=== PATIENT | female | born 1975 | race Two or more races ===

== ENCOUNTER 2016-03-29 05:05 | Emergency (ER) | payer MEDICAID ==
[2016-03-29 05:16] VITALS: TEMP 98.1
--- NOTE | 2016-03-29 05:24 | CPEKG ---
Heart Rate: 104 RR Interval: 577 P-R Interval: 136 QRSD Interval: 78 QT Interval: 344 QTC Interval: 453 P [place]: 61 QRS [place]: -38 T Wave [place]: 39 EKG Severity - ABNORMAL ECG - EKG Impression: SINUS TACHYCARDIA EKG Impression: PROBABLE INFERIOR INFARCT, OLD Electronically Signed By: Alina Dias 31-Mar-2016 00:19:40
[2016-03-29] MEDS ORDERED: LORazepam 1 MG TAB ONE (05:55)
--- NOTE | 2016-03-29 06:03 | EDPHY ---
[id number] 05:26 HPI/ROS: HPI The patient presents with chest pain which is in her lower sternum and epigastrium and radiates toward her left side. The pain is achy in nature, is intermittent, worse after meals, and is associated with nausea and vomiting. This is been present for the last 1 week. She feels similar to when she has had bouts of pancreatitis. She denies any alcohol use. She also reports 1 week of diarrhea with several sick family members at home with similar symptoms. She has not had a fever. She goes to dialysis Friday for end-stage renal disease due to polycystic kidney syndrome. REVIEW OF SYSTEMS Constitutional: No fever, no chills. Eyes: No discharge. ENT: No sore throat. Cardiovascular: + chest pain, no palpitations. Respiratory: No cough, no shortness of breath. Gastrointestinal: See HPI Genitourinary: No hematuria. Musculoskeletal: No back pain. Skin: No rashes. Neurological: No headache. PMHx: Polycystic kidney disease and end-stage renal disease Soc Hx: Lives in [place], family in [place], denies any alcohol use PHYSICAL General Appearance: Alert, no distress Eyes: Pupils equal and round no pallor or injection ENT, Mouth: Mucous membranes moist Respiratory: There are no retractions, lungs are clear to auscultation Cardiovascular: Regular rate and rhythm Gastrointestinal: Abdomen is soft with tenderness in the epigastrium Neurological: A&O, moves all extremities Skin: Warm and dry, dialysis catheter and right chest wall Musculoskeletal: Neck is supple non tender Extremities: symmetrical, full range of motion Psychiatric: Patient is oriented X 3, there is no agitation Source: Patient Exam Limitations: No limitations - Personal History LMP (Females 10-55): 1-7 Days Ago Current Tetanus Diphtheria and Acellular Pertussis (TDAP): Yes Tetanus Vaccine Date: 12/2010 - Medical/Surgical History Hx Asthma: No Hx Chronic Respiratory Disease: No Hx Diabetes: No Hx Cardiac Disease: Yes Hx Renal Disease: Yes Hx Cirrhosis: No Hx Alcoholism: No Hx HIV/AIDS: No Hx Splenectomy or Spleen Trauma: No Other PMH: POLYCYSTIC KIDNEY DISEASE, renal failure, on dialysis - Social History Smoking Status: Never smoked Constitutional: Initial Vital Signs Temperature (C) 36.7 C 03/29/16 05:14 Heart Rate 97 03/29/16 05:14 Respiratory Rate 20 03/29/16 05:14 Blood Pressure 115/80 03/29/16 05:14 O2 Sat (%) 99 03/29/16 05:14 O2 Delivery Mode Nasal Cannula O2 (L/minute) 2 Allergies/Adverse Reactions: hydrochlorothiazide Allergy (Verified 03/29/16 05:13) NSAIDS (Non-Steroidal Anti-Inflamma [Nsaids] Allergy (Verified 03/29/16 05:13) Sulfa (Sulfonamide Antibiotics) Allergy (Verified 03/29/16 05:13) Home Medications: Medication Instructions Recorded Promethazine HCl [Phenergan] 25 mg PO BID PRN 06/23/15 Midodrine HCl 5 mg PO TID PRN 06/24/15 Nitroglycerin 03/29/16 Ondansetron Odt [Zofran Odt 4 mg 4 mg PO Q4 PRN #10 tab 03/29/16 (*)] PHOSLO 03/29/16 Medical Decision Making - Diagnostics EKG Interpretation: EKG: Complete interpretation has been separately recorded in the [email or web address] archive. Summary impression: Rate 104, leftward axis, T-wave flattening in V1 Imaging: Chest x-ray two view demonstrates no infiltrate, no pneumothorax, interpreted by me, radiology interpretation is pending. Procedures: Procedure: IV placement. Using ultrasound guidance, the skin area was prepped with chlorhexidine, an 18 gauge angiocath was placed into the right internal jugular without difficulty. Blood was drawn and the line was secured. Bedside right neck Ultrasound- performed and interpreted by me. Indication: IV placement Findings: Normal appearing right internal jugular vein, no clot present, no soft tissue swelling Impression: Normal right internal jugular ED Course/Re-evaluation: The patient was given Pepcid and morphine. This helped her symptoms significantly. Basic labs were checked and were remarkable for an elevated lipase, consistent with prior labs. She also had elevated BUN and creatinine, however this is not surprising given she has end-stage renal disease. She was given instructions for a clear liquid diet, I will prescribe her a course of Zofran. She will be discharged and has plans to go to dialysis later today. She was unable to provide a stool specimen. Differential Diagnosis: This is a 40-year-old female with polycystic kidney disease on dialysis who presents with what it is initially described as chest pain, however seems to be epigastric pain which radiates to her left side. This pain feels similar to her prior pancreatitis which initially was alcohol induced. She denies any alcohol use recently. Differential diagnosis includes pancreatitis, gastritis, less likely ACS. - Data Points Laboratory Results: Laboratory Results 03/29/16 06:05 03/29/16 06:05 03/29/16 06:05 WBC 7.79 10^3/uL (3.80-9.50) RBC 2.92 L 10^6/uL (4.18-5.33) Hgb 10.1 L g/dL (12.6-16.3) Hct 30.3 L % (38.0-47.0) MCV 103.8 H fL (81.5-99.8) MCH 34.6 H pg (27.9-34.1) MCHC 33.3 g/dL (32.4-36.7) RDW 11.3 L % (11.5-15.2) Plt Count 199 10^3/uL (150-400) MPV 8.9 fL (8.7-11.7) Neut % (Auto) 64.6 % (39.3-74.2) Lymph % (Auto) 25.5 % (15.0-45.0) [place] % (Auto) 6.8 % (4.5-13.0) Eos % (Auto) 2.2 % (0.6-7.6) Baso % (Auto) 0.5 % (0.3-1.7) Nucleat RBC Rel Count 0.0 % (0.0-0.2) Absolute Neuts (auto) 5.03 10^3/uL (1.70-6.50) Absolute Lymphs (auto) 1.99 10^3/uL (1.00-3.00) Absolute Monos (auto) 0.53 10^3/uL (0.30-0.80) Absolute Eos (auto) 0.17 10^3/uL (0.03-0.40) Absolute Basos (auto) 0.04 10^3/uL (0.02-0.10) Absolute Nucleated RBC 0.00 10^3/uL (0-0.01) Immature Gran % 0.4 % (0.0-1.1) Immature Gran # 0.03 10^3/uL (0.00-0.10) Sodium 142 mEq/L (134-144) Potassium 5.0 mEq/L (3.5-5.2) Chloride 101 mEq/L (97-110) Carbon Dioxide 26 mEq/l (22-31) Anion Gap 15 mEq/L (8-16) BUN 63 H mg/dL (7-23) Creatinine 9.6 H* mg/dL (0.6-1.0) Estimated GFR 4 Glucose 84 mg/dL (70-100) Calcium 8.6 mg/dL (8.5-10.4) Total Bilirubin 0.6 mg/dL (0.1-1.4) AST 15 IU/L (14-46) ALT 30 IU/L (9-52) Alkaline Phosphatase 70 IU/L (38-126) Troponin I < 0.012 ng/mL (0-0.034) Total Protein 6.8 g/dL (6.3-8.2) Albumin 3.7 g/dL (3.5-5.0) Lipase 538.0 H IU/L (23-300) Medications Given: Discontinued Medications Famotidine (Pepcid) 20 mg IVP EDNOW ONE Stop: 03/29/16 06:42 Last Admin: 03/29/16 06:57 Dose: 20 mg Lorazepam (Ativan) 1 mg PO EDNOW ONE Stop: 03/29/16 06:09 Last Admin: 03/29/16 06:00 Dose: 1 mg Morphine Sulfate (Morphine) 4 mg IVP EDNOW ONE Stop: 03/29/16 06:14 Last Admin: 03/29/16 06:24 Dose: 4 mg Ondansetron HCl (Zofran) 4 mg IVP EDNOW ONE Stop: 03/29/16 06:05 Last Admin: 03/29/16 06:14 Dose: 4 mg Departure - Departure Disposition: Home, Routine, Self-Care Clinical Impression: Pancreatitis, Polycystic kidney disease, adult type, Renal failure, Diarrhea Condition: Good Instructions: Pancreatitis (ED) Additional Instructions: Please return to the emergency room if your worse in any way. He should follow up with your regular doctor. Please maintain a liquid diet of clear liquids until your feeling better. Then you can try some bland foods. Referrals: IN STATE,. [Primary Care Provider] - As per Instructions Prescriptions: Ondansetron Odt [Zofran Odt 4 mg (*)] 4 mg PO Q4 PRN #10 tab PRN Reason: Nausea/Vomiting, Can'T Take Po
[2016-03-29] MEDS ORDERED: ONDANSETRON 4 MG/2 ML VIAL IVP ONE (06:04)
[2016-03-29] MEDS ORDERED: LORazepam 1 MG TAB PO ONE (06:08)
[2016-03-29 06:13] LABS: % IMMATURE GRANULYOCYTES 0.4 % (0.0-1.1); ABSOLUTE IMMATURE GRANULOCYTES 0.03 10^3/uL (0.00-0.10); ADD DIFF? NO; ADD MORPH? NO; ADD SCAN? NO; ATYPICAL LYMPHOCYTE FLAG 0 (0-99); FRAGMENT RBC FLAG 0 (0-99); HEMATOCRIT 30.3 % (38.0-47.0); HEMOGLOBIN 10.1 g/dL (12.6-16.3); LEFT SHIFT FLG 0 (0-99); LIPEMIA HEMOLYSIS FLAG 80 (0-99); MEAN CELL HEMOGLOBIN 34.6 pg (27.9-34.1); MEAN CELL HEMOGLOBIN CONCENTR. 33.3 g/dL (32.4-36.7); MEAN CELL VOLUME 103.8 fL (81.5-99.8); MEAN PLATELET VOLUME 8.9 fL (8.7-11.7); PLATELET CLUMPS FLAG 0 (0-99); PLATELET COUNT 199 10^3/uL (150-400); RED BLOOD CELL COUNT 2.92 10^6/uL (4.18-5.33); RED CELL DISTRIBUTION WIDTH 11.3 % (11.5-15.2)
[2016-03-29 06:31] LABS: ALANINE AMINOTRANSFERASE 30 IU/L (9-52); ALBUMIN 3.7 g/dL (3.5-5.0); ALKALINE PHOSPHATASE 70 IU/L (38-126); ANION GAP 15 mEq/L (8-16); ASPARTATE AMINOTRANSFERASE 15 IU/L (14-46); BILIRUBIN,TOTAL 0.6 mg/dL (0.1-1.4); CALCIUM 8.6 mg/dL (8.5-10.4); CARBON DIOXIDE 26 mEq/l (22-31); CHLORIDE 101 mEq/L (97-110); GLOMERULAR FILTRATION RATE 4; GLUCOSE 84 mg/dL (70-100); SODIUM 142 mEq/L (134-144); TOTAL PROTEIN 6.8 g/dL (6.3-8.2)
[2016-03-29 06:36] LABS: CREATININE 9.6 mg/dL (0.6-1.0)
[2016-03-29 06:40] LABS: TROPONIN I < 0.012 ng/mL (0-0.034)
[2016-03-29] MEDS ORDERED: FAMOTIDINE 20 MG/2 ML SDV IVP ONE (06:41)
[2016-03-29] MEDS ORDERED: FAMOTIDINE 20 MG/NACL/50 ML BAG IV ONE (06:44)
[2016-03-29 07:22] VITALS: BP 115/60; PULSE 95; RESP 16; O2SAT 95
--- NOTE | 2016-03-29 08:24 | DX ---
PA and Lateral Chest March 29, 2016 5:48 a.m. Indication: Chest pain. Comparison: Two-view chest dated February 09, 2016. Findings: The lungs are well aerated and clear. No pneumothorax, consolidation, or effusion. Heart si ze normal. The tunneled dialysis catheter is well-positioned at the junction of the superior vena cav a and right atrium. Impression: Clear lungs. No fluid overload or acute process.
== END 2016-03-29 07:46 | disposition home or self-care (01) ==
DX: K85.90 Acute pancreatitis without necrosis or infection, unspecified (principal); Q61.2 Polycystic kidney, adult type; N18.6 End stage renal disease
CPT/HCPCS: 96374; J2405

== ENCOUNTER 2016-04-02 13:13 | Emergency (ER) | payer MEDICAID ==
[2016-04-02 13:27] VITALS: RESP 16; O2SAT 98
--- NOTE | 2016-04-02 13:40 | EDPHY ---
H & P Stated Complaint: vaginal pain x 1 wk. dx w UTI, taking abx as directed but sx not resolving. - Personal History LMP (Females 10-55): 8-14 Days Ago Current Tetanus/Diphtheria Vaccine: Yes Current Tetanus Diphtheria and Acellular Pertussis (TDAP): Yes Tetanus Vaccine Date: 12/2010 - Medical/Surgical History Hx Asthma: No Hx Chronic Respiratory Disease: No Hx Diabetes: No Hx Cardiac Disease: No Hx Renal Disease: Yes Hx Cirrhosis: No Hx Alcoholism: No Hx HIV/AIDS: No Hx Splenectomy or Spleen Trauma: No Other PMH: POLYCYSTIC KIDNEY DISEASE, renal failure, on dialysis - Social History Smoking Status: Never smoked Time Seen by Provider: 04/02/16 13:31 Constitutional: Initial Vital Signs Temperature (C) 36.9 C 04/02/16 13:23 Heart Rate 108 H 04/02/16 13:23 Respiratory Rate 16 04/02/16 13:23 Blood Pressure 122/76 H 04/02/16 13:23 O2 Sat (%) 98 04/02/16 13:23 O2 Delivery Mode Room Air Allergies/Adverse Reactions: hydrochlorothiazide Allergy (Verified 04/02/16 13:22) NSAIDS (Non-Steroidal Anti-Inflamma [Nsaids] Allergy (Verified 04/02/16 13:22) Sulfa (Sulfonamide Antibiotics) Allergy (Verified 04/02/16 13:22) Home Medications: Medication Instructions Recorded Midodrine HCl 5 mg PO TID PRN 06/24/15 PHOSLO 03/29/16 Hydrocodone/APAP 5/325 [[place] 1 - 2 each PO Q4-6PRN PRN #20 tab 04/02/16 5/325] Medical Decision Making ED Course/Re-evaluation: CHIEF COMPLAINT: Vaginal pain HISTORY OF PRESENT ILLNESS: 40-year-old female who gets dialysis 3 days a week. She is complaining of vaginal pain specifically with intercourse and pretty much any other time. She denies any discharge. She was recently treated for UTI with Keflex and then switched to Bactrim and she does not believe he has any UTI symptoms. She has had yeast infections with antibiotics in the past but she states this feels more painful although it could be. She denies any vaginal trauma or systemic illness. REVIEW OF SYSTEMS: A 10 point review of systems was performed and is negative with the exception of the elements mentioned in the history of present illness. PHYSICAL EXAM: HR, BP, O2 Sat, RR. Temp noted General Appearance: Alert, well hydrated, appropriate, and non-toxic appearing. Head: Atraumatic without scalp tenderness or obvious injury Eyes: Pupils equal, round, reactive to light and accommodation, EOMI, no trauma , no injection. Ears: Clear bilaterally, no perforation, normal landmarks Nose: Atraumatic, no rhinorrhea, clear. Throat: There is no erythema or exudates, no lesions, normal tonsils, mucus membranes moist. Neck: Supple, 2+ carotid upstroke, nontender, no lymphadenopathy. Respiratory: No retractions, no distress, no wheezes, and no accessory muscle use. Lungs are clear to auscultation bilaterally. Cardiovascular: Regular rate and rhythm, no murmurs, rubs, or gallops. Bilateral carotid, radial, dorsalis pedis, and posterior tibial pulses intact. Good capillary refill all extremities. Gastrointestinal: Abdomen is soft, nontender, non-distended, no masses, no rebound, no guarding, no peritoneal signs. Musculoskeletal: Normal active ROM of all extremities, atraumatic. Neurological: Alert, appropriate, and interactive. The patient has normal DTRs and non-focal cranial nerves, motor, sensory, and cerebellar exam. Skin: No rashes, good turgor, no nodules on palpation. Pelvic exam: Normal inspection, small amount of white discharge, no evidence of erythema or excoriation or any lesions. Swabs were taken Past medical history: Dialysis patient Past surgical history: Noncontributory to today's visit Family history: Noncontributory Social history: Single, employed, does not abuse tobacco drugs or alcohol DIFFERENTIAL DIAGNOSIS: Includes but is not limited to: GC, chlamydia, bacterial vaginosis, yeast infection, vaginal trauma MEDICAL DECISION MAKING: This patient is in no distress. We will get both clean and dirty urine for GC and chlamydia probes. I will perform vaginal cultures and assess for bacterial vaginosis and yeast hyphae. Vaginal exam does not yield any specific findings. There is a small amount of white discharge otherwise is fairly unremarkable. Swabs are pending as is a urinalysis. The vaginal swabs have come back with no evidence of yeast or Trichomonas or clue cells. Once again she had a very normal examination. Urinalysis has some blood in it but no evidence of white cells or infection. Other tests are pending I will give her some pain pills and have her follow up with her primary doctor or air operations manager. This patient states that her doctor is out of town for 2 weeks and I have encouraged her to see 1 of her on-call doctors in the next 24-48 hours to follow up on the culture results. (Nasim Zhang) Other Provider: 5:00 p.m.-after this patient left the emergency department, I received a phone call from the [facility] Pharmacist. The pharmacist informed me of excessive narcotic prescriptions for this patient in the last week, and as well as multiple prescriptions for narcotic pain medications from multiple providers recently. On 03/28/2016, she received a prescription for Percocet #30 and on she received a prescription for oxycodone 5 mg tablets, #60. I reviewed this patient's emergency department chart and she presented for vaginal pain, without objective evidence of an acute painful disorder. I told the pharmacist to decline the prescription for [place]. I was not otherwise involved in the care this patient. (Marcella Delcid) - Data Points Laboratory Results: 04/02/16 04/02/16 13:50 13:40 Urine Color YELLOW Urine Appearance MODERATELY TURBID Urine pH 9.0 H (5.0-7.5) Ur Specific [place] 1.008 (1.002-1.030) Urine Protein 2+ H (NEGATIVE) Urine Ketones NEGATIVE (NEGATIVE) Urine Blood 1+ H (NEGATIVE) Urine Nitrate NEGATIVE (NEGATIVE) Urine Bilirubin NEGATIVE (NEGATIVE) Urine Urobilinogen NEGATIVE EU (0.2-1.0) Ur Leukocyte Esterase NEGATIVE (NEGATIVE) Urine RBC 10-15 H /hpf (0-3) Urine WBC 1-3 /hpf (0-3) Ur Epithelial Cells 1+ /lpf (NONE-1+) Urine Mucus TRACE /lpf (NONE-1+) Ur Culture Indicated? NOT INDICATED (NI) Urine Glucose 2+ H (NEGATIVE) Trichomonas (Wet Prep) NO CLUE CELLS SEEN Celia species DNA Pending C.trachomatis RNA (TMA) Pending Gardnerella DNA Probe Pending N.gonorrhoeae RNA (TMA) Pending Trichomonas DNA Probe Pending Departure - Departure Disposition: Home, Routine, Self-Care Clinical Impression: Dyspareunia Condition: Good Instructions: Vaginitis (ED) Additional Instructions: Follow up with her primary doctor or air operations manager for the rest of the culture results Referrals: IN STATE,. [Primary Care Provider] - As per Instructions Prescriptions: Hydrocodone/APAP 5/325 [[place] 5/325] 1 - 2 each PO Q4-6PRN PRN #20 tab PRN Reason: Pain, Moderate
[2016-04-02 14:00] LABS: COLOR YELLOW; LEUKOCYTE ESTERASE,URINE NEGATIVE (NEGATIVE); NITRITE,URINE NEGATIVE (NEGATIVE)
[2016-04-02 14:07] LABS: MUCUS TRACE /lpf (NONE-1+)
[2016-04-02 15:07] VITALS: BP 125/74; PULSE 99; TEMP 97.5
[2016-04-03 13:05] LABS: CHLAMYDIA AMPLIFICATION GENPRB NEGATIVE (NEGATIVE)
== END 2016-04-02 15:07 | disposition home or self-care (01) ==
DX: N94.10 Unspecified dyspareunia (principal); Z99.2 Dependence on renal dialysis

== ENCOUNTER 2016-05-20 19:45 | Inpatient (IN) | payer OTHER, MEDICAID ==
--- NOTE | 2016-05-20 20:01 | CPEKG ---
Heart Rate: 100 RR Interval: 600 P-R Interval: 136 QRSD Interval: 74 QT Interval: 368 QTC Interval: 475 P [place]: 55 QRS [place]: -34 T Wave [place]: 31 EKG Severity - BORDERLINE ECG - EKG Impression: SINUS TACHYCARDIA EKG Impression: LEFT AXIS DEVIATION EKG Impression: BORDERLINE R WAVE PROGRESSION, ANTERIOR LEADS Electronically Signed By: Max Corea 22-May-2016 16:37:43
--- NOTE | 2016-05-20 20:46 | EDPHY ---
H & P Stated Complaint: ME week ago, ESRD 2.4 kg today, CP sternal and back,? DVT Time Seen by Provider: 05/20/16 19:55 HPI/ROS: Chief complaint: Chest pain HPI: 40-year-old female with a past medical history of end-stage renal de failure, on dialysis Friday, Friday, Friday. Patient states that she had a heart attack 2 weeks ago and was seen at [facility]. She states she left that hospital early because she did not want to stay there anymore. Patient states she has subsequently followed up with her primary care doctor and was scheduled for cardiac catheterization tomorrow but has postponed till because she wants to go to the [facility]. Patient was on a wait list for a kidney transplant but has been downgraded since she left [facility] for Heart attack 2 weeks ago. Patient states she woke this morning with 10/10 chest pain but this went away with 4 nitroglycerin. She did go and have her regular dialysis today did not have any pain with it. Patient states that the pain came back at about 7 o'clock this evening. It is central in chest and described as pressure. It does feel similar to her heart attack from 2 weeks ago. ROS: 10 point Review of Systems is negative except as noted in the HPI. Past medical history: End-stage renal failure secondary to polycystic kidney disease on dialysis Friday Coronary artery disease status post ME 2 weeks ago pending catheterization Physical exam: Gen: Awake, Alert, No Distress HEENT: Nose: no rhinorrhea Eyes: PERRLA, EOMI Mouth: Moist mucosa Neck: Supple, no JVD Chest: nontender, lungs clear to auscultation Heart: S1, S2 normal, no murmur Abd: Soft, non-tender, no guarding Back: no CVA tenderness, no midline tenderness Ext: no edema, mild left thigh tenderness without erythema. Calf sores soft and nontender Skin: no rash Neuro: CN II-XII intact, Sensation grossly intact, Strength 5/5 in bilateral upper and lower extremities - Personal History Current Tetanus/Diphtheria Vaccine: Yes Tetanus Vaccine Date: 12/2010 - Medical/Surgical History Hx Asthma: No Hx Chronic Respiratory Disease: No Hx Diabetes: No Hx Cardiac Disease: Yes Hx Renal Disease: Yes Hx Cirrhosis: No Hx Alcoholism: No Hx HIV/AIDS: No Hx Splenectomy or Spleen Trauma: No Other PMH: ESRD-on Dialysis, hypotension, hep c, sterilized 05/2016, ME 05/17 - Social History Smoking Status: Never smoked Constitutional: Initial Vital Signs Temperature (C) 37.0 C 05/20/16 19:48 Heart Rate 111 H 05/20/16 19:48 Respiratory Rate 18 05/20/16 19:48 Blood Pressure 119/66 05/20/16 19:48 O2 Sat (%) 100 05/20/16 19:48 O2 Delivery Mode Nasal Cannula O2 (L/minute) 2 Allergies/Adverse Reactions: levofloxacin [Levofloxacin] Allergy (Severe, Verified 05/20/16 19:54) Anaphylaxis Marijuana/Cannabi *RETIRED-11/11/11 [Marijuana/Cannabinoid] Allergy (Severe, Verified 05/20/16 19:54) Anaphylaxis strawberry Allergy (Severe, Verified 05/20/16 19:54) Anaphylaxis hydrochlorothiazide Allergy (Verified 05/20/16 19:54) NSAIDS (Non-Steroidal Anti-Inflamma [Nsaids] Allergy (Verified 05/20/16 19:54) Sulfa (Sulfonamide Antibiotics) Allergy (Verified 05/20/16 19:54) Home Medications: Medication Instructions Recorded Midodrine HCl 5 mg PO TID PRN 06/24/15 Calcium Acetate [Phoslo (*)] 3 cap PO TID 12/05/15 Midodrine HCl 10 mg PO TID 12/05/15 Ondansetron Odt [Zofran Odt 4 mg 4 mg PO Q8 PRN 12/05/15 (*)] oxyCODONE IR [Oxycodone Ir (*)] 30 mg PO BID PRN 12/05/15 PHOSLO 03/29/16 Hydrocodone/APAP 5/325 [[place] 1 - 2 each PO Q4-6PRN PRN #20 tab 04/02/16 5/325] Medical Decision Making - Diagnostics EKG Interpretation: ECG: A1959 sinus tachycardia with a rate of 100, left axis deviation, normal intervals, nonspecific R-wave progression otherwise no acute ST or T-wave changes. Imaging: Chest x-ray shows dialysis cath in good position otherwise negative. ED Course/Re-evaluation: 40-year-old with a history of coronary disease, recent ME has not had a catheterization who is been having chest pain today, relieved with nitroglycerin. She also is complaining of some leg pain and concerned about DVT. D-dimer is normal here. Troponins negative. I have discussed with Dr. Prescott, hospitalist. Will admit to his service for further evaluation. - Data Points Laboratory Results: Laboratory Results 05/20/16 20:05 05/20/16 20:05 05/20/16 05/20/16 05/20/16 21:13 20:05 20:05 WBC 7.00 10^3/uL 10^3/uL (3.80-9.50) RBC 2.63 10^6/uL L 10^6/uL (4.18-5.33) Hgb 9.4 g/dL L g/dL (12.6-16.3) Hct 26.8 % L % (38.0-47.0) MCV 101.9 fL H fL (81.5-99.8) MCH 35.7 pg H pg (27.9-34.1) MCHC 35.1 g/dL g/dL (32.4-36.7) RDW 12.6 % % (11.5-15.2) Plt Count 292 10^3/uL 10^3/uL (150-400) MPV 9.4 fL fL (8.7-11.7) Neut % (Auto) 70.1 % % (39.3-74.2) Lymph % (Auto) 22.4 % % (15.0-45.0) [place] % (Auto) 6.1 % % (4.5-13.0) Eos % (Auto) 0.7 % % (0.6-7.6) Baso % (Auto) 0.1 % L % (0.3-1.7) Nucleat RBC Rel Count 0.0 % % (0.0-0.2) Absolute Neuts (auto) 4.90 10^3/uL 10^3/uL (1.70-6.50) Absolute Lymphs (auto) 1.57 10^3/uL 10^3/uL (1.00-3.00) Absolute Monos (auto) 0.43 10^3/uL 10^3/uL (0.30-0.80) Absolute Eos (auto) 0.05 10^3/uL 10^3/uL (0.03-0.40) Absolute Basos (auto) 0.01 10^3/uL L 10^3/uL (0.02-0.10) Absolute Nucleated RBC 0.00 10^3/uL 10^3/uL (0-0.01) Immature Gran % 0.6 % % (0.0-1.1) Immature Gran # 0.04 10^3/uL 10^3/uL (0.00-0.10) D-Dimer 0.39 ug/mLFEU ug/mLFEU (0.00-0.50) Sodium 138 mEq/L mEq/L (134-144) Potassium 3.8 mEq/L mEq/L (3.5-5.2) Chloride 94 mEq/L L mEq/L (97-110) Carbon Dioxide 33 mEq/l H mEq/l (22-31) Anion Gap 11 mEq/L mEq/L (8-16) BUN 25 mg/dL H mg/dL (7-23) Creatinine 4.1 mg/dL H mg/dL (0.6-1.0) Estimated GFR 12 Glucose 119 mg/dL H mg/dL (70-100) Calcium 7.6 mg/dL L mg/dL (8.5-10.4) Troponin I < 0.012 ng/mL ng/mL (0-0.034) Departure - Departure Disposition: [facility] Inpatient Acute Clinical Impression: Chest pain Condition: Fair Referrals: BHARGAV ROBLERO [Other] - As per Instructions
[2016-05-20 20:53] LABS: % IMMATURE GRANULYOCYTES 0.6 % (0.0-1.1); ABSOLUTE IMMATURE GRANULOCYTES 0.04 10^3/uL (0.00-0.10); ADD DIFF? NO; ADD MORPH? NO; ADD SCAN? NO; ATYPICAL LYMPHOCYTE FLAG 10 (0-99); FRAGMENT RBC FLAG 10 (0-99); HEMATOCRIT 26.8 % (38.0-47.0); HEMOGLOBIN 9.4 g/dL (12.6-16.3); LEFT SHIFT FLG 0 (0-99); LIPEMIA HEMOLYSIS FLAG 90 (0-99); MEAN CELL HEMOGLOBIN 35.7 pg (27.9-34.1); MEAN CELL HEMOGLOBIN CONCENTR. 35.1 g/dL (32.4-36.7); MEAN CELL VOLUME 101.9 fL (81.5-99.8); MEAN PLATELET VOLUME 9.4 fL (8.7-11.7); PLATELET CLUMPS FLAG 10 (0-99); PLATELET COUNT 292 10^3/uL (150-400); RED BLOOD CELL COUNT 2.63 10^6/uL (4.18-5.33); RED CELL DISTRIBUTION WIDTH 12.6 % (11.5-15.2)
[2016-05-20 20:59] LABS: ANION GAP 11 mEq/L (8-16); CALCIUM 7.6 mg/dL (8.5-10.4); CARBON DIOXIDE 33 mEq/l (22-31); CHLORIDE 94 mEq/L (97-110); CREATININE 4.1 mg/dL (0.6-1.0); GLOMERULAR FILTRATION RATE 12; GLUCOSE 119 mg/dL (70-100); POTASSIUM 3.8 mEq/L (3.5-5.2); SODIUM 138 mEq/L (134-144)
[2016-05-20 21:10] LABS: TROPONIN I < 0.012 ng/mL (0-0.034)
[2016-05-21] MEDS ORDERED: ONDANSETRON 4 MG/2 ML VIAL IVP PRN (00:46)
[2016-05-21] MEDS ORDERED: ACETAMINOPHEN 325 MG TAB PO PRN (00:46)
[2016-05-21] MEDS ORDERED: ONDANSETRON DISINTEGRATING 4 MG TAB PO PRN (00:46)
[2016-05-21] MEDS ORDERED: PROMETHAZINE HCL 25 MG TAB PO PRN ×2 (00:59→11:18)
--- NOTE | 2016-05-21 01:52 | GHP ---
[f rep st] HISTORY AND PHYSICAL DATE OF ADMISSION: 05/20/2016 Ms. Hercules is a 40-year-old female with a history of endstage renal disease and a strong family his tory of coronary artery disease, including 2 brothers who have from heart attacks, with an epis ode of chest pain. It sounds like in the last few weeks, she was seen at [facility] w ith chest pain. She was told she was having a heart attack. She left AMA. This resulted in her ge tting downgraded on the transplant list. She saw her primary care physician, who actually scheduled a cardiac catheterization at [facility]. She is scheduled for the morning of Friday, the , at 8:00 a.m. It sounds like at some point in the past, she has had positive stress test. She had a negative stress test here about 5 years ago. She had an episode of chest pain earlier in the day that was relieved by nitroglycerin. She thought perhaps initially it was heartburn. It is nonexertional. It is not associated with heart failure symptoms. She does not have typical anginal symptoms with e xertion. 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 She has an appointment for removal of a dialysis catheter, as it sounds like her fistula is beginnin g to function. No fever, chills, cough, sputum, nausea, vomiting, diarrhea. REVIEW OF SYSTEMS: Complete 10-point review of systems conducted and negative, except as noted in t he HPI. PAST MEDICAL HISTORY: 1. End-stage renal disease secondary to polycystic kidney disease. 2. History of substance abuse and alcoholism, sober for 12 years. 3. History of MRSA UTI. 4. History of hypotension, on midodrine. 5. Nephrolithiasis. 6. Alcohol-induced pancreatitis. 7. Hepatitis C. 8. Cardiac arrest secondary to drug overdose with reports of cardiopathy. 9. Possible recent positive stress. 10. She had a , C-spine surgery, and laser lithotripsy. MEDICATIONS: An unreconciled home medication list with midodrine, ondansetron, PhosLo, [place], and o xycodone IR. ALLERGIES: She is allergic to levofloxacin, marijuana, strawberries, hydrochlorothiazide, NSAIDs, a nd sulfa. FAMILY HISTORY: Notable for coronary artery disease and polycystic kidney disease. SOCIAL HISTORY: She does not smoke cigarettes, drink alcohol, or use drugs. 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 . Lives in [place]. Gets dialysis in [place]. PHYSICAL EXAM: VITAL SIGNS: Presenting temperature 37, blood pressure 119/66, pulse 111, now 91, b reathing 18 times a minute, 100% on 2 L. In general, no acute distress. HEENT: Sclerae anicteric. Oropharynx clear. Mucous membranes are moist. NECK: Supple. No lymphadenopathy or JVD. LUNGS: Clear to auscultation bilaterally. HEART: S1, S2. ABDOMEN: Soft, nontender, nondistended. LOW ER EXTREMITIES: Without edema. Calves nontender. SKIN: Without rash. NEUROLOGIC: Nonfocal. Dangelo zapata has a tunneled dialysis catheter in her right chest. She has a fistula in the left biceps. LABS/X-RAYS: White count 7, hematocrit 26.8, platelets are 292,000, all in their baseline. D-dimer is normal. Sodium 138, potassium 3.8, chloride 94, bicarb 32, BUN 25, creatinine 4.1, glucose 119. Troponin less than 0.012. Chest x-ray, interpreted by me, shows no acute cardiopulmonary disease. EKG, interpreted by me, shows sinus tachycardia, with left axis deviation. No ST or T-wave changes. When compared with the prior EKG from earlier in the year, it is similar in morphology, but there is no tachycardia. \E\ I have discussed the case with Dr. Asif Travis. ASSESSMENT AND PLAN: A 40-year-old female, who presented with chest pain. 1. Chest pain. She has significant risk factors, family history and end-stage renal disease. She has a negative troponin, not in heart failure on presentation. I think it is reasonable, given her upcoming cardiac catheterization, to cycle troponins and monitor on telemetry. I will give her an a spirin, as this was not in the emergency department. 2. End-stage renal disease. She gets dialysis in [place]. She is not due for dialysis today. 3. Hypertension. We will continue her midodrine when her medications have been reconciled. 4. Prophylaxis. She is moderate risk. Pharmacologic prophylaxis is indicated, if in the hospital longer than 48 hours. 5. Disposition. Observation status. 6. Question pulmonary embolism. She has sinus tachycardia, but normal D-dimer. I think it has bee n effectively ruled out by this. 7. Anemia. This is anemia of chronic kidney disease. We will follow. /[id number]/MODL
[2016-05-21] MEDS ORDERED: guaiFENesin 600 MG TAB.ER PO SCH (09:00)
[2016-05-21] MEDS ORDERED: ASPIRIN 81 MG CHEWABLE TAB PO SCH (09:00)
--- NOTE | 2016-05-21 10:03 | GCON ---
[f rep st] CONSULTATION NEPHROLOGY CONSULTATION DATE OF CONSULTATION: 05/21/2016 REASON FOR CONSULTATION: Chest pain, and management of end-stage renal disease. HISTORY OF PRESENT ILLNESS: Denny is a 40-year-old female well known to the Renal service, with a h istory of end-stage renal disease, secondary to polycystic kidney disease, who now presents relating to chest pain. We have taken care of many of Denny's relative's relating to their PKD type 2, and the complications relating to this. Denny presently is living in [place] with her boyfriend, but di alyzes at the [facility] near [facility] under the care of Grabiel Gonsalves [facility]. She dialyzes on a Friday, , Friday schedule. She has been dialyzing via a f istula for the last month, but still has a catheter in place. We did see Denny in [facility] in December of last year. At that point, it was thmargie ht that she had a catheter infection, and she was treated through this. More recently, the patient has been having intermittent chest pain. She has had several admissions at different institutions for this. It sounds as if she has been admitted to [facility], [facility], and now [facility] relating to these complaints. The patient has never had a card iac catheterization. Per her report, she is scheduled for a cardiac catheterization at [facility] later this week. The patient presented to the emergency room last evening relating to left-sided chest pressure. It was relieved by nitroglycerin. She has not had exertional symptoms. She has not had issues with he art failure. Her initial evaluation here includes 3 negative troponin levels. Her blood pressure i s presently 107/71, and she is not requiring supplemental oxygen. As related to the above issues, w e are asked by the hospitalist service to assist the patient's renal diagnosis and management. PAST MEDICAL HISTORY: 1. End-stage renal disease secondary to polycystic kidney disease. 2. History of substance abuse and alcoholism, reportedly sober for 12 years. 3. History of MRSA UTI. 4. History of hypotension on chronic midodrine. 5. Nephrolithiasis. 6. Alcohol-induced pancreatitis. 7. Hepatitis C positivity. 8. History of cardiac arrest secondary to past drug overdose. SURGICAL HISTORY: 1. . 2. C-spine surgery. 3. Laser lithotripsy. 4. Fistula placement. 5. Catheter placement. CURRENT MEDICATIONS: Tylenol p.r.n., aspirin p.r.n. Phenergan p.r.n. FAMILY HISTORY: Positive for polycystic kidney disease and coronary artery disease. SOCIAL HISTORY: As above, the patient has had a significant history of polysubstance abuse in the p ast. She states this is no longer an issue. She is living with a boyfriend in [place]. She is not smoking cigarettes or drinking alcohol. REVIEW OF SYSTEMS: The patient's appetite and energy levels are stable. She denies fevers, chills or sweats. She denies headaches. She denies visual disturbances. She denies rhinitis or sore thro at. She denies cough or shortness of breath. She has chest pain as noted above. She denies abdomi nal pain, constipation, diarrhea. She has been having some dysuria. She has had some left lower ex tremity edema. She denies skin rashes. She does have some symptoms of peripheral neuropathy. She does not have a history of diabetes or thyroid disease. PHYSICAL EXAMINATION: GENERAL: At time of exam, the patient is appropriate and alert. VITAL SIGNS : Temperature afebrile, pulse 83, blood pressure 107/71. EYES: Sclerae clear. ENT: Oropharynx cl ear. NECK: No lymphadenopathy or thyromegaly. The patient's tunnel and exit site for her catheter look okay. LUNGS: Clear auscultation bilaterally. CARDIOVASCULAR: Regular rate and rhythm withou t gallops or rubs. She does have a systolic murmur. ABDOMEN: Soft, nontender. /RECTAL: Deferr ed. EXTREMITIES: No lower extremity edema. INTEGUMENTARY: Generally clear. The patient's access site looks good and has a good bruit. NEURO: No focal findings. LABORATORY STUDIES: Sodium 138, potassium 3.8, bicarb 33, creatinine 4.1, white count of 7, hematoc rit 26.8, platelet count 292. IMPRESSION AND PLAN: 1. Chest pain. The patient has had chest pain, that has occurred on and off for the past several m onths. She has had several hospital admissions for this. There is a question of a past positive st ress test. She does have an elective catheterization scheduled later this week at [facility]. Her troponins thus far are negative. The need for cardiac catheterization does not appear to b e in acute one, but given her symptoms and her ongoing hospitalizations, I do believe it would be he lpful relating to future care decisions. Relating to this, I am in favor of her getting a cardiac c atheterization at some point in the future. Whether this is done in this hospital, or an outside in [facility], I would leave to the Cardiology service. 2. Dysuria. We will check a urinalysis and culture. 3. End-stage renal disease. The patient will be scheduled for dialysis tomorrow if she remains in- house. 4. Access. The patient has a tunneled catheter which she needs removed. We will request its remova l today. I have discussed this with Cardiology. If she needs anti-platelet therapy, she should hav e sometime between removal and the initiation of this. Thank for allowing me to participate in this pleasant lady's care. We will continue to follow her c losely with you. /[id number]/MODL
[2016-05-21 10:56] LABS: INR 1.06 (0.83-1.16); PROTIME(PATIENT) 13.7 SEC (12.0-15.0)
[2016-05-21] MEDS ORDERED: NITROGLYCERIN 0.4 MG BTL SL PRN (11:18)
[2016-05-21] MEDS ORDERED: TEMAZEPAM 15 MG CAP PO PRN (11:29)
[2016-05-21] MEDS ORDERED: ASPIRIN EC 81 MG TAB PO SCH (11:30)
--- NOTE | 2016-05-21 11:33 | HOSPPROG ---
Hospitalist Progress Note Assessment/Plan: # chest pain - plan cath tomorrow; cont asa; check lipids # ESRD d/t PCKD - remove tunneled cath, HD has been through fistula - hold lasix today # chronic hypotension - midodrine # vTE ppx - SCDs for now, lovenox when post procedure ## new pt to me discussed with Namrata Harris chart reviewed CXR personally reviewed Subjective: feels ok, comfortable today Objective: Vital Signs Temp Pulse Resp BP Pulse Ox 36.8 C 86 18 107/71 97 05/21/16 08:00 05/21/16 08:00 05/21/16 08:00 05/21/16 08:00 05/21/16 08:00 05/20/16 05/21/16 05/22/16 05:59 05:59 05:59 Intake Total 300 Balance 300 PT 13.7 SEC (12.0-15.0) 05/21/16 10:30 INR 1.06 (0.83-1.16) 05/21/16 10:30 - Physical Exam Constitutional: no apparent distress, appears nourished Cardiovascular: regular rate and rhythym, systolic murmur, other (R tunneled catheter in place), No irregularly irregular, No diastolic murmur Respiratory: no respiratory distress, no rales or rhonchi, clear to auscultation Gastrointestinal: normoactive bowel sounds, soft, non-tender abdomen, no palpable masses ICD10 Worksheet Patient Problems: Problems Problem Status Onset Chest pain Acute Abdominal pain Active Disorder of pancreas Active MRSA - Methicillin resistant Staphylococcus aureus infection Active MRSA - Methicillin resistant Staphylococcus aureus infection Active Metabolic acidosis Active Renal failure syndrome Active Chest pain Acute Dialysis complication Acute Hypotension Acute Renal failure Acute
[2016-05-21] MEDS: ASPIRIN EC 81 MG TAB PO SCH (12:14)
[2016-05-21] MEDS: oxyCODONE IR 5 MG TAB PO PRN ×2 (12:37→21:44)
--- NOTE | 2016-05-21 12:58 | GCON ---
[f rep st] CONSULTATION CARDIOLOGY CONSULTATION DATE OF CONSULTATION: 05/21/2016 REFERRING PHYSICIAN: Eugene Patterson MD REASON FOR CONSULTATION: We were asked by Dr. Pattreson of [facility] to evaluate the patient for her chest pain. HISTORY OF PRESENT ILLNESS: The patient is a 40-year-old female with multiple chronic medical condi tions including end-stage renal disease on hemodialysis, orthostatic hypotension, polycystic kidney disease, hepatitis C, who is admitted for chest pain. She reports symptoms of chest pain for actual ly several years now. Over the past couple of weeks, it has gotten to be severe in intensity. She was seen at [facility] a couple of weeks ago and was given a nitroglycerin drip for he r chest pain. She, however, left AMA for unclear reasons. She reports that she has been noting a m idsternal chest discomfort that has been radiating into her back. This is now occurring daily, last ing for quite a while until she takes nitroglycerin. She has had associated shortness of breath and diaphoresis. She also notes that her blood pressure has gone up to 200 with this. Overall, she de nies any PND, orthopnea, palpitations, presyncope, syncope. She is quite limited in her ability to exercise over these past few weeks which she relates to her shortness of breath and chest pain. Summer arently, she had a stress test that was positive recently and actually was scheduled for a cardiac c atheterization for later this week at [facility]. REVIEW OF SYSTEMS: A complete 10-point review of systems was obtained and is negative except for wh at is dictated in HPI. PAST MEDICAL HISTORY: 1. End-stage renal disease secondary to polycystic kidney disease with a functioning fistula, on he modialysis. 2. History of substance abuse and alcoholism. 3. History of MRSA UTI. 4. History of hypotension on midodrine. 5. Nephrolithiasis. 6. History of alcohol induced pancreatitis. 7. History of hepatitis C. 8. History of cardiac arrest secondary to drug overdose. 9. History of C-sections, C-spine surgery, and laser lithotripsy. MEDICATIONS: Home medications are listed as midodrine, Renvela, Lasix, promethazine, aspirin, and n itroglycerin. ALLERGIES: Levofloxacin, marijuana, Zofran, strawberry, hydrochlorothiazide, NSAIDs, and sulfonamid es. FAMILY HISTORY: Notable for CAD with brother who of an IA within the year at age 34. She has another brother who had, what sounds like coronary stenting and CHF. Apparently he also has valvula r heart disease and has been recommended to have valve surgery. SOCIAL HISTORY: She is engaged and her fiance is present in the room. She does not smoke cigarette s and has abstained from alcohol. PHYSICAL EXAMINATION: VITAL SIGNS: Blood pressure 107/71, heart rate of 86, respirations 18, O2 sa turation 97% on room air. GENERAL: She is a pleasant female in no apparent distress. HEENT: Eyes : PERRL. Mucous membranes moist. Head: Normocephalic, atraumatic. NECK: Has an external jugula r line present. HEART: Regular rate and rhythm with a 2/6 systolic flow murmur present. LUNGS: C lear to auscultation. ABDOMEN: Soft, nontender, nondistended. SKIN: Warm and dry without edema p resent. PSYCH: Normal mood and affect. NEUROLOGIC: No focal deficits detected. LABORATORY DATA: CBC with WBC 7, hemoglobin 9.4, hematocrit 26.8, MCV 101.9, platelet count 292. B MP was sodium 138, potassium 3.8, chloride 94, CO2 of 33, BUN 25, creatinine 4.1, glucose 119. Trop onins negative x3. 12-lead ECG personally interpreted sinus rhythm with delayed R-wave progression, LAFB, and borderlin e QTc prolongation. Chest x-ray shows no evidence of CHF. IMPRESSION AND PLAN: The patient is a 40-year-old female who presents with chest pain. She has a s delma family history of coronary artery disease. She also has a history of recent abnormal myocardi al perfusion imaging. 1. Chest pain. Options were reviewed and we will proceed to a left heart catheterization for [facility] evaluation. Risks, benefits, and alternatives reviewed. 2. Chronic kidney disease. This was reviewed with Dr. Baer. Plan will be for hemodialysis po st catheterization. 3. Heart murmur with a family history of valvular heart disease. We will plan to get an echo in is admission. /[id number]/MODL
[2016-05-21] MEDS: PANTOPRAZOLE SODIUM 40 MG TAB PO SCH (14:22)
[2016-05-21] MEDS ORDERED: NON-FORMULARY NEW DRUG (Sevelamer Carbonate [Renvela] 800 MG) PO SCH (16:00)
--- NOTE | 2016-05-21 17:23 | ECHO ---
[id number] + + [address] : : [place] [address] : : [phone] + Adult Echocardiographic Report + ----+ :Name: Rick DODD Date: 05/21/2016 10:36 AM : : Hospital Admission Number: [id number] Location: 212: :: 1975 Gender: Female Height: 62 in : :Age: 40 yrs [facility]: [facility] Weight: 137 lb : :Reason For Study: Eval LV Fx : : BSA: 1.6 meters2 : :History: Murmur, Dialysis, Chest Pain : + ----+ MMode/2D Measurements \T\ Calculations IVSd: 0.79 cm LVIDd: 3.7 cm FS: 39.9 % Ao root diam: 2.8 cm LVPWd: 0.98 cm LVIDs: 2.2 cm EDV(Teich): 57.0 ml ACS: 1.6 cm ESV(Teich): 16.3 ml EF(Teich): 71.3 % Normal Measurement Values: + + :LVIDd (3.5-5.7cm) IVSd (0.6-1.1cm) LVPWd (0.6-1.1cm) Aortic Root (2.0-3.7cm)Left Atrium (1.5-4.0cm): :LV Vol(d) (76-115ml) LV Vol(s) (29-48ml) Ejec Fraction (50-65%)PV Lewis (0.6- 1.2m/s) TV Lewis (0.4-1.0m/s) : :MV E Lewis (0.8-1.0m/s)MV A Lewis (0.3-1.0m/s)LVOT Lewis (0.7-1.2m/s) Asc Ao Lewis ( 0.9-1.8m/s) : + + Doppler Measurements \T\ Calculations MV E max lewis: Ao V2 max: LV V1 max: PA V2 max: 80.0 cm/sec 93.7 cm/sec 111.0 cm/sec 95.0 cm/sec MV A max lewis: Ao max PG: LV V1 max PG: PA max P.3 cm/sec 3.5 mmHg 4.9 mmHg 3.6 mmHg MV E/A: 0.87 TR max lewis: 255.2 cm/sec TR max P.0 mmHg RAP systole: 5.0 mmHg RVSP(TR): 31.0 mmHg Left Ventricle The left ventricle is normal in size. There is normal left ventricular wall thickness. The left ventricular ejection fraction is normal. There is Doppler evidence for diastolic dysfunction. The left ventricle is hyperdynamic. Tachycardia. Ejection Fraction = 73%. The left ventricular wall motion is normal. Right Ventricle The right ventricle is normal in size and function. Atria The left atrial size is normal. Right atrial size is normal. Mitral Valve The mitral valve is normal. There is no mitral valve stenosis. There is mild mitral regurgitation. Tricuspid Valve There is mild tricuspid regurgitation. Right ventricular systolic pressure is normal. Right ventricular systolic pressure is 28mmHg. Aortic Valve The aortic valve is not well visualized. There is no aortic stenosis. There is no aortic insufficiency. Pulmonic Valve The pulmonic valve is normal in structure and function. Great Vessels The aortic root is normal size. Pericardium/Pleural There is no pericardial effusion. Conclusion A complete two-dimensional transthoracic echocardiogram was performed (2D, M-mode, Doppler and color flow Doppler). Compared to prior study, there is no significant change. 1. The left ventricle is normal in size. The left ventricle is hyperdynamic. The Ejection Fraction = 73%. 2. The mitral valve is normal in structure. There is mild mitral regurgitation. 3. The aortic valve is not well visualized. There is no aortic stenosis. There is no aortic insufficiency. 4. Right ventricular systolic pressure is 28mmHg. 5. Compared to prior study, there is no significant change. Final Reading Physician: Max Anaya MD electronically signed on 05/21/2016 05:22 PM Ordering Physician: Namrata Harris Performed By: Devaughn Hoang, HANCS
[2016-05-21] MEDS: SEVELAMER HCL 800 MG TAB PO SCH (18:11)
[2016-05-21] MEDS: HYDROmorphONE/DILAUDID 1 MG/ML SYR IVP PRN (22:42)
[2016-05-22] MEDS: oxyCODONE IR 5 MG TAB PO PRN ×4 (01:29→21:05)
[2016-05-22] MEDS: HYDROmorphONE/DILAUDID 1 MG/ML SYR IVP PRN ×2 (02:41→08:01)
[2016-05-22] MEDS ORDERED: ASPIRIN EC 325 MG TAB PO ONE (06:00)
[2016-05-22] MEDS ORDERED: NS 1,000 ML IV ONE (06:00)
[2016-05-22] MEDS ORDERED: DIAZEPAM 5 MG TAB PO ONE (06:00)
[2016-05-22 07:05] LABS: APTT 26.9 SEC (23.0-38.0); INR 1.02 (0.83-1.16); PROTIME(PATIENT) 13.3 SEC (12.0-15.0)
[2016-05-22 07:07] LABS: % IMMATURE GRANULYOCYTES 0.5 % (0.0-1.1); ABSOLUTE IMMATURE GRANULOCYTES 0.03 10^3/uL (0.00-0.10); ADD DIFF? NO; ADD MORPH? NO; ADD SCAN? NO; ATYPICAL LYMPHOCYTE FLAG 30 (0-99); FRAGMENT RBC FLAG 0 (0-99); HEMATOCRIT 24.3 % (38.0-47.0); LEFT SHIFT FLG 0 (0-99); LIPEMIA HEMOLYSIS FLAG 80 (0-99); MEAN CELL HEMOGLOBIN 34.8 pg (27.9-34.1); MEAN CELL HEMOGLOBIN CONCENTR. 32.9 g/dL (32.4-36.7); MEAN CELL VOLUME 105.7 fL (81.5-99.8); PLATELET CLUMPS FLAG 0 (0-99); PLATELET COUNT 170 10^3/uL (150-400); RED CELL DISTRIBUTION WIDTH 12.7 % (11.5-15.2)
[2016-05-22] MEDS: MIDODRINE HCL 5 MG TAB PO PRN ×2 (07:52→22:28)
[2016-05-22] MEDS: PANTOPRAZOLE SODIUM 40 MG TAB PO SCH (07:52)
[2016-05-22] MEDS: SEVELAMER HCL 800 MG TAB PO SCH ×3 (08:08→21:35)
[2016-05-22 08:20] LABS: ALBUMIN 3.3 g/dL (3.5-5.0); ANION GAP 9 mEq/L (8-16); CALCIUM 8.4 mg/dL (8.5-10.4); CARBON DIOXIDE 26 mEq/l (22-31); CHLORIDE 101 mEq/L (97-110); CHOLESTEROL 92 mg/dL (140-200); CHOLESTEROL/HDL RATIO 2.04 RATIO (1.00-4.44); GLOMERULAR FILTRATION RATE 6; GLUCOSE 72 mg/dL (70-100); HIGH DENSITY LIPOPROTEIN 45 mg/dL (40-95); LDL/HDL RATIO 0.42 RATIO (1.00-3.22); LOW DENSITY LIPOPROTEIN 19 mg/dL (70-100); MAGNESIUM 2.2 mg/dL (1.6-2.3); NON-HIGH DENSITY LIPOPROTEIN 47 mg/dL (90-129); POTASSIUM 5.5 mEq/L (3.5-5.2); SODIUM 136 mEq/L (134-144); TRIGLYCERIDE 142 mg/dL (35-135); VERY LOW DENSITY LIPOPROTEINS 28 mg/dL (8-25)
[2016-05-22] MEDS ORDERED: fentaNYL 100 MCG/2 ML INJ ONE (09:39)
[2016-05-22] MEDS ORDERED: LIDOCAINE 1% 30 ML SDV ONE ×2 (09:39→13:54)
[2016-05-22] MEDS ORDERED: MIDAZOLAM 2 MG/2 ML VIAL ONE (09:39)
[2016-05-22] MEDS ORDERED: IOPAMIDOL (ISOVUE 370) 100 ML BTL IV ONE (09:40)
[2016-05-22] MEDS ORDERED: ONDANSETRON 4 MG/2 ML VIAL IVP PRN (11:40)
[2016-05-22] MEDS ORDERED: HYDROCODONE/APAP 5/325 TAB PO PRN (11:40)
[2016-05-22] MEDS ORDERED: OXYCODONE/APAP 5/325 TAB PO PRN (11:40)
[2016-05-22] MEDS ORDERED: ATROPINE SULFATE 1 MG/10 ML SYR IVP PRN (11:40)
[2016-05-22] MEDS ORDERED: NITROGLYCERIN 0.4 MG BTL SL PRN (11:40)
--- NOTE | 2016-05-22 12:42 | PDDXCAT ---
Diagnostic Cath Note - . Date: 05/22/16 Substance Abuse Counselor: Anmol Fur Matcher: Anmol Indication: Class I/II angina, intolerance to med therapy or failure to respond - Procedure Access: right groin Procedure: left heart catheterization, coronary angiography, left ventriculogram - Materials Left Heart Cath size: 6F Left Heart Cath materials: standard multipack (JL4, JR4, pigtail) - Findings-Left Heart Catheterization LM: short vessel without luminal irregularities noted. bifurcation into the LAD and LCX vessels. LAD: medium sized vessel with moderate tortuosity. principal diagonal. no appreciable luminal irregularities noted. LCX: medium sized vessel with moderate tortuosity. two obtuse marginals without appreciable luminal irregularities noted. there is a third OM ( principal) with tortuosity and similar diameter to the LCX. no luminal irreguliarities to the LCX system. RCA: medium sized vessel. dominant with supply to the PDA. No luminal irregularities noted. EDP: 24 mm Hg LVEF: 65% Wall motion: normal Complications: none Estimated blood loss: <50ml Closure method: manual pressure Assessment: 40 y/o female with ESRD and PCK with complaints of chest pains. Angiogram without CAD noted (no luminal irregularities appreciated). Normal LVEF and wall motion. Plan: Proceed with scheduled dialysis. Would continue with aggressive medical management of noted CV risks. Intervention: none Moderate post sheath pull pains noted. We have arranged for the patient to have CT scan of abdomen and pelvis to ensure that there is not a retroperitoneal haematoma and or localized haematoma. Patient Problems: Problems Problem Status Onset Chest pain Acute Abdominal pain Active Disorder of pancreas Active MRSA - Methicillin resistant Staphylococcus aureus infection Active MRSA - Methicillin resistant Staphylococcus aureus infection Active Metabolic acidosis Active Renal failure syndrome Active Chest pain Acute Dialysis complication Acute Hypotension Acute Renal failure Acute
[2016-05-22] MEDS ORDERED: IOPAMIDOL (ISOVUE-300) 100 ML BTL IV ONE (13:20)
[2016-05-22] MEDS ORDERED: HYDROmorphONE/DILAUDID 1 MG/ML SYR IVP ONE (13:30)
[2016-05-22] MEDS ORDERED: HALOPERIDOL LACT 5 MG/ML INJ IVP ONE (13:30)
--- NOTE | 2016-05-22 14:00 | PDCARPN ---
Cardiology Progress Note Chief Complaint: Patient feeling poorly with left lower extremity pains as well as inner thigh discomfort. No chest pains Assessment/Plan: Assessment: Patient is a 40 y/o female with multiple medical problems including PCK with ESRD and HD three times per week, Hep C, and strong family history for premature CAD, who presented to [facility] with complaints of chest pains. No cardiac biomarker elevation has been noted, but given the strong family history and ESRD , we opted to pursue angiogram. Plan: (1) would have angiogram performed this morning. (2) maintain plans to have HD port removed (post angiogram) (3) maintain scheduled HD (today post procedure) (4) further recommendations to follow post procedure post procedure, the patient had a moderate degree of groin pains - the sheath was pulled and manual pressure was applied given size of vessel and location to branch vessels. There were concerns about fullness to the site, and recommendations were for patient to have CT of abdomen and pelvis to ensure no haematoma or retroperitoneal bleeding. Subjective: No voiced cardiovascular complaints Reviewed/Discussed With: hospitalist, multidisciplinary team Time Spent With Patient: 20 minutes Objective: Vital Signs (8 Hrs) Temp Pulse Resp BP Pulse Ox 05/22/16 07:14 36.8 C 101 H 14 90/60 L 94 Intake/Output (24 Hrs) 05/21/16 05/22/16 05/23/16 05:59 05:59 05:59 Intake Total 1100 Output Total 800 Balance 300 Intake: Oral (ml) 1100 Output: Urine (ml) 800 Toilet 800 Other: Number of Voids Toilet 2 Result Diagrams: 05/22/16 06:45 05/22/16 06:45 EKG: sinus tachycardia Telemetry: sinus tachycardia - Physical Exam Constitutional: WDWN, healthy appearing Eyes: PERRL, EOMI Ears, Nose, Mouth, Throat: moist mucous membranes Peripheral Pulses: 2+: dorsalis-pedis (R), dorsalis-pedis (L) Respiratory: clear to auscultate bilat, no crackles, no wheezes Gastrointestinal: normoactive bowel sounds Skin: no rashes, no edema Neurologic: AAOx3, CN II-XII grossly intact Psychiatric: cooperative, interactive ICD10 Worksheet Patient Problems: Problems Problem Status Onset Chest pain Acute Abdominal pain Active Disorder of pancreas Active MRSA - Methicillin resistant Staphylococcus aureus infection Active MRSA - Methicillin resistant Staphylococcus aureus infection Active Metabolic acidosis Active Renal failure syndrome Active Chest pain Acute Dialysis complication Acute Hypotension Acute Renal failure Acute
[2016-05-22] MEDS ORDERED: DIAZEPAM 2 MG TAB PO PRN (15:07)
--- NOTE | 2016-05-22 15:14 | HOSPPROG ---
Hospitalist Progress Note Assessment/Plan: # chest pain - cath without CAD # R groin hematoma d/t anxiety attack post-cath - monitor # ESRD d/t PCKD - tunneled cath removed; HD today # L inguinal LAD - likely d/t recent tubal ligation - needs outpt f/u # chronic hypotension - midodrine # VTE ppx - SCDs for now, lovenox when post procedure ## discussed with Dr Corea - monitor overnight LE US reviewed Subjective: s/p cath; had anxiety attack post-cath Objective: Vital Signs Temp Pulse Resp BP Pulse Ox 36.5 C 93 12 123/76 H 100 05/22/16 14:55 05/22/16 14:55 05/22/16 14:55 05/22/16 14:55 05/22/16 14:01 Laboratory Results 05/22/16 06:45 05/22/16 06:45 05/21/16 05/22/16 05/23/16 05:59 05:59 05:59 Intake Total 1100 Output Total 800 Balance 300 PT 13.3 SEC (12.0-15.0) 05/22/16 06:45 INR 1.02 (0.83-1.16) 05/22/16 06:45 - Physical Exam Constitutional: other (sleeping) Cardiovascular: regular rate and rhythym, no murmur, rub, or gallop Respiratory: no respiratory distress, no rales or rhonchi, clear to auscultation Gastrointestinal: normoactive bowel sounds, soft, non-tender abdomen, no palpable masses ICD10 Worksheet Patient Problems: Problems Problem Status Onset Abdominal pain Active Renal failure syndrome Active Metabolic acidosis Active Disorder of pancreas Active Renal failure Acute Chest pain Acute MRSA - Methicillin resistant Staphylococcus aureus infection Active MRSA - Methicillin resistant Staphylococcus aureus infection Active Dialysis complication Acute Chest pain Acute Hypotension Acute
--- NOTE | 2016-05-22 17:27 | SOAPPROG ---
SOAP Progress Note Assessment/Plan: Assessment: ESRD Chest Pain right groin hematoma Plan: Cath today, negative for CAD, function also good Pull out HD cat HD today, no heparin 05/22/16 17:24 Subjective: at bedside sleepy post procedure arouses, but not answering questions Objective: Vital Signs Temp Pulse Resp BP Pulse Ox 36.8 C 98 12 117/61 99 05/22/16 16:00 05/22/16 16:00 05/22/16 16:00 05/22/16 16:00 05/22/16 16:00 Laboratory Results 05/22/16 06:45 05/22/16 06:45 05/21/16 05/22/16 05/23/16 05:59 05:59 05:59 Intake Total 1100 Output Total 800 Balance 300 PT 13.3 SEC (12.0-15.0) 05/22/16 06:45 INR 1.02 (0.83-1.16) 05/22/16 06:45 Physical Exam - Physical Exam General Appearance: other (sleepy post procedure) Respiratory: No rhonchi, No wheezing Cardiac/Chest: regular rate, rhythm, No gallop (trace edema), No friction rub Extremities: pedal edema ICD10 Worksheet Patient Problems: Problems Problem Status Onset Chest pain Acute Abdominal pain Active Disorder of pancreas Active MRSA - Methicillin resistant Staphylococcus aureus infection Active MRSA - Methicillin resistant Staphylococcus aureus infection Active Metabolic acidosis Active Renal failure syndrome Active Chest pain Acute Dialysis complication Acute Hypotension Acute Renal failure Acute
[2016-05-23] MEDS ORDERED: MIDODRINE HCL 5 MG TAB PO ONE ×2 (00:14→01:00)
[2016-05-23] MEDS: MIDODRINE HCL 5 MG TAB PO PRN (00:36)
[2016-05-23] MEDS ORDERED: LIDO/EPI 1% **Not for Epidural 20 ML MDV ONE (03:25)
[2016-05-23 07:59] VITALS: BP 105/57; PULSE 81; RESP 15; TEMP 99; O2SAT 94
[2016-05-23] MEDS: ASPIRIN EC 81 MG TAB PO SCH (08:11)
[2016-05-23] MEDS: SEVELAMER HCL 800 MG TAB PO SCH (08:11)
[2016-05-23] MEDS: PANTOPRAZOLE SODIUM 40 MG TAB PO SCH (08:11)
--- NOTE | 2016-05-23 08:27 | PDCARPN ---
Cardiology Progress Note Chief Complaint: Mild groin discomfort to the right side Assessment/Plan: Assessment: 05-23-16 Patient doing well this morning. Pains to the right groin noted, but manageable. Angiogram yesterday without critical CAD noted. HD port was explanted yesterday without events. HD was performed yesterday via fistula. No chest pains or pressure noted this morning. 05-22-16 Patient is a 40 y/o female with multiple medical problems including PCK with ESRD and HD three times per week, Hep C, and strong family history for premature CAD, who presented to [facility] with complaints of chest pains. No cardiac biomarker elevation has been noted, but given the strong family history and ESRD , we opted to pursue angiogram. Plan: (1) Continue HD as scheduled (2) Ambulation (as tolerated) to assist with the noted haematoma (3) Would maintain therapy on ASA given CV risks (4) Outpatient follow up with cardiology in one month Subjective: Mild right groin pain Reviewed/Discussed With: hospitalist Time Spent With Patient: 15 minutes Objective: Vital Signs (8 Hrs) Temp Pulse Resp BP Pulse Ox 05/23/16 07:56 37.2 C 81 15 105/57 L 94 05/23/16 04:00 37.3 C 83 16 106/57 L 95 05/23/16 02:00 36.9 C 110 H 16 92/58 L 94 Intake/Output (24 Hrs) 05/22/16 05/23/16 05/24/16 05:59 05:59 05:59 Intake Total 1100 500 Output Total 800 50 Balance 300 450 Intake: Oral (ml) 1100 500 Output: Urine (ml) 800 50 Toilet 800 50 Other: Weight 61.7 kg Number of Voids Toilet 2 1 Result Diagrams: 05/22/16 06:45 05/22/16 06:45 Telemetry: normal sinus rhythm - Physical Exam Constitutional: WDWN, no apparent distress Eyes: PERRL Ears, Nose, Mouth, Throat: moist mucous membranes Cardiovascular: regular rate and rhythm, no murmurs, no rubs, no gallops Peripheral Pulses: 2+: dorsalis-pedis (R), dorsalis-pedis (L) Respiratory: clear to auscultate bilat, no crackles, no wheezes Gastrointestinal: normoactive bowel sounds Skin: no edema Musculoskeletal: no muscular tenderness, other (small haematoma to the right groin) Neurologic: AAOx3, CN II-XII grossly intact Psychiatric: cooperative, interactive, following commands ICD10 Worksheet Patient Problems: Problems Problem Status Onset Chest pain Acute Abdominal pain Active Disorder of pancreas Active MRSA - Methicillin resistant Staphylococcus aureus infection Active MRSA - Methicillin resistant Staphylococcus aureus infection Active Metabolic acidosis Active Renal failure syndrome Active Chest pain Acute Dialysis complication Acute Hypotension Acute Renal failure Acute
--- NOTE | 2016-05-23 09:16 | SOAPPROG ---
SOAP Progress Note Assessment/Plan: Assessment:Plan: ESRD-stable -s/p Hd last night -outpatient MWF under the care of Dr. Gonsalves at [place]/[facility] -next hd tomorrow Access-stable LUE AVF -Hd catheter site with bandage in place, this can come off this afternoon CV-s/p LHC -groin hematoma, stable per RN Dispo-pending 05/23/16 09:12 Subjective: groin tender from hematoma Objective: Vital Signs Temp Pulse Resp BP Pulse Ox 37.2 C 81 15 105/57 L 94 05/23/16 07:56 05/23/16 07:56 05/23/16 07:56 05/23/16 07:56 05/23/16 07:56 Laboratory Results 05/22/16 06:45 05/22/16 06:45 05/22/16 05/23/16 05/24/16 05:59 05:59 05:59 Intake Total 1100 500 Output Total 800 50 Balance 300 450 PT 13.3 SEC (12.0-15.0) 05/22/16 06:45 INR 1.02 (0.83-1.16) 05/22/16 06:45 Physical Exam - Physical Exam General Appearance: WD/WN, alert, no apparent distress EENT: normal ENT inspection Neck: normal inspection Respiratory: normal breath sounds, decreased breath sounds (at bases) Cardiac/Chest: regular rate, rhythm, No diastolic murmur, No systolic murmur Abdomen: normal bowel sounds, non-tender, soft Extremities: other (AVF patent), No swelling ICD10 Worksheet Patient Problems: Problems Problem Status Onset Chest pain Acute Abdominal pain Active Disorder of pancreas Active MRSA - Methicillin resistant Staphylococcus aureus infection Active MRSA - Methicillin resistant Staphylococcus aureus infection Active Metabolic acidosis Active Renal failure syndrome Active Chest pain Acute Dialysis complication Acute Hypotension Acute Renal failure Acute
--- NOTE | 2016-05-23 11:09 | GDS ---
[f rep st] DISCHARGE SUMMARY DIAGNOSES: 1. Chest pain. 2. Right groin hematoma, post catheterization. 3. End-stage renal disease due to polycystic kidney disease. 4. Left inguinal lymphadenopathy. 5. Chronic hypertension. HOSPITAL COURSE: This is a 40-year-old female, who presented with chest pain. She underwent a cardiac cath which showed no coronary artery disease, normal EF , and normal wall motion. She will be continued on aspirin for primary prevention. She has end-stage renal disease. She is currently being dialyzed through a fistula; had her tunneled hemodialysis catheter removed on this hospitalization. She gets dialysis Friday/Friday/Friday. She had dialysis yesterday and refused labs this morning. She has some left inguinal pain which was noted to be likely a reactive lymph node on ultrasound. I have counseled her quite clearly that, if this does not resolve in the next few weeks, she should see her primary care physician and consider having this resected for diagnosis. I have given her a small amount of oxycodone to control her pain in the meantime. She ambulated and appeared comfortable. She had a mild right groin hematoma post catheterization, which is not particularly bothersome to her. She has been cleared by Cardiology for discharge. BILLING: I spent less than 30 minutes on the day of discharge coordinating care. ADDENDUM: After discharge, I was asked by her RN to return to discuss her ongoing concerns regarding her lymph node. Before I was able to return to see her she left. /[id number]/MODL MTDD
[2016-05-23] MEDS: oxyCODONE IR 5 MG TAB PO PRN (11:11)
== END 2016-05-23 12:24 | disposition home or self-care (01) | DRG 286 ==
LOC: F2W 23:05 → OBSVTOIN 05-21 11:34
PROVIDERS: ADMIT Internal Medicine; ATTEND Internal Medicine
PROC: 4A023N7 Measurement of Cardiac Sampling and Pressure, Left Heart, Percutaneous Approach (ICD-10-PCS; principal; 2016-05-22)
PROC: B2151ZZ Fluoroscopy of Left Heart using Low Osmolar Contrast (ICD-10-PCS; principal; 2016-05-22)
PROC: B2111ZZ Fluoroscopy of Multiple Coronary Arteries using Low Osmolar Contrast (ICD-10-PCS; principal; 2016-05-22)
PROC: 5A1D60Z (ICD-10-PCS; 2016-05-22)
PROC: 0JPS33Z Removal of Infusion Device from Head and Neck Subcutaneous Tissue and Fascia, Percutaneous Approach (ICD-10-PCS; 2016-05-22)
DX: R07.9 Chest pain, unspecified (principal); L76.32 Postprocedural hematoma of skin and subcutaneous tissue following other procedure; N18.6 End stage renal disease; Q61.3 Polycystic kidney, unspecified; I12.0 Hypertensive chronic kidney disease with stage 5 chronic kidney disease or end stage renal disease; R59.0 Localized enlarged lymph nodes; I25.10 Atherosclerotic heart disease of native coronary artery without angina pectoris; I25.2 Old myocardial infarction; Z82.49 Family history of ischemic heart disease and other diseases of the circulatory system; Z99.2 Dependence on renal dialysis
CPT/HCPCS: G0378; J1170; J1644; J2250; J3010; Q9967

== ENCOUNTER 2016-05-26 15:45 | Emergency (ER) | payer OTHER, MEDICAID ==
[2016-05-26 15:55] VITALS: BP 125/74; PULSE 105; RESP 18; TEMP 98.2; O2SAT 93
--- NOTE | 2016-05-26 16:06 | EDPHY ---
HPI/HX/ROS/PE/MDM Narrative: CHIEF COMPLAINT: Groin pain and swelling post cardiac catheterization. HPI: The patient is a 40-year-old female status post cardiac catheterization through the groin three days ago who presents with right groin swelling and pain that began after the surgery and has been steadily worsening. She admits vomiting from the pain. The pain does not radiate. She denies fever, diarrhea, or other complaints. REVIEW OF SYSTEMS: Aside from elements discussed in the HPI, a comprehensive 10-point review of systems was reviewed and is negative. PMH: End-stage renal disease on dialysis, hypotension, hepatitis C, [place]. SOCIAL HISTORY: Nonsmoker, substance abuse. PHYSICAL EXAM: General: Patient is alert, in no acute distress. ENT: Eyes are normal to inspection. ENT inspection normal. Neck: Normal inspection. Full range of motion. Respiratory: No respiratory distress. Breath sounds normal bilaterally. Cardiovascular: Regular rate and rhythm. Strong peripheral pulses. Abdomen: There are no peritoneal signs. There are normal bowel sounds. Ecchymosis to right inguinal region and lower abdomen with tenderness. Back: Normal to inspection. No tenderness to palpation. Skin: Normal color. No rash. Warm and dry. Extremities: Normal appearance. Full range of motion. Neuro: Oriented x3. Normal motor function. Normal sensory function. Portions of this note were transcribed by an ED scribe. I personally performed the history, physical exam, and medical decision making; and confirm the accuracy of the information in the transcribed note. ED Course: Labs ordered. Right groin ultrasound ordered. 1637: Patient requesting discharge prior to ultrasound. She has a history of AMA discharges. She understands the risks of leaving at this time prior to her ultrasound. MDM: Prior to testing being performed, the patient requested IV narcotics. She was told we would hold off until diagnosis was made. At that point she requested to leave AMA. - Data Points Laboratory Results: Laboratory Results 05/26/16 16:30 05/26/16 05/26/16 05/26/16 16:30 16:30 16:30 WBC 8.19 10^3/uL 10^3/uL (3.80-9.50) RBC 2.01 10^6/uL L 10^6/uL (4.18-5.33) Hgb 7.2 g/dL L g/dL (12.6-16.3) Hct 21.0 % L % (38.0-47.0) MCV 104.5 fL H fL (81.5-99.8) MCH 35.8 pg H pg (27.9-34.1) MCHC 34.3 g/dL g/dL (32.4-36.7) RDW 13.4 % % (11.5-15.2) Plt Count 238 10^3/uL 10^3/uL (150-400) MPV 9.3 fL fL (8.7-11.7) Neut % (Auto) 78.1 % H % (39.3-74.2) Lymph % (Auto) 13.7 % L % (15.0-45.0) [place] % (Auto) 6.7 % % (4.5-13.0) Eos % (Auto) 0.7 % % (0.6-7.6) Baso % (Auto) 0.2 % L % (0.3-1.7) Nucleat RBC Rel Count 0.0 % % (0.0-0.2) Absolute Neuts (auto) 6.39 10^3/uL 10^3/uL (1.70-6.50) Absolute Lymphs (auto) 1.12 10^3/uL 10^3/uL (1.00-3.00) Absolute Monos (auto) 0.55 10^3/uL 10^3/uL (0.30-0.80) Absolute Eos (auto) 0.06 10^3/uL 10^3/uL (0.03-0.40) Absolute Basos (auto) 0.02 10^3/uL 10^3/uL (0.02-0.10) Absolute Nucleated RBC 0.00 10^3/uL 10^3/uL (0-0.01) Immature Gran % 0.6 % % (0.0-1.1) Immature Gran # 0.05 10^3/uL 10^3/uL (0.00-0.10) PT Pending INR Pending APTT Pending Sodium Pending Potassium Pending Chloride Pending Carbon Dioxide Pending Anion Gap Pending BUN Pending Creatinine Pending Estimated GFR Pending Glucose Pending Calcium Pending Lipase Pending General Time Seen by Provider: 05/26/16 16:04 Initial Vital Signs: Initial Vital Signs Temperature (C) 36.8 C 05/26/16 15:51 Heart Rate 105 H 05/26/16 15:51 Respiratory Rate 18 05/26/16 15:51 Blood Pressure 125/74 H 05/26/16 15:51 O2 Sat (%) 93 05/26/16 15:51 O2 Delivery Mode Room Air Allergies/Adverse Reactions: levofloxacin [Levofloxacin] Allergy (Severe, Verified 05/20/16 19:54) Anaphylaxis Marijuana/Cannabi *RETIRED-11/11/11 [Marijuana/Cannabinoid] Allergy (Severe, Verified 05/20/16 19:54) Anaphylaxis ondansetron HCl [From Zofran (as hydrochloride)] Allergy (Severe, Verified 05/21 01:14) Tingling of mouth/throat strawberry Allergy (Severe, Verified 05/20/16 19:54) Anaphylaxis hydrochlorothiazide Allergy (Verified 05/20/16 19:54) NSAIDS (Non-Steroidal Anti-Inflamma [Nsaids] Allergy (Verified 05/20/16 19:54) Sulfa (Sulfonamide Antibiotics) Allergy (Verified 05/20/16 19:54) Home Medications: Medication Instructions Recorded Aspirin EC [Aspirin EC 81 mg (*)] 81 mg PO DAILY 05/21/16 Furosemide [Lasix 80 MG (*)] 80 mg PO BID 05/21/16 Midodrine HCl 10 mg PO TID PRN 05/21/16 Nitroglycerin 1 tab SL .Q5MIN UP TO 3 DOSES PRN 05/21/16 Promethazine HCl [Phenergan 25mg 12.5 - 25 mg PO Q6 PRN 05/21/16 (*)] Sevelamer Carbonate [Renvela] 800 mg PO TID 05/21/16 oxyCODONE IR [Oxycodone Ir (*)] 5 - 10 mg PO Q4HRS PRN #10 tab 05/23/16 Departure - Departure Disposition: Home, Routine, Self-Care Clinical Impression: Ecchymosis Condition: Good Instructions: Ecchymosis (ED) Additional Instructions: Return for any serious worsening of condition. Referrals: BHARGAV ROBLERO [Other] - As per Instructions Report Scribed for: Adolph Quiles Report Scribed by: Jose Luis Therhwanger Date of Report: 05/26/16 Time of Report: 16:17
[2016-05-26] MEDS ORDERED: ONDANSETRON DISINTEGRATING 4 MG TAB ONE (16:20)
[2016-05-26 16:36] LABS: % IMMATURE GRANULYOCYTES 0.6 % (0.0-1.1); ABSOLUTE IMMATURE GRANULOCYTES 0.05 10^3/uL (0.00-0.10); ADD DIFF? NO; ADD MORPH? NO; ADD SCAN? NO; ATYPICAL LYMPHOCYTE FLAG 10 (0-99); FRAGMENT RBC FLAG 0 (0-99); HEMOGLOBIN 7.2 g/dL (12.6-16.3); LEFT SHIFT FLG 0 (0-99); LIPEMIA HEMOLYSIS FLAG 90 (0-99); MEAN CELL HEMOGLOBIN 35.8 pg (27.9-34.1); MEAN CELL HEMOGLOBIN CONCENTR. 34.3 g/dL (32.4-36.7); MEAN CELL VOLUME 104.5 fL (81.5-99.8); MEAN PLATELET VOLUME 9.3 fL (8.7-11.7); PLATELET CLUMPS FLAG 10 (0-99); PLATELET COUNT 238 10^3/uL (150-400); RED BLOOD CELL COUNT 2.01 10^6/uL (4.18-5.33); RED CELL DISTRIBUTION WIDTH 13.4 % (11.5-15.2)
[2016-05-26 16:46] LABS: ANION GAP 10 mEq/L (8-16); APTT 24.7 SEC (23.0-38.0); CALCIUM 8.4 mg/dL (8.5-10.4); CARBON DIOXIDE 31 mEq/l (22-31); CHLORIDE 96 mEq/L (97-110); CREATININE 6.9 mg/dL (0.6-1.0); GLOMERULAR FILTRATION RATE 7; GLUCOSE 103 mg/dL (70-100); POTASSIUM 4.6 mEq/L (3.5-5.2); PROTIME(PATIENT) 13.1 SEC (12.0-15.0); SODIUM 137 mEq/L (134-144)
== END 2016-05-26 16:43 | disposition home or self-care (01) ==
DX: K91.840 Postprocedural hemorrhage of a digestive system organ or structure following a digestive system procedure (principal); I25.2 Old myocardial infarction; Z79.82 Long term (current) use of aspirin

== ENCOUNTER 2016-07-16 20:18 | Emergency (ER) | payer MEDICAID, OTHER ==
[2016-07-16 20:26] VITALS: BP 132/92; PULSE 107; RESP 16; TEMP 97.9; O2SAT 97
--- NOTE | 2016-07-16 20:45 | CPEKG ---
Heart Rate: 92 RR Interval: 652 P-R Interval: 136 QRSD Interval: 72 QT Interval: 376 QTC Interval: 466 P [place]: 54 QRS [place]: -40 T Wave [place]: 30 EKG Severity - ABNORMAL ECG - EKG Impression: SINUS RHYTHM EKG Impression: PROBABLE INFERIOR INFARCT, OLD EKG Impression: CONSIDER ANTERIOR INFARCT Electronically Signed By: Marcella Delcid 16-Jul-2016 20:55:58
--- NOTE | 2016-07-16 21:10 | EDPHY ---
H & P Stated Complaint: SOB AND CHEST DISCOMFORT, FEVER, STARTING AT 10 AM HPI/ROS: This chart is made in error please ignore. I did not see or evaluate this patient. Source: Patient - Personal History LMP (Females 10-55): 8-14 Days Ago Current Tetanus Diphtheria and Acellular Pertussis (TDAP): Yes Tetanus Vaccine Date: 12/2010 - Medical/Surgical History Hx Asthma: No Hx Chronic Respiratory Disease: No Hx Diabetes: No Hx Cardiac Disease: Yes Hx Renal Disease: Yes Hx Cirrhosis: No Hx Alcoholism: No Hx HIV/AIDS: No Hx Splenectomy or Spleen Trauma: No Other PMH: ESRD-on Dialysis, hypotension, hep c, sterilized 05/2016, [place] 05/17 - Social History Smoking Status: Never smoked Constitutional: Initial Vital Signs Temperature (C) 36.6 C 07/16/16 20:23 Heart Rate 107 H 07/16/16 20:23 Respiratory Rate 16 07/16/16 20:23 Blood Pressure 132/92 H 07/16/16 20:23 O2 Sat (%) 97 07/16/16 20:23 O2 Delivery Mode Room Air Allergies/Adverse Reactions: levofloxacin [Levofloxacin] Allergy (Severe, Verified 05/20/16 19:54) Anaphylaxis Marijuana/Cannabi *RETIRED-11/11/11 [Marijuana/Cannabinoid] Allergy (Severe, Verified 05/20/16 19:54) Anaphylaxis ondansetron HCl [From Zofran (as hydrochloride)] Allergy (Severe, Verified 07/16 20:21) Tingling of mouth/throat strawberry Allergy (Severe, Verified 07/16/16 20:21) Anaphylaxis hydrochlorothiazide Allergy (Verified 07/16/16 20:21) NSAIDS (Non-Steroidal Anti-Inflamma [Nsaids] Allergy (Verified 07/16/16 20:21) Sulfa (Sulfonamide Antibiotics) Allergy (Verified 07/16/16 20:21) Home Medications: Medication Instructions Recorded Aspirin EC [Aspirin EC 81 mg (*)] 81 mg PO DAILY 05/21/16 Furosemide [Lasix 80 MG (*)] 80 mg PO BID 05/21/16 Midodrine HCl 10 mg PO TID PRN 05/21/16 Nitroglycerin 1 tab SL .Q5MIN UP TO 3 DOSES PRN 05/21/16 Promethazine HCl [Phenergan 25mg 12.5 - 25 mg PO Q6 PRN 05/21/16 (*)] Sevelamer Carbonate [Renvela] 800 mg PO TID 05/21/16 oxyCODONE IR [Oxycodone Ir (*)] 5 - 10 mg PO Q4HRS PRN #10 tab 05/23/16 PHOSLO 07/16/16 RENVELA 07/16/16 Departure - Departure Disposition: Left Without Being Seen Referrals: ISSAC SCHMITT [Other] - As per Instructions
[2016-07-16 21:12] LABS: COLOR PALE YELLOW; LEUKOCYTE ESTERASE,URINE NEGATIVE (NEGATIVE); NITRITE,URINE NEGATIVE (NEGATIVE)
[2016-07-16 21:16] LABS: BACTERIA TRACE /hpf (NONE SEEN); RBC,URINE 50-182 /hpf (0-3); WBC,URINE 15-25 /hpf (0-3)
== END 2016-07-16 22:07 | disposition left against medical advice (07) ==
DX: Z53.21 Procedure and treatment not carried out due to patient leaving prior to being seen by health care provider (principal)

== ENCOUNTER 2017-09-23 07:56 | Observation (INO) | payer OTHER, MEDICAID ==
--- NOTE | 2017-09-23 08:11 | EDPHY ---
H & P Stated Complaint: infected port/dialysis Time Seen by Provider: 09/23/17 08:10 HPI/ROS: CHIEF COMPLAINT: Concerned about possible dialysis catheter infection HISTORY OF PRESENT ILLNESS: The patient presents to the ED concerned about a possible infection involving her dialysis catheter. The patient has a history of end-stage renal disease. She currently receives dialysis in [place]. The patient was recently hospitalized [facility] for thrombosis in her right AV fistula. The patient had a temporary dialysis catheter placed approximately 4 days ago. The patient reports she has had discharged from the catheter, fever and shaking chills. The patient did contact her dialysis nurse who advised her to come to the emergency department further evaluation. The patient denies any chest pain or shortness of breath. She denies significant weight pain. She denies additional acute complaints. REVIEW OF SYSTEMS: A comprehensive 10 point review of systems is otherwise negative aside from elements mentioned in the history of present illness. Source: Patient - Personal History LMP (Females 10-55): 8-14 Days Ago Current Tetanus Diphtheria and Acellular Pertussis (TDAP): Yes Tetanus Vaccine Date: 12/2010 - Medical/Surgical History Hx Asthma: No Hx Chronic Respiratory Disease: No Hx Diabetes: No Hx Cardiac Disease: Yes Hx Renal Disease: Yes Hx Cirrhosis: No Hx Alcoholism: No Hx HIV/AIDS: No Hx Splenectomy or Spleen Trauma: No Other PMH: ESRD-on Dialysis, hypotension, hep c, sterilized 05/2016, [place] 05/17 polycystic kidney disease - Social History Smoking Status: Current every day smoker - Physical Exam Exam: General Appearance: Alert, no distress Eyes: Pupils equal and round no pallor or injection ENT, Mouth: Mucous membranes moist Respiratory: There are no retractions, lungs are clear to auscultation, dialysis catheter noted to left chest wall, minimal surrounding erythema, minimal discharge Cardiovascular: Regular rate and rhythm Gastrointestinal: Abdomen is soft and nontender, no masses, bowel sounds normal Neurological: 5/5 strength all 4 extremities Skin: Warm and dry, no rashes Musculoskeletal: Neck is supple nontender Extremities: Evidence of old fistula noted to left upper extremity Psychiatric: Patient is oriented X 3, there is no agitation Constitutional: Initial Vital Signs Temperature (C) 36.7 C 09/23/17 08:01 Heart Rate 93 09/23/17 08:01 Respiratory Rate 18 09/23/17 08:01 Blood Pressure 129/78 H 09/23/17 08:01 O2 Sat (%) 98 09/23/17 08:01 O2 Delivery Mode Room Air Allergies/Adverse Reactions: levofloxacin [Levofloxacin] Allergy (Severe, Verified 09/23/17 08:00) Anaphylaxis Marijuana/Cannabi *RETIRED-11/11/11 [Marijuana/Cannabinoid] Allergy (Severe, Verified 09/23/17 08:00) Anaphylaxis ondansetron HCl [From Zofran (as hydrochloride)] Allergy (Severe, Verified 09/23 08:00) Tingling of mouth/throat strawberry Allergy (Severe, Verified 09/23/17 08:00) Anaphylaxis hydrochlorothiazide Allergy (Verified 09/23/17 08:00) NSAIDS (Non-Steroidal Anti-Inflamma [Nsaids] Allergy (Verified 09/23/17 08:00) Sulfa (Sulfonamide Antibiotics) Allergy (Verified 09/23/17 08:00) Home Medications: Medication Instructions Recorded Aspirin EC [Aspirin EC 81 mg (*)] 81 mg PO DAILY 05/21/16 Furosemide [Lasix 80 MG (*)] 80 mg PO BID 05/21/16 Midodrine HCl 10 mg PO TID PRN 05/21/16 Nitroglycerin 1 tab SL .Q5MIN UP TO 3 DOSES PRN 05/21/16 Promethazine HCl [Phenergan 25mg 12.5 - 25 mg PO Q6 PRN 05/21/16 (*)] Sevelamer Carbonate [Renvela] 800 mg PO TID 05/21/16 oxyCODONE IR [Oxycodone Ir (*)] 5 - 10 mg PO Q4HRS PRN #10 tab 05/23/16 PHOSLO 07/16/16 RENVELA 07/16/16 Medical Decision Making - Diagnostics Imaging Results: Imaging Impressions Chest X-Ray 09/23/17 08:27 Impression: No acute findings in the chest. ED Course/Re-evaluation: The patient presents to the ED with concerns about a possible dialysis catheter infection. The patient only had this placed 4 days ago the [facility]. She reports fever chills and discharge from around her port. She reports that her shirt was covered and discharged yesterday. Patient is afebrile. She has no hypotension or tachycardia. She has a normal white blood cell count. She has minimal surrounding cellulitic changes without significant appreciable discharge in the emergency department. Blood cultures have been obtained in the ED. I do feel the patient should be admitted to the hospital for observation this evening pending the results of her blood culture. Consultation is made with Dr. Eugene Patterson from the hospitalist service who will admit the patient. Differential Diagnosis: Differential diagnosis considered includes cellulitis, bacteremia, line infection - Data Points Laboratory Results: Laboratory Results 09/23/17 09:20 09/23/17 09:20 09/23/17 09/23/17 09/23/17 09:20 09:20 09:20 WBC 8.77 10^3/uL 10^3/uL (3.80-9.50) RBC 2.64 10^6/uL L 10^6/uL (4.18-5.33) Hgb 8.7 g/dL L g/dL (12.6-16.3) Hct 26.9 % L % (38.0-47.0) MCV 101.9 fL H fL (81.5-99.8) MCH 33.0 pg pg (27.9-34.1) MCHC 32.3 g/dL L g/dL (32.4-36.7) RDW 14.5 % % (11.5-15.2) Plt Count 222 10^3/uL 10^3/uL (150-400) MPV 8.8 fL fL (8.7-11.7) Neut % (Auto) 83.8 % H % (39.3-74.2) Lymph % (Auto) 9.4 % L % (15.0-45.0) [place] % (Auto) 4.8 % % (4.5-13.0) Eos % (Auto) 1.3 % % (0.6-7.6) Baso % (Auto) 0.1 % L % (0.3-1.7) Nucleat RBC Rel Count 0.0 % % (0.0-0.2) Absolute Neuts (auto) 7.36 10^3/uL H 10^3/uL (1.70-6.50) Absolute Lymphs (auto) 0.82 10^3/uL L 10^3/uL (1.00-3.00) Absolute Monos (auto) 0.42 10^3/uL 10^3/uL (0.30-0.80) Absolute Eos (auto) 0.11 10^3/uL 10^3/uL (0.03-0.40) Absolute Basos (auto) 0.01 10^3/uL L 10^3/uL (0.02-0.10) Absolute Nucleated RBC 0.00 10^3/uL 10^3/uL (0-0.01) Immature Gran % 0.6 % % (0.0-1.1) Immature Gran # 0.05 10^3/uL 10^3/uL (0.00-0.10) Sodium 139 mEq/L mEq/L (135-145) Potassium 5.5 mEq/L H mEq/L (3.3-5.0) Chloride 106 mEq/L mEq/L (97-110) Carbon Dioxide 16 mEq/l L mEq/l (22-31) Anion Gap 17 mEq/L H mEq/L (8-16) BUN 102 mg/dL H* mg/dL (7-23) Creatinine 12.2 mg/dL H* mg/dL (0.6-1.0) Estimated GFR 3 Glucose 101 mg/dL H mg/dL (70-100) Calcium 7.1 mg/dL L mg/dL (8.5-10.4) Procalcitonin 0.57 ng/mL H ng/mL (0.02-0.10) Medications Given: Discontinued Medications Morphine Sulfate (Morphine) 2 mg IVP EDNOW ONE Stop: 09/23/17 09:27 Last Admin: 09/23/17 09:30 Dose: 2 mg Promethazine HCl (Phenergan) 6.25 mg IVP EDNOW ONE Stop: 09/23/17 09:27 Last Admin: 09/23/17 09:30 Dose: 6.25 mg Departure - Departure Disposition: [facility] Acute Clinical Impression: End stage renal disease, Possible line infection Condition: Fair Referrals: SARAH LEE [Primary Care Provider] - As per Instructions
[2017-09-23] MEDS ORDERED: PROMETHAZINE HCL 25 MG/ML INJ IVP ONE (09:26)
[2017-09-23 09:29] LABS: PLATELET COUNT 222 10^3/uL (150-400)
[2017-09-23] MEDS ORDERED: ONDANSETRON DISINTEGRATING 4 MG TAB PO PRN (12:42)
[2017-09-23] MEDS ORDERED: ACETAMINOPHEN 325 MG TAB PO PRN (12:42)
[2017-09-23] MEDS ORDERED: ONDANSETRON 4 MG/2 ML VIAL IVP PRN (12:42)
[2017-09-23] MEDS ORDERED: NITROGLYCERIN 0.4 MG BTL SL PRN (12:44)
[2017-09-23] MEDS ORDERED: PROMETHAZINE HCL 25 MG TAB PO PRN (12:44)
[2017-09-23] MEDS ORDERED: VANCOMYCIN HCL/NORMAL SALINE 250 ML IV ONE (13:02)
[2017-09-23] MEDS ORDERED: PROMETHAZINE HCL 25 MG/ML INJ IVP PRN (13:04)
--- NOTE | 2017-09-23 13:34 | GHP ---
[f rep st] HISTORY AND PHYSICAL DATE OF ADMISSION: 09/23/2017 CHIEF COMPLAINT: Infected dialysis catheter. HISTORY OF PRESENT ILLNESS: This is a 42-year-old female with a history of end-stage renal disease, who presents with a chief complaint of infected dialysis catheter. This was placed last , ab out 5 days prior to her presentation. It worked for dialysis on Friday. She tried to have dialysis yesterday. She tells me that there was a serosanguineous fluid coming out of the exit site of the ca theter, thus they told her that she could not finish dialysis and needed to go to the hospital. She did not feel like going to the hospital yesterday, so she presented today. She has had some subjecti ve fevers, feels nauseous with all over body aches. Notably, this was placed recently because her fi stula just clotted. She had been cared for at the [facility] for that. They attempted a fistuloplas ty, which was unsuccessful. She has had multiple tunneled catheters in the past, this one hurts much more than any previous. Her last one had been removed about 3 weeks ago because she had success wit h a fistula. She gets her dialysis at [facility]. PAST MEDICAL/SURGICAL HISTORY: 1. End-stage renal disease due to polycystic kidney disease, followed by Dr. Gonsalves. 2. Polysubstance abuse, in remission for 13 years. 3. MRSA urinary tract infection. 4. Hypotension on midodrine. 5. 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 6. History of nephrolithiasis. 7. Hepatitis C, status post treatment. 8. Cardiac arrest due to an overdose. 9. History of a . 10. C-spine surgery. 11. Laser lithotripsy. MEDICATIONS: Please see medication reconciliation. ALLERGIES: Levaquin, marijuana, Zofran, strawberry, hydrochlorothiazide, NSAIDs, and sulfa. FAMILY HISTORY: She has 3 other siblings, all who have end-stage renal disease due to polycystic kid daniel disease. SOCIAL HISTORY: She has been sober for 13 years. She lives at home with her . REVIEW OF SYSTEMS: A 10-point review of systems was conducted and is negative except per HPI. PHYSICAL EXAM: VITAL SIGNS: Blood pressure 126/71, heart rate 81, respiration rate 14, saturating 9 7% on room air. Temperature 37.0. GENERAL: Ms. Hercules is a pleasant female, who is resting comfor tably, in no acute distress. HEENT: Normocephalic, atraumatic. NECK: Left IJ tunneled catheter. The exit site is close to her left axilla. There is a very small amount of pustulant at the distal a ccess site. There is a very small amount of erythema surrounding this as well. It is tender to palp ation throughout the entire tunnel, however, there is no additional erythema. CARDIOVASCULAR: Regul ar rate and rhythm. No murmurs, rubs, or gallops. PULMONARY: Lungs clear to auscultation bilateral ly. ABDOMEN: Soft, nontender, nondistended. SKIN: No rash. : No Solorio. NEUROLOGIC: Alert an d oriented x3. She is moving all extremities. PSYCHIATRIC: Normal mood and affect. LABS: Hemoglobin is 8.7. Potassium 5.5, bicarb 16, BUN is 102. Procalcitonin 0.57. DATA: 1. Chest x-ray, which I personally viewed and interpreted, shows she has a left IJ tunneled catheter in appropriate position. There was nothing acute. 2. I reviewed her chart. IMPRESSION AND PLAN: 1. Possible catheter infection: Discussed with Dr. Carlos. Since there is no erythema on the ent jada course, he recommends replacing this over a wire. Blood cultures, as well as wound culture have been drawn in the emergency department. I will give her 1 g of vancomycin prior to this. We will fo llow her blood cultures. 2. End-stage renal disease: She missed dialysis yesterday. She has no emergent needs, although her potassium is elevated. Discussed with Dr. Carlos. He will attempt to dialyze her if the tunnel c atheter can be replaced today. 3. Hypotension: Continue midodrine. 4. History of a methicillin-resistant Staphylococcus aureus urinary tract infection: We will empiri ronald treat her with vancomycin pending any culture results. 5. Hyperkalemia: Due to missing dialysis. This is not at a critical level at this point. 6. Acidosis: This is also due to missing dialysis. We will follow this. 7. Anemia: This is due to chronic kidney disease. 8. Venous thromboembolism risk: This is moderate. I will give her heparin. /[id number]/MODL
[2017-09-23] MEDS ORDERED: MIDODRINE HCL 5 MG TAB PO SCH (15:00)
--- NOTE | 2017-09-23 15:10 | GCON ---
[f rep st] CONSULTATION DATE OF CONSULTATION: 09/23/2017 REASON FOR CONSULTATION: Opinion regarding end-stage kidney failure. HISTORY OF PRESENT ILLNESS: The patient is a 42-year-old female with end-stage kidney failure due to autosomal dominant polycystic kidney disease. She is dialyzed via a left upper arm arteriovenous fi stula for approximately 5 years; however, last week, her fistula failed. She had a tunneled hemodial ysis catheter placed. On during dialysis, she was noted to have some serosanguineous fluid out of the exit site. She did not have dialysis, was given a gram of vancomycin IV, and was sent scott e. She presents to the emergency department today with diarrhea. The hemodialysis catheter was plac ed on . It worked for her on Friday. She tried to have dialysis on Friday, but there was se rosanguineous fluid coming out of the exit site of the catheter. She was sent to the hospital, but c [place] today. She says that she has been having some fevers and nausea, with body aches. No cough, spu kary, hemoptysis, hematemesis, epistaxis, abdominal pain, diarrhea, constipation, melena, hematochezia , gross hematuria, or dysuria. She was admitted to the hospital with a potentially infected tunneled hemodialysis catheter and in need of dialysis. PAST MEDICAL HISTORY: Significant for: 1. End-stage kidney failure due to autosomal dominant polycystic kidney disease. 2. Autosomal dominant polycystic kidney disease. 3. History of MRSA in the past. 4. Status post left upper arm arteriovenous fistula functional for approximately 5 years, only recen tly quit. 5. History of pancreatitis due to alcohol. 6. History of drug abuse, none for about 13 or 14 years. 7. History of hepatitis C, status post therapy. 8. Chronic hypotension, on midodrine. ALLERGIES: Fluoroquinolones, sulfa, hydrochlorothiazide, strawberries, nonsteroidal anti-inflammator y drugs, and marijuana. FAMILY HISTORY: Positive for polycystic kidney disease. SOCIAL HISTORY: She is not employed. She does not use alcohol, IV or recreational drugs. She has m ultiple tattoos, and she smokes a cigarette about every 3 or 4 days. CURRENT MEDICATIONS: Include: 1. Aspirin 81 mg a day. 2. PhosLo and Renagel for her hyperphosphatemia. 3. Lexapro 10 mg daily. 4. Lasix 80 mg twice daily. 5. Lisinopril 20 mg daily. 6. Midodrine 10 mg 3 times daily. 7. Nitroglycerin p.r.n. 8. Vancomycin IV x1 today. She got a dose last Friday as well. 9. Protonix. REVIEW OF SYSTEMS: A complete 12-point review of systems was performed with the pertinent positives and negatives as per the previous sections. PHYSICAL EXAMINATION: VITAL SIGNS: Blood pressure 126/71, pulse 81, respirations 14, temperature 37 . GENERAL: She is awake. She seems a bit sleepy, but she does open her eyes and answer questions a ppropriately. HEENT: Pupils are reactive to light. Extraocular movements are intact. Mucous membr anes are moist. NECK: She does have some JVD. No lymphadenopathy or thyromegaly. HEART: Regular, with a grade 1/6 systolic murmur. No rub. LUNGS: No rhonchi or wheezes. Occasional rales in her b ases. ABDOMEN: Bowel sounds are positive. Soft, nontender, nondistended. I can palpate her kidneys . EXTREMITIES: No cyanosis, clubbing, or edema. NEUROLOGIC: No asterixis. SKIN: Multiple tattoo s. LYMPH: No palpable lymphadenopathy or lymphedema. MUSCULOSKELETAL: Thrombosed left upper arm a rteriovenous fistula. CHEST: She has a tunneled hemodialysis catheter in her left internal jugular vein. There is what looks like some crusty drainage coming from her exit site. There is no erythema , except for around the exit site itself. There is no tenderness or fluctuance past her external cuf f. LABORATORY DATA: WBC 8.77, hemoglobin 8.7, hematocrit 26.9, platelet count 122,000. Serum sodium 13 9, potassium 5.5, chloride 106, CO2 16, BUN 102, creatinine 12.2, glucose 101, calcium 7.1, procalcit onin 0.57, which is elevated. IMPRESSION: 1. End-stage kidney failure due to autosomal dominant polycystic kidney disease. 2. Last hemodialysis on Friday. 3. Possible exit site infection from her tunneled left-sided hemodialysis catheter. Her catheter di d not work well yesterday. 4. Recently failed arteriovenous fistula. 5. Polycystic kidney disease. 6. Hypotension, on midodrine. RECOMMENDATIONS: 1. We will have Radiology change her tunneled dialysis catheter over a wire. It does not look like there is any infection past the external cuff. 2. She has received a dose of IV vancomycin on Friday and 1 again today. 3. Plan on dialysis today or potentially tomorrow. 4. Continue her other therapies. 5. All questions were answered to her satisfaction. Thank you for allowing me to participate in the care of your patient. If there are any questions, pl ease do not hesitate to contact us. We will be following along with you. /[id number]/MODL
[2017-09-23] MEDS ORDERED: HEPARIN 50,000 UNIT/10 ML VIAL ONE ×2 (15:31→15:49)
[2017-09-23] MEDS ORDERED: LIDOCAINE 1% 300 MG/30 ML SDV ONE (15:49)
[2017-09-23] MEDS ORDERED: FLUMAZENIL 0.5 MG/5 ML MDV IVP PRN (16:20)
[2017-09-23] MEDS ORDERED: fentaNYL 100 MCG/2 ML INJ IVP PRN (16:20)
[2017-09-23] MEDS ORDERED: MIDAZOLAM 2 MG/2 ML VIAL IVP PRN (16:20)
[2017-09-23] MEDS ORDERED: NALOXONE HCL 0.4 MG/ML INJ IVP PRN (16:20)
[2017-09-23] MEDS ORDERED: fentaNYL 100 MCG/2 ML INJ ONE ×2 (16:22)
[2017-09-23] MEDS ORDERED: NS 1,000 ML IV SCH (16:30)
[2017-09-23] MEDS ORDERED: MIDAZOLAM 2 MG/2 ML VIAL ONE (16:39)
--- NOTE | 2017-09-23 16:55 | PDHPUP ---
History & Physical Update H&P update statement: This history and physical update is based on an assessment of the patient which was completed after admission or registration (within 24 hours), but prior to the surgery/procedure. Bloodstream infection requiring dialysis catheter exchange H&P update: H&P reviewed & patient examined, no change in patient's condition since H&P completed
--- NOTE | 2017-09-23 16:56 | PDPROPOC ---
Sedation Plan of Care Sedation Plan of Care: vital signs stable, mental status noted, patient educated of risks, benefits, alternatives, patient can tolerate sedation ASA Classification: ASA 2 Planned drugs: fentanyl, midazolam Mallampati Score: Class 2 Mallampati Reference Image: Patient passed 3-3-2 rule?: Yes
--- NOTE | 2017-09-23 16:57 | PDRADPN ---
Radiology Procedure Note Date of Procedure: 09/23/17 Radiologist: Manpreet August Anesthesia: IV Sedation Pre-op Diagnosis: Bacteremia Post-op Diagnosis: Bacteremia Indication: Dialysis catheter infection requiring exchange over wire Procedure: Catheter exchange Finding(s): No tunnel or exit site infection. Exchanged dialysis catheter without complication. Inf/Abcess present in the surg proc area at time of surgery?: Yes Depth: Organ Space (bacteremia)
[2017-09-23] MEDS: SEVELAMER HCL 800 MG TAB PO SCH ×2 (17:58→21:29)
[2017-09-23] MEDS: CALCIUM ACETATE 667 MG CAP PO SCH (18:01)
[2017-09-23] MEDS ORDERED: oxyCODONE IR 5 MG TAB PO ONE (20:26)
[2017-09-23] MEDS: FLUTICASONE NASAL 120 SPRAYS/16 GM MDI EACHNARE SCH (21:28)
[2017-09-23] MEDS: FUROSEMIDE 80 MG TAB PO SCH (21:28)
[2017-09-23] MEDS: oxyCODONE IR 5 MG TAB PO SCH (21:29)
[2017-09-23] MEDS ORDERED: HYDROmorphONE/DILAUDID 1 MG/ML INJ IVP PRN (23:06)
[2017-09-24] MEDS: oxyCODONE IR 5 MG TAB PO PRN ×2 (04:53→13:49)
--- NOTE | 2017-09-24 07:48 | SOAPPROG ---
SOAP Progress Note Assessment/Plan: Assessment: Seen on HD today Clotted AVF Infected tunneled HD cath ESRD, poor HD for the past 5-6 days volume up Plan: HD cath replaced over a wire last night, appreciate IR help HD last night, 2L off, new HD cath worked well HD today, 3L removal planned HD tomorrow, OK from my perspective for DC today and she can resume her outpatient HD at usual place and time 09/24/17 07:45 Subjective: feels better today in good spirits today denies cp sob nausea or vomiting slept OK no new complaints Objective: Vital Signs Temp Pulse Resp BP Pulse Ox 36.6 C 97 14 120/79 94 09/24/17 04:00 09/24/17 04:00 09/24/17 04:00 09/24/17 04:00 09/24/17 04:00 09/23/17 09/24/17 09/25/17 05:59 05:59 05:59 Intake Total 330 Output Total 2300 Balance -1970 Physical Exam - Physical Exam General Appearance: alert Neck: normal inspection Cardiac/Chest: regular rate, rhythm, edema (trace), No friction rub Abdomen: normal bowel sounds, non-tender, soft Skin: warm/dry Extremities: pedal edema (trace) Neuro/Psych: alert, normal mood/affect, oriented x 3 ICD10 Worksheet Patient Problems: Problems Problem Status Onset End stage renal disease Acute Abdominal pain Active Disorder of pancreas Active MRSA - Methicillin resistant Staphylococcus aureus infection Active MRSA - Methicillin resistant Staphylococcus aureus infection Active Metabolic acidosis Active Renal failure syndrome Active Chest pain Acute Chest pain Acute Dialysis complication Acute Hypotension Acute Renal failure Acute
[2017-09-24] MEDS: oxyCODONE IR 5 MG TAB PO SCH (08:33)
--- NOTE | 2017-09-24 08:56 | HOSPPROG ---
Hospitalist Progress Note Assessment/Plan: Patient is a 42-year-old female with history of end-stage renal disease who presented with concerns of an infected dialysis catheter. Today is my 1st encounter with the patient. Chart reviewed. * possible exit site infection of catheter HD cath replaced over a wire last night * end-stage renal disease -dialysis today * hypotension * history of MRSA urinary tract infection -being empirically treated with vancomycin * hyperkalemia -will resolve with dialysis today * anemia of chronic disease *reviewed patient's care w Dr Carlos, she had blood cx done at and needs to f/u with these, she will also get vanco tomorrow at dialysis Subjective: Denny is c/o pain at new catheter site. Objective: Vital Signs Temp Pulse Resp BP Pulse Ox 36.6 C 97 14 120/79 94 09/24/17 04:00 09/24/17 04:00 09/24/17 04:00 09/24/17 04:00 09/24/17 04:00 09/23/17 09/24/17 09/25/17 05:59 05:59 05:59 Intake Total 330 Output Total 2300 Balance -1969 - Physical Exam Constitutional: uncomfortable Eyes: PERRL Ears, Nose, Mouth, Throat: hearing normal Cardiovascular: regular rate and rhythym Respiratory: no respiratory distress Gastrointestinal: normoactive bowel sounds Skin: warm, other (new catheter site without redness, swelling, no drainage) Musculoskeletal: full muscle strength Neurologic: AAOx3 Psychiatric: interacting appropriately ICD10 Worksheet Patient Problems: Problems Problem Status Onset End stage renal disease Acute Abdominal pain Active Disorder of pancreas Active MRSA - Methicillin resistant Staphylococcus aureus infection Active MRSA - Methicillin resistant Staphylococcus aureus infection Active Metabolic acidosis Active Renal failure syndrome Active Chest pain Acute Chest pain Acute Dialysis complication Acute Hypotension Acute Renal failure Acute
[2017-09-24] MEDS ORDERED: PANTOPRAZOLE SODIUM 40 MG TAB PO SCH (09:00)
[2017-09-24] MEDS ORDERED: ASPIRIN EC 81 MG TAB PO SCH (09:00)
[2017-09-24] MEDS: SEVELAMER HCL 800 MG TAB PO SCH (10:42)
[2017-09-24] MEDS: CALCIUM ACETATE 667 MG CAP PO SCH ×2 (10:42→14:05)
[2017-09-24] MEDS: FLUTICASONE NASAL 120 SPRAYS/16 GM MDI EACHNARE SCH (10:43)
[2017-09-24 10:57] LABS: PLATELET COUNT 285 10^3/uL (150-400)
[2017-09-24] MEDS: FUROSEMIDE 80 MG TAB PO SCH (10:58)
[2017-09-24 11:20] VITALS: BP 94/71
[2017-09-24] MEDS ORDERED: MIDODRINE HCL 5 MG TAB PO SCH (12:44)
[2017-09-24] MEDS ORDERED: LISINOPRIL 20 MG TAB PO SCH (12:44)
[2017-09-24] MEDS ORDERED: ESCITALOPRAM OXALATE 10 MG TAB PO SCH (12:44)
[2017-09-24] MEDS ORDERED: HEPARIN 5,000 UNIT/0.5 ML INJ SC SCH (14:00)
[2017-09-24] MEDS ORDERED: HEPARIN 50,000 UNIT/10 ML VIAL ONE (15:30)
--- NOTE | 2017-09-24 15:57 | ASMTCMCOM ---
CM Note CM Note Notes: Pt lives at home with , she suffers from end stage renal disease. She has been sober for 13 years and gets dialysis. She was admitted for an infected line, catheter has been replaced. Pt will dc home today with support of and resume her dialysis outpt. CM available for any changes. DC Plan: Independent Date Signed: 09/24/2017 03:57 PM Electronically Signed By:Mela Jose RN
--- NOTE | 2017-09-24 15:58 | ASMTLACE ---
LACE Length of stay for Answers: 1 day current admission Acuity / Level of Answers: No Care: Did the patient have an inpatient admission? Comorbidities - select Answers: Moderate or severe liver all that apply or renal disease Previous myocardial infarction Other Notes: Hep C; Hypotension # of Emergency department Answers: 1-2 visits in the last 6 months Social determinants Answers: History of substance abuse (ETOH, street drugs, prescription drugs, etc.) Score: 11 Date Signed: 09/24/2017 03:57 PM Electronically Signed By:Mela Jose RN
--- NOTE | 2017-09-24 17:06 | GDS ---
[f rep st] DISCHARGE SUMMARY DISCHARGE DIAGNOSES: 1. Possible exit site infection of her dialysis catheter. 2. End-stage renal disease. 3. Hypotension. 4. History of methicillin-resistant Staphylococcus aureus urinary tract infection. 5. Hyperkalemia. 6. Anemia of chronic disease. CONSULTATIONS: Dr. Jarad Carlos. HISTORY: Briefly, the patient is a 42-year-old woman with a history of end- stage renal disease, who presented with a possible infected dialysis catheter. This was placed last . It worked for dialysis on Friday. She tried to have dialysis on Friday, and there was serosanguineous fluid coming out of the exit site of the catheter. They told her they could not finish dialysis, and she needed to go to the hospital. She was seen and evaluated by [facility] and had blood cultures drawn. She subsequently came here for a possible catheter infection. Blood cultures were sent. Wound cultures were not sent. She was given a gram of vancomycin. She is feeling markedly better. In addition, she had a left subclavian tunneled catheter exchange performed during her stay. She has remained afebrile. HOSPITAL COURSE: 1. Concern for infected dialysis catheter at the site. She has received vancomycin here, and she also received a dose the other day at [facility]. Recommendation is for her to follow up closely with her blood cultures drawn at [facility], as well as here. She has had no fever, no chills, overall feeling much better. She is uncomfortable with the new catheter site, but it does not appear to be infected. 2. End-stage renal disease. She had dialysis prior to discharge. 3. Hypotension. She said this is chronic. 4. History of methicillin-resistant Staphylococcus aureus urinary tract infection. She was empirically treated with vancomycin. 5. Hyperkalemia, resolved with dialysis. 6. Anemia of chronic disease. This is secondary to chronic kidney disease. DISCHARGE CONDITION: Stable. Blood pressure is 94/71, heart rate of 97, respiratory rate of 14, O2 saturation on room air 94%. Temperature is 36.7 Celsius. DISCHARGE MEDICATIONS: Please see the EMR. DISCHARGE INSTRUCTIONS: 1. It is critical for her to follow up with her blood cultures done here and at [facility]. I reviewed this with her, and she is aware of this. 2. She has requested some Oxy IR for the pain at the catheter site. I gave her several. She is already on long-acting pain medications. Instructed her to not drink or drive and to know that this causes increased sedation. 3. Note that her procalcitonin is high and to follow up with her PCP, as well as her leadership recruiter. 4. If she develops fever, chills, to return to the ER. /[id number]/MODL MTDD
[2017-09-24] MEDS ORDERED: MIDODRINE HCL 5 MG TAB PO ONE (20:23)
[2017-09-25] MEDS ORDERED: MIDODRINE HCL 5 MG TAB PO SCH (06:00)
== END 2017-09-24 16:51 | disposition home or self-care (01) ==
LOC: F3E 11:23
PROVIDERS: ADMIT Student in an Organized Health Care Education/Training Program; ATTEND Internal Medicine
PROC: 0JH60XZ Insertion of Tunneled Vascular Access Device into Chest Subcutaneous Tissue and Fascia, Open Approach (ICD-10-PCS; principal; 2017-09-23 17:15)
PROC: 0JPTX3Z Removal of Infusion Device from Trunk Subcutaneous Tissue and Fascia, External Approach (ICD-10-PCS; principal; 2017-09-23 17:15)
PROC: 02HV33Z Insertion of Infusion Device into Superior Vena Cava, Percutaneous Approach (ICD-10-PCS; principal; 2017-09-23 17:15)
PROC: 3E04329 Introduction of Other Anti-infective into Central Vein, Percutaneous Approach (ICD-10-PCS; 2017-09-24)
PROC: 5A1D70Z Performance of Urinary Filtration, Intermittent, Less than 6 Hours Per Day (ICD-10-PCS; 2017-09-24)
DX: T82.9XXA Unspecified complication of cardiac and vascular prosthetic device, implant and graft, initial encounter (principal); N18.6 End stage renal disease; I95.9 Hypotension, unspecified; E87.5 Hyperkalemia; D63.1 Anemia in chronic kidney disease; E87.2 Acidosis; T82.590D Other mechanical complication of surgically created arteriovenous fistula, subsequent encounter; F17.210 Nicotine dependence, cigarettes, uncomplicated; Q61.3 Polycystic kidney, unspecified; I12.0 Hypertensive chronic kidney disease with stage 5 chronic kidney disease or end stage renal disease; I25.10 Atherosclerotic heart disease of native coronary artery without angina pectoris; I25.2 Old myocardial infarction; B19.20 Unspecified viral hepatitis C without hepatic coma; F19.21 Other psychoactive substance dependence, in remission; Z79.82 Long term (current) use of aspirin; Z87.442 Personal history of urinary calculi; Z87.440 Personal history of urinary (tract) infections; Z86.14 Personal history of Methicillin resistant Staphylococcus aureus infection; Z84.1 Family history of disorders of kidney and ureter; Z99.2 Dependence on renal dialysis; Z88.2 Allergy status to sulfonamides
CPT/HCPCS: 36582; 71045; 96374; 99152; 99285; C1750; C1769; G0378; J1644; J2250; J2270; J2550; J3010; J3370

== ENCOUNTER 2018-03-01 19:29 | Inpatient (IN) | payer OTHER, MEDICAID ==
[2018-03-01] MEDS ORDERED: NALOXONE HCL 0.4 MG/ML INJ IVP ONE ×3 (19:30→21:24)
[2018-03-01] MEDS ORDERED: NALOXONE HCL 2 MG in D5W 500 ML IV SCH (19:32)
[2018-03-01] MEDS ORDERED: NS 1,000 ML IV ONE (19:35)
[2018-03-01] MEDS ORDERED: ONDANSETRON 4 MG/2 ML VIAL ONE (19:43)
[2018-03-01] MEDS ORDERED: KETAMINE 500 MG/10 ML VIAL IVP ONE (19:43)
[2018-03-01] MEDS ORDERED: ONDANSETRON 4 MG/2 ML VIAL IVP ONE (19:45)
[2018-03-01] MEDS ORDERED: LORazepam 2 MG/ML INJ IVP ONE (19:58)
--- NOTE | 2018-03-01 20:19 | EDPHY ---
H & P Time Seen by Provider: 03/01/18 19:30 HPI/ROS: CHIEF COMPLAINT: Unresponsive, altered mental status HISTORY OF PRESENT ILLNESS: The patient arrived to the emergency department by private vehicle unresponsive. Limited history was obtained from the patient's boyfriend who dropped her off. He stated she had been at a constitution party. She may have overdosed on Oxy. Patient is unresponsive and unable to answer any questions. REVIEW OF SYSTEMS: Unable to obtain review of systems due the patient's unresponsiveness Past Medical/Surgical History: Unknown Smoking Status: Current some day smoker Physical Exam: Vitals noted. Patient was noted to have low oxygen saturation. GENERAL: Unresponsive. HEENT: Pinpoint pupils, not tolerating secretions. NECK: Normal, supple. RESPIRATORY: Minimal respiratory effort. CVS: Tachycardia with no rubs murmurs or gallops. ABDOMEN: Soft, nondistended. BACK: Normal to inspection. SKIN: Cool. Slightly pale in color. No rash, warm, dry. No pallor. EXTREMITIES: Patient has multiple injection nicholas on her left forearm. No pedal edema, no joint swelling. NEURO/PSYCH: Unresponsive. No spontaneous movement. Constitutional: Initial Vital Signs Heart Rate 111 H 03/01/18 19:41 Respiratory Rate 2 L 03/01/18 19:41 Blood Pressure 96/73 L 03/01/18 19:41 O2 Sat (%) 84 L 03/01/18 19:41 O2 Delivery Mode Nasal Cannula Allergies/Adverse Reactions: levofloxacin [Levofloxacin] Allergy (Severe, Verified 03/01/18 19:50) Anaphylaxis Marijuana/Cannabi *RETIRED-11/11/11 [Marijuana/Cannabinoid] Allergy (Severe, Verified 03/01/18 19:50) Anaphylaxis ondansetron HCl [From Zofran (as hydrochloride)] Allergy (Severe, Verified 03/01 19:50) Tingling of mouth/throat strawberry Allergy (Severe, Verified 03/01/18 19:50) Anaphylaxis hydrochlorothiazide Allergy (Verified 03/01/18 19:50) NSAIDS (Non-Steroidal Anti-Inflamma [Nsaids] Allergy (Verified 03/01/18 19:50) Sulfa (Sulfonamide Antibiotics) Allergy (Verified 03/01/18 19:50) Home Medications: Medication Instructions Recorded Aspirin EC [Aspirin EC 81 mg (*)] 81 mg PO DAILY 05/21/16 Furosemide [Lasix 80 MG (*)] 80 mg PO BID 05/21/16 Midodrine HCl 10 mg PO SUMOWEFR 05/21/16 Promethazine HCl [Phenergan 25mg 12.5 - 25 mg PO Q6 PRN 05/21/16 (*)] Sevelamer Carbonate [Renvela] 1,600 mg PO TID 05/21/16 Calcium Acetate [Phoslo (*)] 2,001 each PO TIDMEAL 07/16/16 Escitalopram Oxalate [Lexapro 10 10 mg PO SUMOWEFR 09/23/17 MG] Fluticasone Nasal [Flonase Nasal 2 sprays NASAL BID 09/23/17 [place]] Lisinopril [Zestril 20 mg (*)] 20 mg PO SUMOWEFR 09/23/17 Midodrine HCl 10 mg PO TUTHSA@06,09,15 09/23/17 Nitroglycerin [Nitrostat 0.4 mg 0.4 mg SL Q5M PRN 09/23/17 (*)] Pantoprazole Sodium [Protonix 40mg 40 mg PO DAILY 09/23/17 (*)] oxyCODONE IR [Oxycodone Ir (*)] 20 mg PO BID 09/23/17 Acetaminophen [Tylenol 325mg (*)] 650 mg PO Q4HRS PRN tab 09/24/17 oxyCODONE IR [Oxycodone Ir (*)] 5 mg PO Q4 PRN #10 tab 09/24/17 Medical Decision Making ED Course/Re-evaluation: In the emergency department the patient was immediately brought back to the room. I met the patient on arrival. Patient was noted to have a low oxygen saturation unresponsive. I manage patient's airway. I placed a 0 PA as well as an NPA. Patient was suctioned and a bag-valve mask was used to in proved oxygen saturation 100%. There is no quick IV access. Subsequent IO was placed. Patient was given Narcan 2 mg IV. After 1- 2 min there was no response. The patient was given a 2nd dose of 2 mg of Narcan. Patient's subtle became responsive and extremely agitated. She began to have spontaneous respirations. She attempted to grab the airway and caused some trauma around her mouth pulling or other way out. Security was called. The patient was restrained. Patient continued to remain combative. She was difficult to evaluate and manage and I was concerned with possible injury to the patient and staff. The patient was sedated with ketamine 100 mg IV. Patient calmed down. She subsequently started answer questions. Patient stated that she was at a constitution party and took a pill that she had bought from someone. She is unsure with the pill was. She denies using heroin. I discussed the plan with the patient. She was cooperative. EKG: Sinus tachycardia 120. [place] C. Left axis deviation. Prolonged QT. No ST or T-wave abnormalities. Patient was given Ativan 1 mg IV. Patient's white count was 7.9. Hematocrit was 37.5. Platelets 276. Patient's electrolytes were notable for creatinine of 10.8. Calcium was low at 5.9. was negative. Patient salicylate acetaminophen and alcohol levels were all negative. The patient had elevated anion gap. Patient's glucose was 300. I feel the anion gap elevation is secondary to lactic acidosis from her respiratory depression and period of apnea. I think DKA is less likely. I rechecked the patient on numerous occasions. She remained stable. She did not need repeat doses of Narcan. I discussed the plan for admission. I answered her questions. I discussed case Dr. Taylor. He will admit the patient. Repeat glucose was 176. Differential Diagnosis: My differential includes but is not limited to narcotic overdose, drug overdose , alcohol abuse, ischemic CVA, hemorrhagic CVA, dysrhythmia, ACS, DKA, acetaminophen overdose, aspirin overdose Critical Care Time: The patient required 35 min of critical care time. This was exclusive of any unbundled procedure. This was due the patient's unresponsiveness, time spent at the bedside, consultation with the hospitalist. - Data Points Laboratory Results: Laboratory Results 03/01/18 20:06 03/01/18 20:06 03/01/18 03/01/18 03/01/18 20:06 20:06 20:06 WBC 7.98 10^3/uL 10^3/uL (3.80-9.50) RBC 3.57 10^6/uL L 10^6/uL (4.18-5.33) Hgb 11.8 g/dL L g/dL (12.6-16.3) Hct 37.5 % L % (38.0-47.0) MCV 105.0 fL H fL (81.5-99.8) MCH 33.1 pg pg (27.9-34.1) MCHC 31.5 g/dL L g/dL (32.4-36.7) RDW 15.8 % H % (11.5-15.2) Plt Count 276 10^3/uL 10^3/uL (150-400) MPV 9.3 fL fL (8.7-11.7) Neut % (Auto) 78.3 % H % (39.3-74.2) Lymph % (Auto) 18.2 % % (15.0-45.0) [place] % (Auto) 1.3 % L % (4.5-13.0) Eos % (Auto) 0.6 % % (0.6-7.6) Baso % (Auto) 0.1 % L % (0.3-1.7) Nucleat RBC Rel Count 0.3 % H % (0.0-0.2) Absolute Neuts (auto) 6.25 10^3/uL 10^3/uL (1.70-6.50) Absolute Lymphs (auto) 1.45 10^3/uL 10^3/uL (1.00-3.00) Absolute Monos (auto) 0.10 10^3/uL L 10^3/uL (0.30-0.80) Absolute Eos (auto) 0.05 10^3/uL 10^3/uL (0.03-0.40) Absolute Basos (auto) 0.01 10^3/uL L 10^3/uL (0.02-0.10) Absolute Nucleated RBC 0.02 10^3/uL H 10^3/uL (0-0.01) Immature Gran % 1.5 % H % (0.0-1.1) Immature Gran # 0.12 10^3/uL H 10^3/uL (0.00-0.10) Sodium 136 mEq/L mEq/L (135-145) Potassium 4.9 mEq/L mEq/L (3.5-5.2) Chloride 95 mEq/L L mEq/L (97-110) Carbon Dioxide 16 mEq/l L mEq/l (22-31) Anion Gap 25 mEq/L H mEq/L (6-14) BUN 76 mg/dL H mg/dL (7-23) Creatinine 10.8 mg/dL H* mg/dL (0.6-1.0) Estimated GFR 4 Glucose 300 mg/dL H mg/dL (70-100) Calcium 5.9 mg/dL L* mg/dL (8.5-10.4) Beta HCG, Qual NEGATIVE Salicylates < 1.0 mg/dL L mg/dL (2.0-20.0) Acetaminophen < 10 mcg/mL L mcg/mL (10-30) Ethyl Alcohol < 10 mg/dL mg/dL (0-10) Medications Given: Discontinued Medications Sodium Chloride (Ns) 1,000 mls @ 0 mls/hr IV ONCE ONE; Wide Open PRN Reason: Protocol Stop: 03/01/18 19:36 Last Admin: 03/01/18 19:35 Dose: 1,000 mls Ketamine HCl (Ketamine) 100 mg IVP EDNOW ONE Stop: 03/01/18 19:44 Last Admin: 03/01/18 19:43 Dose: 100 mg Lorazepam (Ativan Injection) 1 mg IVP EDNOW ONE Stop: 03/01/18 19:59 Last Admin: 03/01/18 19:58 Dose: 1 mg Naloxone HCl (Narcan) 2 mg IVP EDNOW ONE Stop: 03/01/18 19:31 Last Admin: 03/01/18 19:30 Dose: 2 mg Ondansetron HCl (Zofran) 4 mg IVP EDNOW ONE Stop: 03/01/18 19:46 Last Admin: 03/01/18 19:45 Dose: 4 mg Departure - Dep[facility]ure [facility] [place] [place] Clinical Impression: Opioid overdose Qualifiers: Encounter type: initial encounter Injury intent: undetermined intent Qualified Code(s): T40.2X4A - Poisoning by other opioids, undetermined, initial encounter Altered mental status Qualifiers: Altered mental status type: unspecified Qualified Code(s): R41.82 - Altered mental status, unspecified Condition: Good
[2018-03-01 20:22] LABS: PLATELET COUNT 276 10^3/uL (150-400)
[2018-03-01] MEDS ORDERED: ONDANSETRON DISINTEGRATING 4 MG TAB PO PRN (22:27)
[2018-03-01] MEDS ORDERED: ONDANSETRON 4 MG/2 ML VIAL IVP PRN (22:27)
[2018-03-01] MEDS ORDERED: NALOXONE HCL 0.4 MG/ML INJ IVP PRN (22:36)
[2018-03-01] MEDS ORDERED: LORazepam 2 MG/ML INJ ONE (23:05)
[2018-03-01] MEDS ORDERED: ALTEPLASE 100 MG/100 ML VIAL IV ONE (23:26)
--- NOTE | 2018-03-01 23:36 | CPEKG ---
Test Reason : OPEN Blood Pressure : / mmHG Vent. Rate : 120 BPM Atrial Rate : 120 BPM P-R Int : 182 ms QRS Dur : 101 ms QT Int : 388 ms P-R-T Axes : 134 -39 049 degrees QTc Int : 549 ms Sinus tachycardia Ventricular premature complex Left axis deviation Low voltage, extremity and precordial leads Prolonged QT interval Confirmed by Trang Mercado ([id number]) on 03/01/2018 11:35:41 PM Referred By: Confirmed By:Trang Mercado
--- NOTE | 2018-03-01 23:36 | PDGENHP ---
History and Physical - Chief Complaint Mental status, unresponsive - History of Present Illness Source-patient provides history of this time she appears reliable and she is alert and oriented x3 on SDU. EMR was reviewed and case discussed with accepting hospitalist. HPI - 42 yo F with pmhx significant for Polycystic kidney disease with ESRD on HD //Fri, HCV s/p tx, depression, HTN, GERD, chronic pain on chronic opiate therapy who presents to the ED today unresponsive. Apparently her boyfriend dropped her off and reported that patient was at a republican and likely had too much oxycodone. Patient report to me varies from this course of events and states the last thing she recalls is going to [employer] [place] to picking supervisor her friend. patient reports that she had developed a headache and asked her friend to take a pill out of her purse for her. Patient subsequently felt fatigued and asked friend which pill was given which patient reports was not of her prescription. Patient states she is quite upset and is demanding to be tested for all narcotics. When her mentation improved in the ED however patient had also confirmed that she was at a republican and bought a pill from some kenny. Patient also notes that she has been unable to complete dialysis this weekend 2/ 2 a malfunctioning fistula in her left arm. She reports she is scheduled for a dialysis catheter placement this morning. Patient notes she feels quite fatigued and feels fluid overloaded with increasing edema. Patient also complain of mild nonproductive cough and concerned about pulmonary edema. In the ED, Patient arrived unresponsive and hypoxic. nasal airway placed and patient was bag masked with improvement in O2 sat to 100%. She had an IO placed from access. She was given 2 doses of 2mg narcan and had improvement in response but became quite combative requiring ketamine for sedation. History Information - Allergies/Home Medication List Allergies/Adverse Reactions: levofloxacin [Levofloxacin] Allergy (Severe, Verified 03/01/18 19:50) Anaphylaxis Marijuana/Cannabi *RETIRED-11/11/11 [Marijuana/Cannabinoid] Allergy (Severe, Verified 03/01/18 19:50) Anaphylaxis ondansetron HCl [From Zofran (as hydrochloride)] Allergy (Severe, Verified 03/01 19:50) Tingling of mouth/throat strawberry Allergy (Severe, Verified 03/01/18 19:50) Anaphylaxis hydrochlorothiazide Allergy (Verified 03/01/18 19:50) NSAIDS (Non-Steroidal Anti-Inflamma [Nsaids] Allergy (Verified 03/01/18 19:50) Sulfa (Sulfonamide Antibiotics) Allergy (Verified 03/01/18 19:50) Home Medications: Furosemide [Lasix 80 MG (*)] 160 mg PO BID 05/21/16 [Last Taken 03/01/18 09:00] Promethazine HCl [Phenergan 25mg (*)] 25 mg PO DAILY 05/21/16 [Last Taken ] Sevelamer Carbonate [Renvela] 1,600 mg PO TIDMEAL 05/21/16 [Last Taken 03/01/18 18:00] Calcium Acetate [Phoslo (*)] 2,001 each PO TIDMEAL 07/16/16 [Last Taken 18:00] Fluticasone Nasal [Flonase Nasal [place]] 2 sprays NASAL BID 09/23/17 [Last Taken 03/01/18] Lisinopril [Zestril 20 mg (*)] 20 mg PO ZAMUDIO 09/23/17 [Last Taken 02/22/18] Midodrine HCl 10 mg PO TUTHSA@06,09,15 09/23/17 [Last Taken 02/28/18 15:00] Nitroglycerin [Nitrostat 0.4 mg (*)] 0.4 mg SL Q5M PRN 09/23/17 [Last Taken Unknown] Pantoprazole Sodium [Protonix 40mg (*)] 40 mg PO HS 09/23/17 [Last Taken ] oxyCODONE IR [Oxycodone Ir (*)] 20 mg PO BID 09/23/17 [Last Taken 03/01/18 09:00 ] Calcium Acetate [Phoslo (*)] 1,328 mg PO AD 03/02/18 [Last Taken Unknown] Escitalopram Oxalate [Lexapro] 20 mg PO DAILY 03/02/18 [Last Taken 03/01/18] Herbals/Supplements -Info Only 1 ea PO DAILY 03/02/18 [Last Taken Unknown] Omeprazole 40 mg PO DAILY 03/02/18 [Last Taken 03/01/18] Sevelamer Carbonate [Renvela] 1,600 mg PO AD 03/02/18 [Last Taken Unknown] I have personally reviewed and updated: family history, medical history, social history, surgical history - Past Medical History Additional medical history: 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 //Fri. GERD. HTN. depression. HCV s/p tx. polysubstance abuse patient reports sobriety x 13 years with admit 05/2016 for overdose resulting in cardiac arrest. chronic pain. h/o etoh pancreatitis. chronic low back pain on chronic narcotic therapy. nephrolithiasis - Surgical History Additional surgical history: left arm AV fistula. hx of HD catheter/removal and line infection. cervical spine. . laser lithotripsy - Family History Additional family history: polycystic kidney disease in all 3 siblings - Social History Smoking Status: Current some day smoker Alcohol Use: Sober Drug Use: None Additional social history: patient lives with significant other. COR - FULL. Review of Systems Review of Systems: ROS: 10pt was reviewed & negative except for what was stated in HPI & below Constitutional: Reports: malaise, weakness (generalized). Denies: chills, fever , weight loss EENMT: Reports: no symptoms, nose congestion (left nare bloody) Cardiac: Reports: edema. Denies: chest pain, palpitations Respiratory: Reports: cough. Denies: shortness of breath Gastrointestinal: Reports: no symptoms Genitourinary: Reports: no symptoms, other (patient does void very little daily. ) Muscolosketal: Reports: muscle pain Skin: Reports: no symptoms Neurological: Reports: headache, weakness (generalized). Denies: tingling, tremors Hematologic/Lymphatic: Reports: anemia Physical Exam Physical Exam: Selected Entries 03/01/18 19:41 Blood Pressure Manual Method Heart Rate 111 H Respiratory 2 L Rate O2 Sat (%) 84 L Blood Pressure 96/73 L Mean Arterial 80 Pressure (MAP) O2 Delivery Room Air Mode Temp Pulse Resp BP Pulse Ox 36.2 C 109 H 21 H 100/71 95 03/01/18 21:00 03/01/18 21:00 03/01/18 21:00 03/01/18 21:00 03/01/18 21:00 Constitutional: no apparent distress, chronically ill appearing, obese, other ( NAD. patient lays quietly in bed wide awake. anxious. ) Eyes: PERRL (decreased reactivity to light bilaterally but symmetric. ), anicteric sclera, EOMI, No scleral injection Ears, Nose, Mouth, Throat: moist mucous membranes, poor dentition, other (dried blood left nare.) Cardiovascular: regular rate and rhythym, no murmur, rub, or gallop, pulses symmetric bilaterally, edema (nonpitting lower extremity.) Peripheral Pulses: 1+: dorsalis-pedis (R), dorsalis-pedis (L) Respiratory: no respiratory distress, reduced air movement (diminished bibasilarly ), inspiratory crackles, other (occasional cough) Gastrointestinal: normoactive bowel sounds, soft, non-tender abdomen, no palpable masses, No distension Genitourinary: no bladder tenderness, No mustafa in urethra Skin: warm, normal color, no rashes or abrasions, No rash Musculoskeletal: generalized weakness Neurologic: AAOx3, sensation intact bilaterally, other (grossly nonfocal exam. ) , No facial droop Psychiatric: interacting appropriately, not encephalopathic, thought process linear, anxious, No depressed, No suicidal ideation Lab Data & Imaging Review 03/02/18 05:25 03/02/18 05:25 Laboratory Tests 03/01/18 03/01/18 03/01/18 20:06 22:55 22:55 WBC 7.98 RBC 3.57 L Hgb 11.8 L Hct 37.5 L MCV 105.0 H MCH 33.1 MCHC 31.5 L RDW 15.8 H Plt Count 276 MPV 9.3 Neut % (Auto) 78.3 H Lymph % (Auto) 18.2 [place] % (Auto) 1.3 L Eos % (Auto) 0.6 Baso % (Auto) 0.1 L Nucleat RBC Rel Count 0.3 H Absolute Neuts (auto) 6.25 Absolute Lymphs (auto) 1.45 Absolute Monos (auto) 0.10 L Absolute Eos (auto) 0.05 Absolute Basos (auto) 0.01 L Absolute Nucleated RBC 0.02 H Immature Gran % 1.5 H Immature Gran # 0.12 H VBG Lactic Acid 1.4 Sodium 136 Potassium 4.1 Chloride 105 Carbon Dioxide 17 L Anion Gap 14 BUN 77 H Creatinine 9.1 H* Estimated GFR 5 Glucose 206 H Calcium 4.7 L* Total Bilirubin 0.4 AST 18 ALT 22 Alkaline Phosphatase 83 Total Protein 5.4 L Albumin 2.9 L WBC 7.98 10^3/uL (3.80-9.50) 03/01/18 20:06 RBC 3.57 10^6/uL (4.18-5.33) L 03/01/18 20:06 Hgb 11.8 g/dL (12.6-16.3) L 03/01/18 20:06 POC Hgb 7.8 gm/dL (12.6-16.3) L 03/01/18 22:05 Hct 37.5 % (38.0-47.0) L 03/01/18 20:06 POC Hct 23 % (38-47) L 03/01/18 22:05 MCV 105.0 fL (81.5-99.8) H 03/01/18 20:06 MCH 33.1 pg (27.9-34.1) 03/01/18 20:06 MCHC 31.5 g/dL (32.4-36.7) L 03/01/18 20:06 RDW 15.8 % (11.5-15.2) H 03/01/18 20:06 Plt Count 276 10^3/uL (150-400) 03/01/18 20:06 MPV 9.3 fL (8.7-11.7) 03/01/18 20:06 Neut % (Auto) 78.3 % (39.3-74.2) H 03/01/18 20:06 Lymph % (Auto) 18.2 % (15.0-45.0) 03/01/18 20:06 [place] % (Auto) 1.3 % (4.5-13.0) L 03/01/18 20:06 Eos % (Auto) 0.6 % (0.6-7.6) 03/01/18 20:06 Baso % (Auto) 0.1 % (0.3-1.7) L 03/01/18 20:06 Nucleat RBC Rel Count 0.3 % (0.0-0.2) H 03/01/18 20:06 Absolute Neuts (auto) 6.25 10^3/uL (1.70-6.50) 03/01/18 20:06 Absolute Lymphs (auto) 1.45 10^3/uL (1.00-3.00) 03/01/18 20:06 Absolute Monos (auto) 0.10 10^3/uL (0.30-0.80) L 03/01/18 20:06 Absolute Eos (auto) 0.05 10^3/uL (0.03-0.40) 03/01/18 20:06 Absolute Basos (auto) 0.01 10^3/uL (0.02-0.10) L 03/01/18 20:06 Absolute Nucleated RBC 0.02 10^3/uL (0-0.01) H 03/01/18 20:06 Immature Gran % 1.5 % (0.0-1.1) H 03/01/18 20:06 Immature Gran # 0.12 10^3/uL (0.00-0.10) H 03/01/18 20:06 VBG Lactic Acid 1.4 mmol/L (0.7-2.1) 03/01/18 22:55 POC Sodium 145 mEq/L (135-145) 03/01/18 22:05 Sodium 136 mEq/L (135-145) 03/01/18 20:06 POC Potassium 3.3 mEq/L (3.3-5.0) 03/01/18 22:05 Potassium 4.9 mEq/L (3.5-5.2) 03/01/18 20:06 POC Chloride 107 mEq/L (97-110) 03/01/18 22:05 Chloride 95 mEq/L (97-110) L 03/01/18 20:06 Carbon Dioxide 16 mEq/l (22-31) L 03/01/18 20:06 Anion Gap 25 mEq/L (6-14) H 03/01/18 20:06 POC BUN 60 mg/dL (7-23) H 03/01/18 22:05 BUN 76 mg/dL (7-23) H 03/01/18 20:06 Creatinine 10.8 mg/dL (0.6-1.0) H* 03/01/18 20:06 POC Creatinine 8.9 mg/dL (0.6-1.0) H* 03/01/18 22:05 Estimated GFR 4 03/01/18 20:06 Glucose 300 mg/dL (70-100) H 03/01/18 20:06 POC Glucose 177 mg/dL (70-100) H 03/01/18 22:05 Calcium 5.9 mg/dL (8.5-10.4) L* 03/01/18 20:06 Beta HCG, Qual NEGATIVE 03/01/18 20:06 Salicylates < 1.0 mg/dL (2.0-20.0) L 03/01/18 20:06 Acetaminophen < 10 mcg/mL (10-30) L 03/01/18 20:06 Ethyl Alcohol < 10 mg/dL (0-10) 03/01/18 20:06 Visualized and Interpreted EKG results: Yes EKG additional interpertation: sinus tachycardia 120. PVC. LAD. low voltage. Qtc 549. no acute ST changes. Assessment & Plan Assessment: 42 yo F with pmhx significant for Polycystic kidney disease with ESRD on HD / /Fri, HCV s/p tx, depression, HTN, GERD, chronic pain on chronic opiate therapy who presents to the ED today unresponsive. #Opioid overdose (Acute) - s/p narcan. mentation improved. utox - neg (less than threshold opiates). narcan prn. titrate o2. patient should consider carrying narcan pen. Acute hypoxic respiratory failure - improved 04/04 narcan. CXR this AM. patient concerned regarding volume overload. ESRD on HD //04/04 PCKD - patient reports she is is scheduled for dialysis catheter placement today as her left AV fistula is malfunctioning. Nephrology consult this morning per day team. #GERD - continue ppi per formulary. #benign essential HTN - patient occasionally with low BPs and takes midodrine on days of HD. holding patient lasix and lisinopril. #hx of remote polysubstance abuse reports being "clean" x 13 hours. hx of cardiac arrest 04/04. #depression - patient denies any SI/HI. FEN - SLIV. electrolyte monitoring and replacement prn. renal diet. npo after midnight. PPX - SCDs. holding anticoagulation pending COR - FULL. Dispo - Patient admitted to observation status at this time pending further recommendations from nephrology.
[2018-03-01] MEDS ORDERED: CALCIUM GLUCONATE 2 GM in D5W 50 ML IV ONE (23:49)
[2018-03-02] MEDS ORDERED: CEPACOL LOZENGE PO PRN (03:44)
[2018-03-02] MEDS ORDERED: CALCIUM GLUCONATE 2 GM in D5W 50 ML IV ONE (06:07)
[2018-03-02 06:47] LABS: PLATELET COUNT 176 10^3/uL (150-400)
[2018-03-02] MEDS ORDERED: KETAMINE 200 MG/20 ML VIAL ONE (07:37)
--- NOTE | 2018-03-02 08:48 | HOSPPROG ---
Hospitalist Progress Note Assessment/Plan: #Acute toxic encephalopathy: resolved after narcan. Unclear ingestion; utox negative #AHRF: unable to maintain airway; had nasotrach intubation in field. Now resolved #ESRD: volume overloaded; last HD . Tunnelled catheter to be placed by IR #PKD: planned for transplant in Apr at [facility] #Hyperkalemia: due to ESRD #Metabolic acidosis: due to ESRD, plan for HD #Anemia of renal disease: H/H stable #h/o HCV: treated #Depression #Chronic pain on chronic opioids #Diet: renal #DVT ppx: SCDs #Disp: inpatient admission for line placement, HD. Case discussed with Dr. Baer # Subjective: "don't know what happened" Abdomen and face swollen. Mild SOB Objective: Vital Signs Temp Pulse Resp BP Pulse Ox 36.6 C 108 H 12 114/69 94 03/02/18 07:42 03/02/18 07:42 03/02/18 07:42 03/02/18 07:42 03/02/18 07:42 Laboratory Results 03/02/18 05:25 03/02/18 05:25 03/01/18 03/02/18 03/03/18 05:59 05:59 05:59 Intake Total 1050 Output Total 20 Balance 1030 - Time Spent With Patient Time Spent with Patient: greater than 35 minutes Time Spent with Patient: Greater than 35 minutes spent on this patients care, greater than 50% of time spent counseling, educating, and coordinating care regarding the above mentioned plan. - Physical Exam Constitutional: obese Eyes: PERRL, other (facial swelling) Ears, Nose, Mouth, Throat: moist mucous membranes Cardiovascular: regular rate and rhythym, systolic murmur Respiratory: no respiratory distress Gastrointestinal: normoactive bowel sounds, other (mild distension) Genitourinary: No mustafa in urethra Skin: warm Musculoskeletal: full muscle strength, other (LUE fistula with bruit, no thrill) Neurologic: AAOx3, CN II-XII Intact Psychiatric: interacting appropriately, No encephalopathic ICD10 Worksheet Patient Problems: Problems Problem Status Onset Altered mental status Acute Opioid overdose Acute Abdominal pain Active Disorder of pancreas Active MRSA - Methicillin resistant Staphylococcus aureus infection Active MRSA - Methicillin resistant Staphylococcus aureus infection Active Metabolic acidosis Active Renal failure syndrome Active Chest pain Acute Chest pain Acute Dialysis complication Acute End stage renal disease Acute Hypotension Acute Renal failure Acute
[2018-03-02] MEDS: PROMETHAZINE HCL 25 MG/ML INJ IVP PRN ×2 (09:14→23:55)
--- NOTE | 2018-03-02 13:26 | GCON ---
DATE OF CONSULTATION: 03/02/2018 REASON FOR CONSULTATION: Management of end-stage renal disease. HISTORY OF PRESENT ILLNESS: The patient is well known to the Nephrology service. She has end-stage renal disease secondary to polycystic kidney disease. [facility] on a Friday, , Friday schedule. She is seen primarily by nurse Savana mclean. She has had multiple access issues in the past. Most recently, she has been lucretia lyzing with a left forearm AV graft. The patient last dialyzed on . At that time, her graft was used. She apparently missed her dialysis on Friday. She went to [facility], where she was given Kayexalate and discharged fro m the emergency room. The patient presented obtunded and intubated last evening after apparently taking a pill at a democrat. This is per the medical records in the computer. The patient later awakened, and was extubated. At present, she is hemodynamically stable. She is oxygenating adequately on room air. Her tox screen is negative. Unfortunately, her left forearm AV graft does not have a bruit. As related to the abov e findings, we are asked by the primary service to assist the patient's renal diagnosis and managemen t. PAST MEDICAL HISTORY: 1. End-stage renal disease secondary to autosomal dominant polycystic kidney disease. 2. History of MRSA infections. 3. History of multiple access failures. She states she recently also had a left-sided tunneled dial ysis catheter, but this was removed. 4. History of alcoholic pancreatitis. 5. History of IV drug abuse. 6. History of hepatitis C infection, status post therapy. 7. History of chronic hypotension. ALLERGIES: Fluoroquinolones, sulfa, hydrochlorothiazide, strawberries, nonsteroidals, and marijuana. HOME MEDICATIONS: Herbal supplements, PhosLo 3 tablets with meals, Lexapro 20 mg daily, Lasix 160 mg b.i.d., Flonase nasal spray b.i.d., midodrine 10 mg prior to each dialysis, lisinopril 20 mg p.o. ev nick Friday night? Renvela 1600 mg with each meal, Phenergan as needed, Protonix 40 mg daily, Oxy IR 20 mg b.i.d., nitroglycerin p.r.n. SURGICAL HISTORY: 1. Left upper arm fistula, left forearm graft. History of multiple catheter placements and removals . 2. Cervical spine surgery. 3. section. 4. Laser lithotripsy. SOCIAL HISTORY: The patient lives in [place]. She has a boyfriend. She dialyzes in [place]. She d enies alcohol or tobacco use. REVIEW OF SYSTEMS: The patient denies having fevers, chills, or sweats. She is a having a headache today, but has not been having one. She denies visual disturbances. She does have some nasal and ph aryngeal pain secondary to her nasal intubation. These are within expectations for the procedure. S he is having a cough this morning. She denies chest pain or palpitations. She denies abdominal pain , constipation, or diarrhea. She denies dysuria. She makes a small amount of urine. She has some o ccasional lower extremity edema. She denies numbness in her fingers or toes. She denies history of diabetes or thyroid disease. PHYSICAL EXAM: GENERAL: At time of exam, the patient is alert and oriented. VITAL SIGNS: Temperat ure 36.6, pulse 108, blood pressure 114/69. HEENT: Eyes, sclerae are clear. Oropharynx clear. NEC K: No lymphadenopathy or thyromegaly. LUNGS: The patient does have rales in both bases. CARDIOVASC ULAR: Tachycardic without gallops or rubs. ABDOMEN: Soft, nontender. /RECTAL: Deferred. EXTRE MITIES: No lower extremity edema. The patient's left forearm graft site shows no evidence of infect ion. There is a very slight bruit heard at the arterial end, but there is no bruit or thrill through out the remainder of the graft. INTEGUMENT: Generally clear. NEURO: No focal findings. LABS: White count 9.14, hematocrit 30.4, platelets 176. Sodium 136, potassium 5.6, bicarb 20, creat inine 10.1, calcium 5.8, phosphorus 11.3, albumin 2.9. test negative. IMPRESSION AND PLAN: 1. Dialysis access: The patient's left arteriovenous graft appears thrombosed. At this point, we w ill plan on placing a catheter. She has had multiple catheters and catheter complications. She like ly has some limitations relating to placement. I will communicate directly with Interventional Radio logy. At this point, I would plan on putting in a tunneled catheter if possible, and then come back and try to do a thrombectomy after she has had dialysis. If we cannot get a tunneled catheter placed today, we will have to use a temporary catheter. 2. End-stage renal disease, on hemodialysis: The patient shows some signs of volume overload, and h er potassium is elevated. We will plan on dialysis today. 3. Anemia: This is stable and within parameters for her end-stage renal disease. 4. Hemodynamics: The patient's blood pressure is stable. I will ensure she has midodrine ordered a s needed for dialysis. 5. Pulmonary exam: The patient does have rales in both bases. I suspect this is related to volume overload. I cannot rule out aspiration. At present, she is not febrile or hypoxemic. We will wendi nue to monitor. 6. Care plan: The patient states the goal is to get a transplant later in the year. She is working with [facility] relating to that. 7. Hypocalcemia, and hyperphosphatemia: We will add calcium carbonate with her meals. Thank you for allowing us to participate in this lady's care. We will continue following closely deysi roberts. /[id number]/MODL
--- NOTE | 2018-03-02 14:42 | ASMTCMCOM ---
CM Note CM Note Notes: 42yo female admitted for Opiod OD, Abdominal pain, Malfunctioning fistula, ESRD, HCV, Depression, HTN, GERD, Chronic pain, Poly substance use. Patient not suicidal, reports purchasing a pill from someone at a constitution party. MD deciding if a new dialysis port is needed. May not have discharge needs. Date Signed: 03/02/2018 02:41 PM Electronically Signed By:Laisha Elmore LCSW
[2018-03-02] MEDS ORDERED: NALOXONE HCL 0.4 MG/ML INJ IVP PRN (15:07)
[2018-03-02] MEDS ORDERED: MIDAZOLAM 2 MG/2 ML VIAL IVP PRN (15:07)
[2018-03-02] MEDS ORDERED: fentaNYL 100 MCG/2 ML INJ IVP PRN (15:07)
[2018-03-02] MEDS ORDERED: ceFAZolin 2 GM/DEXTROSE 100 ML IV ONE (15:07)
[2018-03-02] MEDS ORDERED: FLUMAZENIL 0.5 MG/5 ML MDV IVP PRN (15:07)
[2018-03-02] MEDS ORDERED: ALTEPLASE 2 MG VIAL IVP PRN (15:07)
[2018-03-02] MEDS ORDERED: HEPARIN 10,000 UNIT/10 ML MDV (1,000 UNIT/ML) IVP PRN (15:07)
[2018-03-02] MEDS ORDERED: NS 1,000 ML IV SCH (15:15)
--- NOTE | 2018-03-02 15:31 | PDMN ---
Medical Necessity Medical necessity: Pt meets IP criteria as of 03/02/2018 per and MCG M-325 ( Renal Failure, Chronic); los > 2 mn for ongoing tx and management of ESRD in the setting of acute toxic encephalopathy with hyperkalemia, metabolic acidosis , anemia and acute hypoxemic respiratory failure; requiring emergent dialysis and placement of tunneled catheter in IR, respiratory support and serial labs/ monitoring.
[2018-03-02] MEDS ORDERED: MIDAZOLAM 2 MG/2 ML VIAL ONE (16:10)
[2018-03-02] MEDS ORDERED: fentaNYL 100 MCG/2 ML INJ ONE (16:10)
[2018-03-02] MEDS ORDERED: IOPAMIDOL (ISOVUE-300) 100 ML BTL ONE (17:11)
[2018-03-02] MEDS ORDERED: LIDOCAINE 1% 300 MG/30 ML SDV ONE (17:11)
[2018-03-02] MEDS ORDERED: NITROGLYCERIN 0.4 MG BTL SL PRN (17:47)
[2018-03-02] MEDS ORDERED: SODIUM POLY SULF 15 GM/60 ML BOTTLE PO ONE (17:53)
[2018-03-02] MEDS ORDERED: CALCIUM ACETATE 667 MG CAP PO SCH (18:00)
[2018-03-02] MEDS ORDERED: SODIUM POLY SULF 15 GM/60 ML BOTTLE PO PRN (18:12)
--- NOTE | 2018-03-02 19:22 | PDPROPOC ---
Sedation Plan of Care ASA Classification: ASA 3 Mallampati Score: Class 2 Mallampati Reference Image:
--- NOTE | 2018-03-02 19:23 | PDRADPN ---
Radiology Procedure Note Date of Procedure: 03/02/18 Radiologist: Isha De LaF uente Anesthesia: IV Sedation Pre-op Diagnosis: renal failure Post-op Diagnosis: same Procedure: attempted dialysis line placement Finding(s): Many chest wall collaterals, no suitable target for catheter placement, patient refused subclavian as well as femoral line placement, procedure terminated Inf/Abcess present in the surg proc area at time of surgery?: No
[2018-03-02] MEDS: CALCIUM ACETATE 667 MG CAP PO SCH (20:01)
[2018-03-02] MEDS: PROMETHAZINE HCL 25 MG TAB PO SCH (20:01)
[2018-03-02 20:04] LABS: INR 1.12 (0.83-1.16); PROTIME(PATIENT) 14.6 SEC (12.0-15.0)
[2018-03-02] MEDS: CALCIUM CARBONATE 500 MG CHEWABLE TAB PO SCH ×2 (20:05→22:27)
[2018-03-02] MEDS: PANTOPRAZOLE SODIUM 40 MG TAB PO SCH (21:02)
[2018-03-02] MEDS: oxyCODONE IR 5 MG TAB PO SCH (21:02)
[2018-03-02] MEDS: FLUTICASONE NASAL 120 SPRAYS/16 GM MDI EACHNARE SCH (22:28)
[2018-03-03] MEDS ORDERED: diphenhydrAMINE 25 MG CAP PO PRN (02:40)
[2018-03-03] MEDS ORDERED: oxyCODONE IR 5 MG TAB PO ONE (05:08)
[2018-03-03] MEDS ORDERED: methylPREDNISolone SOD SUCC 125 MG/2 ML VIAL IVP ONE (06:21)
[2018-03-03 06:30] LABS: PLATELET COUNT 181 10^3/uL (150-400)
--- NOTE | 2018-03-03 06:31 | HOSPPROG ---
Hospitalist Progress Note Assessment/Plan: Hospitalist night float note Notified by RN that throughout the evening patient has been having saturations to the 50s while she is asleep but refuses to wear nasal cannula or mask. She has been complaining of nausea persistently throughout the evening without any vomiting. But then falls quickly back asleep. RN subsequently notified me that patient has some swelling of her tongue. Patient reports that she has an allergy to Zofran which she received previously. When she is awake patient without any hypoxia. She has enlargement of the left side of her tongue compared to the right. No bleeding or contusion apparent. Some old dried blood at the tip of the tongue however. Patient wakes easily to name and then cries out that she has nausea. She subsequently falls back asleep. Patient was complaining of increased pain. She received 5 mg tab of Oxy IR. But continues to wake easily to her name. Plan - will order 125 mg of Solu-Medrol at this time see if there is any improvement in her symptoms. Patient already received 25 mg of Benadryl which is likely exacerbating her somnolence. She does not have any urticaria present. She is saturating well on room air except when she falls asleep with occasional desaturations. I do not feel that she requires any Narcan at this time if she wakes easily. Patient snores loudly when she does fall asleep. sleep apnea suspected. She is slightly tachycardic. Per chart review tunnel catheter was not obtainable and patient refused alternative placement sites. Patient has not had dialysis since today being Friday (5 days ago) Objective: Vital Signs Temp Pulse Resp BP Pulse Ox 36.5 C 113 H 24 H 113/71 93 03/02/18 23:38 03/03/18 04:58 03/03/18 04:58 03/02/18 23:38 03/03/18 04:58 PT 14.6 SEC (12.0-15.0) 03/02/18 19:40 INR 1.12 (0.83-1.16) 03/02/18 19:40 ICD10 Worksheet Patient Problems: Problems Problem Status Onset Altered mental status Acute Opioid overdose Acute Abdominal pain Active Disorder of pancreas Active MRSA - Methicillin resistant Staphylococcus aureus infection Active MRSA - Methicillin resistant Staphylococcus aureus infection Active Metabolic acidosis Active Renal failure syndrome Active Chest pain Acute Chest pain Acute Dialysis complication Acute End stage renal disease Acute Hypotension Acute Renal failure Acute
--- NOTE | 2018-03-03 07:32 | SOAPPROG ---
SOAP Progress Note Assessment/Plan: Assessment: #ESRD- [facility], underlying PKD -last HD was -now with clotted AVG and no good access options on IJ either side-- discussed with IR In detail last night. Pt refused temp fem line last night by IR. I told her she will either need to transfer to [facility] for consideration of hero graft/ attempted declot vs allow us to place fem line now and discuss with IR if declot possible. SHe now says she will allow us to place fem line and would ask IR to do so DAISY. If unable to salvage the AVG, may still need consideration of hero graft or tunneled fem line. Reviewed why this is dangerous and why we must restrict diet to ensure safe until we have access. #hyperkalemia -missed HD, dietary non-compliance -see above re HD plan -give another dose kayexalate, I reviewed with RN need for STRICT low K diet #anemia CKD hb at goal will continue Epo #MBD of CKD -phos 13, missed HD and binders renal diet continue Tums and phoslo #tongue swelling -no stridor on exam, ,managing secretions -?zofran related -receiving steroids #hypoxia -likely volume and untreated NATHANIEL -minimize centrally acting meds -HD plan as above I discussed with RN and pharmacy Carmen Simon MD [facility] pager [phone] 03/03/18 08:26 Subjective: Refused fem line by IR last night when they were unsuccessful at IJ line placement. Some tongue swelling overnight and received steroids. No stridor. Denies sob or n/v. Desatted when sleeping last night but refused O2. Objective: Vital Signs Temp Pulse Resp BP Pulse Ox 36.5 C 113 H 24 H 113/71 93 03/02/18 23:38 03/03/18 04:58 03/03/18 04:58 03/02/18 23:38 03/03/18 04:58 Laboratory Results 03/03/18 06:12 03/03/18 06:12 03/02/18 03/03/18 03/04/18 05:59 05:59 05:59 Output Total 400 Balance -400 PT 14.6 SEC (12.0-15.0) 03/02/18 19:40 INR 1.12 (0.83-1.16) 03/02/18 19:40 Physical Exam - Physical Exam General Appearance: alert, no apparent distress, other (not tachypneic) EENT: other (tongue swelling, no stridor) Neck: supple Respiratory: rales Cardiac/Chest: regular rate, rhythm, other (no rub) Abdomen: normal bowel sounds, non-tender, soft Skin: warm/dry Extremities: other (trace Edema, LUE AVG no thrill/bruit) Neuro/Psych: alert, oriented x 3 ICD10 Worksheet Patient Problems: Problems Problem Status Onset Altered mental status Acute Opioid overdose Acute Abdominal pain Active Disorder of pancreas Active MRSA - Methicillin resistant Staphylococcus aureus infection Active MRSA - Methicillin resistant Staphylococcus aureus infection Active Metabolic acidosis Active Renal failure syndrome Active Chest pain Acute Chest pain Acute Dialysis complication Acute End stage renal disease Acute Hypotension Acute Renal failure Acute
--- NOTE | 2018-03-03 08:49 | HOSPPROG ---
Hospitalist Progress Note Assessment/Plan: #Acute toxic encephalopathy: resolved after narcan. Unclear ingestion; utox negative #AHRF: unable to maintain airway; had nasotrach intubation in field. Now resolved #ESRD: clinically stable currently; min pulm edema on CXR. Clotted AVG, no access options either IJ -plan for tunneled fem line tomorrow #PKD: planned for transplant in Apr at [facility] #Cough: no PNA on CXR, resp panel negative. Likely bronchitis; does not warrant abx #Hyperkalemia: -down to 5.[address] Adams. Ok for line placement and HD tomorrow -redose kaxeylate and telemetry. Spoke with Dr. August with IR and will arrange for first case in morning #Metabolic acidosis: due to ESRD, plan for HD #Anemia of renal disease: H/H stable #h/o HCV: treated #Depression #Chronic pain on chronic opioids #Diet: renal #DVT ppx: SCDs #Disp: inpatient admission for line placement, HD. Case discussed with Dr. Baer Additional direct care spent: 30 min discussing case with Dr. August/South , reviewing imaging Subjective: coughing up copious amounts of green sputum. Reports fevers prior to admission Objective: Vital Signs Temp Pulse Resp BP Pulse Ox 36.8 C 98 16 133/84 H 95 03/03/18 07:56 03/03/18 07:56 03/03/18 07:56 03/03/18 07:56 03/03/18 07:56 Laboratory Results 03/03/18 06:12 03/03/18 06:12 03/02/18 03/03/18 03/04/18 05:59 05:59 05:59 Output Total 400 Balance -400 PT 14.6 SEC (12.0-15.0) 03/02/18 19:40 INR 1.12 (0.83-1.16) 03/02/18 19:40 - Time Spent With Patient Time Spent with Patient: greater than 35 minutes Time Spent with Patient: Greater than 35 minutes spent on this patients care, greater than 50% of time spent counseling, educating, and coordinating care regarding the above mentioned plan. - Physical Exam Constitutional: obese Eyes: other (periorbital, neck edema. ) Ears, Nose, Mouth, Throat: other (left side tongue swollen (this was present yesterday) looks like she bit it) Cardiovascular: No edema Respiratory: rhonchi Gastrointestinal: normoactive bowel sounds Genitourinary: no bladder fullness Skin: warm Musculoskeletal: other (AV fistula with no thrill) Neurologic: AAOx3, CN II-XII Intact Psychiatric: interacting appropriately, agitated (raising voice, swearing) ICD10 Worksheet Patient Problems: Problems Problem Status Onset Altered mental status Acute Opioid overdose Acute Abdominal pain Active Disorder of pancreas Active MRSA - Methicillin resistant Staphylococcus aureus infection Active MRSA - Methicillin resistant Staphylococcus aureus infection Active Metabolic acidosis Active Renal failure syndrome Active Chest pain Acute Chest pain Acute Dialysis complication Acute End stage renal disease Acute Hypotension Acute Renal failure Acute
[2018-03-03] MEDS ORDERED: Herbals/Supplements -Info Only PO SCH (09:00)
[2018-03-03] MEDS ORDERED: PROMETHAZINE HCL 25 MG/ML INJ ONE ×3 (09:20→22:43)
[2018-03-03] MEDS: CALCIUM ACETATE 667 MG CAP PO SCH ×3 (09:22→17:58)
[2018-03-03] MEDS: CALCIUM CARBONATE 500 MG CHEWABLE TAB PO SCH ×3 (09:23→21:22)
[2018-03-03] MEDS: ESCITALOPRAM OXALATE 10 MG TAB PO SCH (09:23)
[2018-03-03] MEDS: oxyCODONE IR 5 MG TAB PO SCH ×2 (09:23→21:09)
[2018-03-03] MEDS: PROMETHAZINE HCL 25 MG/ML INJ IVP PRN ×2 (09:24→16:29)
[2018-03-03] MEDS: FLUTICASONE NASAL 120 SPRAYS/16 GM MDI EACHNARE SCH ×2 (09:24→21:10)
[2018-03-03] MEDS: PANTOPRAZOLE SODIUM 40 MG TAB PO SCH ×3 (09:25→22:56)
[2018-03-03] MEDS ORDERED: SODIUM POLY SULF 15 GM/60 ML BOTTLE PO ONE (09:58)
[2018-03-03] MEDS: SEVELAMER HCL 800 MG TAB PO SCH (17:57)
[2018-03-03] MEDS ORDERED: SEVELAMER HCL 800 MG TAB PO PRN (18:00)
[2018-03-03] MEDS ORDERED: PROMETHAZINE HCL 25 MG/ML INJ IVP ONE (23:26)
[2018-03-04 04:47] LABS: PLATELET COUNT 212 10^3/uL (150-400)
[2018-03-04] MEDS: CALCIUM CARBONATE 500 MG CHEWABLE TAB PO SCH ×4 (09:39→21:18)
[2018-03-04] MEDS: oxyCODONE IR 5 MG TAB PO SCH ×3 (09:40→23:19)
[2018-03-04] MEDS: ESCITALOPRAM OXALATE 10 MG TAB PO SCH (09:40)
[2018-03-04] MEDS: PANTOPRAZOLE SODIUM 40 MG TAB PO SCH ×2 (09:41→23:19)
[2018-03-04] MEDS: ACETAMINOPHEN 325 MG TAB PO PRN ×2 (09:44→19:03)
[2018-03-04] MEDS: CALCIUM ACETATE 667 MG CAP PO SCH ×3 (09:45→18:48)
[2018-03-04] MEDS: FLUTICASONE NASAL 120 SPRAYS/16 GM MDI EACHNARE SCH ×2 (09:49→21:18)
[2018-03-04] MEDS: SEVELAMER HCL 800 MG TAB PO SCH ×3 (10:00→18:22)
[2018-03-04] MEDS ORDERED: IOPAMIDOL (ISOVUE-300) 100 ML BTL ONE (10:15)
[2018-03-04] MEDS ORDERED: ceFAZolin 2 GM/DEXTROSE 100 ML IV ONE (12:50)
[2018-03-04] MEDS ORDERED: MIDAZOLAM 2 MG/2 ML VIAL IVP PRN (12:50)
[2018-03-04] MEDS ORDERED: FLUMAZENIL 0.5 MG/5 ML MDV IVP PRN (12:50)
[2018-03-04] MEDS ORDERED: fentaNYL 100 MCG/2 ML INJ IVP PRN ×2 (12:50→15:32)
[2018-03-04] MEDS ORDERED: NALOXONE HCL 0.4 MG/ML INJ IVP PRN ×2 (12:50→15:32)
--- NOTE | 2018-03-04 12:50 | HOSPPROG ---
Hospitalist Progress Note Assessment/Plan: #Symptomatic uremia: IR to place catheter today. HD per renal #ESRD: clinically stable currently; min pulm edema on CXR. Clotted AVG, no access options either IJ #PKD: planned for transplant in Apr at [facility] #Cough: no PNA on CXR, resp panel negative. Likely bronchitis; does not warrant abx #Hyperkalemia: resolved with kayexalate. Telemetry #Metabolic acidosis: due to ESRD, plan for HD #Anemia of renal disease: H/H stable #Acute toxic encephalopathy: resolved after narcan. Unclear ingestion; utox negative #h/o HCV: treated #AHRF: initially due to OD and unable to maintain airway. Drops during night. Had FU outpatient for sleep apnea #Depression #Chronic pain on chronic opioids #Diet: renal #DVT ppx: SCDs #Disp: inpatient admission for line placement, HD. Subjective: nauseated, vomiting overnight Objective: Vital Signs Temp Pulse Resp BP Pulse Ox 36.6 C 95 16 129/83 H 99 03/04/18 08:26 03/04/18 12:14 03/04/18 12:14 03/04/18 12:14 03/04/18 12:14 Microbiology 03/03/18 09:39 Respiratory Panel (PCR) - Final Nasal, Sinus - Swab No Organism Detected By Pcr Laboratory Results 03/04/18 04:12 03/04/18 04:12 03/03/18 03/04/18 03/05/18 05:59 05:59 05:59 Intake Total 1350 Output Total 400 Balance 950 PT 14.6 SEC (12.0-15.0) 03/02/18 19:40 INR 1.12 (0.83-1.16) 03/02/18 19:40 - Time Spent With Patient Time Spent with Patient: greater than 35 minutes Time Spent with Patient: Greater than 35 minutes spent on this patients care, greater than 50% of time spent counseling, educating, and coordinating care regarding the above mentioned plan. - Physical Exam Constitutional: obese Ears, Nose, Mouth, Throat: moist mucous membranes Cardiovascular: regular rate and rhythym, No edema Respiratory: expiratory wheeze, No inspiratory crackles Gastrointestinal: normoactive bowel sounds, distension (mild distention.), No ascites Genitourinary: No mustafa in urethra Skin: warm Musculoskeletal: full muscle strength Neurologic: AAOx3, CN II-XII Intact Psychiatric: interacting appropriately ICD10 Worksheet Patient Problems: Problems Problem Status Onset Altered mental status Acute Opioid overdose Acute Abdominal pain Active Disorder of pancreas Active MRSA - Methicillin resistant Staphylococcus aureus infection Active MRSA - Methicillin resistant Staphylococcus aureus infection Active Metabolic acidosis Active Renal failure syndrome Active Chest pain Acute Chest pain Acute Dialysis complication Acute End stage renal disease Acute Hypotension Acute Renal failure Acute
[2018-03-04] MEDS ORDERED: NS 1,000 ML IV SCH (13:00)
--- NOTE | 2018-03-04 13:09 | PDANEPAE ---
ANE History of Present Illness Femoral Dialysis catheter ANE Past Medical History - Cardiovascular History Hx Hypertension: Yes Hx Arrhythmias: No Hx Chest Pain: No Hx Coronary Artery / Peripheral Vascular Disease: No Hx CHF / Valvular Disease: No Hx Palpitations: No - Pulmonary History Hx Oxygen in Use at Home: No Hx Sleep Apnea: Yes Sleep Apnea Screening Result - Last Documented: Positive - Endocrine History Hx Diabetes: No Hypothyroid: No Hyperthyroid: No Obesity: mild - Renal History Hx Renal Disorders: Yes - Liver History Hx Hepatic Disorders: No - Chronic Pain History Chronic Pain: Yes (kidneys, low back) ANE Review of Systems Review of Systems: - Exercise capacity METS (RN): 3 METS - Systems Constitutional: Reports: no symptoms EENMT: Reports: no symptoms Cardiac: Reports: no symptoms Respiratory: Reports: no symptoms Gastrointestinal: Reports: other (Heartburn) Genitourinary: Reports: other (renal failure) Neurological: Reports: other (Chronic pain) ANE Patient History - Allergies Allergies/Adverse Reactions: levofloxacin [Levofloxacin] Allergy (Severe, Verified 03/01/18 19:50) Anaphylaxis Marijuana/Cannabi *RETIRED-11/11/11 [Marijuana/Cannabinoid] Allergy (Severe, Verified 03/01/18 19:50) Anaphylaxis ondansetron HCl [From Zofran (as hydrochloride)] Allergy (Severe, Verified 03/01 19:50) Tingling of mouth/throat strawberry Allergy (Severe, Verified 03/01/18 19:50) Anaphylaxis hydrochlorothiazide Allergy (Verified 03/01/18 19:50) NSAIDS (Non-Steroidal Anti-Inflamma [Nsaids] Allergy (Verified 03/01/18 19:50) Sulfa (Sulfonamide Antibiotics) Allergy (Verified 03/01/18 19:50) - Home Medications Home medications: home medication list seen and reviewed Home Medications: Furosemide [Lasix 80 MG (*)] 160 mg PO BID 05/21/16 [Last Taken 03/01/18 09:00] Promethazine HCl [Phenergan 25mg (*)] 25 mg PO DAILY 05/21/16 [Last Taken ] Sevelamer Carbonate [Renvela] 1,600 mg PO TIDMEAL 05/21/16 [Last Taken 03/01/18 18:00] Calcium Acetate [Phoslo (*)] 2,001 each PO TIDMEAL 07/16/16 [Last Taken 18:00] Fluticasone Nasal [Flonase Nasal [place]] 2 sprays NASAL BID 09/23/17 [Last Taken 03/01/18] Lisinopril [Zestril 20 mg (*)] 20 mg PO ZAMUDIO 09/23/17 [Last Taken 02/22/18] Midodrine HCl 10 mg PO TUTHSA@06,09,15 09/23/17 [Last Taken 02/28/18 15:00] Nitroglycerin [Nitrostat 0.4 mg (*)] 0.4 mg SL Q5M PRN 09/23/17 [Last Taken Unknown] Pantoprazole Sodium [Protonix 40mg (*)] 40 mg PO HS 09/23/17 [Last Taken ] oxyCODONE IR [Oxycodone Ir (*)] 20 mg PO BID 09/23/17 [Last Taken 03/01/18 09:00 ] Calcium Acetate [Phoslo (*)] 1,328 mg PO AD 03/02/18 [Last Taken Unknown] Escitalopram Oxalate [Lexapro] 20 mg PO DAILY 03/02/18 [Last Taken 03/01/18] Herbals/Supplements -Info Only 1 ea PO DAILY 03/02/18 [Last Taken Unknown] Omeprazole 40 mg PO DAILY 03/02/18 [Last Taken 03/01/18] Sevelamer Carbonate [Renvela] 1,600 mg PO AD 03/02/18 [Last Taken Unknown] - NPO status NPO Status: no food or drink >8 hours - Anes Hx Anes Hx: no prior problems - Smoking Hx Smoking Status: Current some day smoker Marijuana use: No - Alcohol Use Alcohol Use: Sober - Family Anes Hx Family Anes Hx: none ANE Labs/Vital Signs - Labs Result Diagrams: 03/04/18 04:12 03/04/18 04:12 - Vital Signs Vital Signs: reviewed preoperatively; see RN documention for details Blood Pressure: 129/83 Heart Rate: 95 Respiratory Rate: 16 O2 Sat (%): 99 Height: 158.5 cm Weight: 71.3 kg ANE Physical Exam - Airway Mallampati Score: Class 4 Mouth exam: small mouth opening, abnormal chin - Pulmonary Pulmonary: no respiratory distress, no rales or rhonchi - Cardiovascular Cardiovascular: regular rate and rhythym - ASA Status ASA Status: III ANE Anesthesia Plan Anesthesia Plan: GA w LMA (Pro seal Glidescope if needed)
[2018-03-04] MEDS ORDERED: fentaNYL 100 MCG/2 ML INJ ONE (13:29)
[2018-03-04] MEDS ORDERED: PROPOFOL/EMULSION 500 MG/50 ML BOTTLE IV ONE (13:29)
[2018-03-04] MEDS ORDERED: LIDO/EPI 1% **for epidural** 30 ML SDV ONE (14:12)
[2018-03-04] MEDS ORDERED: PHENYLEPHRINE HCL 100 MCG/ML SYR ONE (14:12)
--- NOTE | 2018-03-04 14:42 | PDRADPN ---
Radiology Procedure Note Date of Procedure: 03/04/18 Radiologist: Isha De La Fuente Anesthesia: LMA Pre-op Diagnosis: renal failure Post-op Diagnosis: same Procedure: tunneled right femoral dialysis catheter Inf/Abcess present in the surg proc area at time of surgery?: No
[2018-03-04] MEDS ORDERED: PROMETHAZINE HCL 25 MG/ML INJ ONE (14:59)
[2018-03-04] MEDS ORDERED: HEPARIN 50,000 UNIT/10 ML VIAL ONE (15:00)
[2018-03-04] MEDS ORDERED: ALBUTEROL 3 ML DEYVIAL IH PRN (15:32)
[2018-03-04] MEDS ORDERED: PROMETHAZINE HCL 25 MG/ML INJ IVP PRN (15:32)
[2018-03-04] MEDS ORDERED: HYDROmorphONE/DILAUDID 2 MG/ML INJ IVP PRN (15:32)
--- NOTE | 2018-03-04 15:33 | POSTANESTH ---
Post Anesthetic Evaluation Cardiovascular Status: Similar to Pre-Op Cond Respiratory Status: Similar to Pre-op Cond. Level of Consciousness/Mental Status: Can Participate in Eval Pain Control: Adequate, Prn Tx Ordered Nausea/Vomiting Control: Adequate, Prn Tx Ordered Complications Possibly Related to Anesthesia: None Noted
[2018-03-04] MEDS ORDERED: PROMETHAZINE HCL 25 MG/ML INJ IVP ONE (18:15)
[2018-03-04] MEDS: PROMETHAZINE HCL 25 MG TAB PO SCH (20:08)
[2018-03-05] MEDS: ACETAMINOPHEN 325 MG TAB PO PRN ×3 (00:54→14:32)
[2018-03-05] MEDS: PROMETHAZINE HCL 25 MG/ML INJ IVP PRN ×4 (02:56→19:59)
[2018-03-05 08:01] LABS: PLATELET COUNT 204 10^3/uL (150-400)
--- NOTE | 2018-03-05 08:24 | SOAPPROG ---
SOAP Progress Note Assessment/Plan: Assessment: ESRD, nonfunctioning access patient involved in multi-patient live kidney swap transplant in April POD 1 R Fem tunneled HD cath placement, ran fine yesterday. Appreciate everyone' s help HTN reasonable control, will continue to pull fluid on HD Anemia of CKD EPO as necessary Plan: counseled regarding the high risk of infection in groin catheter, needs to have fastidious cleanliness HD today HD tomorrow 03/05/18 08:19 Subjective: spirits good today slept well catheter is a bit bothersome, but is manageable nausea no better after HD, suspect once we get her uremia cleared, nausea should resolve appetite OK energy still not great some pain at insertion site, getting better Objective: Vital Signs Temp Pulse Resp BP Pulse Ox 37.1 C 84 16 116/72 96 03/05/18 08:00 03/05/18 08:00 03/05/18 08:00 03/05/18 08:00 03/05/18 08:00 Laboratory Results 03/05/18 07:55 03/04/18 03/05/18 03/06/18 05:59 05:59 05:59 Intake Total 1350 595 Output Total 400 0 Balance 950 595 PT 14.6 SEC (12.0-15.0) 03/02/18 19:40 INR 1.12 (0.83-1.16) 03/02/18 19:40 Physical Exam - Physical Exam General Appearance: alert, no apparent distress Neck: other (JVD) Respiratory: rales, No rhonchi, No wheezing Cardiac/Chest: regular rate, rhythm, edema, systolic murmur Abdomen: normal bowel sounds, soft Skin: normal color Extremities: other (HD cath right fem vein) Neuro/Psych: alert, normal mood/affect, oriented x 3 ICD10 Worksheet Patient Problems: Problems Problem Status Onset Altered mental status Acute Opioid overdose Acute Abdominal pain Active Disorder of pancreas Active MRSA - Methicillin resistant Staphylococcus aureus infection Active MRSA - Methicillin resistant Staphylococcus aureus infection Active Metabolic acidosis Active Renal failure syndrome Active Chest pain Acute Chest pain Acute Dialysis complication Acute End stage renal disease Acute Hypotension Acute Renal failure Acute
[2018-03-05] MEDS: ESCITALOPRAM OXALATE 10 MG TAB PO SCH (08:53)
[2018-03-05] MEDS: oxyCODONE IR 5 MG TAB PO SCH ×2 (08:53→21:49)
[2018-03-05] MEDS: CALCIUM CARBONATE 500 MG CHEWABLE TAB PO SCH ×3 (08:53→21:46)
[2018-03-05] MEDS: PANTOPRAZOLE SODIUM 40 MG TAB PO SCH ×2 (08:54→21:46)
[2018-03-05] MEDS: FLUTICASONE NASAL 120 SPRAYS/16 GM MDI EACHNARE SCH ×2 (09:35→21:46)
[2018-03-05] MEDS: CALCIUM ACETATE 667 MG CAP PO SCH ×3 (09:35→19:57)
[2018-03-05] MEDS: SEVELAMER HCL 800 MG TAB PO SCH ×3 (10:46→19:57)
--- NOTE | 2018-03-05 12:53 | ASMTCMCOM ---
CM Note CM Note Notes: Plan of care reviewed in rounds. 42 year old female s/p new dialysis access after ED admission for altered mental status. She is to have dialysis today. No needs identified CM to follow should needs arise. Plan: Likely to discharge when medically cleared. Date Signed: 03/05/2018 12:52 PM Electronically Signed By:Dacia Lawrence RN
--- NOTE | 2018-03-05 18:44 | HOSPPROG ---
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 This patient is new to me. Reviewed patient's chart/records for this visit. 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 Will need referral for vasc surgery. -HD today, to be followed by HD tomorrow prior to returning to normal schedule. Neph recs appreciated. -Continue O2 prn. -Telemetry. -Check AM labs. -Continue home meds. 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 VTE prophylaxis: SCDs Code Status: Full code Status: Inpatient for > 2 midnight stay. Disposition: Med surg with discharge anticipated in the next couple days. ____ SUBJECTIVE: Today patient denies any complaints. Seen during HD. OBJECTIVE: Physical Exam: General: The patient is a female who is alert and in no acute distress. HEENT: normocephalic, extraocular movements intact, conjunctivae clear. Mucous membranes moist. Neck: trachea midline, no visible masses. CV: +S1/S2, RRR, no MRG. Resp: unlabored, CTAB no RRW. Abd: soft and nondistended. Musculoskeletal: Normal muscle tone/bulk. Neuro: cranial nerves II XII grossly intact. Intact gross motor and sensory function. Psych: Appropriate mood and flat affect. Skin: No pallor. No petechiae. Heme/lymph: No peripheral edema at bilateral ankles. Labs/Imaging/Other Tests: Personally reviewed/interpreted. Objective: Vital Signs Temp Pulse Resp BP Pulse Ox 37.1 C 95 16 99/69 L 97 03/05/18 08:00 03/05/18 14:41 03/05/18 14:41 03/05/18 14:41 03/05/18 14:41 Laboratory Results 03/05/18 07:55 03/05/18 07:55 03/04/18 03/05/18 03/06/18 05:59 05:59 05:59 Intake Total 1350 595 150 Output Total 400 0 Balance 950 595 150 PT 14.6 SEC (12.0-15.0) 03/02/18 19:40 INR 1.12 (0.83-1.16) 03/02/18 19:40 - Time Spent With Patient Time Spent with Patient: greater than 35 minutes Time Spent with Patient: Greater than 35 minutes spent on this patients care, greater than 50% of time spent counseling, educating, and coordinating care regarding the above mentioned plan. ICD10 Worksheet Patient Problems: Problems Problem Status Onset Altered mental status Acute Opioid overdose Acute Abdominal pain Active Disorder of pancreas Active MRSA - Methicillin resistant Staphylococcus aureus infection Active MRSA - Methicillin resistant Staphylococcus aureus infection Active Metabolic acidosis Active Renal failure syndrome Active Chest pain Acute Chest pain Acute Dialysis complication Acute End stage renal disease Acute Hypotension Acute Renal failure Acute
[2018-03-05] MEDS: MIDODRINE HCL 5 MG TAB PO PRN (20:00)
[2018-03-05] MEDS ORDERED: HEPARIN 50,000 UNIT/10 ML VIAL ONE (21:19)
[2018-03-06 02:37] VITALS: BP 113/70
[2018-03-06] MEDS: PROMETHAZINE HCL 25 MG/ML INJ IVP PRN ×3 (02:52→16:28)
[2018-03-06] MEDS: ACETAMINOPHEN 325 MG TAB PO PRN (02:53)
[2018-03-06] MEDS: MIDODRINE HCL 5 MG TAB PO PRN (07:51)
[2018-03-06] MEDS: CALCIUM ACETATE 667 MG CAP PO SCH ×2 (08:55→11:49)
[2018-03-06] MEDS: SEVELAMER HCL 800 MG TAB PO SCH ×2 (08:56→11:49)
[2018-03-06] MEDS: CALCIUM CARBONATE 500 MG CHEWABLE TAB PO SCH (08:56)
[2018-03-06] MEDS: oxyCODONE IR 5 MG TAB PO SCH (10:22)
[2018-03-06] MEDS ORDERED: HEPARIN 50,000 UNIT/10 ML VIAL ONE (11:47)
[2018-03-06] MEDS: ESCITALOPRAM OXALATE 10 MG TAB PO SCH (11:48)
[2018-03-06] MEDS: PANTOPRAZOLE SODIUM 40 MG TAB PO SCH (11:48)
--- NOTE | 2018-03-06 13:38 | ASMTCMCOM ---
CM Note CM Note Notes: Patient plan of care reviewed in rounds. 42 year old female admitted with AMS via ED thought secondary to ingestion of medications. Dialysis access not functional and has groin catheter. interrupted her dialysis session this am. Wants to leave. Awaiting nephrology. No needs identified. Plan: Dc to home no needs when medically cleared for discharge, Date Signed: 03/06/2018 01:38 PM Electronically Signed By:Dacia Lawrence RN
--- NOTE | 2018-03-06 15:48 | ASMTLACE ---
LACE Length of stay for Answers: 4-6 days current admission Comorbidities - select Answers: Moderate or severe liver all that apply or renal disease Opioid dependence / Chronic pain Previous myocardial infarction # of Emergency department Answers: 1-2 visits in the last 6 months Score: 14 Date Signed: 03/06/2018 03:48 PM Electronically Signed By:Dacia Lawrence RN
--- NOTE | 2018-03-06 15:55 | ASMTDCNOTE ---
Case Management Discharge Discharge Order Complete? Answers: Yes Patient to Obtain Answers: Independently Medications Transportation Arranged Answers: Family/Friends Family Notified Answers: Yes Discharge Comments Notes: Patient medically cleared for discharge to home. No needs at this time. Date Signed: 03/06/2018 03:54 PM Electronically Signed By:Dacia Lawrence RN
[2018-03-06] MEDS ORDERED: PROMETHAZINE HCL 25 MG TAB PO ONE (16:35)
--- NOTE | 2018-03-06 17:36 | PDDCSUM ---
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 Baer [facility] Course: The patient is a 42-year-old female who arrived to the ED unresponsive. Her boyfriend had dropped her off, reporting she was at a republican and likely consume too much oxycodone after she had a headache. She received 2 doses of Narcan in the ED as well as oxygen via bag mask and soon woke up again. The patient had also skipped dialysis because her fistula was malfunctioning. She had been scheduled to receive a dialysis catheter as an outpatient, but felt very fatigued and volume overloaded. During this hospital visit, patient underwent an unsuccessful attempt for dialysis catheter placement on 03/02/2018. She underwent a repeat attempt on March 04 which was successful. Catheter location was R femoral vein. The next day, patient underwent dialysis without complications. Today, she underwent dialysis but did not tolerate the full treatment. She called for dialysis to stop after 1/2 L of fluid was removed because she felt myalgias. She feels better today and prefers to go home to continue her regularly scheduled dialysis tomorrow. Regarding oxycodone, patient agrees that 10 mg is much too strong for her. She has been given a small supply of oxycodone 5mg, which is expected to be better tolerated. For headaches, she was recommended to try a combination of acetaminophen and caffeine. She may discuss ongoing pain management with PCP. Physical Exam: Gen alert, oriented, in NAD. Resp: unlabored. MSK: ambulatory. Condition: Stable. Discharged to: Home. Pertinent tests/labs/imaging: N/A. Medications: Please see med rec form. New medication: oxycodone 5mg tabs, take 1 tab po BID prn severe pain #10. Special instructions: Return to ED if symptoms worsen. Resume home meds, but cut back on oxycodone as it is very strong. Keep dialysis catheter clean. Dressing changes at dialysis center. Follow up: PCP in 1 week to discuss chronic pain. Vipul Redd in 1 week to repair fistula. 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 Surgeon at [facility] as planned for kidney surgery. > 30 minutes of total time was spent on counseling and coordination of care for this patient's discharge.
== END 2018-03-06 16:59 | disposition home or self-care (01) | DRG 314 ==
LOC: EEVIPCON 21:14 → F2N 22:31 → OBSVTOIN 03-02 14:38 → F2N 03-02 18:08 → F1N 03-02 18:18
PROVIDERS: ADMIT Internal Medicine; ATTEND Internal Medicine
PROC: 02HV33Z Insertion of Infusion Device into Superior Vena Cava, Percutaneous Approach (ICD-10-PCS; principal; 2018-03-04 14:48)
PROC: 5A1D70Z Performance of Urinary Filtration, Intermittent, Less than 6 Hours Per Day (ICD-10-PCS; principal; 2018-03-04 14:48)
DX: T82.868A Thrombosis due to vascular prosthetic devices, implants and grafts, initial encounter (principal); N18.6 End stage renal disease; Q61.2 Polycystic kidney, adult type; J96.01 Acute respiratory failure with hypoxia; T40.2X1A Poisoning by other opioids, accidental (unintentional), initial encounter; D63.1 Anemia in chronic kidney disease; F17.210 Nicotine dependence, cigarettes, uncomplicated; K21.9 Gastro-esophageal reflux disease without esophagitis; G47.33 Obstructive sleep apnea (adult) (pediatric); G89.3 Neoplasm related pain (acute) (chronic); Z87.442 Personal history of urinary calculi; Z86.14 Personal history of Methicillin resistant Staphylococcus aureus infection; Z99.2 Dependence on renal dialysis
CPT/HCPCS: 80307; 82435-PO; 82565-PO; 82947-PO; 84132-PO; 84295-PO; 84520-PO; 85014-PO; 96374; C1769; G0378; G0480; J0610; J0690; J1200; J1642; J1644; J2060; J2250; J2310; J2370; J2405; J2550; J2704; J2930; J2997; J3010; Q9967

== ENCOUNTER 2018-03-28 17:05 | Inpatient (IN) | payer OTHER, MEDICAID ==
--- NOTE | 2018-03-28 17:29 | EDPHY ---
HPI/HX/ROS/PE/MDM Narrative: CHIEF COMPLAINT: ESRD concerns HISTORY OF PRESENT ILLNESS: The patient is a 42 y/o female with a history of ESRD (hemodialysis dependent) complaining of a possible staph infection and concerns of her safety at [facility]. She was admitted to [facility] on 03/22/18 for fever, vomiting, pain and erythema at the site of her femoral access site. On 03/22/18 she was at dialysis when she started to feel nauseous and had several episodes of vomiting. Patient has history of Clostridium difficile. Stool studies at the time of admission also indicated norovirus. There was concerns regarding line infection from the femoral access site. This line was removed. Patient states that she was Vancomycin (IV and Oral). Patient was scheduled to have dialysis today. She does have a temporary Ortiz line in place. Patient reports that she left [facility] this afternoon because her ex- had presented to [facility] and she was fearful for her life, health and safety. She states that she did make a please report and that she did notify [facility] that her ex- was not allowed to visit. After leaving [facility] she presented to this emergency department as she normally receives care at this hospital from Dr. Dima Redd, general surgeon. She is concerned about not finishing her antibiotics and missing hemodialysis today. Patient does note that she was over dialyzed, by her report, at her last dialysis and remains under her dry weight of 69 kilos. She also complains of left upper quadrant and left flank pain. She evidently has polycystic kidneys and was scheduled to have a left nephrectomy on 03/26/18 which was postponed due to concerns regarding potential septicemia. No fever, chills, chest pain, shortness of breath, palpitations, diarrhea, urinary complaints, headache, lightheadedness. She is requesting that we don't contact [facility] for further concerns of her safety. She has been in contact with the police department regarding her safety concerns. REVIEW OF SYSTEMS: Aside from elements discussed in the HPI, a comprehensive 10-point review of systems was reviewed and is negative. PAST MEDICAL HISTORY: ESRD - on dialysis - polycystic kidney disease, hypotension, hepatitis C, tubal ligation SOCIAL HISTORY: Friend at bedside, lives in [place], single, not employed VITAL SIGNS: Reviewed by me GENERAL: Well-developed, well-nourished, resting comfortably in no respiratory distress. HEENT: Atraumatic. Very pale lips. Pale conjunctiva. Eyes: No icterus, no injection. Mouth: moist mucous membranes. No erythema or lesions. Neck: supple with no adenopathy. LUNGS: Clear to auscultation bilaterally, no wheezes, rhonchi or rales. CARDIAC: Soft diastolic murmur. Regular rate and rhythm, no rubs or gallops. ABDOMEN: LUQ tenderness to palpation. Soft, nondistended, no guarding or rebound. BACK: Significant left CVA tenderness. EXTREMITIES: Left arm has multiple surgical scars and sites; it is also generally tender and swollen but there are no signs of cellulitis. Site where central line was removed from right groin without signs of cellulitis. No edema. Range of motion is normal throughout. NEURO: Alert and oriented, grossly nonfocal. SKIN: Pale, warm and dry, no rash. PSYCHIATRIC: Normal mentation, no agitation. Portions of this note were transcribed by a medical office scheduler. I personally performed a history, physical exam, medical decision making, and confirmed accuracy of information the transcribed note. ED Course: The patient is a 42 y/o female with a history of ESRD (hemodialysis dependent) left AMA from [facility] today at 16:00. Patient initially reported that she had positive blood cultures, however, on the most recent progress note available to me that I reviewed, dated March 26, blood cultures were negative to date. Patient did have GI pathogen panel is demonstrating C difficile as well as norovirus. She has been taking vancomycin both IV and orally, but reports that she was taken off of her IV vancomycin recently. She has a temper a Ortiz catheter in place. She does not have a Grushon in place. On exam she has significant LUQ and left CVA tenderness. Her left arm has multiple surgical scars and sites; it is also generally tender and swollen but there are no signs of cellulitis. Labs, EKG, and chest x-ray ordered; 20mg PO OxyIR and 12.5mg IV Phenergan administered. Per old medical records, the patient had positive C.diff and norovirus tests at [facility] several days ago. 1828: 12-LEAD EKG: Please see the full report in [facility]. My interpretation: Sinus rhythm with a rate of 82, no peaked T-waves. I also reviewed patient's laboratory studies which reveal a low H&H. Labs remarkable for creatinine of 6.2, hemoglobin of 7, hematocrit of 21. Potassium 3.8, calcium 6.8. Chest x-ray, no infiltrate. No cardiomegaly. H&H is significantly lower than several weeks ago. 1849: Reassessed patient and discussed laboratory findings. I have also discussed plan for admission which she is comfortable with. 1910: I consulted with the hospitalist service regarding this patient; Dr. Mckinnon accepts admission of this patient. MDM: Differential diagnoses for the patient's symptom complex was considered including but not limited to end-stage renal disease with hyperkalemia, bacteremia, Clostridium difficile, dehydration, interpersonal violence, concerns regarding patient's safety. - Data Points Imaging Results: Imaging Impressions Chest X-Ray 03/28/18 18:27 Impression: 1. Central vascular dialysis port noted from left subclavian approach with tip in the SVC. 2. No active cardiopulmonary disease seen. Imaging: I viewed and interpreted images myself Laboratory Results: Laboratory Results 03/28/18 17:50 03/28/18 17:50 03/28/18 03/28/18 03/28/18 18:59 17:50 17:50 WBC RBC Hgb Hct MCV MCH MCHC RDW Plt Count MPV Neut % (Auto) Lymph % (Auto) Miner % (Auto) Eos % (Auto) Baso % (Auto) Nucleat RBC Rel Count Absolute Neuts (auto) Absolute Lymphs (auto) Absolute Monos (auto) Absolute Eos (auto) Absolute Basos (auto) Absolute Nucleated RBC Immature Gran % Immature Gran # Sodium 136 mEq/L mEq/L (135-145) Potassium 3.9 mEq/L mEq/L (3.5-5.2) Chloride 107 mEq/L mEq/L (97-110) Carbon Dioxide 18 mEq/l L mEq/l (22-31) Anion Gap 11 mEq/L mEq/L (6-14) BUN 52 mg/dL H mg/dL (7-23) Creatinine 6.2 mg/dL H mg/dL (0.6-1.0) Estimated GFR 7 Glucose 79 mg/dL mg/dL (70-100) Calcium 6.8 mg/dL L mg/dL (8.5-10.4) Total Bilirubin 0.3 mg/dL mg/dL (0.1-1.4) Conjugated Bilirubin 0.3 mg/dL mg/dL (0.0-0.5) Unconjugated Bilirubin 0.0 mg/dL mg/dL (0.0-1.1) AST 8 IU/L L IU/L (14-46) ALT 20 IU/L IU/L (9-52) Alkaline Phosphatase 99 IU/L IU/L (38-126) Total Protein 5.8 g/dL L g/dL (6.3-8.2) Albumin 3.1 g/dL L g/dL (3.5-5.0) Patient ABO/Rh B POSITIVE Antibody Screen NEGATIVE 03/28/18 17:50 WBC 8.65 10^3/uL 10^3/uL (3.80-9.50) RBC 2.13 10^6/uL L 10^6/uL (4.18-5.33) Hgb 7.0 g/dL L g/dL (12.6-16.3) Hct 21.6 % L % (38.0-47.0) MCV 101.4 fL H fL (81.5-99.8) MCH 32.9 pg pg (27.9-34.1) MCHC 32.4 g/dL g/dL (32.4-36.7) RDW 13.8 % % (11.5-15.2) Plt Count 211 10^3/uL 10^3/uL (150-400) MPV 8.8 fL fL (8.7-11.7) Neut % (Auto) 75.0 % H % (39.3-74.2) Lymph % (Auto) 16.5 % % (15.0-45.0) Miner % (Auto) 4.9 % % (4.5-13.0) Eos % (Auto) 1.3 % % (0.6-7.6) Baso % (Auto) 0.1 % L % (0.3-1.7) Nucleat RBC Rel Count 0.0 % % (0.0-0.2) Absolute Neuts (auto) 6.49 10^3/uL 10^3/uL (1.70-6.50) Absolute Lymphs (auto) 1.43 10^3/uL 10^3/uL (1.00-3.00) Absolute Monos (auto) 0.42 10^3/uL 10^3/uL (0.30-0.80) Absolute Eos (auto) 0.11 10^3/uL 10^3/uL (0.03-0.40) Absolute Basos (auto) 0.01 10^3/uL L 10^3/uL (0.02-0.10) Absolute Nucleated RBC 0.00 10^3/uL 10^3/uL (0-0.01) Immature Gran % 2.2 % H % (0.0-1.1) Immature Gran # 0.19 10^3/uL H 10^3/uL (0.00-0.10) Sodium Potassium Chloride Carbon Dioxide Anion Gap BUN Creatinine Estimated GFR Glucose Calcium Total Bilirubin Conjugated Bilirubin Unconjugated Bilirubin AST ALT Alkaline Phosphatase Total Protein Albumin Patient ABO/Rh Antibody Screen Medications Given: Calcium Acetate (Phoslo) 1,328 mg PO PRN PRN PRN Reason: SNACKS Stop: 09/24/18 21:12 Last Admin: 03/28/18 21:37 Dose: 1,328 mg Furosemide (Lasix) 160 mg PO BID@, [facility] Stop: 09/24/18 22:59 Last Admin: 03/28/18 23:10 Dose: 160 mg Heparin Sodium (Porcine) (Heparin Sc Injection) 5,000 unit SC Q8 [facility] Stop: 09/24/18 21:59 Last Admin: 03/28/18 21:38 Dose: 5,000 unit Oxycodone HCl (Oxycodone Ir) 20 mg PO Q4H PRN PRN Reason: Pain, Severe Stop: 04/07/18 21:12 Last Admin: 03/28/18 23:20 Dose: 20 mg Vancomycin HCl (Vancocin Oral Liquid) 125 mg PO QID AVI PRN Reason: Protocol Stop: 04/27/18 23:00 Last Admin: 03/28/18 23:11 Dose: 125 mg Discontinued Medications Oxycodone HCl (Oxycodone Ir) 20 mg PO EDNOW ONE Stop: 03/28/18 18:23 Last Admin: 03/28/18 18:52 Dose: 20 mg Promethazine HCl (Phenergan) 12.5 mg IVP EDNOW ONE Stop: 03/28/18 18:27 Last Admin: 03/28/18 18:52 Dose: 12.5 mg General Time Seen by Provider: 03/28/18 17:28 Initial Vital Signs: Initial Vital Signs Temperature (C) 36.8 C 03/28/18 17:12 Heart Rate 98 03/28/18 17:12 Respiratory Rate 18 03/28/18 17:12 Blood Pressure 139/99 H 03/28/18 17:12 O2 Sat (%) 98 03/28/18 17:12 O2 Delivery Mode Room Air Allergies/Adverse Reactions: levofloxacin [Levofloxacin] Allergy (Severe, Verified 03/28/18 17:10) Anaphylaxis Marijuana/Cannabi *RETIRED-11/11/11 [Marijuana/Cannabinoid] Allergy (Severe, Verified 03/28/18 17:10) Anaphylaxis ondansetron HCl [From Zofran (as hydrochloride)] Allergy (Severe, Verified 03/28 17:10) Tingling of mouth/throat strawberry Allergy (Severe, Verified 03/28/18 17:10) Anaphylaxis hydrochlorothiazide Allergy (Verified 03/28/18 17:10) NSAIDS (Non-Steroidal Anti-Inflamma [Nsaids] Allergy (Verified 03/28/18 17:10) Sulfa (Sulfonamide Antibiotics) Allergy (Verified 03/28/18 17:10) Home Medications: Medication Instructions Recorded Furosemide [Lasix 80 MG (*)] 160 mg PO BID@,17 05/21/16 Promethazine HCl [Phenergan 25mg 25 mg PO BID@,18 05/21/16 (*)] Sevelamer Carbonate [Renvela] 1,600 mg PO TIDMEAL 05/21/16 Calcium Acetate [Phoslo (*)] 2,001 each PO TIDMEAL 07/16/16 Fluticasone Nasal [Flonase Nasal 2 sprays NASAL BID 09/23/17 [place]] Lisinopril [Zestril 20 mg (*)] 20 mg PO DAILY PRN 09/23/17 Midodrine HCl 10 mg PO AD 09/23/17 Calcium Acetate [Phoslo (*)] 1,328 mg PO PRN PRN 03/02/18 Escitalopram Oxalate [Lexapro] 20 mg PO DAILY 03/02/18 Omeprazole 40 mg PO DAILY 03/02/18 Sevelamer Carbonate [Renvela] 1,600 mg PO PRN PRN 03/02/18 oxyCODONE IR [Oxycodone Ir (*)] 20 mg PO Q4H PRN 03/28/18 Departure - Departure Disposition: [facility] Inpatient Acute Clinical Impression: End stage renal disease Diarrhea Qualifiers: Diarrhea type: unspecified type Qualified Code(s): R19.7 - Diarrhea, unspecified Anemia Qualifiers: Anemia type: unspecified type Qualified Code(s): D64.9 - Anemia, unspecified Condition: Fair Report Scribed for: Yadi Dyer Report Scribed by: Pam Clemente Date of Report: 03/28/18 Time of Report: 17:29
[2018-03-28 18:08] LABS: PLATELET COUNT 211 10^3/uL (150-400)
[2018-03-28] MEDS ORDERED: oxyCODONE IR 5 MG TAB PO ONE (18:22)
[2018-03-28] MEDS ORDERED: PROMETHAZINE HCL 25 MG/ML INJ IVP ONE (18:26)
[2018-03-28] MEDS ORDERED: ONDANSETRON DISINTEGRATING 4 MG TAB PO PRN (21:12)
[2018-03-28] MEDS ORDERED: ONDANSETRON 4 MG/2 ML VIAL IVP PRN (21:12)
[2018-03-28] MEDS ORDERED: LISINOPRIL 20 MG TAB PO PRN (21:13)
[2018-03-28] MEDS ORDERED: CALCIUM ACETATE 667 MG CAP PO PRN (21:13)
[2018-03-28] MEDS: HEPARIN 5,000 UNIT/0.5 ML INJ SC SCH (21:38)
[2018-03-28] MEDS ORDERED: SEVELAMER HCL 800 MG TAB PO PRN (21:53)
--- NOTE | 2018-03-28 22:12 | GHP ---
DATE OF ADMISSION: 03/28/2018 CHIEF COMPLAINT: Need for dialysis. HISTORY OF PRESENT ILLNESS: This is a 42-year-old female who was just admitted to the hospital in march. She has a history of end-stage renal disease secondary to polycystic kidney disease. S he was recently admitted for opiate overdose. Apparently, she was in dialysis about a week ago and h ad fevers and chills at that time. She was sent over to [place]. She was diagnosed with a staph infection in her blood as well as C difficile colitis. She was started on IV vancomycin as well as o ral vancomycin. She had a groin line in from our hospitalization, which was removed. She has a dial ysis catheter, left subclavian, currently. The plan was to wait for her blood cultures to clear then tunnel the catheter. There is also plan for nephrectomy soon as she is getting close to kidney teague splant. Supposedly, her cultures have remained clear. She had a repeat C difficile, which was negat alfredo. Apparently, she has an ex-boyfriend whom she had a restraining order against and had served 20 years in [facility] for murdering during his first . He escaped from his senior care house and came to [facility] to find her. She then left [place] to escape from him because she felt like the security at [facility] was pretty lax, and they were not protecting her enough. She does not think that he knows that she is at [facility]. She has a chronic abdominal pain but denies any fevers, chills, or diarrhea. REVIEW OF SYSTEMS: A 10-point review of systems obtained, other than stated was negative. PAST MEDICAL HISTORY: 1. End-stage renal disease secondary to polycystic kidney disease. 2. Left fistula, which has not been working recently. 3. Hypertension. 4. GERD. 5. Chronic pain. 6. Depression. 7. Kidney stones. 8. Hepatitis C. MEDICATIONS: Reviewed. SOCIAL HISTORY: No smoking. Previous alcohol abuse. Recent heroin abuse. FAMILY HISTORY: Polycystic kidney disease. PHYSICAL EXAMINATION: VITAL SIGNS: Afebrile, blood pressure is 157/77, heart rate is 97, oxygen sat uration 95% on room air. GENERAL: The patient is well developed, in no apparent distress. HEENT: Nonicteric sclerae. Extraocular movements intact. Moist mucous membranes. NECK: Supple. No thyro megaly. LUNGS: Good effort. Clear to auscultation bilaterally. CARDIOVASCULAR: Regular rate and rhythm. No murmurs, gallops. ABDOMEN: Positive bowel sounds. Soft. Some mild tenderness. No wicho ound or guarding. EXTREMITIES: No clubbing, cyanosis, or edema. SKIN: Without rash. i ntact. NEUROLOGIC: Alert and oriented x3. Moving all 4 extremities. PSYCH: Normal mood and affec t. LABS: White count 8, hemoglobin 7. Potassium 3.9, CO2 is 18, creatinine 6.2. ASSESSMENT: This is a 42-year-old female, with end-stage renal disease, complicated social history, presenting for dialysis and finishing out antibiotic course from [facility]. PLAN: 1. End-stage renal disease: She did get dialyzed, I believe, 1 or 2 days ago, and she felt like she was over dialyzed at that time. Her potassium is normal, and her creatinine is actually kind of low er than it has been in the past. I have contacted Nephrology, who will consider dialysis tomorrow. 2. Probable Staph aureus bacteremia due to line infection. Again, we do not have confirmation of th is. Would like to get records from [place] but she is not allowing us to talk to [facility] of her fear. Cultures have been repeated already. We will check a vancomycin level in the [facility] and see if that can be dosed with dialysis. 3. C difficile. We will continue oral vancomycin. 4. Anemia. Probably will need a transfusion with dialysis. 5. Dialysis catheter, left subclavian, will probably have to be switched over to a tunneled catheter . Dr. Redd could weigh on her recently thrombosed left forearm AV graft. /[id number]/MODL
[2018-03-28] MEDS: FUROSEMIDE 80 MG TAB PO SCH (23:10)
[2018-03-28] MEDS: VANCOMYCIN 125 MG/2.5 ML UDL PO SCH (23:11)
[2018-03-28] MEDS: oxyCODONE IR 5 MG TAB PO PRN (23:20)
[2018-03-29] MEDS: SEVELAMER HCL 800 MG TAB PO SCH ×4 (01:14→17:20)
[2018-03-29] MEDS: CALCIUM ACETATE 667 MG CAP PO SCH ×4 (01:14→17:20)
[2018-03-29] MEDS: VANCOMYCIN 125 MG/2.5 ML UDL PO SCH ×3 (05:07→20:19)
[2018-03-29] MEDS: FUROSEMIDE 80 MG TAB PO SCH ×2 (05:08→17:21)
[2018-03-29] MEDS: PROMETHAZINE HCL 25 MG TAB PO SCH ×2 (05:08→17:39)
[2018-03-29] MEDS: oxyCODONE IR 5 MG TAB PO PRN ×5 (05:08→21:40)
[2018-03-29] MEDS: HEPARIN 5,000 UNIT/0.5 ML INJ SC SCH ×3 (05:10→20:20)
[2018-03-29 05:23] LABS: PLATELET COUNT 212 10^3/uL (150-400)
[2018-03-29] MEDS ORDERED: VANCOMYCIN 125 MG/2.5 ML UDL PO SCH (06:00)
[2018-03-29] MEDS: ESCITALOPRAM OXALATE 10 MG TAB PO SCH (08:22)
[2018-03-29] MEDS: PANTOPRAZOLE SODIUM 40 MG TAB PO SCH (08:23)
[2018-03-29] MEDS: FLUTICASONE NASAL 120 SPRAYS/16 GM MDI NS SCH ×2 (08:56→23:50)
--- NOTE | 2018-03-29 10:09 | PDMN ---
Medical Necessity Medical necessity: MCG MGSIC Systemic or Infections Condition: 42 yo w/ ESRD on HD developed staph infection and cdiff approx. one week ago and started on IV and PO vanco at [facility] but left AMA due to complex social hx ( fleeing person w/ restraining order) and came to [facility] for security reasons. Pt w / probable staph A bacteremia due to line infection, cultures pending. Cont oral vanco for cdiff. Pt noted to be anemic 09/20 and will prob need transfusion w/ next HD. Neph and gen surg consults pending. Will prob have to switch out dialysis sc cath to tunneled cath. Anticipate>2MN for management and treatment of above. Hx ESRD r/t polycystic kidney disease, non-working L fisula, HTN, GERN, chronic pain, depression, kidney stones, hep C.
[2018-03-29] MEDS: PROMETHAZINE HCL 25 MG/ML INJ IVP PRN ×3 (11:20→23:31)
--- NOTE | 2018-03-29 11:49 | HOSPPROG ---
Hospitalist Progress Note Assessment/Plan: #ESRD: due PCKD. K+ okay -HD tomorrow per Nephrology -poor access. Temporal left subclavian line placed 03/25. #Localized right groin catheter site infection -personally reviewed COHRIO: hospitalized at [facility]. Blood culture negative x 2. Dosed Vanc for a fews -no further abx indicated #C diff: + 03/23. Vanc QID #h/o HCV #PCKD: nephrectomy was planned for 03/26. Held with acute infection #Social: she left [facility] bc ex- visited though has restraining order against him. No visitors here #Anemia of renal disease: transfuse unit today #HTH: home meds #Diet: renal #DVT ppx: SCDs #Disp: inpatient admission for HD Subjective: still having loose stools, crampy abd pain. No SOB Objective: Vital Signs Temp Pulse Resp BP Pulse Ox 36.8 C 86 16 120/71 94 03/29/18 11:10 03/29/18 11:10 03/29/18 11:10 03/29/18 11:10 03/29/18 11:10 Laboratory Results 03/29/18 05:10 03/29/18 05:10 03/28/18 03/29/18 03/30/18 05:59 05:59 05:59 Output Total 150 Balance -150 - Time Spent With Patient Time Spent with Patient: greater than 35 minutes Time Spent with Patient: Greater than 35 minutes spent on this patients care, greater than 50% of time spent counseling, educating, and coordinating care regarding the above mentioned plan. - Physical Exam Constitutional: no apparent distress, obese Eyes: PERRL Ears, Nose, Mouth, Throat: moist mucous membranes Cardiovascular: regular rate and rhythym Respiratory: no respiratory distress, clear to auscultation, No no rales or rhonchi, No inspiratory crackles Gastrointestinal: normoactive bowel sounds, soft, non-tender abdomen, No tenderness Genitourinary: No mustafa in urethra Skin: warm Musculoskeletal: other (left SC HD catheter in place. No surrounding redness. Right groin cath site scabbed, no purulence.) Neurologic: AAOx3, CN II-XII Intact ICD10 Worksheet Patient Problems: Problems Problem Status Onset Anemia Acute Diarrhea Acute End stage renal disease Acute Abdominal pain Active 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
[2018-03-29 12:11] LABS: PLATELET COUNT 209 10^3/uL (150-400)
[2018-03-29] MEDS: ACETAMINOPHEN 325 MG TAB PO PRN (12:45)
--- NOTE | 2018-03-29 14:48 | GCON ---
DATE OF CONSULTATION: 03/29/2018 REASON FOR CONSULTATION: Opinion regarding end-stage kidney failure. HISTORY OF PRESENT ILLNESS: The patient is a very pleasant 42-year-old female with end-stage kidney failure on 3 times weekly hemodialysis. She has had difficulties with her left upper arm AV fistula, it has been clotted off a couple of times. Interventions have been unsuccessful. She now is dialyz ing via a temporary left subclavian vein hemodialysis catheter that was placed last week. She has be en having difficulties with increasing shortness of breath, nausea, and vomiting. She also has had s ome diarrhea due to Clostridium difficile colitis. She was admitted last night with the aforemention ed complaints. She has not had fevers, chills, nausea, vomiting. She does have some abdominal pain, diarrhea. No m errol, hematochezia. No blurry vision, double vision, headache, orthopnea, paroxysmal nocturnal dysp carlito, palpitations, or syncope. In fact, she thinks she might be a little bit volume depleted after h er last dialysis treatment. PAST MEDICAL HISTORY: Significant for: 1. End-stage kidney failure due to autosomal dominant polycystic kidney disease. 2. Autosomal dominant polycystic kidney disease. 3. History of hepatitis C positivity. 4. Hypertension. 5. Status post left AV fistula. 6. Chronic pain. 7. Depression. 8. History of nephrolithiasis. 9. Gastroesophageal reflux disease. 10. Secondary hyperparathyroidism. 11. Anemia of chronic kidney disease. MEDICATIONS: Include: 1. Tylenol. 2. PhosLo 3 with each meal, 2 with snacks. 3. Renagel 1600 mg with snacks as needed. 4. Lexapro 20 mg a day. 5. Lasix 160 mg twice daily. 6. Lisinopril 20 mg daily. 7. Midodrine 10 mg as needed. 8. Oxycodone as needed. 9. Protonix 40 mg daily. 10. Phenergan as necessary. FAMILY HISTORY: Positive for Autosomal dominant polycystic kidney disease. ALLERGIES: Allergies to Levaquin and marijuana. SOCIAL HISTORY: She does have a history of recreational drug use. No tobacco. Has a history of alc ohol abuse as well. She has a difficult social situation with a former . REVIEW OF SYSTEMS: A complete 12-point review of systems was performed with the pertinent positives and negatives as per the previous sections. PHYSICAL EXAMINATION: VITAL SIGNS: Blood pressure is 120/71, pulse 86, respirations 16, temperature 36.8 degrees. Urine output 150 cc so far today. GENERAL: She is awake, alert, cooperative, and is in no acute distress. HEENT: Pupils are reactive to light. Extraocular movements are intact. Muc ous membranes are moist. NECK: No lymphadenopathy or thyromegaly. She has mild JVD. HEART: Regul ar with a grade 1/6 systolic murmur. No rub. No S3. LUNGS: No rales, rhonchi, or wheezes. ABDOME N: Bowel sounds positive. Soft, nontender, nondistended. EXTREMITIES: No edema, cyanosis, or club charly. NEUROLOGIC: No asterixis. SKIN: No unusual rashes or lesions. LYMPHATIC: No palpable lymp hadenopathy or lymphedema. MUSCULOSKELETAL: She has a poorly functioning left arm AV fistula. LABORATORY: Serum sodium 138, potassium 4.5, chloride 105, CO2 20, BUN 65, creatinine 8, glucose 87, calcium 7.5. AST 18, albumin 3.1. Vancomycin level 18.6. Stool C difficile is pending. Blood cul tures x2 are pending. WBC 8.9, hemoglobin 7.2, hematocrit 22, platelet count 212,000. Urinalysis: Specific gravity 1.008, pH 8, +1 protein, negative blood. IMPRESSION: 1. End-stage kidney failure on 3 times weekly hemodialysis. 2. Clostridium difficile colitis with diarrhea. RECOMMENDATIONS: 1. Plan on doing dialysis tomorrow. 2. Continue her current medications. 3. All questions were answered to the patient's satisfaction. Thank you for allowing me to participate in the care of your patient. If there are any questions, pl ease do not hesitate to contact us. We will be following along with you. /[id number]/MODL
--- NOTE | 2018-03-29 15:17 | ASMTCMCOM ---
CM Note CM Note Notes: Pt admitted to hospital after presenting to the ER. She left [facility] due to her ex boyfriend/, whom she has a restraining order against, finding her at [facility]. She left AMA for fear that security could not protect her. Pt is confidential here. She is a dialysis pt, and has hx of etoh abuse and recent heroine use. DC needs unclear, CM w/f for needs. Of note: ex boyfriend/ served time for killing his first . DC Plan: TBD Date Signed: 03/29/2018 03:17 PM Electronically Signed By:Mela Jose RN
--- NOTE | 2018-03-29 15:21 | ASMTLACE ---
DOLLY Acuity / Level of Answers: Yes Care: Did the patient have an inpatient admission? Comorbidities - select Answers: Moderate or severe liver all that apply or renal disease Opioid dependence / Chronic pain # of Emergency department Answers: 3-4 visits in the last 6 months Social determinants Answers: History of substance abuse (ETOH, street drugs, prescription drugs, etc.) History of trauma (PTSD, child abuse, domestic violence, etc.) Mental health diagnosis (anxiety, depression, pers onality disorders, etc.) Score: 23 Date Signed: 03/29/2018 03:20 PM Electronically Signed By:Mela Jose RN
[2018-03-30 02:29] LABS: HEPATITIS B CORE AB TOTAL NEGATIVE (NEGATIVE); HEPATITIS B SURFACE ANTIGEN NEGATIVE (NEGATIVE); HEPATITIS C ANTIBODY TOTAL REACTIVE (NEGATIVE)
[2018-03-30] MEDS: oxyCODONE IR 5 MG TAB PO PRN ×5 (04:07→22:02)
[2018-03-30] MEDS: CEPACOL LOZENGE PO PRN (04:23)
[2018-03-30] MEDS: FLUTICASONE NASAL 120 SPRAYS/16 GM MDI NS SCH ×3 (04:23→23:42)
[2018-03-30] MEDS: FUROSEMIDE 80 MG TAB PO SCH ×2 (05:31→16:26)
[2018-03-30] MEDS: VANCOMYCIN 125 MG/2.5 ML UDL PO SCH ×4 (05:31→22:03)
[2018-03-30] MEDS: PROMETHAZINE HCL 25 MG/ML INJ IVP PRN ×3 (05:33→18:48)
[2018-03-30] MEDS: HEPARIN 5,000 UNIT/0.5 ML INJ SC SCH ×3 (05:35→22:03)
[2018-03-30] MEDS: SEVELAMER HCL 800 MG TAB PO SCH ×3 (08:36→16:28)
[2018-03-30] MEDS: ACETAMINOPHEN 325 MG TAB PO PRN ×3 (08:37→17:53)
[2018-03-30] MEDS: ESCITALOPRAM OXALATE 10 MG TAB PO SCH (08:37)
[2018-03-30] MEDS: CALCIUM ACETATE 667 MG CAP PO SCH ×3 (08:37→16:28)
[2018-03-30] MEDS: PANTOPRAZOLE SODIUM 40 MG TAB PO SCH (08:38)
[2018-03-30] MEDS: PROMETHAZINE HCL 25 MG TAB PO SCH ×2 (08:45→16:26)
--- NOTE | 2018-03-30 10:07 | HOSPPROG ---
Hospitalist Progress Note Assessment/Plan: 42 yo F w esrd admitted w cdiff cdiff: continue po vanco supposedly had concomitant norvirus groin infection: looks good w no signs ongoing infection ?bacteremia: blood cx neg at [facility] fistula: has stopped working. has non tunneled left sub clavian line that line is c/d/i proph: scd's sore throat: viral swab dispo: inpt Subjective: still w diarhea. chest film viewed/interpreted by me Objective: Vital Signs Temp Pulse Resp BP Pulse Ox 36.8 C 82 14 128/79 H 97 03/30/18 07:56 03/30/18 08:00 03/30/18 07:56 03/30/18 07:56 03/30/18 08:00 Microbiology 03/29/18 10:03 Gastrointestinal Tract Panel (PCR) - Final Stool No Organism Detected By Pcr Laboratory Results 03/30/18 04:10 03/30/18 04:10 03/29/18 03/30/18 03/31/18 05:59 05:59 05:59 Intake Total 240 250 Output Total 150 200 400 Balance -150 40 -150 - Physical Exam Constitutional: no apparent distress, appears nourished Eyes: PERRL, anicteric sclera Ears, Nose, Mouth, Throat: moist mucous membranes, hearing normal, other ( erythematous orrpharynx) Respiratory: no respiratory distress, no rales or rhonchi, other (L subclavian line c/d/i w no fluctuance) Gastrointestinal: normoactive bowel sounds, soft, non-tender abdomen Genitourinary: no bladder fullness, other (R groin line site c/di w no fluctuance, erythema or warmth), No mustafa in urethra Skin: warm, normal color Musculoskeletal: full muscle strength Neurologic: AAOx3 ICD10 Worksheet Patient Problems: Problems Problem Status Onset Anemia Acute Diarrhea Acute End stage renal disease Acute Abdominal pain Active 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
--- NOTE | 2018-03-30 12:16 | SOAPPROG ---
SOAP Progress Note Assessment/Plan: Assessment/Plan: ESRD: on HD MWF. - Will do HD today. - Pt has tunneled catheter in L subclavian. Dr. Redd to see pt, see if graft can be intervened on or to move catheter to other side. Anemia: hgb up to 8.1 s/p PRBCs transfused yesterday. Hyperkalemia: will modulate on HD. Metabolic acidosis: will modulate on HD. HTN: controlled on current meds. STEPHON: continue phos binders. Subjective: No acute events overnight. Pt still having diarrhea but states it is improving. Objective: Vital Signs Temp Pulse Resp BP Pulse Ox 36.7 C 84 13 133/72 H 92 03/30/18 11:21 03/30/18 11:21 03/30/18 11:21 03/30/18 11:21 03/30/18 11:21 Microbiology 03/30/18 10:46 Respiratory Panel (PCR) - Final Nasal, Sinus - [place] Viral Transport No Organism Detected By Pcr 03/29/18 10:03 Gastrointestinal Tract Panel (PCR) - Final Stool No Organism Detected By Pcr Laboratory Results 03/30/18 04:10 03/30/18 04:10 03/29/18 03/30/18 03/31/18 05:59 05:59 05:59 Intake Total 240 250 Output Total 150 200 400 Balance -150 40 -150 General: alert and oriented, no acute distress Eyes: EOMI, PERRL OP: Clear CV: RRR Resp: nonlabored respirations Abd: Soft, NT/ND Ext: trace edema BLE Neuro: CN II-XII grossly intact, no asterixis Psych: cooperative Access: L subclavian tunneled catheter ICD10 Worksheet Patient Problems: Problems Problem Status Onset Anemia Acute Diarrhea Acute End stage renal disease Acute Abdominal pain Active 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
[2018-03-30] MEDS: MIDODRINE HCL 10 MG TAB PO SCH ×2 (14:29→15:51)
[2018-03-30] MEDS ORDERED: MIDODRINE HCL 10 MG TAB ONE (14:30)
[2018-03-30] MEDS ORDERED: HEPARIN 50,000 UNIT/10 ML VIAL ONE (16:23)
[2018-03-31] MEDS: PROMETHAZINE HCL 25 MG/ML INJ IVP PRN ×4 (02:53→22:06)
[2018-03-31] MEDS: oxyCODONE IR 5 MG TAB PO PRN ×5 (02:54→22:09)
[2018-03-31] MEDS: CEPACOL LOZENGE PO PRN (03:00)
[2018-03-31] MEDS: FUROSEMIDE 80 MG TAB PO SCH ×2 (05:57→17:11)
[2018-03-31] MEDS: VANCOMYCIN 125 MG/2.5 ML UDL PO SCH ×4 (05:57→22:09)
[2018-03-31] MEDS: PROMETHAZINE HCL 25 MG TAB PO SCH ×2 (05:57→17:47)
[2018-03-31] MEDS: HEPARIN 5,000 UNIT/0.5 ML INJ SC SCH ×3 (05:59→22:11)
[2018-03-31] MEDS: ACETAMINOPHEN 325 MG TAB PO PRN ×2 (06:01→22:15)
[2018-03-31] MEDS: PANTOPRAZOLE SODIUM 40 MG TAB PO SCH (09:19)
[2018-03-31] MEDS: SEVELAMER HCL 800 MG TAB PO SCH ×3 (09:20→17:51)
[2018-03-31] MEDS: ESCITALOPRAM OXALATE 10 MG TAB PO SCH (09:21)
[2018-03-31] MEDS: CALCIUM ACETATE 667 MG CAP PO SCH ×3 (09:21→17:52)
--- NOTE | 2018-03-31 10:38 | SOAPPROG ---
SOAP Progress Note Assessment/Plan: Assessment/Plan: ESRD: on HD MWF. - Next HD tomorrow. - Pt has catheter in L subclavian, placed last week at [facility] when they were unable to intervene on her graft. Please have Dr. Redd see pt to see if graft can be intervened on or to move catheter to other side. Anemia: hgb up to 8.1 s/p PRBCs transfused earlier this hospitalization, will recheck tomorrow. HTN: controlled on current meds. STEPHON: continue phos binders, will check phos with am labs. Subjective: No acute events overnight. Pt states HD went fine yesterday. She is still having diarrhea. Objective: Vital Signs Temp Pulse Resp BP Pulse Ox 36.8 C 84 12 109/72 99 03/31/18 07:55 03/31/18 07:55 03/31/18 07:55 03/31/18 07:55 03/31/18 07:55 Microbiology 03/30/18 10:46 Respiratory Panel (PCR) - Final Nasal, Sinus - [place] Viral Transport No Organism Detected By Pcr Laboratory Results 03/30/18 04:10 03/30/18 04:10 03/30/18 03/31/18 04/01/18 05:59 05:59 05:59 Intake Total 240 300 Output Total 200 3050 Balance 40 -2750 General: alert and oriented, no acute distress Eyes: EOMI, PERRL OP: Clear CV: RRR Resp: nonlabored respirations Abd: Soft, NT/ND Ext: no edema BLE Psych: cooperative Neuro: CN II-XII Grossly intact Access: L subclavian line ICD10 Worksheet Patient Problems: Problems Problem Status Onset Anemia Acute Diarrhea Acute End stage renal disease Acute Abdominal pain Active 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
[2018-03-31] MEDS: FLUTICASONE NASAL 120 SPRAYS/16 GM MDI NS SCH ×2 (12:30→22:15)
--- NOTE | 2018-03-31 15:45 | ASMTCMCOM ---
CM Note CM Note Notes: CM spoke with pt and RN. Pt is a current dialysis pt and will continue after discharge. CM reported no other concerns at this time. Pt will likely be discharged independently. CM available if needs may arise. Plan: independent with continued outpatient dialysis. Date Signed: 03/31/2018 03:44 PM Electronically Signed By:ADRIANO Knight
--- NOTE | 2018-03-31 16:14 | HOSPPROG ---
Hospitalist Progress Note Assessment/Plan: 42 yo F w esrd admitted w cdiff cdiff: continue po vanco supposedly had concomitant norovirus abd exam soft groin infection: looks good w no signs ongoing infection ?bacteremia: blood cx neg at [facility] fistula: has stopped working. has non tunneled left sub clavian line that line is c/d/i dr huynh to re eval fistula proph: scd's sore throat: viral swab neg dispo: inpt Subjective: case d/w dr huynh. 5 episodes of diarrhea today Objective: Vital Signs Temp Pulse Resp BP Pulse Ox 36.8 C 85 16 103/80 98 03/31/18 15:36 03/31/18 15:36 03/31/18 15:36 03/31/18 15:36 03/31/18 15:36 Microbiology 03/30/18 10:46 Respiratory Panel (PCR) - Final Nasal, Sinus - [place] Viral Transport No Organism Detected By Pcr Laboratory Results 03/30/18 04:10 03/30/18 04:10 03/30/18 03/31/18 04/01/18 05:59 05:59 05:59 Intake Total 240 300 360 Output Total 200 3050 Balance 40 -2750 360 - Physical Exam Constitutional: no apparent distress, appears nourished Eyes: PERRL, anicteric sclera Ears, Nose, Mouth, Throat: moist mucous membranes, hearing normal Cardiovascular: regular rate and rhythym, no murmur, rub, or gallop Respiratory: no respiratory distress, no rales or rhonchi Gastrointestinal: normoactive bowel sounds, soft, non-tender abdomen Genitourinary: no bladder fullness, other (groin line site c/d/i), No mustafa in urethra Skin: warm, normal color Musculoskeletal: full muscle strength ICD10 Worksheet Patient Problems: Problems Problem Status Onset Anemia Acute Diarrhea Acute End stage renal disease Acute Abdominal pain Active 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
--- NOTE | 2018-03-31 19:00 | GCON ---
[f rep st] CONSULTATION HISTORY OF PRESENT ILLNESS: Patient is a 42-year-old female admitted for evaluation by the internal medicine service. She, however, has chronic renal failure and has clotted off her left arm AV graft, was apparently declotted a short time ago at the [place] but not revised. She is not on any bloo d thinners. I was consulted for evaluation of her graft situation. She has a failed left upper extr emity AV fistula and now has a forearm loop graft. Risks and options have been fully discussed. She will need a graft thrombectomy and possible revision to keep it flowing. PAST MEDICAL HISTORY: Includes depression, chronic renal failure, drug abuse, hypertension, hep C, a nd surgeries for dialysis access, gastroesophageal reflux disease, secondary hyperparathyroidism, and polycystic kidney disease. REVIEW OF SYSTEMS: Negative on a full 10-point review except as related to HPI. She presently does not smoke. ALLERGIES: Levaquin, marijuana, Zofran, and others. PRESENT MEDICATIONS: Include Renagel, PhosLo, Tylenol, Lexapro, Lasix, lisinopril, midodrine, oxycod one, Protonix, and Phenergan. FAMILY HISTORY: Positive for polycystic kidney disease. SOCIAL HISTORY: Reveals she does not smoke. She is awaiting a possible kidney transplant. PHYSICAL EXAMINATION: GENERAL: Reveals an alert, cooperative 42-year-old female in no acute distres s. HEAD AND NECK: Exam reveals no icterus or adenopathy or oral lesions. NECK: Supple. Full rang e of motion. No thyromegaly or bruits. CHEST: Clear. CARDIAC: Exam reveals a regular rhythm with out murmurs. ABDOMEN: Soft and nontender, without masses. EXTREMITIES: Reveal full range of motio n, full pulses. She has a left arm forearm loop AV graft which is thrombosed, with no pulsation or t hrill. Otherwise, she has full range of motion, full distal pulses. NEURO: Exam is symmetric and p hysiologic. PSYCH: Exam reveals her to be alert, oriented, and cooperative. IMPRESSION: 1. End-stage renal failure, on dialysis, secondary to polycystic kidney disease. 2. Recent history of Clostridium difficile colitis. PLAN: Would be to do a thrombectomy and/or revision of this AV graft. Risks and options have been f ully discussed, and she wishes to proceed. She may need dialysis in the morning first. /[id number]/MODL
[2018-04-01] MEDS: oxyCODONE IR 5 MG TAB PO PRN ×5 (02:02→22:24)
[2018-04-01] MEDS: VANCOMYCIN 125 MG/2.5 ML UDL PO SCH ×4 (04:41→20:22)
[2018-04-01] MEDS: FUROSEMIDE 80 MG TAB PO SCH ×2 (04:41→18:15)
[2018-04-01] MEDS: PROMETHAZINE HCL 25 MG/ML INJ IVP PRN ×2 (04:41→19:43)
[2018-04-01] MEDS: PROMETHAZINE HCL 25 MG TAB PO SCH ×3 (04:42→20:09)
[2018-04-01] MEDS: PANTOPRAZOLE SODIUM 40 MG TAB PO SCH (08:15)
[2018-04-01] MEDS: ESCITALOPRAM OXALATE 10 MG TAB PO SCH (08:16)
[2018-04-01] MEDS: FLUTICASONE NASAL 120 SPRAYS/16 GM MDI NS SCH ×2 (08:20→20:45)
[2018-04-01] MEDS ORDERED: MIDODRINE HCL 10 MG TAB ONE (08:20)
[2018-04-01] MEDS: MIDODRINE HCL 10 MG TAB PO SCH ×2 (08:21→13:32)
[2018-04-01] MEDS: SEVELAMER HCL 800 MG TAB PO SCH ×3 (08:23→18:36)
[2018-04-01] MEDS: CALCIUM ACETATE 667 MG CAP PO SCH ×3 (08:23→18:36)
[2018-04-01] MEDS ORDERED: ceFAZolin 2 GM/DEXTROSE 100 ML IV ONE (08:33)
[2018-04-01] MEDS: ACETAMINOPHEN 325 MG TAB PO PRN ×2 (09:00→19:36)
--- NOTE | 2018-04-01 09:07 | SOAPPROG ---
SHREE Progress Note Assessment/Plan: Assessment/Plan: Denny is a 42 Y F c 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, admitted with cdif, now with clotted AV graft. 5 days s/p thrombectomy for clotted AV graft at outside hospital per patient. Plan for AV graft thrombectomy, possible revision today. Suspect she has some stenosis at the graft-vessel anastomosis causing reclotting. If unable to perform thrombectomy then may need tunneled neck catheter. Patient seen and examined with Dr. Redd. Risks and options discussed. Patient requests to proceed. HD today, then to OR. Consent in chart. Preop IV abx ordered. NPO. S: arm is painful, feels pain proximally towards shoulder O: alert, nad ncat no wob rrr abd soft ext wwp, no thrill at AV graft site. sutures in place. no erythema 04/01/18 09:02 Objective: Vital Signs Temp Pulse Resp BP Pulse Ox 36.8 C 85 18 133/71 H 93 04/01/18 08:00 04/01/18 08:00 04/01/18 08:00 04/01/18 08:00 04/01/18 08:00 Laboratory Results 04/01/18 04:30 04/01/18 04:30 03/31/18 04/01/18 04/02/18 05:59 05:59 05:59 Intake Total 300 1160 Output Total 3050 Balance -2750 1160 ICD10 Worksheet Patient Problems: Problems Problem Status Onset Anemia Acute Diarrhea Acute End stage renal disease Acute Abdominal pain Active 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
--- NOTE | 2018-04-01 11:23 | HOSPPROG ---
Hospitalist Progress Note Assessment/Plan: 42 yo F w esrd admitted w cdiff cdiff: continue po vanco supposedly had concomitant norovirus improving groin infection: looks good w no signs ongoing infection ?bacteremia: blood cx neg at [facility] fistula: has stopped working. has non tunneled left sub clavian line that line is c/d/i dr huynh to revise today needs durable HD access prior to dc proph: scd's sore throat: viral swab neg dispo: inpt Subjective: case d/w dr huynh. diarrhea improving Objective: Vital Signs Temp Pulse Resp BP Pulse Ox 36.8 C 85 18 133/71 H 93 04/01/18 08:00 04/01/18 08:00 04/01/18 08:00 04/01/18 08:00 04/01/18 08:00 Laboratory Results 04/01/18 04:30 04/01/18 04:30 03/31/18 04/01/18 04/02/18 05:59 05:59 05:59 Intake Total 300 1160 Output Total 3050 Balance -2750 1160 - Physical Exam Constitutional: no apparent distress, appears nourished Eyes: PERRL, anicteric sclera Ears, Nose, Mouth, Throat: moist mucous membranes, hearing normal Cardiovascular: regular rate and rhythym, no murmur, rub, or gallop Respiratory: no respiratory distress, no rales or rhonchi Gastrointestinal: normoactive bowel sounds, soft, non-tender abdomen Genitourinary: no bladder fullness, No mustafa in urethra Skin: warm, normal color Musculoskeletal: full muscle strength, no muscle tenderness Neurologic: AAOx3 ICD10 Worksheet Patient Problems: Problems Problem Status Onset Anemia Acute Diarrhea Acute End stage renal disease Acute Abdominal pain Active 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
[2018-04-01] MEDS ORDERED: NS 1,000 ML IV ONE (13:06)
[2018-04-01] MEDS ORDERED: THROMBIN (BOVINE) 20,000 UNIT VIAL TP ONE (13:26)
[2018-04-01] MEDS ORDERED: THROMBIN (BOVINE) 5,000 UNIT VIAL TP ONE (13:27)
[2018-04-01] MEDS ORDERED: PROTAMINE SULFATE 50 MG/5 ML VIAL IVP ONE (13:27)
[2018-04-01] MEDS ORDERED: PAPAVERINE HCL 60 MG/2 ML SDV ONE (13:28)
[2018-04-01] MEDS ORDERED: BUPIVACAINE 0.5% 30 ML SDV ONE (13:28)
[2018-04-01] MEDS ORDERED: BUPIVACAINE/EPI 0.5% 30 ML SDV ONE (13:29)
[2018-04-01] MEDS ORDERED: THROMBIN (BOVINE) 20,000 UNIT SPRAY TP ONE (13:30)
[2018-04-01] MEDS ORDERED: CEFAZOLIN 2 GM/DEXTROSE/100 ML BAG IV ONE (13:46)
[2018-04-01] MEDS ORDERED: fentaNYL 100 MCG/2 ML INJ ONE ×2 (13:53→15:57)
[2018-04-01] MEDS ORDERED: PROPOFOL 200 MG/20 ML VIAL ONE ×2 (13:53)
--- NOTE | 2018-04-01 13:56 | PDANEPAE ---
ANE Past Medical History - Cardiovascular History Hx Hypertension: Yes Hx Arrhythmias: No Hx Chest Pain: No Hx Coronary Artery / Peripheral Vascular Disease: No Hx CHF / Valvular Disease: No Hx Palpitations: No - Pulmonary History Hx COPD: No Hx Asthma/Reactive Airway Disease: No Hx Recent Upper Respiratory Infection: No Hx Oxygen in Use at Home: No Hx Sleep Apnea: Yes Sleep Apnea Screening Result - Last Documented: Positive - Endocrine History Hx Diabetes: No Hypothyroid: No Hyperthyroid: No Obesity: no - Renal History Hx Renal Disorders: Yes - Liver History Hx Hepatic Disorders: No - Chronic Pain History Chronic Pain: Yes (kidneys, low back) ANE Review of Systems Review of Systems: ANE Patient History - Allergies Allergies/Adverse Reactions: levofloxacin [Levofloxacin] Allergy (Severe, Verified 03/28/18 17:10) Anaphylaxis Marijuana/Cannabi *RETIRED-11/11/11 [Marijuana/Cannabinoid] Allergy (Severe, Verified 03/28/18 17:10) Anaphylaxis ondansetron HCl [From Zofran (as hydrochloride)] Allergy (Severe, Verified 03/28 17:10) Tingling of mouth/throat strawberry Allergy (Severe, Verified 03/28/18 17:10) Anaphylaxis hydrochlorothiazide Allergy (Verified 03/28/18 17:10) NSAIDS (Non-Steroidal Anti-Inflamma [Nsaids] Allergy (Verified 03/28/18 17:10) Sulfa (Sulfonamide Antibiotics) Allergy (Verified 03/28/18 17:10) - Home Medications Home Medications: Furosemide [Lasix 80 MG (*)] 160 mg PO BID@05/21/16 [Last Taken 03/28/18 06:00] Promethazine HCl [Phenergan 25mg (*)] 25 mg PO BID@05/21/16 [Last Taken 06:00] Sevelamer Carbonate [Renvela] 1,600 mg PO TIDMEAL 05/21/16 [Last Taken 03/01/18 18:00] Calcium Acetate [Phoslo (*)] 2,001 each PO TIDMEAL 07/16/16 [Last Taken 03/28/18 ] Fluticasone Nasal [Flonase Nasal [place]] 2 sprays NASAL BID 09/23/17 [Last Taken 03/28/18] Lisinopril [Zestril 20 mg (*)] 20 mg PO DAILY PRN 09/23/17 [Last Taken 02/22/18] Midodrine HCl 10 mg PO AD 09/23/17 [Last Taken 02/28/18 15:00] Calcium Acetate [Phoslo (*)] 1,328 mg PO PRN PRN 03/02/18 [Last Taken 03/28/18] Escitalopram Oxalate [Lexapro] 20 mg PO DAILY 03/02/18 [Last Taken 03/28/18] Omeprazole 40 mg PO DAILY 03/02/18 [Last Taken 03/01/18] Sevelamer Carbonate [Renvela] 1,600 mg PO PRN PRN 03/02/18 [Last Taken 03/28/18] oxyCODONE IR [Oxycodone Ir (*)] 20 mg PO Q4H PRN 03/28/18 [Last Taken Unknown] - NPO status NPO Since - Liquids (Date): 04/01/18 NPO Since - Liquids (Time): 00:00 NPO Since - Solids (Date): 04/01/18 NPO Since - Solids (Time): 00:00 - Smoking Hx Smoking Status: Light smoker ANE Labs/Vital Signs - Labs Result Diagrams: 04/01/18 04:30 04/01/18 04:30 - Vital Signs Blood Pressure: 105/61 Heart Rate: 86 Respiratory Rate: 18 O2 Sat (%): 90 Height: 157.4 cm Weight: 64.9 kg ANE Physical Exam - Airway Neck exam: FROM Mallampati Score: Class 3 Mouth exam: small mouth opening, abnormal chin - Pulmonary Pulmonary: no respiratory distress - Cardiovascular Cardiovascular: regular rate and rhythym - ASA Status ASA Status: III ANE Anesthesia Plan Anesthesia Plan: general endotracheal anesthesia, GA w LMA
[2018-04-01] MEDS ORDERED: ALTEPLASE 5 MG in NS 100 ML IV ONE (14:45)
[2018-04-01] MEDS ORDERED: PHENYLEPHRINE HCL 100 MCG/ML SYR ONE (15:01)
[2018-04-01] MEDS ORDERED: ePHEDrine SULFATE 25 MG/5 ML SYR ONE (15:01)
[2018-04-01] MEDS ORDERED: VASOPRESSIN 20 UNIT/ML VIAL ONE (15:01)
--- NOTE | 2018-04-01 15:40 | POSTOPPROG ---
Post Op Note Date of Operation: 04/01/18 Surgeon: Vipul Redd Director Multimedia: Analisa Ordonez Anesthesiologist: Can Segundo Anesthesia: GET(General Endotracheal) Pre-op Diagnosis: clotted AV graft Post-op Diagnosis: same Procedure: AV graft thrombectomy Findings: +back flow from both venous and arterial sides. good thrill. extensive clot Inf/Abcess present in the surg proc area at time of surgery?: No EBL: 250cc Complications: none Specimen(s): clot to pathology
[2018-04-01] MEDS: fentaNYL 100 MCG/2 ML INJ IVP PRN ×3 (16:00→16:32)
[2018-04-01] MEDS ORDERED: LABETALOL HCL 5 MG/ML 20 ML MDV IVP PRN (16:04)
[2018-04-01] MEDS ORDERED: PROMETHAZINE HCL 25 MG/ML INJ IVP PRN (16:04)
[2018-04-01] MEDS ORDERED: NALOXONE HCL 0.4 MG/ML INJ IVP PRN (16:04)
[2018-04-01] MEDS ORDERED: oxyCODONE IR 5 MG TAB PO PRN (16:04)
--- NOTE | 2018-04-01 16:06 | POSTANESTH ---
Post Anesthetic Evaluation Cardiovascular Status: Normal, Stable Respiratory Status: Normal, Stable Level of Consciousness/Mental Status: Can Participate in Eval Pain Control: Adequate, Prn Tx Ordered Nausea/Vomiting Control: Adequate, Prn Tx Ordered Complications Possibly Related to Anesthesia: None Noted
[2018-04-01] MEDS ORDERED: oxyCODONE IR 5 MG TAB ONE (16:19)
[2018-04-01] MEDS ORDERED: PROMETHAZINE HCL 25 MG/ML INJ ONE (16:25)
[2018-04-01] MEDS ORDERED: IOHEXOL 350mgI/ML (OMNIPAQUE) 150 ML BTL IV ONE (17:15)
--- NOTE | 2018-04-01 18:10 | CPEKG ---
Test Reason : OPEN Blood Pressure : / mmHG Vent. Rate : 082 BPM Atrial Rate : 082 BPM P-R Int : 131 ms QRS Dur : 083 ms QT Int : 402 ms P-R-T Axes : 049 -34 022 degrees QTc Int : 470 ms Sinus rhythm Inferior infarct, old Consider anterior infarct Confirmed by Marcella Delcid ([id number]) on 04/01/2018 6:10:30 PM Referred By: Yadi Dyer Confirmed By:Marcella Delcid
[2018-04-01] MEDS ORDERED: HEPARIN 10,000 UNIT/10 ML MDV (1,000 UNIT/ML) IVP PRN (18:58)
[2018-04-01 19:55] LABS: PLATELET COUNT 230 10^3/uL (150-400)
[2018-04-01 20:06] LABS: INR 1.05 (0.83-1.16); PROTIME(PATIENT) 13.9 SEC (12.0-15.0)
[2018-04-01] MEDS: HEPARIN/DEXTROSE 500 ML IV SCH (20:18)
[2018-04-01] MEDS ORDERED: HEPARIN 50,000 UNIT/10 ML VIAL ONE (20:35)
[2018-04-01] MEDS ORDERED: HYDROmorphONE/DILAUDID 2 MG/ML INJ IVP ONE (20:45)
[2018-04-02] MEDS: PROMETHAZINE HCL 25 MG/ML INJ IVP PRN ×4 (00:54→20:59)
[2018-04-02] MEDS: CALCIUM CARBONATE 500 MG CHEWABLE TAB PO PRN ×3 (01:18→12:22)
[2018-04-02] MEDS: oxyCODONE IR 5 MG TAB PO PRN ×5 (02:37→19:23)
[2018-04-02] MEDS: PROMETHAZINE HCL 25 MG TAB PO SCH ×2 (04:51→17:51)
[2018-04-02] MEDS: FUROSEMIDE 80 MG TAB PO SCH ×2 (04:51→16:08)
[2018-04-02] MEDS: VANCOMYCIN 125 MG/2.5 ML UDL PO SCH ×4 (04:51→20:59)
[2018-04-02] MEDS: CALCIUM ACETATE 667 MG CAP PO SCH ×3 (08:43→17:51)
[2018-04-02] MEDS: PANTOPRAZOLE SODIUM 40 MG TAB PO SCH (08:44)
[2018-04-02] MEDS: ACETAMINOPHEN 325 MG TAB PO PRN ×2 (08:44→17:57)
[2018-04-02] MEDS: ESCITALOPRAM OXALATE 10 MG TAB PO SCH (08:44)
[2018-04-02] MEDS: SEVELAMER HCL 800 MG TAB PO SCH ×3 (08:44→17:51)
--- NOTE | 2018-04-02 10:42 | SOAPPROG ---
SOAP Progress Note Assessment/Plan: Assessment/Plan: ESRD: on HD MWF. - Next HD tomorrow. - Pt has catheter in L subclavian, placed last week at [facility] when they were unable to intervene on her graft. Had declot yesterday but clotted again, on heparin ggt. Appreciate input from Dr. Redd. Anemia: Pt transfused earlier this hospitalization. Now on heparin ggt, will continue to monitor. HTN: controlled on current meds. STEPHON: continue phos binders, will continue to monitor. Subjective: No acute events overnight. Pt had HD yesterday, went well. She had declot of graft yesterday, but shortly after again clotted, so now on heparin ggt an planning to go back to OR tomorrow. She notes her diarrhea is improved. Objective: Vital Signs Temp Pulse Resp BP Pulse Ox 36.8 C 92 16 119/61 91 L 04/02/18 08:00 04/02/18 08:00 04/02/18 08:00 04/02/18 08:00 04/02/18 08:00 Laboratory Results 04/01/18 19:45 04/02/18 02:30 04/01/18 04/02/18 04/03/18 05:59 05:59 05:59 Intake Total 1160 1025 Output Total 200 Balance 1160 825 PT 13.9 SEC (12.0-15.0) 04/01/18 19:45 INR 1.05 (0.83-1.16) 04/01/18 19:45 General: alert and oriented, no acute distress Eyes: EOMI, PERRL OP: Clear CV: RRR Resp: CTA bilat, nonlabored respirations Abd: Soft NT/ND Ext: no edema Neuro: CN II-XII grossly intact Psych: cooperative Access: LUE AVG with no thrill, L subclavian catheter ICD10 Worksheet Patient Problems: Problems Problem Status Onset Anemia Acute Diarrhea Acute End stage renal disease Acute Abdominal pain Active 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
--- NOTE | 2018-04-02 13:40 | HOSPPROG ---
Hospitalist Progress Note Assessment/Plan: 42 yo F w esrd admitted w cdiff cdiff/diarrhea: continue po vanco supposedly had concomitant norovirus improving will treat for full treatment regimen groin infection: looks good w no signs ongoing infection ?bacteremia: blood cx neg at [facility] fistula: has stopped working. has non tunneled left sub clavian line that line is c/d/i dr huynh AV graft thrombectomy on 04/01, but clogged again today. Heparin drip started. Plan to return to OR tomorrow needs durable HD access prior to dc HTN Anemia, monitor closely given Heparin drip ESRD: HD on 04/01, repeat tomorrow 04/03 proph: scd's sore throat: viral swab neg dispo: inpt Subjective: Graft has reclogged. no cp or sob. Objective: Vital Signs Temp Pulse Resp BP Pulse Ox 36.9 C 98 16 105/60 97 04/02/18 11:40 04/02/18 11:40 04/02/18 11:40 04/02/18 11:40 04/02/18 11:40 Laboratory Results 04/01/18 19:45 04/02/18 02:30 04/01/18 04/02/18 04/03/18 05:59 05:59 05:59 Intake Total 1160 1025 Output Total 200 Balance 1160 825 PT 13.9 SEC (12.0-15.0) 04/01/18 19:45 INR 1.05 (0.83-1.16) 04/01/18 19:45 - Physical Exam Constitutional: no apparent distress Eyes: PERRL, EOMI Ears, Nose, Mouth, Throat: moist mucous membranes, hearing normal Cardiovascular: regular rate and rhythym Respiratory: no respiratory distress Gastrointestinal: normoactive bowel sounds Skin: warm Neurologic: AAOx3 Psychiatric: interacting appropriately, not anxious, not encephalopathic Lymph, Heme, Immunologic: No petechiae ICD10 Worksheet Patient Problems: Problems Problem Status Onset Anemia Acute Diarrhea Acute End stage renal disease Acute Abdominal pain Active 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
[2018-04-02] MEDS: FLUTICASONE NASAL 120 SPRAYS/16 GM MDI NS SCH ×2 (15:41→21:02)
[2018-04-02] MEDS: HEPARIN/DEXTROSE 500 ML IV SCH (16:08)
[2018-04-03] MEDS: oxyCODONE IR 5 MG TAB PO PRN ×5 (00:40→19:55)
[2018-04-03] MEDS: PROMETHAZINE HCL 25 MG/ML INJ IVP PRN ×3 (03:02→21:25)
[2018-04-03] MEDS: ACETAMINOPHEN 325 MG TAB PO PRN (03:04)
[2018-04-03] MEDS: FUROSEMIDE 80 MG TAB PO SCH ×2 (05:57→17:33)
[2018-04-03] MEDS: PROMETHAZINE HCL 25 MG TAB PO SCH ×2 (05:57→17:28)
[2018-04-03] MEDS: VANCOMYCIN 125 MG/2.5 ML UDL PO SCH ×4 (05:57→21:24)
[2018-04-03] MEDS: HEPARIN/DEXTROSE 500 ML IV SCH (06:00)
[2018-04-03] MEDS ORDERED: PROPOFOL 200 MG/20 ML VIAL ONE (10:22)
[2018-04-03] MEDS ORDERED: PROPOFOL/EMULSION 500 MG/50 ML BOTTLE IV ONE (10:22)
[2018-04-03] MEDS ORDERED: LIDOCAINE 2% 5 ML SDV ONE (10:22)
[2018-04-03] MEDS ORDERED: fentaNYL 100 MCG/2 ML INJ ONE ×2 (10:23→13:27)
--- NOTE | 2018-04-03 10:43 | PDANEPAE ---
ANE Past Medical History - Cardiovascular History Hx Hypertension: Yes Hx Arrhythmias: No Hx Chest Pain: No Hx Coronary Artery / Peripheral Vascular Disease: No Hx CHF / Valvular Disease: No Hx Palpitations: No - Pulmonary History Hx COPD: No Hx Asthma/Reactive Airway Disease: No Hx Recent Upper Respiratory Infection: No Hx Oxygen in Use at Home: No Hx Sleep Apnea: Yes Sleep Apnea Screening Result - Last Documented: Positive - Endocrine History Hx Diabetes: No Hypothyroid: No Hyperthyroid: No Obesity: no - Renal History Hx Renal Disorders: Yes - Liver History Hx Hepatic Disorders: No - Chronic Pain History Chronic Pain: Yes (kidneys, low back) ANE Review of Systems Review of Systems: ANE Patient History - Allergies Allergies/Adverse Reactions: Marijuana/Cannabi *RETIRED-11/11/11 [Marijuana/Cannabinoid] Allergy (Severe, Verified 03/28/18 17:10) Anaphylaxis ondansetron HCl [From Zofran (as hydrochloride)] Allergy (Severe, Verified 03/28 17:10) Tingling of mouth/throat hydrochlorothiazide Allergy (Verified 04/03/18 10:14) Anaphylaxis NSAIDS (Non-Steroidal Anti-Inflamma [Nsaids] Allergy (Verified 04/03/18 10:14) Sulfa (Sulfonamide Antibiotics) Allergy (Verified 04/03/18 10:14) Hives - Home Medications Home Medications: Furosemide [Lasix 80 MG (*)] 160 mg PO BID@05/21/16 [Last Taken 03/28/18 06:00] Promethazine HCl [Phenergan 25mg (*)] 25 mg PO BID@05/21/16 [Last Taken 06:00] Sevelamer Carbonate [Renvela] 1,600 mg PO TIDMEAL 05/21/16 [Last Taken 03/01/18 18:00] Calcium Acetate [Phoslo (*)] 2,001 each PO TIDMEAL 07/16/16 [Last Taken 03/28/18 ] Fluticasone Nasal [Flonase Nasal [place]] 2 sprays NASAL BID 09/23/17 [Last Taken 03/28/18] Lisinopril [Zestril 20 mg (*)] 20 mg PO DAILY PRN 09/23/17 [Last Taken 02/22/18] Midodrine HCl 10 mg PO AD 09/23/17 [Last Taken 02/28/18 15:00] Calcium Acetate [Phoslo (*)] 1,328 mg PO PRN PRN 03/02/18 [Last Taken 03/28/18] Escitalopram Oxalate [Lexapro] 20 mg PO DAILY 03/02/18 [Last Taken 03/28/18] Omeprazole 40 mg PO DAILY 03/02/18 [Last Taken 03/01/18] Sevelamer Carbonate [Renvela] 1,600 mg PO PRN PRN 03/02/18 [Last Taken 03/28/18] oxyCODONE IR [Oxycodone Ir (*)] 20 mg PO Q4H PRN 03/28/18 [Last Taken Unknown] - NPO status NPO Since - Liquids (Date): 04/01/18 NPO Since - Liquids (Time): 00:00 NPO Since - Solids (Date): 04/01/18 NPO Since - Solids (Time): 00:00 - Smoking Hx Smoking Status: Light smoker ANE Labs/Vital Signs - Labs Result Diagrams: 04/03/18 06:05 04/03/18 06:05 - Vital Signs Blood Pressure: 129/63 Heart Rate: 93 Respiratory Rate: 18 O2 Sat (%): 94 Height: 157.4 cm Weight: 68.538 kg ANE Physical Exam - Airway Neck exam: FROM Mallampati Score: Class 2 Mouth exam: normal dental/mouth exam - Pulmonary Pulmonary: no respiratory distress, no rales or rhonchi, clear to auscultation - ASA Status ASA Status: IV ANE Anesthesia Plan Anesthesia Plan: GA w LMA
[2018-04-03] MEDS ORDERED: ONDANSETRON 4 MG/2 ML VIAL ONE (10:53)
[2018-04-03] MEDS ORDERED: DEXAMETHASONE 4 MG/ML VIAL ONE (10:53)
[2018-04-03] MEDS ORDERED: PHENYLEPHRINE HCL 100 MCG/ML SYR IVP PRN (10:55)
[2018-04-03] MEDS ORDERED: METOCLOPRAMIDE 10 MG/2 ML VIAL IVP PRN (10:55)
[2018-04-03] MEDS ORDERED: ONDANSETRON 4 MG/2 ML VIAL IVP PRN (10:55)
[2018-04-03] MEDS ORDERED: HYDROmorphONE/DILAUDID 2 MG/ML INJ IVP PRN (10:55)
[2018-04-03] MEDS ORDERED: NALOXONE HCL 0.4 MG/ML INJ IVP PRN (10:55)
[2018-04-03] MEDS ORDERED: fentaNYL 100 MCG/2 ML INJ IVP PRN (10:55)
[2018-04-03] MEDS ORDERED: oxyCODONE IR 5 MG TAB PO PRN (10:55)
--- NOTE | 2018-04-03 10:59 | PDPROPOC ---
Sedation Plan of Care Sedation Plan of Care: vital signs stable, mental status noted, patient educated of risks, benefits, alternatives, patient can tolerate sedation ASA Classification: ASA 3 Planned drugs: fentanyl, midazolam Mallampati Score: Class 2 Mallampati Reference Image: Patient passed 3-3-2 rule?: Yes
--- NOTE | 2018-04-03 11:00 | PDHPUP ---
History & Physical Update H&P update statement: This history and physical update is based on an assessment of the patient which was completed after admission or registration (within 24 hours), but prior to the surgery/procedure. Clotted LUE forearm loop graft despite 2 recent declots. Repeat attempt at declot with angiography for surgical planning. H&P update: H&P reviewed & patient examined, no change in patient's condition since H&P completed
--- NOTE | 2018-04-03 11:03 | SOAPPROG ---
SOAP Progress Note Assessment/Plan: Assessment: ESRD, having access issues clotted AVF, attempted surgical declot yesterday, reclotted temp HD cath in place Plan: IR declot today HD after declot continue therapies otherwise MWF HD 04/03/18 11:00 Subjective: spirits good NPO for now no cp sob nausea or vomiting slept ok energy good Objective: Vital Signs Temp Pulse Resp BP Pulse Ox 36.9 C 93 18 129/63 H 94 04/03/18 07:40 04/03/18 10:43 04/03/18 10:43 04/03/18 10:43 04/03/18 10:43 Microbiology 03/28/18 23:10 Blood Culture - Final Blood Laboratory Results 04/03/18 06:05 04/03/18 06:05 04/02/18 04/03/18 04/04/18 05:59 05:59 05:59 Intake Total 1025 500 Output Total 200 Balance 825 500 PT 13.9 SEC (12.0-15.0) 04/01/18 19:45 INR 1.05 (0.83-1.16) 04/01/18 19:45 Physical Exam - Physical Exam General Appearance: alert Neck: normal inspection Respiratory: No rhonchi, No wheezing Cardiac/Chest: edema, No friction rub Abdomen: normal bowel sounds, non-tender, soft Extremities: swelling Neuro/Psych: alert, normal mood/affect, oriented x 3 ICD10 Worksheet Patient Problems: Problems Problem Status Onset Anemia Acute Diarrhea Acute End stage renal disease Acute Abdominal pain Active 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
[2018-04-03] MEDS ORDERED: ALTEPLASE 2 MG VIAL ONE (11:36)
[2018-04-03] MEDS ORDERED: EPINEPHrine 1 MG/10 ML SYR IVP ONE (11:45)
[2018-04-03] MEDS ORDERED: PHENYLEPHRINE HCL 100 MCG/ML SYR ONE (11:45)
--- NOTE | 2018-04-03 12:46 | PDRADPN ---
Radiology Procedure Note Date of Procedure: 04/03/18 Radiologist: Manpreet August Anesthesia: GET(General Endotracheal) Pre-op Diagnosis: ESRD Post-op Diagnosis: ESRD Indication: Clotted LUE AVG Procedure: Declot LUE AVG Finding(s): Left forearm loop graft completely thrombosed 2/2 venous outflow stensosis. Long segment brachial vein venous outflow tract angioplastied resulting in brisk flow within graft. Arterial anastomosis widely patent. Inf/Abcess present in the surg proc area at time of surgery?: No
--- NOTE | 2018-04-03 13:05 | HOSPPROG ---
Hospitalist Progress Note Assessment/Plan: 42 yo F w esrd admitted w cdiff cdiff/diarrhea: continue po vanco supposedly had concomitant norovirus improving will treat for full treatment regimen groin infection: looks good w no signs ongoing infection ?bacteremia: blood cx neg at [facility] fistula: has stopped working. has non tunneled left sub clavian line dr huynh performed AV graft thrombectomy on 04/01, but clogged again on 04/02. Heparin drip started. Plan for IR to do clot removal today needs durable HD access prior to dc HTN: BP ok Anemia, monitor closely given Heparin drip. Hgb is 7.2 ESRD: HD today after IR procedure proph: scd's sore throat: viral swab neg dispo: cont inpt Subjective: no cp or sob. awaiting IR procedure today Objective: Vital Signs Temp Pulse Resp BP Pulse Ox 36.9 C 93 18 129/63 H 94 04/03/18 07:40 04/03/18 10:43 04/03/18 10:43 04/03/18 10:43 04/03/18 10:43 Microbiology 03/28/18 23:10 Blood Culture - Final Blood Laboratory Results 04/03/18 06:05 04/03/18 06:05 04/02/18 04/03/18 04/04/18 05:59 05:59 05:59 Intake Total 1025 500 Output Total 200 Balance 825 500 PT 13.9 SEC (12.0-15.0) 04/01/18 19:45 INR 1.05 (0.83-1.16) 04/01/18 19:45 - Physical Exam Constitutional: no apparent distress Eyes: PERRL Ears, Nose, Mouth, Throat: moist mucous membranes, hearing normal Cardiovascular: regular rate and rhythym, No edema Respiratory: no respiratory distress, no rales or rhonchi, clear to auscultation Gastrointestinal: normoactive bowel sounds Skin: warm Musculoskeletal: full muscle strength Neurologic: AAOx3 Psychiatric: interacting appropriately, not anxious Lymph, Heme, Immunologic: No petechiae ICD10 Worksheet Patient Problems: Problems Problem Status Onset Anemia Acute Diarrhea Acute End stage renal disease Acute Abdominal pain Active 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
[2018-04-03] MEDS ORDERED: HYDROmorphONE/DILAUDID 2 MG/ML INJ ONE (13:45)
[2018-04-03] MEDS ORDERED: IOPAMIDOL (ISOVUE-300) 100 ML BTL ONE (14:11)
[2018-04-03] MEDS: SEVELAMER HCL 800 MG TAB PO SCH ×3 (14:47→17:29)
[2018-04-03] MEDS: CALCIUM ACETATE 667 MG CAP PO SCH ×2 (14:47→17:29)
[2018-04-03] MEDS: FLUTICASONE NASAL 120 SPRAYS/16 GM MDI NS SCH ×2 (14:48→22:04)
[2018-04-03] MEDS: PANTOPRAZOLE SODIUM 40 MG TAB PO SCH (14:49)
--- NOTE | 2018-04-03 15:21 | ASMTCMCOM ---
CM Note CM Note Notes: Patient went to IR today to have CADE ART declotted. She is recovering well. I confirmed that patient get HD on at [facility]. She is on a waiting list to be transferred to [facility] here in [place]. She lives with her father in [place] and will likely d/c independently. Date Signed: 04/03/2018 03:21 PM Electronically Signed By:Mary Willson RN
[2018-04-03] MEDS: ESCITALOPRAM OXALATE 10 MG TAB PO SCH (15:24)
[2018-04-03] MEDS ORDERED: HYDROmorphONE/DILAUDID 1 MG/ML INJ IVP ONE (17:15)
[2018-04-03] MEDS: diphenhydrAMINE 25 MG CAP PO PRN (19:55)
[2018-04-03] MEDS ORDERED: HEPARIN 50,000 UNIT/10 ML VIAL ONE (23:00)
[2018-04-03] MEDS ORDERED: MIDODRINE HCL 10 MG TAB ONE (23:00)
[2018-04-03] MEDS: MIDODRINE HCL 10 MG TAB PO SCH (23:06)
[2018-04-04] MEDS: oxyCODONE IR 5 MG TAB PO PRN ×4 (00:35→10:06)
[2018-04-04] MEDS: HEPARIN/DEXTROSE 500 ML IV SCH (03:34)
[2018-04-04] MEDS: PROMETHAZINE HCL 25 MG/ML INJ IVP PRN ×5 (03:35→22:48)
[2018-04-04] MEDS: CEPACOL LOZENGE PO PRN (03:35)
[2018-04-04] MEDS: FUROSEMIDE 80 MG TAB PO SCH ×2 (05:52→18:08)
[2018-04-04] MEDS: VANCOMYCIN 125 MG/2.5 ML UDL PO SCH ×4 (05:52→20:20)
[2018-04-04] MEDS: PROMETHAZINE HCL 25 MG TAB PO SCH ×2 (05:52→20:20)
[2018-04-04] MEDS: CALCIUM ACETATE 667 MG CAP PO SCH ×3 (09:47→18:09)
[2018-04-04] MEDS: PANTOPRAZOLE SODIUM 40 MG TAB PO SCH (09:48)
[2018-04-04] MEDS: ESCITALOPRAM OXALATE 10 MG TAB PO SCH (09:48)
[2018-04-04] MEDS: FLUTICASONE NASAL 120 SPRAYS/16 GM MDI NS SCH ×2 (09:49→20:20)
[2018-04-04] MEDS: SEVELAMER HCL 800 MG TAB PO SCH ×3 (09:52→18:11)
[2018-04-04] MEDS ORDERED: CEFAZOLIN 1 GM/DEXTROSE/50 ML BAG IV ONE (10:26)
[2018-04-04] MEDS ORDERED: NS 500 ML IV ONE (10:51)
[2018-04-04] MEDS ORDERED: LR 500 ML IV PRN (11:35)
[2018-04-04] MEDS ORDERED: ONDANSETRON 4 MG/2 ML VIAL IVP PRN (11:35)
[2018-04-04] MEDS ORDERED: oxyCODONE IR 5 MG TAB PO PRN ×2 (11:35→15:55)
[2018-04-04] MEDS ORDERED: ALBUTEROL 3 ML DEYVIAL IH PRN ×2 (11:35→15:55)
[2018-04-04] MEDS ORDERED: METOCLOPRAMIDE 10 MG/2 ML VIAL IVP PRN (11:35)
[2018-04-04] MEDS ORDERED: MEPERIDINE 25 MG/0.5 ML AMP IVP PRN ×2 (11:35→15:55)
[2018-04-04] MEDS ORDERED: ACETAMINOPHEN 500 MG TAB PO PRN ×2 (11:35→15:55)
[2018-04-04] MEDS ORDERED: fentaNYL 100 MCG/2 ML INJ IVP PRN ×2 (11:35→15:55)
[2018-04-04] MEDS ORDERED: PHENYLEPHRINE HCL 100 MCG/ML SYR IVP PRN ×2 (11:35→15:55)
[2018-04-04] MEDS ORDERED: LABETALOL HCL 5 MG/ML 20 ML MDV IVP PRN ×2 (11:35→15:55)
[2018-04-04] MEDS ORDERED: DEXAMETHASONE 4 MG/ML VIAL IVP PRN ×2 (11:35→15:55)
[2018-04-04] MEDS ORDERED: PROMETHAZINE HCL 25 MG/ML INJ IVP PRN ×2 (11:35→15:55)
[2018-04-04] MEDS ORDERED: HYDROCODONE/APAP 5/325 TAB PO PRN ×2 (11:35→15:55)
[2018-04-04] MEDS ORDERED: NALOXONE HCL 0.4 MG/ML INJ IVP PRN ×2 (11:35→15:55)
[2018-04-04] MEDS ORDERED: BUPIVACAINE 0.5% 30 ML SDV ONE (11:38)
[2018-04-04] MEDS ORDERED: PAPAVERINE HCL 60 MG/2 ML SDV ONE (11:38)
[2018-04-04] MEDS ORDERED: THROMBIN (BOVINE) 5,000 UNIT VIAL TP ONE (11:38)
[2018-04-04] MEDS ORDERED: PROTAMINE SULFATE 50 MG/5 ML VIAL IVP ONE (11:38)
[2018-04-04] MEDS ORDERED: THROMBIN (BOVINE) 20,000 UNIT SPRAY TP ONE (11:39)
[2018-04-04] MEDS ORDERED: fentaNYL 100 MCG/2 ML INJ ONE (12:03)
[2018-04-04] MEDS ORDERED: PROPOFOL/EMULSION 500 MG/50 ML BOTTLE IV ONE (12:03)
[2018-04-04] MEDS ORDERED: ONDANSETRON 4 MG/2 ML VIAL ONE (12:04)
[2018-04-04] MEDS ORDERED: DEXAMETHASONE 4 MG/ML VIAL ONE ×2 (12:04→17:06)
[2018-04-04] MEDS ORDERED: LIDOCAINE 2% 100 MG/5 ML SYR ONE (12:04)
[2018-04-04] MEDS ORDERED: LIDOCAINE 2% JELLY 6 ML TOPICAL SYR ONE (12:08)
--- NOTE | 2018-04-04 12:25 | PDANEPAE ---
ANE History of Present Illness L AV fistula declotting ANE Past Medical History - Cardiovascular History Hx Hypertension: Yes Hx Arrhythmias: No Hx Chest Pain: No Hx Coronary Artery / Peripheral Vascular Disease: No Hx CHF / Valvular Disease: No Hx Palpitations: No - Pulmonary History Hx COPD: No Hx Asthma/Reactive Airway Disease: No Hx Recent Upper Respiratory Infection: No Hx Oxygen in Use at Home: No Hx Sleep Apnea: Yes Sleep Apnea Screening Result - Last Documented: Positive - Endocrine History Hx Diabetes: No Hypothyroid: No Hyperthyroid: No Obesity: no - Renal History Hx Renal Disorders: Yes - Liver History Hx Hepatic Disorders: No - Chronic Pain History Chronic Pain: Yes (kidneys, low back) ANE Review of Systems Review of Systems: - Exercise capacity Exercise capacity: >=4 METS ANE Patient History - Allergies Allergies/Adverse Reactions: Marijuana/Cannabi *RETIRED-11/11/11 [Marijuana/Cannabinoid] Allergy (Severe, Verified 03/28/18 17:10) Anaphylaxis ondansetron HCl [From Zofran (as hydrochloride)] Allergy (Severe, Verified 03/28 17:10) Tingling of mouth/throat hydrochlorothiazide Allergy (Verified 04/03/18 10:14) Anaphylaxis NSAIDS (Non-Steroidal Anti-Inflamma [Nsaids] Allergy (Verified 04/03/18 10:14) Sulfa (Sulfonamide Antibiotics) Allergy (Verified 04/03/18 10:14) Hives - Home Medications Home medications: home medication list seen and reviewed Home Medications: Furosemide [Lasix 80 MG (*)] 160 mg PO BID@05/21/16 [Last Taken 03/28/18 06:00] Promethazine HCl [Phenergan 25mg (*)] 25 mg PO BID@05/21/16 [Last Taken 06:00] Sevelamer Carbonate [Renvela] 1,600 mg PO TIDMEAL 05/21/16 [Last Taken 03/01/18 18:00] Calcium Acetate [Phoslo (*)] 2,001 each PO TIDMEAL 07/16/16 [Last Taken 03/28/18 ] Fluticasone Nasal [Flonase Nasal [place]] 2 sprays NASAL BID 09/23/17 [Last Taken 03/28/18] Lisinopril [Zestril 20 mg (*)] 20 mg PO DAILY PRN 07/24/18 [Last Taken 02/22/18] Midodrine HCl 10 mg PO AD 09/23/17 [Last Taken 02/28/18 15:00] Calcium Acetate [Phoslo (*)] 1,328 mg PO PRN PRN 03/02/18 [Last Taken 03/28/18] Escitalopram Oxalate [Lexapro] 20 mg PO DAILY 03/02/18 [Last Taken 03/28/18] Omeprazole 40 mg PO DAILY 03/02/18 [Last Taken 03/01/18] Sevelamer Carbonate [Renvela] 1,600 mg PO PRN PRN 03/02/18 [Last Taken 03/28/18] oxyCODONE IR [Oxycodone Ir (*)] 20 mg PO Q4H PRN 03/28/18 [Last Taken Unknown] - NPO status NPO Status: no food or drink >8 hours NPO Since - Liquids (Date): 04/04/18 NPO Since - Liquids (Time): 00:00 NPO Since - Solids (Date): 04/04/18 NPO Since - Solids (Time): 00:00 - Anes Hx Anes Hx: no prior problems - Smoking Hx Smoking Status: Light smoker - Alcohol Use Alcohol Use: None ANE Labs/Vital Signs - Labs Result Diagrams: 04/04/18 06:00 04/04/18 06:00 - Vital Signs Blood Pressure: 121/67 Heart Rate: 105 Respiratory Rate: 22 O2 Sat (%): 92 Height: 157.4 cm Weight: 68.7 kg ANE Physical Exam - Airway Neck exam: FROM Mallampati Score: Class 2 - Pulmonary Pulmonary: no respiratory distress - Cardiovascular Cardiovascular: regular rate and rhythym - ASA Status ASA Status: IV ANE Anesthesia Plan Anesthesia Plan: GA w LMA
[2018-04-04] MEDS ORDERED: PHENYLEPHRINE HCL 100 MCG/ML SYR ONE (12:38)
[2018-04-04] MEDS ORDERED: PROPOFOL 200 MG/20 ML VIAL ONE ×2 (13:30→14:46)
[2018-04-04] MEDS ORDERED: HYDROGEN PEROXIDE 236 ML BOTTLE TP ONE (15:18)
--- NOTE | 2018-04-04 15:56 | SOAPPROG ---
SHREE Progress Note Assessment/Plan: Assessment: LUCIA STILL FLOWING WELL ON HEPARIN/ HOWEVER IR AND I BOTH FEEL THAT WOULD BE BETTER TO DO AN INTERPOSITION JUMP GRAFT AROUND THE RAGGED PART OF THE THE OUTFLOW VEIN OR THIS WILL LIKELY RECLOSED OFF WHEN SHE IS NOT ANTICOAGULATED. RISKS AND OPTIONS BEEN FULLY DISCUSSED THE PATIENT WHO WISHES TO PROCEED. WE DISCUSSED THIS THOROUGHLY LAST NIGHT WELL Plan: AV GRAFT REVISION WITH INTERPOSITION JUMP GRAFT 04/04/18 15:54 Objective: Vital Signs Temp Pulse Resp BP Pulse Ox 36.6 C 105 H 22 H 121/67 H 92 04/04/18 09:54 04/04/18 12:24 04/04/18 12:24 04/04/18 12:24 04/04/18 12:24 Laboratory Results 04/04/18 06:00 04/04/18 06:00 04/03/18 04/04/18 04/05/18 05:59 05:59 05:59 Intake Total 500 1700 Output Total 50 Balance 500 1650 PT 13.9 SEC (12.0-15.0) 04/01/18 19:45 INR 1.05 (0.83-1.16) 04/01/18 19:45 ICD10 Worksheet Patient Problems: Problems Problem Status Onset Anemia Acute Diarrhea Acute End stage renal disease Acute Abdominal pain Active 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
--- NOTE | 2018-04-04 15:58 | POSTOPPROG ---
Post Op Note Date of Operation: 04/04/18 Surgeon: Vipul Redd Anesthesiologist: TRUPTI Anesthesia: GET(General Endotracheal) Pre-op Diagnosis: AV GRAFT DISTAL STENOSIS Post-op Diagnosis: SAME Indication: PREVENT RECLOSED AT Procedure: AV GRAFT REVISION WITH INTERPOSITION GRAFT TO THE DISTAL BRACHIAL VEIN Findings: MARKED AMOUNT OF SCAR TISSUE IN FIBROSIS AND INFLAMMATION FROM HER MULTIPLE Inf/Abcess present in the surg proc area at time of surgery?: No Depth: Deep Incisional (Fascial) EBL: 100-500 Complications: NONE
[2018-04-04] MEDS ORDERED: HYDROmorphONE/DILAUDID 1 MG/ML INJ IVP PRN (15:59)
--- NOTE | 2018-04-04 16:06 | HOSPPROG ---
Hospitalist Progress Note Assessment/Plan: 42 yo F w esrd admitted w cdiff cdiff/diarrhea: continue po vanco supposedly had concomitant norovirus improving will treat for full treatment regimen groin infection: looks good w no signs ongoing infection ?bacteremia: blood cx neg at [facility] fistula: has stopped working. has non tunneled left sub clavian line dr huynh performed AV graft thrombectomy on 04/01, but clogged again on 04/02. Heparin drip started. IR performed clot removal on 04/03. Today she had revision. needs durable HD access prior to dc HTN: BP ok Anemia, monitor closely given Heparin drip. Hgb is 7.2. Currently getting one unit PRBC ESRD: HD per nephrology proph: scd's sore throat: viral swab neg dispo: cont inpt Subjective: seen post operatively. pt is waking up. pain appears controlled. Objective: Vital Signs Temp Pulse Resp BP Pulse Ox 36.6 C 105 H 22 H 121/67 H 92 04/04/18 09:54 04/04/18 12:24 04/04/18 12:24 04/04/18 12:24 04/04/18 12:24 Laboratory Results 04/04/18 06:00 04/04/18 06:00 04/03/18 04/04/18 04/05/18 05:59 05:59 05:59 Intake Total 500 1700 Output Total 50 Balance 500 1650 PT 13.9 SEC (12.0-15.0) 04/01/18 19:45 INR 1.05 (0.83-1.16) 04/01/18 19:45 - Physical Exam Constitutional: no apparent distress Eyes: PERRL, EOMI Ears, Nose, Mouth, Throat: moist mucous membranes Cardiovascular: regular rate and rhythym Respiratory: no respiratory distress Neurologic: No AAOx3 ICD10 Worksheet Patient Problems: Problems Problem Status Onset Anemia Acute Diarrhea Acute End stage renal disease Acute Abdominal pain Active 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
[2018-04-04] MEDS: HYDROmorphONE/DILAUDID 2 MG/ML INJ IVP PRN ×4 (16:29→17:04)
--- NOTE | 2018-04-04 16:42 | POSTANESTH ---
Post Anesthetic Evaluation Cardiovascular Status: Normal, Stable, Similar to Pre-Op Cond Respiratory Status: Similar to Pre-op Cond., Tx Decrease in SpO2 Level of Consciousness/Mental Status: Can Participate in Eval Pain Control: Adequate, Prn Tx Ordered Nausea/Vomiting Control: Adequate, Prn Tx Ordered Complications Possibly Related to Anesthesia: None Noted
[2018-04-04] MEDS ORDERED: PROMETHAZINE HCL 25 MG/ML INJ ONE (17:14)
--- NOTE | 2018-04-04 19:43 | SOAPPROG ---
SOAP Progress Note Assessment/Plan: Assessment/Plan: # ESRD- with repeated clotting events of AVG --s/p AVG revision on 04/04 with interposition jump graft --HD overnight last night. --Plan next HD on Friday Patient in pain, refused to talk about anything else or be examined Subjective: Patient in pain after surgery. Angry and refusing to talk to me because I am not the orderer of pain meds. Objective: Vital Signs Temp Pulse Resp BP Pulse Ox 36.9 C 99 16 129/73 H 98 04/04/18 19:07 04/04/18 19:07 04/04/18 19:07 04/04/18 19:07 04/04/18 19:07 Laboratory Results 04/04/18 06:00 04/04/18 06:00 04/03/18 04/04/18 04/05/18 05:59 05:59 05:59 Intake Total 500 1700 1130 Output Total 50 200 Balance 500 1650 930 PT 13.9 SEC (12.0-15.0) 04/01/18 19:45 INR 1.05 (0.83-1.16) 04/01/18 19:45 General Appearance: alert, awake, irritable LUE with dressing in place Patient refused to be examined ICD10 Worksheet Patient Problems: Problems Problem Status Onset Anemia Acute Diarrhea Acute End stage renal disease Acute Abdominal pain Active 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
[2018-04-04] MEDS: HYDROmorphONE/DILAUDID 1 MG/ML INJ IVP PRN ×2 (20:10→23:13)
[2018-04-05] MEDS: HYDROmorphONE/DILAUDID 1 MG/ML INJ IVP PRN ×8 (05:01→21:50)
[2018-04-05] MEDS: PROMETHAZINE HCL 25 MG TAB PO SCH ×2 (05:03→18:45)
[2018-04-05] MEDS: FUROSEMIDE 80 MG TAB PO SCH ×2 (05:03→17:29)
[2018-04-05] MEDS: VANCOMYCIN 125 MG/2.5 ML UDL PO SCH ×4 (05:03→21:50)
[2018-04-05] MEDS: PROMETHAZINE HCL 25 MG/ML INJ IVP PRN ×3 (07:35→21:50)
[2018-04-05] MEDS: CALCIUM ACETATE 667 MG CAP PO SCH ×3 (08:25→17:35)
[2018-04-05] MEDS: SEVELAMER HCL 800 MG TAB PO SCH ×3 (08:25→17:35)
[2018-04-05] MEDS: FLUTICASONE NASAL 120 SPRAYS/16 GM MDI NS SCH ×2 (08:25→21:51)
[2018-04-05] MEDS: PANTOPRAZOLE SODIUM 40 MG TAB PO SCH (08:25)
[2018-04-05] MEDS: ESCITALOPRAM OXALATE 10 MG TAB PO SCH (08:25)
--- NOTE | 2018-04-05 12:22 | HOSPPROG ---
Hospitalist Progress Note Assessment/Plan: 42 yo F w esrd admitted w cdiff cdiff/diarrhea: continue po vanco supposedly had concomitant norovirus improving, no further diarrhea reported will treat for full treatment regimen groin infection: looks good w no signs ongoing infection ?bacteremia: blood cx neg at [facility] fistula: has stopped working. has non tunneled left sub clavian line dr huynh performed AV graft thrombectomy on 04/01, but clogged again on 04/02. IR performed clot removal on 04/03. 04/[address] Huynh post op care per Surgery needs durable HD access prior to dc Had a Heparin drip due to the clotting and this was discontinued on 04/04 Acute pain due to AVG revision surgery: cont with IV and PO meds PRN HTN: BP ok Acute on chronic Anemia Received 1 unit post operatively on 04/04 additional unit ordered today 04/05 given Hgb is 6.3 Follow closely ESRD: HD per nephrology proph: scd's sore throat: viral swab neg, resolved dispo: cont inpt Subjective: reports post op pain. no cp or sob. no n/v Objective: Vital Signs Temp Pulse Resp BP Pulse Ox 37.1 C 104 H 16 102/77 97 04/05/18 11:52 04/05/18 11:52 04/05/18 11:52 04/05/18 11:52 04/05/18 11:52 Laboratory Results 04/05/18 05:10 04/05/18 05:10 04/04/18 04/05/18 04/06/18 05:59 05:59 05:59 Intake Total 1700 1130 Output Total 50 200 Balance 1650 930 PT 13.9 SEC (12.0-15.0) 04/01/18 19:45 INR 1.05 (0.83-1.16) 04/01/18 19:45 - Physical Exam Constitutional: no apparent distress Eyes: PERRL, EOMI Ears, Nose, Mouth, Throat: moist mucous membranes Cardiovascular: regular rate and rhythym Respiratory: no respiratory distress Gastrointestinal: normoactive bowel sounds Skin: warm Neurologic: AAOx3 Psychiatric: interacting appropriately, not anxious, not encephalopathic Lymph, Heme, Immunologic: No petechiae ICD10 Worksheet Patient Problems: Problems Problem Status Onset Anemia Acute Diarrhea Acute End stage renal disease Acute Abdominal pain Active 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
--- NOTE | 2018-04-05 12:48 | SOAPPROG ---
SHREE Progress Note Assessment/Plan: Assessment/Plan: # ESRD- with repeated clotting events of AVG --s/p AVG revision on 04/04 with interposition jump graft --Patient normally TTS dialysis schedule --Discussed with Dr. Redd who says that lower portion of graft is able to be used now (as long as patient will allow, has been having issues with pain control). Will put patient on as an assessment for dialysis on 04/06. If next HD successful through graft, could plan to remove subclavian catheter. # Anemia- --Hgb 6.5 on 04/05, getting transfusion Subjective: Patient is better controlled. Denies shortness of breath. Objective: Vital Signs Temp Pulse Resp BP Pulse Ox 37.1 C 104 H 16 102/77 97 04/05/18 11:52 04/05/18 11:52 04/05/18 11:52 04/05/18 11:52 04/05/18 11:52 Laboratory Results 04/05/18 05:10 04/05/18 05:10 04/04/18 04/05/18 04/06/18 05:59 05:59 05:59 Intake Total 1700 1130 Output Total 50 200 Balance 1650 930 PT 13.9 SEC (12.0-15.0) 04/01/18 19:45 INR 1.05 (0.83-1.16) 04/01/18 19:45 General Appearance: alert, well-appearing Neck: normal inspection. L. subclavian dialysis catheter Respiratory: No rhonchi, No wheezing Cardiac/Chest: edema, No friction rub Abdomen: normal bowel sounds, non-tender, soft Extremities: no lower extremity edema, LUE wrapped in gauze Neuro/Psych: alert, normal mood/affect, oriented x 3 ICD10 Worksheet Patient Problems: Problems Problem Status Onset Anemia Acute Diarrhea Acute End stage renal disease Acute Abdominal pain Active 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
--- NOTE | 2018-04-05 13:21 | SOAPPROG ---
SHREE Progress Note Assessment/Plan: Assessment: LUCIA STILL FLOWING WELL ON HEPARIN/ HOWEVER IR AND I BOTH FEEL THAT WOULD BE BETTER TO DO AN INTERPOSITION JUMP GRAFT AROUND THE RAGGED PART OF THE THE OUTFLOW VEIN OR THIS WILL LIKELY RECLOSED OFF WHEN SHE IS NOT ANTICOAGULATED. RISKS AND OPTIONS BEEN FULLY DISCUSSED THE PATIENT WHO WISHES TO PROCEED. WE DISCUSSED THIS THOROUGHLY LAST NIGHT WELL Plan: AV GRAFT REVISION WITH INTERPOSITION JUMP GRAFT 04/04/18 15:54 04/05/18 13:20 wound ok/ great thrill and bruit/ may use forearm loop at any time Objective: Vital Signs Temp Pulse Resp BP Pulse Ox 37.1 C 104 H 16 102/77 97 04/05/18 11:52 04/05/18 11:52 04/05/18 11:52 04/05/18 11:52 04/05/18 11:52 Laboratory Results 04/05/18 05:10 04/05/18 05:10 04/04/18 04/05/18 04/06/18 05:59 05:59 05:59 Intake Total 1700 1130 Output Total 50 200 Balance 1650 930 PT 13.9 SEC (12.0-15.0) 04/01/18 19:45 INR 1.05 (0.83-1.16) 04/01/18 19:45 ICD10 Worksheet Patient Problems: Problems Problem Status Onset Anemia Acute Diarrhea Acute End stage renal disease Acute Abdominal pain Active 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
[2018-04-06] MEDS: HYDROmorphONE/DILAUDID 1 MG/ML INJ IVP PRN ×4 (03:26→10:24)
[2018-04-06] MEDS: PROMETHAZINE HCL 25 MG/ML INJ IVP PRN ×2 (04:04→10:36)
[2018-04-06] MEDS: FUROSEMIDE 80 MG TAB PO SCH ×2 (06:07→17:46)
[2018-04-06] MEDS: PROMETHAZINE HCL 25 MG TAB PO SCH ×2 (06:08→18:36)
[2018-04-06] MEDS: VANCOMYCIN 125 MG/2.5 ML UDL PO SCH ×2 (06:08→13:22)
[2018-04-06] MEDS: PANTOPRAZOLE SODIUM 40 MG TAB PO SCH (08:19)
[2018-04-06] MEDS: SEVELAMER HCL 800 MG TAB PO SCH ×3 (08:19→18:36)
[2018-04-06] MEDS: ESCITALOPRAM OXALATE 10 MG TAB PO SCH (08:19)
[2018-04-06] MEDS: CALCIUM ACETATE 667 MG CAP PO SCH ×3 (08:20→18:38)
[2018-04-06] MEDS: FLUTICASONE NASAL 120 SPRAYS/16 GM MDI NS SCH ×2 (08:26→20:44)
--- NOTE | 2018-04-06 09:32 | SOAPPROG ---
SHREE Progress Note Assessment/Plan: Assessment/Plan: 42 y/o F with a known h/o ESRD on HD TTS who presented with dialysis access complications. ESRD- with repeated clotting events of AVG --s/p AVG revision on 04/04 with interposition jump graft --Patient normally TTS dialysis schedule --Discussed with Dr. Redd who says that lower portion of graft is able to be used now (as long as patient will allow, has been having issues with pain control). --Will attempt HD today, if successful may remove catheter and d/c today Please contact if ?'s. #[phone]. Brandon Cuevas DO [facility] 04/06/18 12:04 Objective: Vital Signs Temp Pulse Resp BP Pulse Ox 36.8 C 100 16 115/73 95 04/06/18 08:00 04/06/18 08:00 04/06/18 08:00 04/06/18 08:00 04/06/18 08:00 Laboratory Results 04/06/18 04:10 04/06/18 04:10 04/05/18 04/06/18 04/07/18 05:59 05:59 05:59 Intake Total 1130 850 Output Total 200 Balance 930 850 PT 13.9 SEC (12.0-15.0) 04/01/18 19:45 INR 1.05 (0.83-1.16) 04/01/18 19:45 Physical Exam - Physical Exam General Appearance: WD/WN, alert, no apparent distress EENT: PERRL/EOMI Neck: non-tender, full range of motion, supple Respiratory: chest non-tender, lungs clear Cardiac/Chest: normal peripheral pulses, regular rate, rhythm, edema Abdomen: normal bowel sounds, non-tender, soft Skin: pallor Extremities: normal range of motion, other (AVG in place, good thrill and bruit) Neuro/Psych: alert, oriented x 3 ICD10 Worksheet Patient Problems: Problems Problem Status Onset Anemia Acute Diarrhea Acute End stage renal disease Acute Abdominal pain Active 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
--- NOTE | 2018-04-06 10:37 | SOAPPROG ---
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 5 days s/p thrombectomy for clotted AV graft at outside hospital per patient. s/p thrombectomy, revision with jump graft. Wounds clean and AV graft flowing. Graft to be used at HD today. When d/c'ed plan for outpatient f/u c Dr. Redd. Will eventually need savannah out in office. S: arm is painful but she is happy it is working. O: alert, nad ncat no wob rrr abd soft ext wwp, inc cdi c savannah, good thrill and bruit 04/06/18 10:35 Objective: Vital Signs Temp Pulse Resp BP Pulse Ox 36.8 C 100 16 115/73 95 04/06/18 08:00 04/06/18 08:00 04/06/18 08:00 04/06/18 08:00 04/06/18 08:00 Laboratory Results 04/06/18 04:10 04/06/18 04:10 04/05/18 04/06/18 04/07/18 05:59 05:59 05:59 Intake Total 1130 850 Output Total 200 Balance 930 850 PT 13.9 SEC (12.0-15.0) 04/01/18 19:45 INR 1.05 (0.83-1.16) 04/01/18 19:45 ICD10 Worksheet Patient Problems: Problems Problem Status Onset Anemia Acute Diarrhea Acute End stage renal disease Acute Abdominal pain Active 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
--- NOTE | 2018-04-06 12:22 | HOSPPROG ---
Hospitalist Progress Note Assessment/Plan: 42 year old female on HD Friday, , Friday, admitted with CDiff, developed clot to her AVG, thrombectomy performed, Graft reclotted, then IR performed clot removal 04/03, and had graft revision on 04/04. cdiff/diarrhea: started on treatment on 03/28, today would be ten days of abx for c diff, which would constitute complete course of treatment. She says that she was on abx at [place] for this prior to leaving [place] and coming here. She says she is not having diarrhea any llonger and has no other objective evidence of infection. Finish vancomycin today, and then stop. AVG clot- Surgery performed graft thrombectomy on 04/01 due to a nonfunctional AVG on left. Then it clogged again requiring thrombectomy by IR. Then on 04/04 underwent AVG revision. Appears AVG is working and she is due to try dialysis through it today. Anemia- acute on chronic EVAN. was given one unit of blood on 04/04. H/H stable since that time. Monitor H/H closely. groin infection: looks good w no signs ongoing infection ESRD- per nephrology. should get HD today and if does well with new AVF then could dc HTN: BP ok. actually gets low BP, has midodrine available if needed. Acute pain- patient has oxycodone 20mg Q4 PRN which it appears she takes at home , but is only using Dilaudid IV. I dc'd IV dilaudid in preparing for discharge and patient became beligerent and threatening. Nephrology has said patient can discharge today after HD if fistula working. Patient needs to be off IV pain medications. Will leave PO oxycodone on may. proph: scd's PPX- SCds, Fluids- None Lytes- WNL Nutrition- renal Dispo- inpatient. patient refused HD today, possible Dc tomorow after HD. Subjective: patient demanding IV dilaudid and is angry that it was discontinued. Did not mention pain only that she is angry she is being taken off IV dilaudid. Does not want PO oxycodone. Objective: Vital Signs Temp Pulse Resp BP Pulse Ox 36.8 C 100 16 115/73 95 04/06/18 08:00 04/06/18 08:00 04/06/18 08:00 04/06/18 08:00 04/06/18 08:00 Laboratory Results 04/06/18 04:10 04/06/18 04:10 04/05/18 04/06/18 04/07/18 05:59 05:59 05:59 Intake Total 1130 850 Output Total 200 Balance 930 850 PT 13.9 SEC (12.0-15.0) 04/01/18 19:45 INR 1.05 (0.83-1.16) 04/01/18 19:45 - Physical Exam Constitutional: no apparent distress, appears nourished, not in pain Eyes: PERRL, anicteric sclera, EOMI Ears, Nose, Mouth, Throat: moist mucous membranes, hearing normal, ears appear normal, no oral mucosal ulcers Cardiovascular: regular rate and rhythym, no murmur, rub, or gallop Respiratory: no respiratory distress, no rales or rhonchi, clear to auscultation Gastrointestinal: normoactive bowel sounds, soft, non-tender abdomen, no palpable masses Genitourinary: no bladder fullness, no bladder tenderness, no renal bruits Skin: no rashes or abrasions, no fluctuance, no induration, other (savannah on ventral aspect of left arm with new AVG, with palpable thrill. ) Musculoskeletal: full muscle strength, no muscle tenderness, normal joint ROM Neurologic: AAOx3, sensation intact bilaterally Psychiatric: interacting appropriately, not anxious, not encephalopathic, thought process linear Lymph, Heme, Immunologic: no cervical LAD, no supraclavicular LAD ICD10 Worksheet Patient Problems: Problems Problem Status Onset Anemia Acute Diarrhea Acute End stage renal disease Acute Abdominal pain Active 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
[2018-04-06] MEDS: oxyCODONE IR 5 MG TAB PO PRN ×6 (12:28→23:18)
[2018-04-06] MEDS: diphenhydrAMINE 25 MG CAP PO PRN (16:44)
[2018-04-06] MEDS: ACETAMINOPHEN 325 MG TAB PO PRN (19:47)
[2018-04-07] MEDS: oxyCODONE IR 5 MG TAB PO PRN ×4 (04:11→11:47)
[2018-04-07] MEDS: FUROSEMIDE 80 MG TAB PO SCH (05:30)
[2018-04-07] MEDS: PROMETHAZINE HCL 25 MG TAB PO SCH (05:30)
[2018-04-07] MEDS: ACETAMINOPHEN 325 MG TAB PO PRN ×2 (05:30→11:48)
[2018-04-07] MEDS: ESCITALOPRAM OXALATE 10 MG TAB PO SCH (09:10)
[2018-04-07] MEDS: SEVELAMER HCL 800 MG TAB PO SCH ×2 (09:18→11:49)
[2018-04-07] MEDS: PANTOPRAZOLE SODIUM 40 MG TAB PO SCH (09:19)
[2018-04-07] MEDS: CALCIUM ACETATE 667 MG CAP PO SCH ×2 (09:36→11:48)
[2018-04-07] MEDS: FLUTICASONE NASAL 120 SPRAYS/16 GM MDI NS SCH (09:47)
--- NOTE | 2018-04-07 10:09 | PDCONSULT ---
Braid Pattern Setter Note: Patient dialyzed last evening 2/4 until 6:45, no issues with new AVG revision. May be discharged today from renal standpoint. Please contact if ?'s. #. DO [facility]
--- NOTE | 2018-04-07 11:32 | SOAPPROG ---
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 5 days s/p thrombectomy for clotted AV graft at outside hospital per patient. s/p thrombectomy, revision with jump graft. Wounds clean and AV graft flowing. Graft used at HD yesterday. Recommend daily ASA 325mg--discussed with Denny. When d/c'ed plan for outpatient f/u c Dr. Redd. Will eventually need savannah out in office. S: arm is painful but she is happy it is working. O: alert, nad ncat no wob rrr abd soft ext wwp, inc cdi c savannah, good thrill and bruit, moderate swelling 04/07/18 11:31 Objective: Vital Signs Temp Pulse Resp BP Pulse Ox 36.9 C 99 18 107/63 99 04/07/18 08:00 04/07/18 08:00 04/07/18 08:00 04/07/18 08:00 04/07/18 08:00 Laboratory Results 04/07/18 09:30 04/07/18 09:30 04/06/18 04/07/18 04/08/18 05:59 05:59 05:59 Intake Total 850 1500 Balance 850 1500 PT 13.9 SEC (12.0-15.0) 04/01/18 19:45 INR 1.05 (0.83-1.16) 04/01/18 19:45 ICD10 Worksheet Patient Problems: Problems Problem Status Onset Anemia Acute Diarrhea Acute End stage renal disease Acute Abdominal pain Active 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
[2018-04-07 11:38] VITALS: BP 118/74
--- NOTE | 2018-04-07 12:56 | ASMTDCNOTE ---
Case Management Discharge Discharge Order Complete? Answers: Yes Patient to Obtain Answers: Independently Medications Transportation Arranged Answers: Family/Friends Family Notified Answers: Yes Notes: boyfriend Discharge Comments Notes: Patient is discharging home today independently. No further needs. Date Signed: 04/07/2018 12:55 PM Electronically Signed By:Evelyn Schaeffer LCSW
--- NOTE | 2018-04-07 15:49 | PDDCSUM ---
Discharge Summary Discharge Summary: Discharge diagnosis Cdiff colitis ESRD on HD AV fistula clot X2 AV fistula dysfunction Anemia of renal disease HTN Chronic pain patient is a 42 year old female with pmh of ESRD on HD, chronic pain, initially admitted to [facility] for Cdiff, but left AMA due to social issues. She was admitted here, treated for her cdiff. she developed a clot to her AVG requiring a thrombectomy to be performed. Then her graft reclotted. IR performed a clot removal and she had a graft revision by surgery on 04/04. She was treated for a 10 day course of Cdiff, and had no diarrhea on completion of her vancomycin. She was able to undergo dialysis without issue after graft revision. she did become aggressive and abusive towards staff when her IV pain medications were discontinued the day before discharge in anticipating dc home. Disposition- home independent Follow up- with general surgery to have savannah removed, with Renal for HD, with PCP for other medical issues. Over 30 minutes spent on the discharge of this patient
--- NOTE | 2018-04-22 18:23 | GOP ---
[f rep st] OPERATIVE REPORT DATE OF OPERATION: 04/01/2018 SURGEON: Vipul Redd MD STONE BANKER: Elvis Mcguire ANESTHESIA: Dr. Carmita Segundo M.D. PREOPERATIVE DIAGNOSIS: Clotted AV graft. POSTOPERATIVE DIAGNOSIS: Clotted AV graft. AV graft thrombectomy. PROCEDURE PERFORMED: AV GRAFT THROMBECTOMY FINDINGS: The patient was found to have an excellent back-flow from the venous end of the graft, as well as excellent arterial inflow. She had a quite extensive clot throughout the vein, as well as the AV graft. ESTIMATED BLOOD LOSS: Less than 250 cc. DESCRIPTION OF PROCEDURE: She was taken to the operating room, where she received satisfactory general endotracheal anesthesia by . She was placed in the supine position with the left arm outstretched on an arm board prepped and draped in the usual sterile fashion. A longitudinal incision was made over the venous end of the AV graft. Dissection extended down through the subcutaneous tissue and the graft was dissected free and isolated with vessel loops. A transverse arteriotomy was made in the AV graft and Shania catheters were then passed distally with multiple passes required to clear the distal vein of clot until good backflow was established. The vessels were clamped distally and then the Shania catheters were passed proximally through the arterial anastomosis. This was more readily cleared of clots and finally establishing good strong AV fistula input. The arteriotomy was then closed with a running Hemashield 6 suture and flow was established through the graft which was flowing quite excellently at the time of the closure. The wound was infiltrated with 0.5% Marcaine and closed with 3-0 Vicryl for the subcu, and 4- 0 Monocryl for the skin. It was dressed with some Dermabond. She tolerated the procedure well, taken to recovery room in good condition. There were no complications. PROCEDURE: AV graft thrombectomy. Copy requested to: Dr. Asif Durán /[id number]/MODL MTDD
--- NOTE | 2018-04-22 20:33 | GOP ---
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 PROCEDURE PERFORMED: AV graft revision with interposition [place]andez graft to the distal brachial vein. FINDINGS: The patient was found to have marked scarring and stenosis of the runoff vein from the AV fistula. Dissection in the area was hampered by dense scar tissue and adhesions from multiple previous surgeries. ESTIMATED BLOOD LOSS: Blood loss from the procedure was approximately 200 mL. DESCRIPTION OF PROCEDURE: The patient was taken to the operating room where she received satisfactory general endotracheal anesthesia by Dr. Phelps, placed in the supine position with the left arm outstretched on an arm board, prepped and draped in the usual sterile fashion. A longitudinal incision was made in the upper arm over the end of the venous end of the dialysis access. This was dissected down to the runoff vein and the vein above that appeared to be quite stenotic and scarred in. Dissection extended up the arm quite a ways until the deep brachial vein appeared to be normal in caliber and uninvolved with inflammation or stenosis. After that was dissected free and controlled with vessel loops, the patient was systemically heparinized. The distal end of the AV graft was transected and the venous portion was closed with a running 4 Prolene suture. An end-to-end anastomosis was then made to 8 mm [place]andez graft. This was done with a running Hemashield 6 suture and then an end-to- side anastomosis was made to the brachial vein in the upper portion of the arm. This was done in end-to-side with a running Hemashield 6 suture. Vessels were flushed prior to completion of the anastomosis and then flow was established through the AV fistula. It appeared to flow well. There were no complications. The wound was closed in layers using 3-0 Vicryl for the subcutaneous tissue and fascia, and skin savannah for the skin. The wound was infiltrated with 0.5% Marcaine. She tolerated the procedure well. Copy requested to: DR. SARAH MARTINO /[id number]/MODL MTDD
== END 2018-04-07 14:17 | disposition home or self-care (01) | DRG 356 ==
LOC: EEVIPCON 17:05 → F3E 21:20
PROVIDERS: ADMIT Internal Medicine; ATTEND Internal Medicine
PROC: 30233N1 Transfusion of Nonautologous Red Blood Cells into Peripheral Vein, Percutaneous Approach (ICD-10-PCS; 2018-03-29)
PROC: 5A1D70Z Performance of Urinary Filtration, Intermittent, Less than 6 Hours Per Day (ICD-10-PCS; 2018-03-30)
PROC: 03CY0ZZ Extirpation of Matter from Upper Artery, Open Approach (ICD-10-PCS; principal; 2018-04-01 13:30)
PROC: 05CY0ZZ Extirpation of Matter from Upper Vein, Open Approach (ICD-10-PCS; principal; 2018-04-01 13:30)
PROC: 3E03317 Introduction of Other Thrombolytic into Peripheral Vein, Percutaneous Approach (ICD-10-PCS; 2018-04-03)
PROC: 05763Z1 Dilation of Left Subclavian Vein using Drug-Coated Balloon, Percutaneous Approach (ICD-10-PCS; 2018-04-03)
PROC: 051 Upper Veins, Bypass (ICD-10-PCS; 2018-04-04)
DX: A04.72 Enterocolitis due to Clostridium difficile, not specified as recurrent (principal); I12.0 Hypertensive chronic kidney disease with stage 5 chronic kidney disease or end stage renal disease; N18.6 End stage renal disease; T82.868A Thrombosis due to vascular prosthetic devices, implants and grafts, initial encounter; D63.1 Anemia in chronic kidney disease; G89.29 Other chronic pain; K21.9 Gastro-esophageal reflux disease without esophagitis
CPT/HCPCS: 83010-90; 85520-90; 86704-90; 96374; C1725; C1757; C1768; C1769; C1894; G0472; J0690; J1100; J1170; J1200; J1644; J2001; J2370; J2405; J2440; J2550; J2704; J2720; J2997; J3010; P9016; P9040; Q9967

== ENCOUNTER 2018-04-30 09:21 | Inpatient (IN) | payer OTHER, MEDICAID ==
--- NOTE | 2018-04-30 10:03 | EDPHY ---
H & P Stated Complaint: Fever, shakey x2 days, left arm swelling, recent arm graft and Lnephrectomy Time Seen by Provider: 04/30/18 09:47 HPI/ROS: CHIEF COMPLAINT: Fever, chills, abdominal pain, left arm swelling HISTORY OF PRESENT ILLNESS: 42-year-old female with medical history significant for end-stage renal disease, recent nephrectomy [facility] , history of left upper extremity the AV graft with history of clotting to graft site, arrives via private vehicle complaining of 3 days of feeling flu- like symptoms. She describes 3 days of fever, chills, myalgia, left arm pain and swelling, abdominal pain. No cough. No URI symptoms. No sore throat. REVIEW OF SYSTEMS: 10 systems reviewed and negative with the exception of the elements mentioned in the history of present illness PAST MEDICAL & SURGICAL HISTORY: Left nephrectomy 10 days ago, history of polycystic kidney disease. History of end-stage renal disease. Anemia. Friday dialysis schedule. Today is , has not received dialysis yet today. SOCIAL HISTORY:Single PHYSICAL EXAM (Prior to examination, patient consented to physical exam, hands were washed and my usual and customary physical exam procedures followed) 1) GENERAL: pylorus,, alert and oriented. Appears to be in no acute distress. 2) HEAD: Normocephalic, atraumatic 3) HEENT: Pupils equal, round, reactive to light bilaterally. Sclera anicteric. Nasopharynx, oropharynx, clear, no lesions. MoistDry mucous membranes. Ears bilaterally with normal tympanic membranes. 4) NECK: Full range of motion, no meningeal signs. 5) LUNGS: Clear auscultation bilaterally, no wheezes, no rhonchi, no retractions. 6) HEART: Regular rate and rhythm, no murmur, no heave, no gallop. 7) ABDOMEN: Surgical incision sites noted with no signs of infection. She is diffusely tender to palpation with light touch to all quadrants of her abdomen. No guarding, no rebound, no focal tenderness, negative McBurney's, negative Tirado's, negative Rovsing's, negative peritoneal sign, 8) MUSCULOSKELETAL: Left upper extremity: Tabitha in place. Graft thrill noted. Brisk pulses distally. Normal coloration temperature. Otherwise, Moving all extremities, no focal areas of tenderness, no obvious trauma. No peripheral edema or discoloration. 9) BACK: No CVA tenderness, no midline vertebral tenderness, no fluctuance, no step-off, no obvious trauma, no visual or palpable abnormality. 10) SKIN: No rash, no petechiae. 11) Psychiatric: Patient is oriented X 3, there is no agitation. DIFFERENTIAL DIAGNOSIS: In no particular order including but not limited to postsurgical abdominal pain, intra-abdominal abscess, clotted AV graft, upper extremity thrombus, compartment syndrome, cellulitis - Personal History LMP (Females 10-55): 22-28 Days Ago Current Tetanus/Diphtheria Vaccine: Yes Current Tetanus Diphtheria and Acellular Pertussis (TDAP): Yes Tetanus Vaccine Date: 12/2010 - Medical/Surgical History Hx Asthma: No Hx Chronic Respiratory Disease: No Hx Diabetes: No Hx Cardiac Disease: Yes Hx Renal Disease: Yes Hx Cirrhosis: No Hx Alcoholism: No Hx HIV/AIDS: No Hx Splenectomy or Spleen Trauma: No Other PMH: ESRD-on Dialysis-polycystic kidney disease, hypotension, Hep C (in remission), tubal ligation. - Social History Smoking Status: Former smoker Constitutional: Initial Vital Signs Temperature (C) 36.5 C 04/30/18 09:42 Heart Rate 103 H 04/30/18 09:42 Respiratory Rate 16 04/30/18 09:42 Blood Pressure 147/92 H 04/30/18 09:42 O2 Delivery Mode Nasal Cannula O2 (L/minute) 1 Allergies/Adverse Reactions: Marijuana/Cannabi *RETIRED-11/11/11 [Marijuana/Cannabinoid] Allergy (Severe, Verified 03/28/18 17:10) Anaphylaxis ondansetron HCl [From Zofran (as hydrochloride)] Allergy (Severe, Verified 03/28 17:10) Tingling of mouth/throat hydrochlorothiazide Allergy (Verified 04/03/18 10:14) Anaphylaxis NSAIDS (Non-Steroidal Anti-Inflamma [Nsaids] Allergy (Verified 04/03/18 10:14) Sulfa (Sulfonamide Antibiotics) Allergy (Verified 04/03/18 10:14) Hives Home Medications: Medication Instructions Recorded Furosemide [Lasix 80 MG (*)] 160 mg PO BID@06,17 17 Promethazine HCl [Phenergan 25mg 25 mg PO BID@,18 05/21/16 (*)] Sevelamer Carbonate [Renvela] 1,600 mg PO TIDMEAL 05/21/16 Calcium Acetate [Phoslo (*)] 2,001 each PO TIDMEAL 07/16/16 Fluticasone Nasal [Flonase Nasal 2 sprays NASAL BID 09/23/17 [place]] Lisinopril [Zestril 20 mg (*)] 20 mg PO DAILY PRN 09/23/17 Midodrine HCl 10 mg PO AD 09/23/17 Calcium Acetate [Phoslo (*)] 1,328 mg PO PRN PRN 03/02/18 Omeprazole 40 mg PO DAILY 03/02/18 Sevelamer Carbonate [Renvela] 1,600 mg PO PRN PRN 03/02/18 oxyCODONE IR [Oxycodone Ir (*)] 22.5 mg PO Q6HRS PRN 04/30/18 Medical Decision Making - Diagnostics Imaging Results: Imaging Impressions Chest X-Ray 04/30/18 09:56 Impression: Small amount of right basilar consolidation. Extremity Venous Study 04/30/18 10:10 Impression: 1. The dialysis fistula left upper arm remains patent as well as the venous anastomosis left upper arm to the basilic and axillary veins as well as subclavian vein. 2. 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 Findings discussed with Pavel FLOOD at 12:00 hour, 04/30/2018. Abdomen/Pelvis CT 04/30/18 14:00 Impression: 1. 3.6 cm probable hematoma in the nephrectomy bed. 2. Polycystic right kidney. 3. Small pleural effusions with associated atelectasis. 4. Indistinct nodular opacities in the right lower lobe, likely inflammatory or infectious. Short-term follow-up CT is recommended in 3 months document resolution. 5. Mildly prominent aortocaval lymph node. 6. Additional findings as above. Findings discussed with REMIGIO Coleman on 04/30/2018 at 14:41. Attention: This CT examination is specifically designed to evaluate patients who are clinically suspected of having acute obstructive uropathy. This examination does not use radiographic contrast and provides only a limited evaluation of the abdomen, pelvis and retroperitoneum. If there is further clinical suspicion for pathological conditions other than obstructive uropathy, a complete CT evaluation of the abdomen and pelvis utilizing intravenous and enteric contrast should be considered. Images reviewed myself ED Course/Re-evaluation: 11:07 a.m.: The nursing staff has been unable to obtain peripheral IV access. PICC line has been ordered on this patient and there is currently delay. The patient is requesting analgesia at this time. I have offered an intramuscular injection which she initially declined and started out of the bed incident threaten to walker the emergency department. I have encouraged her to stay in emergency department to her C further medical evaluation. She does agree to a single intramuscular injection of analgesia. 11:15 a.m.: Spoke with interventional radiologist Dr. Vannessa Son who is familiar with this patient from prior interactions and she describes the challenges and inability in previous admissions on obtaining PICC access. She will attempt ultrasound-guided peripheral IV access. 1:13 p.m.: At this time, nursing staff was able to obtain blood work from the patient. The patient initially declined peripheral IV by ER staff, and subsequent conversations with interventional radiology had agreed to have radiology perform ultrasound-guided peripheral IV stick however due to the current volume in the Emergency radiology suite this is not possible and patient agreed to have nursing staff emergency department obtain blood work. I had explained to the patient on numerous instances the importance of timely blood work and the potential repurcussion of delay. 2:45 p.m.: The patient missed her morning dialysis appointment in [place]. Spoke with the patient to see if she could make in afternoon or evening appointment with dialysis in [place] and offered to his sister with this however she adamantly declines stating that she does not want to go to [place] has no means of getting to [place] this evening. I agreed to consult with local master merchandiser. At this time I consulted with Dr. Ishan Baer , nephrology , who informs me that he is unable to form outpatient dialysis this evening however couldperform inpatient dialysis with plan on admission to hospitalist. 2:52 p.m. . Consultation with hospitalist Dr. Wilcox who wiill admit patient - Data Points Laboratory Results: Laboratory Results 04/30/18 13:02 04/30/18 13:02 04/30/18 04/30/18 04/30/18 13:02 13:02 13:02 WBC 7.78 10^3/uL 10^3/uL (3.80-9.50) RBC 2.45 10^6/uL L 10^6/uL (4.18-5.33) Hgb 7.4 g/dL L g/dL (12.6-16.3) Hct 23.9 % L % (38.0-47.0) MCV 97.6 fL fL (81.5-99.8) MCH 30.2 pg pg (27.9-34.1) MCHC 31.0 g/dL L g/dL (32.4-36.7) RDW 15.9 % H % (11.5-15.2) Plt Count 269 10^3/uL 10^3/uL (150-400) MPV 8.6 fL L fL (8.7-11.7) Neut % (Auto) Not Reported Lymph % (Auto) Not Reported [place] % (Auto) Not Reported Eos % (Auto) Not Reported Baso % (Auto) Not Reported Nucleat RBC Rel Count Not Reported Absolute Neuts (auto) Not Reported Absolute Lymphs (auto) Not Reported Absolute Monos (auto) Not Reported Absolute Eos (auto) Not Reported Absolute Basos (auto) Not Reported Absolute Nucleated RBC Not Reported Immature Gran % Not Reported Seg Neutrophils % 81.0 % % Band Neutrophils % 1.0 % % Lymphocytes % 13.0 % % Monocytes % 2.0 % % Eosinophils % 3.0 % % Basophils % 0.0 % % Metamyelocytes % 0.0 % % Myelocytes % 0.0 % % Promyelocytes % 0.0 % % Blast Cells % 0.0 % % Immature Gran # Not Reported Absolute Seg Neuts 6.30 10^3/uL 10^3/uL (1.70-6.50) Absolute Band Neuts 0.08 10^3/uL 10^3/uL (0.00-0.70) Absolute Lymphocytes 1.01 10^3/uL 10^3/uL (1.00-3.00) Absolute Monocytes 0.16 10^3/uL L 10^3/uL (0.30-0.80) Absolute Eosinophils 0.23 10^3/uL 10^3/uL (0.03-0.40) Absolute Basophils 0.00 10^3/uL L 10^3/uL (0.02-0.10) Absolute Metamyelocyte 0.00 10^3/mL 10^3/mL (0.00-0.00) Absolute Myelocytes 0.00 10^3/mL 10^3/mL (0.00-0.00) Absolute Promyelocytes 0.00 10^3/uL 10^3/uL (0.00-0.00) Absolute Plasma Cells 0.00 10^3/uL 10^3/uL (0.00-0.00) Nucleated RBCs 0 /100 WBC /100 WBC (0-0) Absolute Blast Cells 0.00 10^3/uL 10^3/uL (0.00-0.00) Plasma Cells % 0.0 % % Platelet Estimate ADEQUATE (ADEQ) Polychromasia 1+ H Hypochromasia 1+ H Microcytic Cells 1+ H Oval Macrocytes 1+ H PT 12.9 SEC SEC (12.0-15.0) INR 1.01 (0.83-1.16) APTT 31.7 SEC SEC (23.0-38.0) VBG Lactic Acid Sodium 136 mEq/L mEq/L (135-145) Potassium 5.4 mEq/L H mEq/L (3.5-5.2) Chloride 95 mEq/L L mEq/L (97-110) Carbon Dioxide 27 mEq/l mEq/l (22-31) Anion Gap 14 mEq/L mEq/L (6-14) BUN 54 mg/dL H mg/dL (7-23) Creatinine 8.2 mg/dL H* mg/dL (0.6-1.0) Estimated GFR 5 Glucose 78 mg/dL mg/dL (70-100) Calcium 8.1 mg/dL L mg/dL (8.5-10.4) Total Bilirubin 0.5 mg/dL mg/dL (0.1-1.4) Conjugated Bilirubin 0.5 mg/dL mg/dL (0.0-0.5) Unconjugated Bilirubin 0.0 mg/dL mg/dL (0.0-1.1) AST 11 IU/L L IU/L (14-46) ALT 18 IU/L IU/L (9-52) Alkaline Phosphatase 97 IU/L IU/L (38-126) Total Protein 6.3 g/dL g/dL (6.3-8.2) Albumin 3.4 g/dL L g/dL (3.5-5.0) Lipase 322 IU/L H IU/L (23-300) Nasal Influenza A PCR Nasal Influenza B PCR 04/30/18 04/30/18 13:02 10:18 WBC RBC Hgb Hct MCV MCH MCHC RDW Plt Count MPV Neut % (Auto) Lymph % (Auto) [place] % (Auto) Eos % (Auto) Baso % (Auto) Nucleat RBC Rel Count Absolute Neuts (auto) Absolute Lymphs (auto) Absolute Monos (auto) Absolute Eos (auto) Absolute Basos (auto) Absolute Nucleated RBC Immature Gran % Seg Neutrophils % Band Neutrophils % Lymphocytes % Monocytes % Eosinophils % Basophils % Metamyelocytes % Myelocytes % Promyelocytes % Blast Cells % Immature Gran # Absolute Seg Neuts Absolute Band Neuts Absolute Lymphocytes Absolute Monocytes Absolute Eosinophils Absolute Basophils Absolute Metamyelocyte Absolute Myelocytes Absolute Promyelocytes Absolute Plasma Cells Nucleated RBCs Absolute Blast Cells Plasma Cells % Platelet Estimate Polychromasia Hypochromasia Microcytic Cells Oval Macrocytes PT INR APTT VBG Lactic Acid 0.9 mmol/L mmol/L (0.7-2.1) Sodium Potassium Chloride Carbon Dioxide Anion Gap BUN Creatinine Estimated GFR Glucose Calcium Total Bilirubin Conjugated Bilirubin Unconjugated Bilirubin AST ALT Alkaline Phosphatase Total Protein Albumin Lipase Nasal Influenza A PCR NEGATIVE FOR FLU A (NEGATIVE) Nasal Influenza B PCR NEGATIVE FOR FLU B (NEGATIVE) Medications Given: Discontinued Medications Hydromorphone HCl (Dilaudid) 1 mg IM EDNOW ONE Stop: 04/30/18 11:09 Last Admin: 04/30/18 11:50 Dose: 1 mg Ondansetron HCl (Zofran) 4 mg IM EDNOW ONE Stop: 04/30/18 11:09 Last Admin: 04/30/18 14:16 Dose: Not Given Promethazine HCl (Phenergan) 12.5 mg IVP EDNOW ONE Stop: 04/30/18 13:18 Last Admin: 04/30/18 13:20 Dose: 12.5 mg Departure - Departure Disposition: [facility] Acute Clinical Impression: Abdominal pain, Hyperkalemia Condition: Fair
[2018-04-30] MEDS ORDERED: ALTEPLASE 2 MG VIAL IVP PRN (10:27)
[2018-04-30] MEDS ORDERED: ONDANSETRON 4 MG/2 ML VIAL IM ONE (11:08)
[2018-04-30] MEDS ORDERED: HYDROmorphONE/DILAUDID 1 MG/ML INJ IM ONE (11:08)
[2018-04-30] MEDS ORDERED: PROMETHAZINE HCL 25 MG/ML INJ IVP ONE (13:17)
[2018-04-30] MEDS ORDERED: PROMETHAZINE HCL 25 MG/ML INJ ONE (13:18)
[2018-04-30 13:25] LABS: PLATELET COUNT 269 10^3/uL (150-400)
[2018-04-30 13:36] LABS: INR 1.01 (0.83-1.16); PROTIME(PATIENT) 12.9 SEC (12.0-15.0)
[2018-04-30] MEDS ORDERED: ACETAMINOPHEN 325 MG TAB PO PRN (15:43)
[2018-04-30] MEDS ORDERED: ONDANSETRON 4 MG/2 ML VIAL IVP PRN (15:43)
[2018-04-30] MEDS ORDERED: ONDANSETRON DISINTEGRATING 4 MG TAB PO PRN (15:43)
[2018-04-30] MEDS ORDERED: CALCIUM ACETATE 667 MG CAP PO PRN (15:44)
--- NOTE | 2018-04-30 15:47 | PDGENHP ---
History and Physical - Chief Complaint fever, arm pain - History of Present Illness 42yo F with 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, recent left arm AV graft revision at this hospital earlier this month, and left nephrectomy at [facility] approximately 2 weeks ago presents with fever and left arm pain. Was hospitalized here end of March to early April due to AV graft clotting off. She had a thrombectomy. Graft clotted again and Dr Redd performed a graft revision. She was also treated for C diff colitis during that admission. She then had a left nephrectomy at [facility] mid -April due to frequent urinary tract infections and symptoms related to her polycystic kidneys. She was doing well until approximately 1 week ago when she noticed her left upper arm becoming more swollen and red. She was prescribed keflex and has been taking this. She reports intermittent fevers to 101.8 at home. Over the last few days she has noticed some greenish-clear drainage from her left upper arm incision site. She also reports some mild nausea and diffuse abdominal pain. In the ED, she has been afebrile. Blood cultures were drawn. She is being admitted for further evaluation and management. Renal has been consulted by the ED provider. History Information - Allergies/Home Medication List Allergies/Adverse Reactions: Marijuana/Cannabi *RETIRED-11/11/11 [Marijuana/Cannabinoid] Allergy (Severe, Verified 03/28/18 17:10) Anaphylaxis ondansetron HCl [From Zofran (as hydrochloride)] Allergy (Severe, Verified 03/28 17:10) Tingling of mouth/throat hydrochlorothiazide Allergy (Verified 04/03/18 10:14) Anaphylaxis NSAIDS (Non-Steroidal Anti-Inflamma [Nsaids] Allergy (Verified 04/03/18 10:14) Sulfa (Sulfonamide Antibiotics) Allergy (Verified 04/03/18 10:14) Hives Home Medications: Furosemide [Lasix 80 MG (*)] 160 mg PO BID@05/21/16 [Last Taken 04/30/18 06:00] Promethazine HCl [Phenergan 25mg (*)] 25 mg PO BID@,05/21/16 [Last Taken 18:00] Sevelamer Carbonate [Renvela] 1,600 mg PO TIDMEAL 05/21/16 [Last Taken 04/30/18] Calcium Acetate [Phoslo (*)] 2,001 each PO TIDMEAL 07/16/16 [Last Taken 04/30/18 ] Fluticasone Nasal [Flonase Nasal [place]] 2 sprays NASAL BID 09/23/17 [Last Taken 04/30/18] Lisinopril [Zestril 20 mg (*)] 20 mg PO DAILY PRN 09/23/17 [Last Taken 02/22/18] Midodrine HCl 10 mg PO AD 09/23/17 [Last Taken 02/28/18 15:00] Calcium Acetate [Phoslo (*)] 1,328 mg PO PRN PRN 03/02/18 [Last Taken 03/28/18] Omeprazole 40 mg PO DAILY 03/02/18 [Last Taken 04/30/18] Sevelamer Carbonate [Renvela] 1,600 mg PO PRN PRN 03/02/18 [Last Taken 03/28/18] oxyCODONE IR [Oxycodone Ir (*)] 22.5 mg PO Q6HRS PRN 04/30/18 [Last Taken 05:30] I have personally reviewed and updated: family history, medical history, social history, surgical history - Past Medical History Additional medical history: 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 //Fri (failed AV fistula, now with LUE AV graft), GERD, HTN, depression, HCV s/p tx, polysubstance abuse, cardiac arrest r/t opioid overdose, chronic pain with continuous opioid dependency, h/o etoh pancreatitis, nephrolithiasis - Surgical History Additional surgical history: left arm AV fistula, LUE AV graft placement and revision, hx of HD catheter/removal and line infection, cervical spine, c- section, left nephrectomy 04/2018 - Family History Additional family history: polycystic kidney disease in all 3 siblings - Social History Smoking Status: Former smoker Alcohol Use: None Drug Use: None Additional social history: patient lives with significant other Review of Systems Review of Systems: ROS: 10pt was reviewed & negative except for what was stated in HPI & below Physical Exam Physical Exam: Temp Pulse Resp BP Pulse Ox 36.5 C 105 H 18 140/78 H 96 04/30/18 09:42 04/30/18 13:30 04/30/18 13:30 04/30/18 13:30 04/30/18 13:30 Constitutional: no apparent distress, appears nourished, not in pain Eyes: PERRL, anicteric sclera, EOMI Ears, Nose, Mouth, Throat: moist mucous membranes, hearing normal, ears appear normal, no oral mucosal ulcers Cardiovascular: regular rate and rhythym, no murmur, rub, or gallop, No edema Respiratory: no respiratory distress, no rales or rhonchi, clear to auscultation Gastrointestinal: other (abdominal incisions c/d/i with no signs of infection) Genitourinary: no bladder fullness Skin: other (LUE with 2 incisions with savannah still in place, no fluctuance or induration, no significant erythema) Musculoskeletal: full muscle strength, no muscle tenderness, normal joint ROM, no joint effusions Neurologic: AAOx3 Psychiatric: interacting appropriately Lab Data & Imaging Review 04/30/18 13:02 04/30/18 13:02 WBC 7.78 10^3/uL (3.80-9.50) 04/30/18 13:02 RBC 2.45 10^6/uL (4.18-5.33) L 04/30/18 13:02 Hgb 7.4 g/dL (12.6-16.3) L 04/30/18 13:02 Hct 23.9 % (38.0-47.0) L 04/30/18 13:02 MCV 97.6 fL (81.5-99.8) 04/30/18 13:02 MCH 30.2 pg (27.9-34.1) 04/30/18 13:02 MCHC 31.0 g/dL (32.4-36.7) L 04/30/18 13:02 RDW 15.9 % (11.5-15.2) H 04/30/18 13:02 Plt Count 269 10^3/uL (150-400) 04/30/18 13:02 MPV 8.6 fL (8.7-11.7) L 04/30/18 13:02 Neut % (Auto) Not Reported 04/30/18 13:02 Lymph % (Auto) Not Reported 04/30/18 13:02 [place] % (Auto) Not Reported 04/30/18 13:02 Eos % (Auto) Not Reported 04/30/18 13:02 Baso % (Auto) Not Reported 04/30/18 13:02 Nucleat RBC Rel Count Not Reported 04/30/18 13:02 Absolute Neuts (auto) Not Reported 04/30/18 13:02 Absolute Lymphs (auto) Not Reported 04/30/18 13:02 Absolute Monos (auto) Not Reported 04/30/18 13:02 Absolute Eos (auto) Not Reported 04/30/18 13:02 Absolute Basos (auto) Not Reported 04/30/18 13:02 Absolute Nucleated RBC Not Reported 04/30/18 13:02 Immature Gran % Not Reported 04/30/18 13:02 Seg Neutrophils % 81.0 % 04/30/18 13:02 Band Neutrophils % 1.0 % 04/30/18 13:02 Lymphocytes % 13.0 % 04/30/18 13:02 Monocytes % 2.0 % 04/30/18 13:02 Eosinophils % 3.0 % 04/30/18 13:02 Basophils % 0.0 % 04/30/18 13:02 Metamyelocytes % 0.0 % 04/30/18 13:02 Myelocytes % 0.0 % 04/30/18 13:02 Promyelocytes % 0.0 % 04/30/18 13:02 Blast Cells % 0.0 % 04/30/18 13:02 Immature Gran # Not Reported 04/30/18 13:02 Absolute Seg Neuts 6.30 10^3/uL (1.70-6.50) 04/30/18 13:02 Absolute Band Neuts 0.08 10^3/uL (0.00-0.70) 04/30/18 13:02 Absolute Lymphocytes 1.01 10^3/uL (1.00-3.00) 04/30/18 13:02 Absolute Monocytes 0.16 10^3/uL (0.30-0.80) L 04/30/18 13:02 Absolute Eosinophils 0.23 10^3/uL (0.03-0.40) 04/30/18 13:02 Absolute Basophils 0.00 10^3/uL (0.02-0.10) L 04/30/18 13:02 Absolute Metamyelocyte 0.00 10^3/mL (0.00-0.00) 04/30/18 13:02 Absolute Myelocytes 0.00 10^3/mL (0.00-0.00) 04/30/18 13:02 Absolute Promyelocytes 0.00 10^3/uL (0.00-0.00) 04/30/18 13:02 Absolute Plasma Cells 0.00 10^3/uL (0.00-0.00) 04/30/18 13:02 Nucleated RBCs 0 /100 WBC (0-0) 04/30/18 13:02 Absolute Blast Cells 0.00 10^3/uL (0.00-0.00) 04/30/18 13:02 Plasma Cells % 0.0 % 04/30/18 13:02 Platelet Estimate ADEQUATE (ADEQ) 04/30/18 13:02 Polychromasia 1+ H 04/30/18 13:02 Hypochromasia 1+ H 04/30/18 13:02 Microcytic Cells 1+ H 04/30/18 13:02 Oval Macrocytes 1+ H 04/30/18 13:02 PT 12.9 SEC (12.0-15.0) 04/30/18 13:02 INR 1.01 (0.83-1.16) 04/30/18 13:02 APTT 31.7 SEC (23.0-38.0) 04/30/18 13:02 VBG Lactic Acid 0.9 mmol/L (0.7-2.1) 04/30/18 13:02 Sodium 136 mEq/L (135-145) 04/30/18 13:02 Potassium 5.4 mEq/L (3.5-5.2) H 04/30/18 13:02 Chloride 95 mEq/L (97-110) L 04/30/18 13:02 Carbon Dioxide 27 mEq/l (22-31) 04/30/18 13:02 Anion Gap 14 mEq/L (6-14) 04/30/18 13:02 BUN 54 mg/dL (7-23) H 04/30/18 13:02 Creatinine 8.2 mg/dL (0.6-1.0) H* 04/30/18 13:02 Estimated GFR 5 04/30/18 13:02 Glucose 78 mg/dL (70-100) 04/30/18 13:02 Calcium 8.1 mg/dL (8.5-10.4) L 04/30/18 13:02 Total Bilirubin 0.5 mg/dL (0.1-1.4) 04/30/18 13:02 Conjugated Bilirubin 0.5 mg/dL (0.0-0.5) 04/30/18 13:02 Unconjugated Bilirubin 0.0 mg/dL (0.0-1.1) 04/30/18 13:02 AST 11 IU/L (14-46) L 04/30/18 13:02 ALT 18 IU/L (9-52) 04/30/18 13:02 Alkaline Phosphatase 97 IU/L (38-126) 04/30/18 13:02 Total Protein 6.3 g/dL (6.3-8.2) 04/30/18 13:02 Albumin 3.4 g/dL (3.5-5.0) L 04/30/18 13:02 Lipase 322 IU/L (23-300) H 04/30/18 13:02 Nasal Influenza A PCR NEGATIVE FOR FLU A (NEGATIVE) 04/30/18 10:18 Nasal Influenza B PCR NEGATIVE FOR FLU B (NEGATIVE) 04/30/18 10:18 Interpretation: CXR: chronic elevation of R hemidiaphragm, haziness along right heart border, mild increase in pulmonary vascularity, no effusions (interp by me ) Assessment & Plan Assessment: 42yo F with 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, recent left arm AV graft revision at this hospital earlier this month, and left nephrectomy at [facility] approximately 2 weeks ago presents with fever and left arm pain. Plan: #Fever: None here so far. Not septic. CT of abdomen negative. CXR negative. Possible she has left arm infection related to recent AV graft revision. She has been on keflex for approximately 7 days. - CT left arm with IV contrast - Blood cultures drawn - Hold on additional antibiotics for now - Surgery evaluation of LUE AV graft pending results of above (have not been consulted yet) #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: Last HD on 04/28. LUE AV graft with good thrill. No acute indication for HD at this time - Nephrology (Dr Rocha) has been consulted, plan for HD tomorrow - Continue phos binders #Hyperkalemia: Mild. Due to above. - Dialysis tomorrow #Left nephrectomy bed hematoma: Noted on CT. - Monitor H/H #Anemia: Due to kidney disease. Stable but low. - May need transfusion with dialysis #H/o C diff colitis: S/p course of PO vancomycin. No further diarrhea. #Chronic pain with continuous opioid dependence: Continuing home oxycodone. She does have a prior admission for opioid overdose. #HTN: Continue home meds. VTE ppx: SCDs Code: full Dispo: Admit under observation
[2018-04-30] MEDS ORDERED: IOPAMIDOL (ISOVUE-300) 100 ML BTL ONE (16:02)
[2018-04-30] MEDS: oxyCODONE IR 15 MG TAB PO PRN ×2 (16:22→22:17)
[2018-04-30] MEDS: PROMETHAZINE HCL 25 MG TAB PO SCH ×2 (18:26→22:22)
[2018-04-30] MEDS: CALCIUM ACETATE 667 MG CAP PO SCH (18:27)
[2018-04-30] MEDS: FUROSEMIDE 80 MG TAB PO SCH (18:27)
[2018-04-30] MEDS: MIDODRINE HCL 10 MG TAB PO SCH (19:55)
--- NOTE | 2018-04-30 19:58 | SOAPPROG ---
SOAP Progress Note Assessment/Plan: Assessment: Denny is well known to our service. 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 She dialyzes at the [facility] on a TTS schedule. She last dialyzed on Friday. She has been under the care of the transplant team at [place] prepping her for a new transplant. She has had two recent surgeries: a transplant allograft nephrectomy, and a new L forearm graft placement. She has been using this graft, and it has been working well. She presented today for pain issues. In general, she looked ok in the ER, but she was hyperkalemic, and had missed her HD today in [place]. We are now asked to dialyze her tonight. Imp 1. HD tonight, then Sat at outpatient unit 2. Anemia Likely partly attributed to her recent surgeries. No obvious active bleeding 3. Surgical sites do not look infected 4. Volume overload UF on HD Plan: 04/30/18 19:51 Subjective: Doing ok Objective: Vital Signs Temp Pulse Resp BP Pulse Ox 36.9 C 100 18 139/83 H 98 04/30/18 19:17 04/30/18 19:17 04/30/18 19:17 04/30/18 19:17 04/30/18 19:17 04/29/18 04/30/18 05/01/18 05:59 05:59 05:59 Intake Total 30 Balance 30 PT 12.9 SEC (12.0-15.0) 04/30/18 13:02 INR 1.01 (0.83-1.16) 04/30/18 13:02 Physical Exam - Physical Exam General Appearance: no apparent distress Respiratory: lungs clear Cardiac/Chest: regular rate, rhythm Abdomen: soft Extremities: other (good bruit in graft. Some staple reaction, no drainage) Neuro/Psych: oriented x 3 ICD10 Worksheet Patient Problems: Problems Problem Status Onset Abdominal pain Acute Hyperkalemia Acute Disorder of pancreas Active MRSA - Methicillin resistant Staphylococcus aureus infection Active MRSA - Methicillin resistant Staphylococcus aureus infection Active Metabolic acidosis Active Renal failure syndrome Active Altered mental status Acute Anemia Acute Chest pain Acute Chest pain Acute Dialysis complication Acute Diarrhea Acute End stage renal disease Acute Hypotension Acute Opioid overdose Acute Renal failure Acute
[2018-04-30] MEDS: FLUTICASONE NASAL 120 SPRAYS/16 GM MDI EACHNARE SCH (21:00)
[2018-05-01] MEDS ORDERED: LIDOCAINE 1% *Not for Epidural 20 ML MDV ONE ×2 (01:27→17:00)
[2018-05-01] MEDS ORDERED: HEPARIN 10,000 UNIT/10 ML MDV (1,000 UNIT/ML) ONE (01:27)
[2018-05-01] MEDS: FUROSEMIDE 80 MG TAB PO SCH ×2 (08:30→17:19)
[2018-05-01] MEDS: PROMETHAZINE HCL 25 MG TAB PO SCH ×2 (08:31→17:19)
[2018-05-01] MEDS: PANTOPRAZOLE SODIUM 40 MG TAB PO SCH (08:31)
[2018-05-01] MEDS: oxyCODONE IR 15 MG TAB PO PRN ×2 (08:35→16:40)
[2018-05-01] MEDS ORDERED: SEVELAMER HCL 800 MG TAB PO PRN (09:00)
--- NOTE | 2018-05-01 09:34 | SOAPPROG ---
SOAP Progress Note Assessment/Plan: Assessment: #ESRD -had HD last night as missed outpt treatment, requesting we run her again tonight which we will arrange (I explained to her it will be this evening) -I have asked Dr. Redd to see her regarding fever, possible time for staple removal over AVG--- wound looks good but appreciate his input #fever -incisions both look good (transplant nephrectomy and AVG) -blood cultures pending -no fevers noted since here -I will defer to surgery and hospitalist if Vanco felt needed #anemia CKD -Hb <9, will give Epo -use Hb <7 as transfusion threshold #MBD of CKD -renal diet when taking po -check phos #mild hyperK on 04/30 labs -labs not back this am -had HD last night -renal diet when taking po I discussed with RN and odd bundle worker, have call into hospitalist and surgeon Carmen Simon MD [facility] pager [phone] 05/01/18 09:46 Subjective: Upset that she didn't get antibiotics last night as she thinks she needs Vanco. Had HD late last night and felt she should have longer treatment. No fevers noted. Has chronic abd pain but no worse. No purulence or erythema from wounds. No sob. Wants to do extra HD treatment today. Objective: Vital Signs Temp Pulse Resp BP Pulse Ox 36.8 C 96 16 144/89 H 91 L 05/01/18 08:00 05/01/18 08:00 05/01/18 08:00 05/01/18 08:00 05/01/18 08:00 04/30/18 05/01/18 05/02/18 05:59 05:59 05:59 Intake Total 30 100 Balance 30 100 PT 12.9 SEC (12.0-15.0) 04/30/18 13:02 INR 1.01 (0.83-1.16) 04/30/18 13:02 Physical Exam - Physical Exam General Appearance: alert, no apparent distress, other (sitting upright in bed) EENT: other (mmm) Neck: supple Respiratory: lungs clear Cardiac/Chest: regular rate, rhythm Abdomen: non-tender, soft, other (surgical incision looks good- wound c/d/i, no drainage or erythema) Skin: warm/dry Extremities: other (trace ankle edema bilat, LUE AVG incision c/d/i, no purulence, savannah in) Neuro/Psych: alert, oriented x 3 ICD10 Worksheet Patient Problems: Problems Problem Status Onset Abdominal pain Acute Hyperkalemia Acute Disorder of pancreas Active MRSA - Methicillin resistant Staphylococcus aureus infection Active MRSA - Methicillin resistant Staphylococcus aureus infection Active Metabolic acidosis Active Renal failure syndrome Active Altered mental status Acute Anemia Acute Chest pain Acute Chest pain Acute Dialysis complication Acute Diarrhea Acute End stage renal disease Acute Hypotension Acute Opioid overdose Acute Renal failure Acute
[2018-05-01] MEDS ORDERED: VANCOMYCIN HCL/NORMAL SALINE 250 ML IV ONE (10:00)
[2018-05-01] MEDS: SEVELAMER HCL 800 MG TAB PO SCH ×3 (10:58→19:53)
[2018-05-01] MEDS: CALCIUM ACETATE 667 MG CAP PO SCH ×3 (10:58→19:53)
[2018-05-01] MEDS: MIDODRINE HCL 10 MG TAB PO SCH (12:07)
[2018-05-01 12:19] LABS: PLATELET COUNT 283 10^3/uL (150-400)
[2018-05-01] MEDS: FLUTICASONE NASAL 120 SPRAYS/16 GM MDI EACHNARE SCH ×2 (12:25→21:32)
--- NOTE | 2018-05-01 15:15 | HOSPPROG ---
Hospitalist Progress Note Assessment/Plan: 42yo F with 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, recent left arm AV graft revision at this hospital earlier this month, and left nephrectomy at [facility] approximately 2 weeks ago presents with fever and left arm pain. -No fever since admission -No leukocytosis a/p #Fever: None here so far. Not septic. CT of abdomen negative. CXR negative. Possible she has left arm infection related to recent AV graft revision but wound looks good. She has been on keflex for approximately 7 days. - f/u Blood cultures - Hold on additional antibiotics for now - Surgery evaluation of LUE AV graft pending results of above (contacted by Nephrology per Nephrology's note) #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: Last HD on 04/28. LUE AV graft with good thrill. No acute indication for HD at this time - Nephrology has been consulted, HD on admission and again today - Continue phos binders #Hyperkalemia: Mild. Due to above. - Dialysis on admission. resolved today #Left nephrectomy bed hematoma: Noted on CT. - Monitor H/H -wound looks ok #Anemia: Due to kidney disease. Stable but low. - May need transfusion with dialysis #H/o C diff colitis: S/p course of PO vancomycin. No further diarrhea. #Chronic pain with continuous opioid dependence: Continuing home oxycodone. She does have a prior admission for opioid overdose. #HTN: Continue home meds. #LUE Graft. Need staple removal per Surgery VTE ppx: SCDs Code: full Dispo: Admit under observation Plan: per above no abx at this time. monitor for fever, can monitor overnight surgery eval pending, savannah to be removed Subjective: no fever, no cp or sob. no n/v Objective: Vital Signs Temp Pulse Resp BP Pulse Ox 36.8 C 96 16 144/89 H 91 L 05/01/18 08:00 05/01/18 08:00 05/01/18 08:00 05/01/18 08:00 05/01/18 08:00 Laboratory Results 05/01/18 12:05 05/01/18 12:05 04/30/18 05/01/18 05/02/18 05:59 05:59 05:59 Intake Total 30 100 Balance 30 100 PT 12.9 SEC (12.0-15.0) 04/30/18 13:02 INR 1.01 (0.83-1.16) 04/30/18 13:02 - Physical Exam Constitutional: no apparent distress Eyes: PERRL, EOMI Ears, Nose, Mouth, Throat: moist mucous membranes, hearing normal Cardiovascular: regular rate and rhythym, No edema Respiratory: no respiratory distress, no rales or rhonchi, clear to auscultation Gastrointestinal: normoactive bowel sounds Skin: warm Neurologic: AAOx3 Psychiatric: interacting appropriately, not anxious, not encephalopathic Lymph, Heme, Immunologic: No petechiae ICD10 Worksheet Patient Problems: Problems Problem Status Onset Abdominal pain Acute Hyperkalemia Acute Disorder of pancreas Active MRSA - Methicillin resistant Staphylococcus aureus infection Active MRSA - Methicillin resistant Staphylococcus aureus infection Active Metabolic acidosis Active Renal failure syndrome Active Altered mental status Acute Anemia Acute Chest pain Acute Chest pain Acute Dialysis complication Acute Diarrhea Acute End stage renal disease Acute Hypotension Acute Opioid overdose Acute Renal failure Acute
--- NOTE | 2018-05-01 16:24 | ASMTCMCOM ---
CM Note CM Note Notes: Reviewed chart, pt has been here often. She is admitted w/ L arm pain, she has ESDL and gets dialysis T//S in [place]. She is on a transplant list, previous one failed. Pt also has hx of substance abuse but usually discharges independent. She lives at home with her boyfriend, CM available for any changes or needs. DC Plan: Independent Date Signed: 05/01/2018 04:23 PM Electronically Signed By:Mela Jose RN
--- NOTE | 2018-05-01 17:32 | PDMN ---
Medical Necessity Medical necessity: Change to IP, as of 05/01/18, per MD & MCG MG-SIC Systemic or Infectious Condition; los >2 mn for ongoing management of possible L arm infection r/t recent L arm AV graft revision; requiring further monitoring & Surgery consult w/staple removal; hx recent L nephrectomy, 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
[2018-05-02] MEDS: oxyCODONE IR 15 MG TAB PO PRN ×2 (00:04→06:09)
[2018-05-02 05:19] LABS: PLATELET COUNT 317 10^3/uL (150-400)
--- NOTE | 2018-05-02 06:07 | SOAPPROG ---
SOAP Progress Note Assessment/Plan: Assessment: #ESRD- [facility] in [place] -had HD evening and again Friday- next run Friday -I have asked Dr. Redd to see her given recent AVG-- savannah out and incision looks good, working ok -I think can d/c today if blood cultures are negative (they weren't reported when I rounded this am) #fever prior to admit- none noted here -incisions both look good (transplant nephrectomy and AVG) -blood cultures pending -CT abd neg -influenza neg -no fevers noted since here -I will defer to surgery and hospitalist if continued antibiotics warranted- did receive dose vanco 05/01 #anemia CKD -Hb <9, given Epo-- Hb up to 8.8 today with some UF On HD -use Hb <7 as transfusion threshold #MBD of CKD -renal diet when taking po -check phos #mild hyperK on 04/30 labs- resolved -improved with HD -renal diet when taking po Carmen Simon MD [facility] pager [phone] 05/02/18 06:06 Subjective: No fevers. Feels much better, asking if she can go home. Had HD yesterday and tolerated well. Whipple removed from AVG site, working ok. Thinks arm edema improved. No sob. Objective: Vital Signs Temp Pulse Resp BP Pulse Ox 36.8 C 91 16 120/64 95 05/01/18 21:28 05/01/18 21:28 05/01/18 21:28 05/01/18 21:28 05/01/18 21:28 Laboratory Results 05/02/18 04:55 05/02/18 04:55 05/01/18 05/02/18 05/03/18 05:59 05:59 05:59 Intake Total 375 Balance 375 PT 12.9 SEC (12.0-15.0) 04/30/18 13:02 INR 1.01 (0.83-1.16) 04/30/18 13:02 Physical Exam - Physical Exam General Appearance: alert, no apparent distress (non toxic appearing) EENT: other (mmm) Neck: supple Respiratory: lungs clear Cardiac/Chest: regular rate, rhythm Abdomen: non-tender, soft, other (incision c/d/i (transplant nephrectomy)) Skin: warm/dry Extremities: other (no LE edema, LUE AVG incision looks good, no erythema/ drainage, savannah out. Arm less edmatous, not tender to touch) Neuro/Psych: alert, oriented x 3 ICD10 Worksheet Patient Problems: Problems Problem Status Onset Abdominal pain Acute Hyperkalemia Acute Disorder of pancreas Active MRSA - Methicillin resistant Staphylococcus aureus infection Active MRSA - Methicillin resistant Staphylococcus aureus infection Active Metabolic acidosis Active Renal failure syndrome Active Altered mental status Acute Anemia Acute Chest pain Acute Chest pain Acute Dialysis complication Acute Diarrhea Acute End stage renal disease Acute Hypotension Acute Opioid overdose Acute Renal failure Acute
[2018-05-02] MEDS: PROMETHAZINE HCL 25 MG TAB PO SCH (06:10)
[2018-05-02] MEDS: FUROSEMIDE 80 MG TAB PO SCH (06:10)
[2018-05-02 07:49] VITALS: BP 150/88
[2018-05-02] MEDS ORDERED: MIDODRINE HCL 10 MG TAB PO SCH (08:00)
[2018-05-02] MEDS: CALCIUM ACETATE 667 MG CAP PO SCH (08:45)
[2018-05-02] MEDS: PANTOPRAZOLE SODIUM 40 MG TAB PO SCH (08:45)
[2018-05-02] MEDS: FLUTICASONE NASAL 120 SPRAYS/16 GM MDI EACHNARE SCH (08:46)
[2018-05-02] MEDS: SEVELAMER HCL 800 MG TAB PO SCH (10:12)
--- NOTE | 2018-05-02 13:28 | PDDCSUM ---
Discharge Summary Discharge Summary: 42o F with 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, recent left arm AV graft revision at this hospital earlier this month, and left nephrectomy at [facility] approximately 2 weeks ago presents with fever and left arm pain. No further fever here. no leukocytosis. did not receive abx. blood cultures have no growth thus far. Will need to be followed. no antibiotics were started. The AV graft was examined. No e/o infection. Tabitha were removed She has a f/u appt with Dr. Redd on Friday. a/p #Fever: None here so far. Not septic. CT of abdomen negative. CXR negative. Possible she has left arm infection related to recent AV graft revision but wound looks good. She had been on keflex for approximately 7 days. - f/u Blood cultures - Hold on additional antibiotics for now #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: Last HD on 04/28. LUE AV graft with good thrill. No acute indication for HD at this time - Nephrology has been consulted, HD on admission and again today - Continue phos binders #Hyperkalemia: Mild. Due to above. - Dialysis on admission. resolved today #Left nephrectomy bed hematoma: Noted on CT. - Monitor H/H -wound looks ok #Anemia: Due to kidney disease. Stable but low. - May need transfusion with dialysis #H/o C diff colitis: S/p course of PO vancomycin. No further diarrhea. #Chronic pain with continuous opioid dependence: Continuing home oxycodone. She does have a prior admission for opioid overdose. #HTN: Continue home meds. Exam: NAD AAOX3 RRR CTA B S/NT/ND MEDS: SEE MED REC TOTAL TIME SPENT ON D/C IS 35 MINS
== END 2018-05-02 10:30 | disposition home or self-care (01) | DRG 864 ==
LOC: F3E 17:57 → OBSVTOIN 05-01 15:39
PROVIDERS: ADMIT Internal Medicine; ATTEND Internal Medicine
PROC: 5A1D70Z Performance of Urinary Filtration, Intermittent, Less than 6 Hours Per Day (ICD-10-PCS; principal; 2018-05-01)
DX: R50.9 Fever, unspecified (principal); R10.9 Unspecified abdominal pain; N18.6 End stage renal disease; Q61.3 Polycystic kidney, unspecified; E87.5 Hyperkalemia; D63.1 Anemia in chronic kidney disease; G89.29 Other chronic pain; F11.20 Opioid dependence, uncomplicated; I10 Essential (primary) hypertension; K21.9 Gastro-esophageal reflux disease without esophagitis; Z90.5 Acquired absence of kidney; Z86.19 Personal history of other infectious and parasitic diseases; Z87.891 Personal history of nicotine dependence; Z99.2 Dependence on renal dialysis
CPT/HCPCS: 96374; G0378; J1170; J1200; J1644; J2405; J2550; J3370; Q9967

== ENCOUNTER 2018-05-05 10:07 | Inpatient (IN) | payer OTHER, MEDICAID ==
--- NOTE | 2018-05-05 10:31 | EDPHY ---
HPI/HX/ROS/PE/MDM - Data Points Imaging: Discussed imaging studies w/ call center supervisor Radiologist Narrative: CHIEF COMPLAINT: Left arm pain HPI: This patient is a 42 year old female with history of end stage renal disease secondary to polycystic kidney disease with recent left arm A/V graft revision and left nephrectomy. She presents today with left arm discomfort. She was evaluated in this hospital three days ago, discharged 05/02/18, for similar symptoms. No evidence of infection at that time, she was discharged in good condition without antibiotics. She has apparently missed several appointments with both her surgeon and dialysis since that time. Today, she complains of increased pain and swelling in her left arm, which began yesterday. She additionally complains of dizziness and vomiting. She is due for her next dialysis appointment today in [place], but states her surgeon, Dr. Redd, told not to go for dialysis until she got her arm checked out. She states he plans to visit her here in the emergency department. She denies fever, chest pain, difficulty breathing, or other associated symptoms. REVIEW OF SYSTEMS: A comprehensive 10 system review of systems is otherwise negative aside from elements mentioned in the history of present illness and medical decision making. PMH: Hypertension. End stage renal disease secondary to polycystic kidney disease with recent left arm A/V graft revision and left nephrectomy. Chronic pain with continuous opioid dependence. Hyperkalemia and anemia secondary to her kidney disease. She is on dialysis. History of c-difficile colitis. SOCIAL HISTORY: Lives in [place]. Friend at bedside. Former smoker. PHYSICAL EXAM: General:Patient is alert, in no acute distress. ENT:Eyes are normal to inspection. ENT inspection normal. Neck: Normal inspection. Full range of motion. Respiratory:No respiratory distress. Breath sounds normal bilaterally. Cardiovascular: Regular rhythm. Strong peripheral pulses. Normal cap refill. Abdomen:The abdomen is nontender to palpation. There are no peritoneal signs. There are normal bowel sounds. Back: Normal to inspection. No tenderness to palpation. Skin: Normal color. No rash. Warm and dry. Extremities: Healing surgical incision to left upper arm, clean and intact with no discharge, moderate swelling noted. Otherwise normal appearance of extremities. Thrill palpable over AV graft.Full range of motion. Neuro: Oriented x3. Normal motor function. Normal sensory function. (Adolph Quiles) ED Course: 1600: Pt has changed her mind and agrees to lab draw/further eval. 1630: ED staff unable to draw blood. Pt's VS: 38.7, HR 118, hypertensive. PICC line ordered. Will admit for fever, LUE swelling. In review of this patient's medical record, she has polycystic kidney disease, with recent left AV graft revision and left nephrectomy. Previous admission on 04/30/18 for left upper extremity swelling and fever revealed normal chest x-ray and normal CT scan of the abdomen/pelvis. She was afebrile throughout that visit and blood cultures were negative. She presents today febrile and tachycardic, with a chief complaint left upper extremity swelling. She has been seen by Dr. Tao, who feels that she does not have surgical site infection. Left upper extremity ultrasound is negative. Will proceed per the sepsis protocol and admit for further care. PICC line placed. Potassium 5.8, no indication for emergent dialysis tonight. Initial lactate is normal. 1700: The hospitalist service was consulted for admission. Unclear etiology of recurrent fever, ?bacteremia secondary to AV fistula, Vancomycin IV given. (Marcella Delcid) 42 y/o female with history of ESRD and recent left nephrectomy and left arm AV shunt placement presents with complaints of left arm pain and swelling. Healing surgical incision to left upper arm, clean and intact with no discharge, mild swelling noted. Plan to consult with Dr. Redd, the patient's surgeon. 10:[address] Redd, general surgeon. He is currently in the OR. The patient was scheduled to follow up in his office yesterday, but did not present for that appointment. Dr. Redd requests US of the LUE for further evaluation. He notes he will be in the operating room for several hours still, and requests we consult with the on-call surgeon to evaluate the patient. 10:[address] Tao, general surgeon ground operations superintendent. She will evaluate the patient here in the emergency department. 13:[address] Robbins, radiologist, shows patent loop graft with patent left axillary and subclavian veins. Dr. Redd, general surgeon, has also evaluated the patient. He sees no evidence of acute infection. Per Dr. Redd, given negative US with patient shunt, patient should be able to proceed with dialysis as scheduled. Reassessed patient. She does not feel she can make it to her outpatient dialysis appointment and requests that I speak with her mechanical design drafter by phone. 14:[address] Savana Navas, the patient's mechanical design drafter, at the patient's request. She recommends laboratory studies including chemistries to determine whether the patient needs urgent dialysis. If not, the patient can follow up outpatient tomorrow morning for her dialysis. 15:20 Notified by ER staff that patient requested we discontinue all testing and would like to go home. Laboratory studies were not completed - the patient declined IV/phlebotomy access and blood work. Reassessed patient. 15:30: Patient now wants to stay for blood draw. Patient signed out to Dr. Delcid pending lab results. (Adolph Quiles) - Data Points Imaging Results: Imaging Impressions Extremity Venous Study 05/05/18 10:44 Impression: Patent loop graft with patent left axillary and subclavian veins. Findings discussed with Adolph Quiles MD 05/05/2018 at 13:07. General Time Seen by Provider: 05/05/18 10:15 Initial Vital Signs: Initial Vital Signs Temperature (C) 37.6 C 05/05/18 10:12 Heart Rate 128 H 05/05/18 10:12 Respiratory Rate 16 05/05/18 10:12 Blood Pressure 149/105 H 05/05/18 10:12 O2 Sat (%) 98 05/05/18 10:12 O2 Delivery Mode Room Air Allergies/Adverse Reactions: Marijuana/Cannabi *RETIRED-11/11/11 [Marijuana/Cannabinoid] Allergy (Severe, Verified 05/05/18 10:12) Anaphylaxis ondansetron HCl [From Zofran (as hydrochloride)] Allergy (Severe, Verified 05/05 10:12) Tingling of mouth/throat hydrochlorothiazide Allergy (Verified 05/05/18 10:12) Anaphylaxis NSAIDS (Non-Steroidal Anti-Inflamma [Nsaids] Allergy (Verified 05/05/18 10:12) Sulfa (Sulfonamide Antibiotics) Allergy (Verified 05/05/18 10:12) Hives Home Medications: Medication Instructions Recorded Furosemide [Lasix 80 MG (*)] 160 mg PO BID@,17 05/21/16 Promethazine HCl [Phenergan 25mg 25 mg PO BID@06,18 05/21/16 (*)] Sevelamer Carbonate [Renvela] 1,600 mg PO TIDMEAL 05/21/16 Calcium Acetate [Phoslo (*)] 2,001 each PO TIDMEAL 07/16/16 Fluticasone Nasal [Flonase Nasal 2 sprays NASAL BID 09/23/17 [place]] Lisinopril [Zestril 20 mg (*)] 20 mg PO DAILY PRN 09/23/17 Midodrine HCl 10 mg PO AD 09/23/17 Calcium Acetate [Phoslo (*)] 1,334 mg PO PRN PRN 03/02/18 Omeprazole 40 mg PO DAILY 03/02/18 Sevelamer Carbonate [Renvela] 1,600 mg PO PRN PRN 03/02/18 oxyCODONE IR [Oxycodone Ir (*)] 22.5 mg PO Q6HRS PRN 04/30/18 Departure - Departure Disposition: [facility] [place] Inpatient Acute Clinical Impression: End stage renal disease, Arm pain, Fever Condition: Good Report Scribed for: Adolph Quiles Report Scribed by: Laurel Workman Date of Report: 05/05/18 Time of Report: 10:31 Physician Review and Approval Statement: Portions of this note were transcribed by an ED scribe. I personally performed the history, physical exam, and medical decision making; and confirm the accuracy of the information in the transcribed note.
--- NOTE | 2018-05-05 14:34 | GCON ---
[f rep st] CONSULTATION CHIEF COMPLAINT: Left upper extremity pain. HISTORY OF PRESENT ILLNESS: Ms. Hercules is a 42-year-old woman who underwent AV graft thrombectomy on April 01, 2018. She also had an AV graft revision with interposition Davenport-Hernandez graft to the distal brachial vein on April 04, 2018. She has had swelling of her arm at that time. She was last seen in the emergency department and subsequently admitted to the hospital at the beginning of May. On 04/30/2018, she had an ultrasound performed which showed a patent fistula. Today, the patient complains that she can no longer feel her thrill and that she has had increased swelling and increased pain. PHYSICAL EXAMINATION: Pleasant woman lying on gurney. Arm is very painful. On the arm, she has well-healed incisions. I removed the Steri-Strips. I am unable to palpate a thrill on the upper arm, although I do not expect this to be extremely strong since it is a graft in this area. The swelling seems appropriate postsurgical. Small amount of faint erythema IMPRESSION AND PLAN: Denny Hercules is a 42-year-old status post a revision with Davenport-Hernandez graft. I do not see any signs of infection. However, since this is my first time meeting the patient, I agree that ultrasound should be obtained to rule out problems with the graft. If the ultrasound is within normal limits, then she could follow up with Dr. Redd as an outpatient. It is also possible that she could have a deep hematoma /[id number]/MODL MTDD
--- NOTE | 2018-05-05 17:28 | PDGENHP ---
History and Physical History and Physical: CC: HISTORY:This patient with a dialysis graft in her left arm presented here April 30 complaining of 1 week of swelling and redness in her left arm. In the outpatient setting prior to that admission she had been treated with Keflex. There was fever at home at the time of her presentation on April 30 but there was no fever in the hospital.. Initially there was question of infection in her left arm but there was nothing in blood cultures and no definite signs of infection and the cause of the swelling and redness in her arm was unknown. She received 1 dose of vancomycin on the day of admission from the previous stay here but no doses after that. She was discharged on May 02. Today she called her boyfriend complaining of increased pain and swelling in the left upper arm. She was also nauseous and vomited. She was supposed to have her dialysis session today at her usual dialysis unit but did not get there. She came to the ER here brought by her boyfriend. Currently she is sleepy because of some Phenergan received in the ER She denies pain anywhere else. She is not short of breath. She is not having any tremor. She does notice rigors with her fever. ROS: A comprehensive 10 system review revealed no other significant findings PAST MEDICAL HISTORY: ESRD due to polycystic kidney disease; left arm AV fistula with revision Left nephrectomy Past history C diff colitis Chronic pain syndrome on chronic prescribed narcotics daily Hypertension Depression Esophageal reflux Hepatitis-C status post treatment History of poly substance abuse History of cardiac arrest Pancreatitis Kidney stones Cervical spine surgery FAMILY MEDICAL HISTORY: 3 siblings with polycystic kidney disease SOCIAL HISTORY: Single but has a longstanding boyfriend who is here at the bedside and supportive History of substance abuse, no current substance abuse and no current alcohol abuse MEDICATIONS: The patients list has been reconciled by our clinical pharmacist in the EMR. I have reviewed the list and ordered appropriate medicines. 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 She has a thrill over her AV fistula in the forearm. Lower Extremities: no edema, warm No Bleeding or bruising Neurologic: normal speech/language, normal railway head tender, no focal weakness There is a new PICC line in the right upper extremity lobe which looks good, placed in ER LABORATORY DATA: White count 98199 with 13,000 neutrophils, Up from 6000 on May 02 Sodium 130, potassium 5.8, chloride 96, creatinine 10.5, CO2 is 22 Lactic acid is normal RADIOLOGY STUDIES: An ultrasound was done in the ER showing a patent loop graft in the arm ASSESSMENT: * Acute sepsis with no acute organ injury or hypotension at present * Suspect infection in her left arm, at least with cellulitis but would be worried about abscess or other deep infection * Hyperkalemia, largely due to not having been dialyzed for the past 4 days * Nausea vomiting, related to above * End-stage renal disease on dialysis, recent revision of AV graft in left arm due to clotting of her graft; graft functioned well last dialyzed 4 days ago, and patent by ultrasound now * Polycystic kidney disease; recent left nephrectomy at [facility] doing well after that PLANS: * I have ordered a stat CT of her arm * Given her nausea vomiting and lack of oral intake will give some IV fluid in the setting of sepsis * Follow her sepsis vital signs very closely, repeat labs in morning * Will give sodium zirconium on orally now for hyperkalemia * Review with Nephrology to arrange dialysis either tonight or tomorrow > 90 min critical care time in 3 visits by me today I have reviewed the patient's case in detail with Dr. Adolph Quiles I have reviewed the patient's past medical records as part of this assessment, including previous hospital admission records
[2018-05-05] MEDS ORDERED: PROMETHAZINE HCL 25 MG/ML INJ IVP ONE (18:04)
[2018-05-05] MEDS ORDERED: PROMETHAZINE HCL 25 MG/ML INJ ONE (18:05)
[2018-05-05 18:20] LABS: PLATELET COUNT 295 10^3/uL (150-400)
[2018-05-05 18:30] LABS: INR 1.22 (0.83-1.16); PROTIME(PATIENT) 14.9 SEC (12.0-15.0)
[2018-05-05] MEDS ORDERED: ACETAMINOPHEN 500 MG TAB ONE (18:30)
[2018-05-05] MEDS ORDERED: ACETAMINOPHEN 500 MG TAB PO ONE (18:32)
[2018-05-05] MEDS ORDERED: VANCOMYCIN HCL/NORMAL SALINE 250 ML IV ONE (19:12)
[2018-05-05] MEDS ORDERED: NS 1,000 ML IV ONE (19:13)
[2018-05-05] MEDS ORDERED: SODIUM ZIRCONIUM CYCLOSILICATE 10 GM PACKET PO ONE (19:30)
[2018-05-05] MEDS ORDERED: IOPAMIDOL (ISOVUE-300) 100 ML BTL ONE (19:49)
[2018-05-06] MEDS ORDERED: CALCIUM ACETATE 667 MG CAP PO PRN (00:26)
[2018-05-06] MEDS ORDERED: SEVELAMER HCL 800 MG TAB PO PRN (00:26)
[2018-05-06] MEDS ORDERED: LISINOPRIL 20 MG TAB PO PRN (00:26)
--- NOTE | 2018-05-06 00:26 | HOSPPROG ---
Hospitalist Progress Note Assessment/Plan: THE PATIENT'S CT SCAN SHOWS 10 CM FLUID COLLECTION IN LEFT ARM SURROUNDING HER GRAFT. I reviewed this with Dr Tao, and she will communicate with Dr Redd. Continue vancomycin for now, will add some ancef Objective: Vital Signs Temp Pulse Resp BP Pulse Ox 36.7 C 107 H 14 154/101 H 93 05/05/18 23:09 05/05/18 23:09 05/05/18 23:09 05/05/18 23:09 05/05/18 23:09 Microbiology 05/05/18 17:54 Respiratory Panel (PCR) - Final Nasal, Sinus - Swab No Organism Detected By Pcr Laboratory Results 05/05/18 17:56 05/05/18 17:56 PT 14.9 SEC (12.0-15.0) 05/05/18 17:56 INR 1.22 (0.83-1.16) H 05/05/18 17:56 ICD10 Worksheet Patient Problems: Problems Problem Status Onset Arm pain Acute End stage renal disease Acute Fever Acute Disorder of pancreas Active MRSA - Methicillin resistant Staphylococcus aureus infection Active MRSA - Methicillin resistant Staphylococcus aureus infection Active Metabolic acidosis Active Renal failure syndrome Active Abdominal pain Acute Altered mental status Acute Anemia Acute Chest pain Acute Chest pain Acute Dialysis complication Acute Diarrhea Acute Hyperkalemia Acute Hypotension Acute Opioid overdose Acute Renal failure Acute
[2018-05-06] MEDS ORDERED: MIDODRINE HCL 10 MG TAB PO PRN (00:30)
[2018-05-06] MEDS ORDERED: ceFAZolin 2 GM/DEXTROSE 100 ML IV ONE (01:00)
[2018-05-06] MEDS: PROMETHAZINE HCL 25 MG/ML INJ IVP PRN ×3 (03:32→22:16)
[2018-05-06] MEDS: oxyCODONE IR 15 MG TAB PO PRN ×2 (03:33→17:24)
[2018-05-06] MEDS: LISINOPRIL 20 MG TAB PO PRN ×2 (03:53→08:53)
[2018-05-06 04:32] LABS: PLATELET COUNT 251 10^3/uL (150-400)
[2018-05-06] MEDS: PROMETHAZINE HCL 25 MG TAB PO SCH ×2 (05:59→17:26)
[2018-05-06] MEDS: FUROSEMIDE 80 MG TAB PO SCH ×2 (06:02→17:27)
[2018-05-06] MEDS ORDERED: SODIUM ZIRCONIUM CYCLOSILICATE 10 GM PACKET PO ONE (06:42)
[2018-05-06] MEDS ORDERED: SEVELAMER HCL 800 MG TAB PO SCH (08:00)
[2018-05-06] MEDS: PANTOPRAZOLE SODIUM 40 MG TAB PO SCH (08:54)
[2018-05-06] MEDS: ACETAMINOPHEN 325 MG TAB PO PRN ×2 (08:57→22:01)
--- NOTE | 2018-05-06 09:06 | ASMTLACE ---
DOLLY Acuity / Level of Answers: Yes Care: Did the patient have an inpatient admission? Comorbidities - select Answers: Moderate or severe liver all that apply or renal disease Opioid dependence / Chronic pain Previous myocardial infarction Other Notes: HTN # of Emergency department Answers: 5-8 visits in the last 6 months Social determinants Answers: Mental health diagnosis (anxiety, depression, pers onality disorders, etc.) Score: 20 Date Signed: 05/06/2018 09:05 AM Electronically Signed By:Lauren Goddard
--- NOTE | 2018-05-06 09:39 | SOAPPROG ---
SOAP Progress Note Assessment/Plan: Assessment/Plan: 42 y/o F s/p LUE AV graft revision with interposition Richmond-deniz graft to distal brachial vein on 04/22/18 Now admitted with fever and increased redness and swelling in LUE. CT shows fluid collection surrounding graft, likely representing an abscess. Plan for IR placement of dialysis catheter this am, then dialysis, then surgery to I&D LUE abscess. Pt will likely lose AV graft. Continue iv abx. S: Feels lethargic. Last dialysis session was 5 days ago. O: Alert Febrile at 38.1 RRR No increased WOB Abdomen soft, incision sites from recent nephrectomy cdi LUE: Upper arm incision is erythematous, ttp, 3+ edema throughout entire extremity. + radial pulse 05/06/18 09:33 Objective: Vital Signs Temp Pulse Resp BP Pulse Ox 38.1 C 128 H 18 160/102 H 94 05/06/18 08:33 05/06/18 08:33 05/06/18 08:33 05/06/18 08:33 05/06/18 08:33 Microbiology 05/05/18 17:54 Respiratory Panel (PCR) - Final Nasal, Sinus - Swab No Organism Detected By Pcr Laboratory Results 05/06/18 03:35 05/06/18 07:35 05/05/18 05/06/18 05/07/18 05:59 05:59 05:59 Intake Total 2077 Balance 2077 PT 14.9 SEC (12.0-15.0) 05/05/18 17:56 INR 1.22 (0.83-1.16) H 05/05/18 17:56 ICD10 Worksheet Patient Problems: Problems Problem Status Onset Arm pain Acute End stage renal disease Acute Fever Acute Disorder of pancreas Active MRSA - Methicillin resistant Staphylococcus aureus infection Active MRSA - Methicillin resistant Staphylococcus aureus infection Active Metabolic acidosis Active Renal failure syndrome Active Abdominal pain Acute Altered mental status Acute Anemia Acute Chest pain Acute Chest pain Acute Dialysis complication Acute Diarrhea Acute Hyperkalemia Acute Hypotension Acute Opioid overdose Acute Renal failure Acute
--- NOTE | 2018-05-06 11:23 | GCON ---
[f rep st] CONSULTATION CONSULTATION OPINION: Our opinion regarding end-stage kidney failure. HISTORY OF PRESENT ILLNESS: Ms. 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 She has had some difficulties with her left upper arm arteriovenous fistula, it clotted off in March and had an interventional procedure performed that was initially successful, but the fistula clotted off again. She subsequently underwent manual thrombectomy on 04/01/2018. Again, this was not successful, and on 04/04/2018, she had interposition of a Carolina-Hernandez graft to the distal brachial vein, which did successfully keep her AV fistula open, and had successful dialysis postoperatively. Unfortunately, Denny missed dialysis yesterday. She was having pain in her arm with fevers and chills at home. She presented to the emergency department with the aforementioned complaints. CT scan showed a 3.6 x 1.4 x 10 cm fluid collection around her AV fistula/graft. She was admitted to the hospital, Ancef has been ordered. Denny says she has felt terrible, for the last several days, she has also had a toothache, and she saw the dentist, and apparently, she had a gum laceration but no obvious infection. She has been having the fevers, chills, nausea. No vomiting. No chest pain. She does have some shortness of breath. No cough or sputum production. No hemoptysis, hematemesis, epistaxis, abdominal pain, blurry vision, double vision, headache, orthopnea, paroxysmal nocturnal dyspnea , palpitations or syncope. PAST MEDICAL HISTORY: Significant for: 1. End-stage kidney failure due to polycystic kidney disease. 2. Polycystic kidney disease. 3. Hypertension. 4. Hepatitis C which has been successfully treated. 5. A history of polysubstance abuse, currently clean. 6. A history of cardiac arrest in the past. 7. Status post left nephrectomy. 8. A history of Clostridium difficile colitis. 9. Gastroesophageal reflux disease. 10. A history of surgery on her cervical spine. MEDICATIONS: Current medications include 1. PhosLo 3 with meals and as needed with snacks. 2. Renvela as needed with snacks. 3. Protonix 40 mg daily. 4. Phenergan 25 mg twice daily. 5. Lisinopril 20 mg daily. 6. Lasix 160 mg twice daily. 7. Ancef. ALLERGIES: Include marijuana and Zofran. See previous dictations for further allergies. SOCIAL HISTORY: She has a longstanding boyfriend who is very attentive. She has a history of polysubstance abuse. REVIEW OF SYSTEMS: A complete 12-point review of systems was performed with pertinent positives and negatives as per the previous sections. PHYSICAL EXAMINATION: VITAL SIGNS: 166/96, pulse 126 and regular, respirations 16, temperature 37.7 degrees. Urine output essentially none. GENERAL: She is awake, alert, cooperative, somewhat ill appearing, sitting up in bed. HEENT: Pupils are reactive to light. Extraocular movements are intact. Mucous membranes are moist. NECK: No lymphadenopathy or thyromegaly. HEART: Tachycardic, regular. No rub. No S3. She has a grade 1/6 systolic murmur. LUNGS: No rhonchi or wheeze or rales. She does have some rales in bases bilaterally. ABDOMEN: Bowel sounds are positive. Soft, nontender, nondistended. EXTREMITIES: Trace edema. No cyanosis or clubbing. NEUROLOGIC : No asterixis. INTEGUMENT: Skin has some erythema over her AV fistula. LYMPH: No palpable lymphadenopathy or lymphedema. MUSCULOSKELETAL: Her left AV fistula has a faint bruit, she does have some erythema and warmth over her AV fistula. There is quite a bit of swelling as well. LABORATORY: WBC 10.8, hemoglobin 9.4, hematocrit 29, platelet count 251,000. Serum sodium 135, potassium 5.6, chloride 100, CO2 20, BUN 66, creatinine 11.1, glucose 87, calcium 8.5, AST is 8, albumin 3.4, INR of 1.29. A nasal swab was negative for respiratory pathogens. Blood cultures have been obtained, the results of those are still pending. CT scan of the arm showed a 3.6 x 1.5 x 10 cm fluid collection that is a possible abscess, this surrounds her AV fistula. IMPRESSION: 1. Fevers, arm swelling and fluid collection around her arteriovenous fistula, suspect this may be an abscess. 2. End-stage kidney failure. 3. Arm pain. 4. Polycystic kidney disease. 5. Hypertension that needs a bit better control. 6. Hyperkalemia due to missing her dialysis yesterday. RECOMMENDATIONS: 1. She needs dialysis today, I do not feel comfortable putting needles through this potentially infected area. Will have Radiology place a temporary dialysis catheter. I have called them, and they will get that on for today. 2. Continue with surgical evaluation, Dr. Redd will be seeing her today. 3. She had some difficulty sleeping last night with some shortness of breath, I suggest we add some supplemental oxygen. 4. Continue her other therapies. 5. All questions were answered to her and her boyfriend's satisfaction. Thank you for allowing me to participate in the care of your patient, Denny Hercules. If there are any questions, please do not hesitate to contact us. We will be following along with you. /[id number]/MODL MTDD
[2018-05-06] MEDS: CALCIUM ACETATE 667 MG CAP PO SCH ×3 (11:42→17:33)
--- NOTE | 2018-05-06 12:25 | CPEKG ---
Test Reason : OPEN Blood Pressure : / mmHG Vent. Rate : 111 BPM Atrial Rate : 112 BPM P-R Int : 126 ms QRS Dur : 075 ms QT Int : 322 ms P-R-T Axes : 051 -33 025 degrees QTc Int : 438 ms Sinus tachycardia Probable left atrial enlargement Inferior infarct, old Confirmed by Max Anaya ([id number]) on 05/06/2018 12:24:55 PM Referred By: Patrick Taylor Confirmed By:Max Aanya
--- NOTE | 2018-05-06 13:13 | HOSPPROG ---
Hospitalist Progress Note Assessment/Plan: #Left AV fistula/graft abscess -plan for surgery tomorrow -IV Ancef, ID consulted #Hyperkalemia: IR to place line, HD today #Sepsis: leukocytosis, tachy, abscess. Cont IV abx. Plan for debridement tomorrow #ESRD: due to PCKD. On transplant list -IR to place catheter today #Hypervolemic hyponatremia: volume overloaded #HTN: home medications #Chronic pain syndrome: home meds #h/o cardiac arrest #h/o polysubstance abuse: denies recent use #Metabolic acidosis: due to ESRD. HD #Diet: renal, NPO MN Disp: inpatient admission for IV abx, HD, surgical intervention. Discussed with GIULIANA Ordonez with surgery Subjective: pain in left arm, feverish Objective: Vital Signs Temp Pulse Resp BP Pulse Ox 36.8 C 108 H 16 137/74 H 93 05/06/18 11:26 05/06/18 11:26 05/06/18 11:26 05/06/18 11:26 05/06/18 11:26 Microbiology 05/05/18 17:54 Respiratory Panel (PCR) - Final Nasal, Sinus - Swab No Organism Detected By Pcr Laboratory Results 05/06/18 03:35 05/06/18 10:42 05/05/18 05/06/18 05/07/18 05:59 05:59 05:59 Intake Total 2076 Balance 2076 PT 14.9 SEC (12.0-15.0) 05/05/18 17:56 INR 1.22 (0.83-1.16) H 05/05/18 17:56 - Time Spent With Patient Time Spent with Patient: greater than 35 minutes Time Spent with Patient: Greater than 35 minutes spent on this patients care, greater than 50% of time spent counseling, educating, and coordinating care regarding the above mentioned plan. - Physical Exam Constitutional: no apparent distress Eyes: PERRL Ears, Nose, Mouth, Throat: moist mucous membranes Cardiovascular: regular rate and rhythym Respiratory: no respiratory distress Gastrointestinal: normoactive bowel sounds Genitourinary: no bladder fullness Musculoskeletal: other (left upper arm very swollen, red, painful to touch) Neurologic: AAOx3, CN II-XII Intact Psychiatric: interacting appropriately ICD10 Worksheet Patient Problems: Problems Problem Status Onset Arm pain Acute End stage renal disease Acute Fever Acute Disorder of pancreas Active MRSA - Methicillin resistant Staphylococcus aureus infection Active MRSA - Methicillin resistant Staphylococcus aureus infection Active Metabolic acidosis Active Renal failure syndrome Active Abdominal pain Acute Altered mental status Acute Anemia Acute Chest pain Acute Chest pain Acute Dialysis complication Acute Diarrhea Acute Hyperkalemia Acute Hypotension Acute Opioid overdose Acute Renal failure Acute
[2018-05-06] MEDS ORDERED: LIDOCAINE 2% 5 ML SDV ONE (14:44)
[2018-05-06] MEDS ORDERED: PROPOFOL 200 MG/20 ML VIAL ONE (14:44)
[2018-05-06] MEDS ORDERED: fentaNYL 100 MCG/2 ML INJ ONE (14:44)
[2018-05-06] MEDS ORDERED: PROPOFOL/EMULSION 500 MG/50 ML BOTTLE IV ONE ×2 (14:44→14:56)
[2018-05-06] MEDS ORDERED: LR 500 ML IV PRN (15:12)
[2018-05-06] MEDS ORDERED: HYDROmorphONE/DILAUDID 2 MG/ML INJ IVP PRN (15:12)
[2018-05-06] MEDS ORDERED: NALOXONE HCL 0.4 MG/ML INJ IVP PRN (15:12)
[2018-05-06] MEDS ORDERED: PROMETHAZINE HCL 25 MG/ML INJ IVP PRN (15:12)
[2018-05-06] MEDS ORDERED: PHENYLEPHRINE HCL 100 MCG/ML SYR IVP PRN (15:12)
[2018-05-06] MEDS ORDERED: oxyCODONE IR 5 MG TAB PO PRN (15:12)
--- NOTE | 2018-05-06 15:12 | PDANEPAE ---
ANE Past Medical History - Cardiovascular History Hx Hypertension: Yes Hx Arrhythmias: No Hx Chest Pain: No Hx Coronary Artery / Peripheral Vascular Disease: No Hx CHF / Valvular Disease: No Hx Palpitations: No - Pulmonary History Hx COPD: No Hx Asthma/Reactive Airway Disease: No Hx Recent Upper Respiratory Infection: No Hx Oxygen in Use at Home: No Hx Sleep Apnea: Yes Sleep Apnea Screening Result - Last Documented: Positive - Endocrine History Hx Diabetes: No - Renal History Hx Renal Disorders: Yes - Liver History Hx Hepatic Disorders: No - Chronic Pain History Chronic Pain: Yes (kidneys, low back) ANE Review of Systems Review of Systems: ANE Patient History - Allergies Allergies/Adverse Reactions: Marijuana/Cannabi *RETIRED-11/11/11 [Marijuana/Cannabinoid] Allergy (Severe, Verified 05/05/18 10:12) Anaphylaxis ondansetron HCl [From Zofran (as hydrochloride)] Allergy (Severe, Verified 05/05 10:12) Tingling of mouth/throat hydrochlorothiazide Allergy (Verified 05/05/18 10:12) Anaphylaxis NSAIDS (Non-Steroidal Anti-Inflamma [Nsaids] Allergy (Verified 05/05/18 10:12) Sulfa (Sulfonamide Antibiotics) Allergy (Verified 05/05/18 10:12) Hives - Home Medications Home Medications: Furosemide [Lasix 80 MG (*)] 160 mg PO BID@05/21/16 [Last Taken 04/30/18 06:00] Promethazine HCl [Phenergan 25mg (*)] 25 mg PO BID@05/21/16 [Last Taken 18:00] Sevelamer Carbonate [Renvela] 1,600 mg PO TIDMEAL 05/21/16 [Last Taken 04/30/18] Calcium Acetate [Phoslo (*)] 2,001 each PO TIDMEAL 07/16/16 [Last Taken 04/30/18 ] Fluticasone Nasal [Flonase Nasal [place]] 2 sprays NASAL BID 09/23/17 [Last Taken 04/30/18] Lisinopril [Zestril 20 mg (*)] 20 mg PO DAILY PRN 09/23/17 [Last Taken 02/22/18] Midodrine HCl 10 mg PO AD 09/23/17 [Last Taken 02/28/18 15:00] Calcium Acetate [Phoslo (*)] 1,334 mg PO PRN PRN 03/02/18 [Last Taken 03/28/18] Omeprazole 40 mg PO DAILY 03/02/18 [Last Taken 04/30/18] Sevelamer Carbonate [Renvela] 1,600 mg PO PRN PRN 03/02/18 [Last Taken 03/28/18] oxyCODONE IR [Oxycodone Ir (*)] 22.5 mg PO Q6HRS PRN 04/30/18 [Last Taken 05:30] - Smoking Hx Smoking Status: Former smoker ANE Labs/Vital Signs - Labs Result Diagrams: 05/06/18 03:35 05/06/18 10:42 - Vital Signs Blood Pressure: 162/81 Heart Rate: 110 Respiratory Rate: 12 O2 Sat (%): 91 Height: 157.48 cm Weight: 68.1 kg ANE Physical Exam - Airway Neck exam: FROM Mallampati Score: Class 2 Mouth exam: normal dental/mouth exam - Pulmonary Pulmonary: no respiratory distress, no rales or rhonchi, clear to auscultation - Cardiovascular Cardiovascular: regular rate and rhythym, no murmur, rub, or gallop - ASA Status ASA Status: IV ANE Anesthesia Plan Anesthesia Plan: MAC Total IV Anesthesia: Yes
--- NOTE | 2018-05-06 15:17 | ASMTCMCOM ---
CM Note CM Note Notes: Pt is a 42 yo F presented with L arm swelling and end stage renal disease. Pt had absess, surgery consulted. Discharge needs are TBD. No PT/OT ordered at this time, CM to follow to assess needs after procedure. Plan: TBD Date Signed: 05/06/2018 03:16 PM Electronically Signed By:ADRIANO Knight
[2018-05-06] MEDS ORDERED: PHENYLEPHRINE HCL 100 MCG/ML SYR ONE (15:46)
[2018-05-06] MEDS: FLUTICASONE NASAL 120 SPRAYS/16 GM MDI EACHNARE SCH ×2 (17:10→22:02)
--- NOTE | 2018-05-06 20:05 | PDMN ---
Medical Necessity Medical necessity: Pt meets IP criteria per MD & MCG M-160; est los >2 mn for eval/tx of sepsis r/t L arm abscess s/p L arm AV fistula revision w/ hyperkalemia & N/V; requiring further workup/monitoring, IVFs, IV abx & ID/ Surgery consults; hx ESRD, nephrectomy; per order 05/05/18
[2018-05-06] MEDS ORDERED: HEPARIN 50,000 UNIT/10 ML VIAL ONE (21:13)
[2018-05-06] MEDS: ceFAZolin 2 GM/DEXTROSE 100 ML IV SCH (22:01)
[2018-05-06] MEDS: MELATONIN 3 MG TAB PO SCH ×2 (22:02→22:06)
[2018-05-07] MEDS: oxyCODONE IR 15 MG TAB PO PRN ×3 (01:00→17:52)
[2018-05-07] MEDS: PROMETHAZINE HCL 25 MG TAB PO SCH ×2 (05:14→17:52)
[2018-05-07] MEDS: FUROSEMIDE 80 MG TAB PO SCH ×2 (05:14→17:42)
[2018-05-07] MEDS ORDERED: NS 1,000 ML IV ONE (07:08)
[2018-05-07] MEDS ORDERED: HEPARIN 50,000 UNIT/10 ML VIAL ONE (07:11)
[2018-05-07] MEDS ORDERED: BUPIVACAINE 0.5% 30 ML SDV ONE (07:11)
[2018-05-07] MEDS ORDERED: ceFAZolin 2 GM/DEXTROSE 100 ML IV ONE ×2 (07:30→17:00)
--- NOTE | 2018-05-07 07:39 | SOAPPROG ---
[facility] Progress Note Assessment/Plan: Assessment/Plan: 42 y/o F s/p LUE AV graft revision with interposition [place]-deniz graft to distal brachial vein on 04/22/18 Now admitted with fever and increased redness and swelling in LUE. CT shows fluid collection surrounding graft, likely representing an abscess. S/p temp dialysis catheter placement in groin yesterday. Had dialysis last night. OR today for abscess I&D. Risks and options discussed and pt wishes to proceed. Continue iv abx. S: Feels better after dialysis, but still nauseous. O: Alert Afebrile today RRR No increased WOB Abdomen soft, incision sites from recent nephrectomy cdi LUE: Upper arm incision is erythematous, ttp, 3+ edema throughout entire extremity. + radial pulse 05/07/18 07:38 Objective: Vital Signs Temp Pulse Resp BP Pulse Ox 37.0 C 96 16 135/90 H 99 05/07/18 05:28 05/07/18 05:28 05/07/18 05:28 05/07/18 05:28 05/07/18 05:28 Laboratory Results 05/07/18 05:00 05/07/18 05:00 05/06/18 05/07/18 05/08/18 05:59 05:59 05:59 Intake Total 4 703 Output Total 0 Balance 2076 702 PT 14.9 SEC (12.0-15.0) 05/05/18 17:56 INR 1.22 (0.83-1.16) H 05/05/18 17:56 ICD10 Worksheet Patient Problems: Problems Problem Status Onset Arm pain Acute End stage renal disease Acute Fever Acute Disorder of pancreas Active MRSA - Methicillin resistant Staphylococcus aureus infection Active MRSA - Methicillin resistant Staphylococcus aureus infection Active Metabolic acidosis Active Renal failure syndrome Active Abdominal pain Acute Altered mental status Acute Anemia Acute Chest pain Acute Chest pain Acute Dialysis complication Acute Diarrhea Acute Hyperkalemia Acute Hypotension Acute Opioid overdose Acute Renal failure Acute
[2018-05-07] MEDS ORDERED: MIDAZOLAM 2 MG/2 ML VIAL IVP ONE ×2 (07:57→07:58)
[2018-05-07] MEDS ORDERED: MIDAZOLAM 2 MG/2 ML VIAL ONE (07:57)
[2018-05-07] MEDS ORDERED: PROPOFOL/EMULSION 500 MG/50 ML BOTTLE IV ONE (08:07)
[2018-05-07] MEDS ORDERED: fentaNYL 100 MCG/2 ML INJ ONE ×2 (08:07)
--- NOTE | 2018-05-07 08:37 | PDANEPAE ---
ANE History of Present Illness I and D Left A-V shunt site ANE Past Medical History - Cardiovascular History Hx Hypertension: Yes Hx Arrhythmias: No Hx Chest Pain: No Hx Coronary Artery / Peripheral Vascular Disease: No Hx CHF / Valvular Disease: No Hx Palpitations: No - Pulmonary History Hx COPD: No Hx Asthma/Reactive Airway Disease: No Hx Recent Upper Respiratory Infection: No Hx Oxygen in Use at Home: No Hx Sleep Apnea: Yes Sleep Apnea Screening Result - Last Documented: Positive - Endocrine History Hx Diabetes: No Obesity: mild - Renal History Hx Renal Disorders: Yes - Liver History Hx Hepatic Disorders: No - Chronic Pain History Chronic Pain: Yes (kidneys, low back) ANE Review of Systems Review of Systems: - Exercise capacity METS (RN): 4 METS ANE Patient History - Allergies Allergies/Adverse Reactions: Marijuana/Cannabi *RETIRED-11/11/11 [Marijuana/Cannabinoid] Allergy (Severe, Verified 05/05/18 10:12) Anaphylaxis ondansetron HCl [From Zofran (as hydrochloride)] Allergy (Severe, Verified 05/05 10:12) Tingling of mouth/throat hydrochlorothiazide Allergy (Verified 05/05/18 10:12) Anaphylaxis NSAIDS (Non-Steroidal Anti-Inflamma [Nsaids] Allergy (Verified 05/05/18 10:12) Sulfa (Sulfonamide Antibiotics) Allergy (Verified 05/05/18 10:12) Hives - Home Medications Home Medications: Furosemide [Lasix 80 MG (*)] 160 mg PO BID@,05/21/16 [Last Taken 04/30/18 06:00] Promethazine HCl [Phenergan 25mg (*)] 25 mg PO BID@05/21/16 [Last Taken 18:00] Sevelamer Carbonate [Renvela] 1,600 mg PO TIDMEAL 05/21/16 [Last Taken 04/30/18] Calcium Acetate [Phoslo (*)] 2,001 each PO TIDMEAL 07/16/16 [Last Taken 04/30/18 ] Fluticasone Nasal [Flonase Nasal [place]] 2 sprays NASAL BID 09/23/17 [Last Taken 04/30/18] Lisinopril [Zestril 20 mg (*)] 20 mg PO DAILY PRN 09/23/17 [Last Taken 02/22/18] Midodrine HCl 10 mg PO AD 09/23/17 [Last Taken 02/28/18 15:00] Calcium Acetate [Phoslo (*)] 1,334 mg PO PRN PRN 03/02/18 [Last Taken 03/28/18] Omeprazole 40 mg PO DAILY 03/02/18 [Last Taken 04/30/18] Sevelamer Carbonate [Renvela] 1,600 mg PO PRN PRN 03/02/18 [Last Taken 03/28/18] oxyCODONE IR [Oxycodone Ir (*)] 22.5 mg PO Q6HRS PRN 04/30/18 [Last Taken 05:30] - NPO status NPO Since - Liquids (Date): 05/07/18 NPO Since - Liquids (Time): 05:10 NPO Since - Solids (Date): 05/06/18 NPO Since - Solids (Time): 21:00 - Smoking Hx Smoking Status: Former smoker ANE Labs/Vital Signs - Labs Result Diagrams: 05/07/18 05:00 05/07/18 05:00 - Vital Signs Blood Pressure: 135/90 Heart Rate: 96 Respiratory Rate: 16 O2 Sat (%): 99 Height: 157.48 cm Weight: 66.905 kg ANE Physical Exam - Airway Neck exam: FROM Mallampati Score: Class 3 Mouth exam: normal dental/mouth exam - Pulmonary Pulmonary: no respiratory distress, no rales or rhonchi - Cardiovascular Cardiovascular: regular rate and rhythym, no murmur, rub, or gallop - ASA Status ASA Status: III ANE Anesthesia Plan Anesthesia Plan: GA w LMA
[2018-05-07] MEDS ORDERED: ONDANSETRON 4 MG/2 ML VIAL ONE (08:41)
[2018-05-07] MEDS ORDERED: PHENYLEPHRINE HCL 100 MCG/ML SYR ONE (08:41)
[2018-05-07] MEDS ORDERED: THROMBIN (BOVINE) 5,000 UNIT VIAL TP ONE (08:45)
--- NOTE | 2018-05-07 09:07 | POSTOPPROG ---
Post Op Note Date of Operation: 05/07/18 Surgeon: Vipul [employer] Architect: Aron Anesthesiologist: Aj Anesthesia: GET(General Endotracheal) Pre-op Diagnosis: Abscess surrounding AV graft Post-op Diagnosis: same Indication: same Procedure: I&D LUE abscess Findings: Scant purulent fluid. Graft exposed to infection. Inf/Abcess present in the surg proc area at time of surgery?: Yes Depth: Superfical (Skin SQ) EBL: Minimal Drains: Wound Vac Specimen(s): LUE fluid- culture
--- NOTE | 2018-05-07 09:19 | PDIAF ---
- Diagnosis Code Status: Full Code - Medication Management Discharge Medications: electronically signed and located in the Home Medication List. - Orders Isolation Type: None Additional Instructions: You have an appointment at your dialysis center tomorrow morning. Dr. Navas has confirmed this, and strongly recommends you make this appointment. - Follow Up Care Current Providers and Referrals: NONE *PRIMARY CARE P,. [Primary Care Provider] - As per Instructions Sergio Riggins MD [Medical Doctor] -
--- NOTE | 2018-05-07 10:12 | PDCONSULT ---
Education Specialist Note: Infectious Diseases Consult Note Impression: 42-year-old woman with left upper extremity deep soft tissue infection complicating AV graft placement. This is likely to be a staphylococcal or streptococcal infection related to repeated manipulation of the left upper extremity. She has defervesced since admission so will continue with cefazolin until cultures have an organism identified. Due to her ongoing struggles with access and seemingly heard difficulties with following up consistently will consider retention of the AV graft through the time of kidney transplantation, if this does in fact occur, with planned removal after stabilization renal function post transplant. There multiple inconsistencies in her verbal history compared to the medical records available which creates a difficult scenario for liability if she requires long-term oral suppressive therapy. 1. Left upper extremity deep soft tissue infection 2. Status post left upper extremity debridement and washout 05/07/18 3. ESRD secondary to polycystic kidney disease requiring hemodialysis 4. Status post left nephrectomy (04.17.18) 5. Chronic, active HCV infection 6. History of C diff colitis; March 2018 7. History of right femoral Permcath insertion site infection (Mar 2018, removed 03.26.18) Plan: 1. Continue cefazolin 2. Will follow surgical cultures and adjust as needed Sergio Riggins MD Infectious Diseases Chief Complaint: Fever and LUE swelling Requesting Provider: Dr. Taylor Reason for Referral: Consultation was requested by Dr. Taylor regarding antimicrobial management. HPI: 42-year-old woman who presented to the hospital approximately a week of fevers, chills, night sweats and increased swelling of her left upper extremity around the surgical incision site that was performed to place an AV graft for dialysis. She states that she had ongoing erythema and drainage around the staple site after her graft thrombectomy in early April. She feels as though the [place] may have state in place too long and this precipitated an infection. Over the past 1 week prior to this admission she notes that she has had increasing intensity of fevers, and chills with some night sweats. This is in conjunction with increased swelling around the left upper extremity near her surgical site. She also notes that she has had ongoing drainage from the surgical site which includes purulence at times anterior minimally next with serous drainage. She notes since admission the intensity of fevers has decreased although they remain present. She underwent operative debridement of the perigraft infected tissue this morning. She feels she is recovering well after surgery. Her nausea with emesis that had developed prior to admission is improved but does remain as well. She has had no rash, diarrhea, or other discernible adverse effects since admission while receiving cefazolin. It is notable that her verbal history and timeline of events is not consistent with what is in the medical records. Chronology of Present Illness: Location of symptoms: Left upper extremity swelling and purulent drainage at AV graft insertion site Onset of symptoms: Worsened over the week prior to admission; drainage present starting approximately one week after AV graft placement Initial signs/symptoms: Fever, chills, and increased swelling over the left upper extremity (upper arm) Associated signs/symptoms at onset: Swelling and increased purulent (also serous ) drainage from the surgical site of LUE; No numbness or tingling of distal LUE structures from surgical site; Nausea with emesis over the 3-4 days prior to admission; No rash, diarrhea, abdominal pain Changes since onset: Decreased fever intensity; some improvement in nausea Exacerbating factors: None Relieving factors: None prior to surgery Antibiotics since symptom onset: Inpatient cefazolin and vancomycin Change in symptoms with antibiotics: Improved overall Reviewed patient medical records in [facility], and [facility] ([facility] Past Medical History: ESRD due to polycystic kidney disease; chronic active hepatitis-C virus infection Past Surgical History: Clotted LUE AV graft thrombectomy (04.01.18); Left upper extremity AV graft placement (2014); left [place] nephrectomy (04.17.18 in [place]) ; AV graft revision with interposition to distal brachial vein (04.04.18) Social History: Does not use tobacco products, former smoker; Does not consume marijuana products; Drinks alcohol socially Family History: No family members with recurrent infections Allergies: Sulfa drugs listed as allergy based on a number of years ago swelling of the tongue and lips associated with multiple medications given at the same time, she was given Bactrim approximately 6 months before this admission for a full weeks course in had no adverse effects Medications: Reviewed in medical record and confirmed with patient. ROS: 10 organ systems reviewed; pertinent positives and negatives listed in the HPI, all other organ systems negative. Physical Exam: VS: Reviewed Gen: No acute distress; Breathing comfortably without supplemental oxygen; Able to speak in complete sentences Eyes: No conjunctival injection; No scleral icterus HENT: No gross deformities Neck: No limitation in range of motion Pulm: Audible inspiratory sounds to the bases bilaterally; No wheeze, rhonchi, or rales CV: Normal S1 and S2; 4/6 systolic murmur; Regular rate and rhythm; No rubs or gallops; No lower extremity edema Abd: Not distended; Normo-active bowel sounds; Soft; Non-tender Skin: A full skin exam including exposed bilateral upper extremities, bilateral lower extremities to the knees, face, neck, abdomen, chest, and back performed; medial left upper extremity with wound VAC in place in the surgical site, no surrounding erythema, induration, or fluctuance areas; Otherwise, skin intact, warm, with no rash MSK: Joints without erythema or edema; No gross limitation in range of motion Ext: No clubbing or cyanosis Neuro: Awake and alert Psych: Normal mood and blunted affect Labs/Imaging: All microbiology testing (culture and non-culture) reviewed in the medical record. Personally reviewed and interpreted the images of the following radiographs: CT left upper extremity from 05/05/2018 which shows fluid collection near the AV graft. Medications Generic Name Dose Route Start Last Admin Trade Name Freq PRN Reason Stop Dose Admin Cefazolin Sodium/Dextrose 100 mls @ 200 mls/hr 05/06/18 21:00 05/06/18 22:01 Ancef IV 06/05/18 20:59 100 mls [id number]@2100 AVI Protocol Discontinued Medications Generic Name Dose Route Start Last Admin Trade Name Freq PRN Reason Stop Dose Admin Vancomycin/Sodium Chloride 250 mls @ 250 mls/hr 05/05/18 19:12 05/05/18 21:26 Vancomycin 1 Gm (Premix) IV 05/05/18 20:11 250 mls ONCE ONE Protocol Microbiology 05/05/18 17:54 Nasal, Sinus - Swab Respiratory Panel (PCR) - Final No Organism Detected By Pcr 05/05/18 18:37 Blood Blood Culture - Preliminary 05/05/18 17:56 Blood Blood Culture - Preliminary Laboratory Tests 05/05/18 05/06/18 05/06/18 17:56 03:35 03:35 WBC 15.09 H 10.83 H Hgb 8.0 L 9.4 L Plt Count 295 251 AST 8 L ALT 17 Albumin 3.4 L 05/07/18 05:00 WBC 8.00 Hgb 6.9 L Plt Count 246 AST ALT Albumin Ongoing monitoring for antimicrobial toxicity with: CBC, BMP.
[2018-05-07] MEDS ORDERED: oxyCODONE IR 5 MG TAB PO PRN (11:00)
[2018-05-07] MEDS ORDERED: HYDROmorphONE/DILAUDID 2 MG/ML INJ IVP PRN (11:00)
[2018-05-07] MEDS ORDERED: PROMETHAZINE HCL 25 MG/ML INJ IVP PRN (11:00)
[2018-05-07] MEDS ORDERED: fentaNYL 100 MCG/2 ML INJ IVP PRN (11:00)
[2018-05-07] MEDS ORDERED: NALOXONE HCL 0.4 MG/ML INJ IVP PRN (11:00)
--- NOTE | 2018-05-07 11:01 | POSTANESTH ---
Post Anesthetic Evaluation Cardiovascular Status: Normal, Stable Respiratory Status: Similar to Pre-op Cond. Level of Consciousness/Mental Status: Can Participate in Eval Pain Control: Adequate, Prn Tx Ordered Nausea/Vomiting Control: Adequate, Prn Tx Ordered Complications Possibly Related to Anesthesia: None Noted (Hx NATHANIEL)
[2018-05-07] MEDS: PROMETHAZINE HCL 25 MG/ML INJ IVP PRN ×2 (11:40→21:36)
[2018-05-07] MEDS: CALCIUM ACETATE 667 MG CAP PO SCH ×3 (11:42→18:56)
[2018-05-07] MEDS: PANTOPRAZOLE SODIUM 40 MG TAB PO SCH (11:44)
[2018-05-07] MEDS: FLUTICASONE NASAL 120 SPRAYS/16 GM MDI EACHNARE SCH ×3 (11:44→21:36)
--- NOTE | 2018-05-07 14:50 | SOAPPROG ---
SOAP Progress Note Assessment/Plan: Assessment: ESRD on TTS HD as outpatient, does her dialysis in [place] recent AVF revision with graft interposition swollen fistula arm post op debridement and washout of AVF site, vac in place Anemia Plan: HD today ID consulted for ABX assistance continue wound care transfusion on HD today Wants to move to [place] HD unit 05/07/18 14:40 Subjective: spirits good boyfriend at bedside no cp sob nausea or vomiting appetite OK energy a little better today slept OK arm sore post op Objective: Vital Signs Temp Pulse Resp BP Pulse Ox 36.6 C 108 H 18 109/77 96 05/07/18 13:15 05/07/18 13:15 05/07/18 13:15 05/07/18 13:15 05/07/18 13:15 Microbiology 05/07/18 08:40 Gram Stain - Final Arm - Aspirate Laboratory Results 05/07/18 05:00 05/07/18 05:00 05/06/18 05/07/18 05/08/18 05:59 05:59 05:59 Intake Total 2077 703 500 Output Total 0 11 Balance 2077 703 489 PT 14.9 SEC (12.0-15.0) 05/05/18 17:56 INR 1.22 (0.83-1.16) H 05/05/18 17:56 Physical Exam - Physical Exam General Appearance: alert Neck: normal inspection Respiratory: No rhonchi, No wheezing Cardiac/Chest: regular rate, rhythm, edema, systolic murmur, No friction rub Abdomen: normal bowel sounds, non-tender, soft Extremities: pedal edema Neuro/Psych: alert, normal mood/affect, oriented x 3 ICD10 Worksheet Patient Problems: Problems Problem Status Onset Arm pain Acute End stage renal disease Acute Fever Acute Disorder of pancreas Active MRSA - Methicillin resistant Staphylococcus aureus infection Active MRSA - Methicillin resistant Staphylococcus aureus infection Active Metabolic acidosis Active Renal failure syndrome Active Abdominal pain Acute Altered mental status Acute Anemia Acute Chest pain Acute Chest pain Acute Dialysis complication Acute Diarrhea Acute Hyperkalemia Acute Hypotension Acute Opioid overdose Acute Renal failure Acute
--- NOTE | 2018-05-07 16:01 | HOSPPROG ---
Hospitalist Progress Note Assessment/Plan: #Left AV fistula/graft abscess -s/p I&D and wound vac today -IV Ancef, ID consulted #Tachycardia: HR 160s after transfusion, trending down, 12-130, SBP 116 -telemetry #Concern for blood transfusion reaction: chills, tachy after blood -normotensive, CXR without edema -dosed Benadryl. Hold off steroids now with acute infection. Can dose if clinically declined #Anemia renal disease: transfuse 1 unit #Hyperkalemia: resolved with HD #Sepsis: leukocytosis, tachy, abscess. Cont IV abx. Plan for debridement tomorrow #ESRD: due to PCKD. On transplant list -non-tunnelled catheter in place #Hypervolemic hyponatremia: volume overloaded #HTN: home medications #Chronic pain syndrome: home meds #h/o cardiac arrest #h/o polysubstance abuse: denies recent use #Metabolic acidosis: due to ESRD. HD #Diet: renal, NPO [place] Critical care time spent 30 min bedside, reviewing imaging, labs (16:30-17:00) Subjective: shaking chills and SOB 20 min after blood tranfusion Objective: Vital Signs Temp Pulse Resp BP Pulse Ox 36.6 C 108 H 18 109/77 96 05/07/18 13:15 05/07/18 13:15 05/07/18 13:15 05/07/18 13:15 05/07/18 13:15 Microbiology 05/07/18 08:40 Gram Stain - Final Arm - Aspirate Laboratory Results 05/07/18 05:00 05/07/18 05:00 05/06/18 05/07/18 05/08/18 05:59 05:59 05:59 Intake Total 2077 703 500 Output Total 0 11 Balance 2077 703 489 PT 14.9 SEC (12.0-15.0) 05/05/18 17:56 INR 1.22 (0.83-1.16) H 05/05/18 17:56 - Time Spent With Patient Time Spent with Patient: greater than 35 minutes Time Spent with Patient: Greater than 35 minutes spent on this patients care, greater than 50% of time spent counseling, educating, and coordinating care regarding the above mentioned plan. - Physical Exam Constitutional: uncomfortable, other (rigors) Eyes: PERRL Ears, Nose, Mouth, Throat: moist mucous membranes Cardiovascular: tachycardia Respiratory: other (increased WOB) Gastrointestinal: normoactive bowel sounds, soft, non-tender abdomen Genitourinary: No mustafa in urethra Neurologic: AAOx3, CN II-XII Intact Psychiatric: interacting appropriately, flat affect ICD10 Worksheet Patient Problems: Problems Problem Status Onset Arm pain Acute End stage renal disease Acute Fever Acute Disorder of pancreas Active MRSA - Methicillin resistant Staphylococcus aureus infection Active MRSA - Methicillin resistant Staphylococcus aureus infection Active Metabolic acidosis Active Renal failure syndrome Active Abdominal pain Acute Altered mental status Acute Anemia Acute Chest pain Acute Chest pain Acute Dialysis complication Acute Diarrhea Acute Hyperkalemia Acute Hypotension Acute Opioid overdose Acute Renal failure Acute
[2018-05-07] MEDS: ACETAMINOPHEN 325 MG TAB PO PRN (17:19)
[2018-05-07] MEDS ORDERED: FAMOTIDINE 20 MG/NACL 50 ML IV SCH (17:45)
[2018-05-07] MEDS ORDERED: methylPREDNISolone SOD SUCC 125 MG in D5W 50 ML IV ONE (17:55)
--- NOTE | 2018-05-07 17:55 | HOSPPROG ---
Hospitalist Progress Note Assessment/Plan: #Left AV fistula/graft abscess -s/p I&D and wound vac today -IV Ancef, ID consulted #Tachycardia: HR 160s after transfusion, trending down, 12-130, SBP 116 -telemetry #Concern for blood transfusion reaction: chills, tachy after blood -normotensive, CXR without edema -dosed Benadryl. Hold off steroids now with acute infection. Can dose if clinically declined #Anemia renal disease: transfuse 1 unit #Hyperkalemia: resolved with HD #Sepsis: leukocytosis, tachy, abscess. Cont IV abx. Plan for debridement tomorrow #ESRD: due to PCKD. On transplant list -non-tunnelled catheter in place #Hypervolemic hyponatremia: volume overloaded #HTN: home medications #Chronic pain syndrome: home meds #h/o cardiac arrest #h/o polysubstance abuse: denies recent use #Metabolic acidosis: due to ESRD. HD #Diet: renal, NPO [place] Critical care time spent 30 min bedside, reviewing imaging, labs (16:30-17:00) Addendum: 17:45. Called bedside for persistent tachycardia. Sinus tach on telemetry 17:45. Febrile 103, HR 130s, BP 118/80, no wheezing, A&Ox3 -stat blood cultures -IV Pepcid, benadryl. Given lack of improvement and likely transfusion, will dose with steroids x 1 Subjective: "heart is pounding" Objective: Vital Signs Temp Pulse Resp BP Pulse Ox 39.5 C H 142 H 20 118/61 96 05/07/18 17:28 05/07/18 17:28 05/07/18 17:28 05/07/18 17:28 05/07/18 17:28 Microbiology 05/07/18 08:40 Gram Stain - Final Arm - Aspirate Laboratory Results 05/07/18 05:00 05/07/18 05:00 05/06/18 05/07/18 05/08/18 05:59 05:59 05:59 Intake Total 2077 703 500 Output Total 0 11 Balance 2077 703 489 PT 14.9 SEC (12.0-15.0) 05/05/18 17:56 INR 1.22 (0.83-1.16) H 05/05/18 17:56 - Time Spent With Patient Time Spent with Patient: greater than 35 minutes Time Spent with Patient: Greater than 35 minutes spent on this patients care, greater than 50% of time spent counseling, educating, and coordinating care regarding the above mentioned plan. - Physical Exam Constitutional: no apparent distress Ears, Nose, Mouth, Throat: moist mucous membranes Cardiovascular: tachycardia Respiratory: no respiratory distress, No expiratory wheeze, No inspiratory crackles Gastrointestinal: normoactive bowel sounds, soft, non-tender abdomen Genitourinary: no bladder fullness Skin: warm Musculoskeletal: other (left arm significantly swollen, wound vac in place. Right femoral HD catheter. RUE PICC) Neurologic: AAOx3, CN II-XII Intact Psychiatric: interacting appropriately ICD10 Worksheet Patient Problems: Problems Problem Status Onset Arm pain Acute End stage renal disease Acute Fever Acute Disorder of pancreas Active MRSA - Methicillin resistant Staphylococcus aureus infection Active MRSA - Methicillin resistant Staphylococcus aureus infection Active Metabolic acidosis Active Renal failure syndrome Active Abdominal pain Acute Altered mental status Acute Anemia Acute Chest pain Acute Chest pain Acute Dialysis complication Acute Diarrhea Acute Hyperkalemia Acute Hypotension Acute Opioid overdose Acute Renal failure Acute
[2018-05-07] MEDS ORDERED: methylPREDNISolone SOD SUCC 125 MG/2 ML VIAL IVP ONE (18:00)
[2018-05-07] MEDS ORDERED: BISACODYL 10 MG SUPP PR PRN (20:19)
[2018-05-07] MEDS ORDERED: LACTULOSE 20 GM/30 ML UDCUP PO PRN (20:19)
[2018-05-07] MEDS ORDERED: MAGNESIUM HYDROXIDE 30 ML UDCUP PO PRN (20:19)
[2018-05-07] MEDS: SENNOSIDES/DOCUSATE SODIUM TAB PO SCH (21:36)
[2018-05-07] MEDS: MELATONIN 3 MG TAB PO SCH (21:36)
[2018-05-08] MEDS: oxyCODONE IR 15 MG TAB PO PRN ×4 (01:27→20:57)
[2018-05-08] MEDS: ACETAMINOPHEN 325 MG TAB PO PRN (01:28)
[2018-05-08] MEDS: PROMETHAZINE HCL 25 MG/ML INJ IVP PRN ×3 (04:00→20:22)
[2018-05-08] MEDS: FUROSEMIDE 80 MG TAB PO SCH ×2 (06:15→17:24)
[2018-05-08] MEDS: PROMETHAZINE HCL 25 MG TAB PO SCH ×2 (06:16→17:29)
[2018-05-08] MEDS: CALCIUM ACETATE 667 MG CAP PO SCH ×3 (07:32→17:25)
[2018-05-08] MEDS: FAMOTIDINE 20 MG/NACL 50 ML IV SCH ×2 (07:32→20:20)
[2018-05-08] MEDS: PANTOPRAZOLE SODIUM 40 MG TAB PO SCH (07:33)
[2018-05-08] MEDS: SENNOSIDES/DOCUSATE SODIUM TAB PO SCH ×2 (07:33→20:20)
[2018-05-08] MEDS: FLUTICASONE NASAL 120 SPRAYS/16 GM MDI EACHNARE SCH ×2 (07:39→20:21)
--- NOTE | 2018-05-08 09:21 | SOAPPROG ---
[facility] Progress Note Assessment/Plan: Assessment/Plan: 42 y/o F s/p LUE AV graft revision with interposition [place]-deniz graft to distal brachial vein on 04/22/18 Now admitted with fever and increased redness and swelling in LUE. CT shows fluid collection surrounding graft, likely representing an abscess. S/p temp dialysis catheter placement in groin. Had dialysis yesterday and will have it tomorrow. S/p RUE abscess I&D. Now with wound vac. Change vac on Friday. Continue iv abx. S: Feels better after dialysis, but still nauseous. O: Alert Afebrile today RRR No increased WOB Abdomen soft, incision sites from recent nephrectomy cdi LUE: Upper arm incision is erythematous, ttp, edema improved. + radial pulse. Wound vac to suction. 05/08/18 09:20 Objective: Vital Signs Temp Pulse Resp BP Pulse Ox 36.7 C 80 16 138/86 H 99 05/08/18 07:30 05/08/18 07:30 05/08/18 07:30 05/08/18 07:30 05/08/18 07:30 Microbiology 05/07/18 08:40 Gram Stain - Final Arm - Aspirate Laboratory Results 05/08/18 03:50 05/08/18 03:50 05/07/18 05/08/18 05/09/18 05:59 05:59 05:59 Intake Total 703 555 Output Total 0 61 Balance 703 494 PT 14.9 SEC (12.0-15.0) 05/05/18 17:56 INR 1.22 (0.83-1.16) H 05/05/18 17:56 ICD10 Worksheet Patient Problems: Problems Problem Status Onset Arm pain Acute End stage renal disease Acute Fever Acute Disorder of pancreas Active MRSA - Methicillin resistant Staphylococcus aureus infection Active MRSA - Methicillin resistant Staphylococcus aureus infection Active Metabolic acidosis Active Renal failure syndrome Active Abdominal pain Acute Altered mental status Acute Anemia Acute Chest pain Acute Chest pain Acute Dialysis complication Acute Diarrhea Acute Hyperkalemia Acute Hypotension Acute Opioid overdose Acute Renal failure Acute
--- NOTE | 2018-05-08 10:13 | PCMIDPN ---
Assessment/Plan: Assessment: 42-year-old woman with left upper extremity deep soft tissue infection complicating AV graft placement. It is likely to be staphylococcal streptococcal infection related to repeated manipulation of left upper extremity. Cultures remain negative to date but she has defervesced on cefazolin cultures may remain sterile. 1. Left upper extremity deep soft tissue infection, wound VAC in place 2. Status post left upper extremity debridement washout 05/11/2018 3. ESRD secondary to polycystic kidney disease requiring hemodialysis 4. Status post left [place] nephrectomy 04/17/2018 5. Chronic, active hepatitis C virus infection 6. History of C diff colitis, March 2018 7. History of right femoral PermCath insertion site infection March 2018, removed 03/26/2018 Plan: 1. Continue cefazolin as prescribed 2. Refill low surgical cultures to completion although they remain sterile suggestive that cefazolin was for providing the appropriate spectrum coverage 3. Please call over the weekend if further ID input is needed otherwise will wait further surgical planning for definitive antibiotic therapy 4. Reviewed in detail potential side effects of beta-lactam antibiotics to include: allergy, rash, nausea, antibiotic-associated diarrhea, Clostridioides difficile colitis. Sergio Riggins MD Infectious Diseases 05/08/18 10:13 Subjective: No fever or chills in the past 24-hours. Tolerating oral diet with solids and liquids this morning but ongoing nausea with emesis last evening. No diarrhea or other GI symptoms. No rash. Appetite improving. Ambulating without difficulty. Improved since admission but not back to baseline health. Objective: Vital Signs Temp Pulse Resp BP Pulse Ox 36.7 C 80 16 138/86 H 99 05/08/18 07:30 05/08/18 07:30 05/08/18 07:30 05/08/18 07:30 05/08/18 07:30 Microbiology 05/07/18 08:40 Gram Stain - Final Arm - Aspirate Laboratory Results 05/08/18 03:50 05/08/18 03:50 05/07/18 05/08/18 05/09/18 05:59 05:59 05:59 Intake Total 703 555 Output Total 0 61 Balance 703 494 Microbiology 05/07/18 08:40 Arm - Aspirate Gram Stain - Final 05/07/18 08:40 Arm - Aspirate Anaerobic Culture - Preliminary 05/05/18 18:37 Blood Blood Culture - Preliminary 05/05/18 17:56 Blood Blood Culture - Preliminary Laboratory Tests 05/06/18 05/07/18 03:35 05:00 WBC 10.83 H 8.00 Hgb 9.4 L 6.9 L Plt Count 251 246 Medications Generic Name Dose Route Start Last Admin Trade Name Allison PRN Reason Stop Dose Admin Cefazolin Sodium/Dextrose 100 mls @ 200 mls/hr 05/06/18 21:00 05/06/18 22:01 Ancef IV 06/05/18 20:59 100 mls MWF@2100 AVI Protocol Discontinued Medications Generic Name Dose Route Start Last Admin Trade Name Freq PRN Reason Stop Dose Admin Cefazolin Sodium/Dextrose 100 mls @ 200 mls/hr 05/07/18 17:00 05/07/18 17:41 Ancef IV 05/07/18 17:29 100 mls ONCE@1700 ONE - Physical Exam General Appearance: no apparent distress, non-toxic EENT: No scleral icterus Respiratory: No accessory muscle use Neck: full range of motion, supple Skin: No erythema (Wound VAC in place the medial aspect of the left upper extremity upper arm, skin adjacent to wound VAC without erythema, induration, or fluctuance; overall circumferential edema of the left upper extremity is improved) Neuro/Psych: alert, normal mood/affect, oriented x 3, No confused - Time Spent With Patient Time Spent with Patient: greater than 25 minutes Time Spent with Patient: Greater than 25 minutes spent on this patients care, greater than 50% of time spent counseling, educating, and coordinating care regarding the above mentioned plan. 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
[2018-05-08] MEDS: LISINOPRIL 20 MG TAB PO PRN (13:07)
[2018-05-08] MEDS: POLYETHYLENE GLYCOL 3350 17 GM PKT PO PRN (13:09)
--- NOTE | 2018-05-08 16:19 | SOAPPROG ---
[facility] Progress Note Assessment/Plan: Assessment: 1. esrd: dialysis tomorrow on typical TTS schedule. Using temp fem cath, this presumably will need to be converted to tunneled cath prior to d/c. 2. hyperK: chronic issue, low-K diet, dialysis. 3. avg infection: on abx, wound vac in place. Suspect will need resection ultimately. 4. access: currently dialyzing via temp fem cath as above. Reportedly no upper venous access, therefore will likely need this line converted to tunneled cath prior to d/c. Unclear to me if she has any other options for viable access at this point. 5. anemia: transfusing prn. Plan: 05/08/18 16:16 Subjective: Uneventful hd yesterday, transfused. No new c/o aside from chronic itching. Wants to make sure she gets her benadryl with hd tomorrow. Objective: Vital Signs Temp Pulse Resp BP Pulse Ox 36.7 C 101 H 16 143/85 H 99 05/08/18 15:53 05/08/18 15:53 05/08/18 15:53 05/08/18 15:53 05/08/18 15:53 Microbiology 05/07/18 08:40 Gram Stain - Final Arm - Aspirate Laboratory Results 05/08/18 03:50 05/08/18 03:50 05/07/18 05/08/18 05/09/18 05:59 05:59 05:59 Intake Total 703 555 Output Total 0 61 Balance 703 494 PT 14.9 SEC (12.0-15.0) 05/05/18 17:56 INR 1.22 (0.83-1.16) H 05/05/18 17:56 Physical Exam - Physical Exam General Appearance: no apparent distress Respiratory: lungs clear Cardiac/Chest: regular rate, rhythm Abdomen: non-tender, soft Extremities: pedal edema (none), other (+patent LUE avg with wound vac in place. No sig erythema; +PICC in RUE) ICD10 Worksheet Patient Problems: Problems Problem Status Onset Arm pain Acute End stage renal disease Acute Fever Acute Disorder of pancreas Active MRSA - Methicillin resistant Staphylococcus aureus infection Active MRSA - Methicillin resistant Staphylococcus aureus infection Active Metabolic acidosis Active Renal failure syndrome Active Abdominal pain Acute Altered mental status Acute Anemia Acute Chest pain Acute Chest pain Acute Dialysis complication Acute Diarrhea Acute Hyperkalemia Acute Hypotension Acute Opioid overdose Acute Renal failure Acute
--- NOTE | 2018-05-08 16:28 | HOSPPROG ---
Hospitalist Progress Note Assessment/Plan: #Left AV fistula/graft abscess -s/p I&D and wound vac 05/07 -abx determined based on further surgical plans -IV Ancef, ID consulted #Tachycardia: resolved. Related to transfusion rxn, -telemetry #Blood transfusion reaction: s/p steroid, benadryl. Symptoms resolved -normotensive, CXR without edema -dosed Benadryl. Hold off steroids now with acute infection. Can dose if clinically declined #Anemia renal disease: transfuse 1 unit 05/07 #Hyperkalemia: chronic, HD Satu #Sepsis: leukocytosis, tachy, abscess. Cont IV abx. Plan for debridement tomorrow #ESRD: due to PCKD. On transplant list -non-tunnelled catheter in place -HD T/S/[place] #Hypervolemic hyponatremia: volume overloaded #HTN: home medications #Chronic pain syndrome: home meds #h/o cardiac arrest #h/o polysubstance abuse: denies recent use #Metabolic acidosis: due to ESRD. HD #Diet: renal, NPO [place] Disp: inpatient admission for ongoing abx, surgery evaluation Subjective: no SOB, chest pain. Arm less painful Objective: Vital Signs Temp Pulse Resp BP Pulse Ox 36.7 C 101 H 16 143/85 H 99 05/08/18 15:53 05/08/18 15:53 05/08/18 15:53 05/08/18 15:53 05/08/18 15:53 Microbiology 05/07/18 08:40 Gram Stain - Final Arm - Aspirate Laboratory Results 05/08/18 03:50 05/08/18 03:50 05/07/18 05/08/18 05/09/18 05:59 05:59 05:59 Intake Total 703 555 500 Output Total 0 61 Balance 703 494 500 PT 14.9 SEC (12.0-15.0) 05/05/18 17:56 INR 1.22 (0.83-1.16) H 05/05/18 17:56 - Time Spent With Patient Time Spent with Patient: greater than 35 minutes Time Spent with Patient: Greater than 35 minutes spent on this patients care, greater than 50% of time spent counseling, educating, and coordinating care regarding the above mentioned plan. - Physical Exam Constitutional: no apparent distress Eyes: PERRL Cardiovascular: regular rate and rhythym Respiratory: no respiratory distress Gastrointestinal: normoactive bowel sounds Genitourinary: no bladder fullness Musculoskeletal: other (left arm swelling and redness significant improved) Neurologic: AAOx3, CN II-XII Intact Psychiatric: interacting appropriately ICD10 Worksheet Patient Problems: Problems Problem Status Onset Arm pain Acute End stage renal disease Acute Fever Acute Disorder of pancreas Active MRSA - Methicillin resistant Staphylococcus aureus infection Active MRSA - Methicillin resistant Staphylococcus aureus infection Active Metabolic acidosis Active Renal failure syndrome Active Abdominal pain Acute Altered mental status Acute Anemia Acute Chest pain Acute Chest pain Acute Dialysis complication Acute Diarrhea Acute Hyperkalemia Acute Hypotension Acute Opioid overdose Acute Renal failure Acute
[2018-05-08] MEDS: MELATONIN 3 MG TAB PO SCH (20:20)
[2018-05-08] MEDS: ceFAZolin 2 GM/DEXTROSE 100 ML IV SCH (20:20)
[2018-05-09] MEDS: FUROSEMIDE 80 MG TAB PO SCH ×2 (06:08→18:20)
[2018-05-09] MEDS: PROMETHAZINE HCL 25 MG TAB PO SCH ×2 (06:08→18:20)
[2018-05-09] MEDS: oxyCODONE IR 15 MG TAB PO PRN ×3 (06:12→18:19)
[2018-05-09] MEDS: PROMETHAZINE HCL 25 MG/ML INJ IVP PRN ×3 (07:34→21:55)
[2018-05-09] MEDS: FAMOTIDINE 20 MG/NACL 50 ML IV SCH ×2 (07:37→20:15)
[2018-05-09] MEDS: CALCIUM ACETATE 667 MG CAP PO SCH ×4 (07:37→18:20)
[2018-05-09] MEDS: SENNOSIDES/DOCUSATE SODIUM TAB PO SCH ×2 (07:38→20:16)
[2018-05-09] MEDS: PANTOPRAZOLE SODIUM 40 MG TAB PO SCH (07:38)
--- NOTE | 2018-05-09 08:23 | SOAPPROG ---
[facility] Progress Note Assessment/Plan: Assessment: 42 y/o F s/p LUE AV graft revision with interposition [place]-deniz graft to distal brachial vein on 04/22/18 s/p wash out of LUE - ngtd Wound vac to suction S/p temp dialysis catheter placement in groin. Dialysis today If dc over weekend, will need to be discharged with wound vac. Next vac change on Friday. Continue iv abx - transition to po as appropriate S: Feels better after dialysis, but still nauseous. O: Alert Afebrile today RRR No increased WOB LUE: Upper arm with vac in place. Less edema. shot tube machine tender. Plan: 05/09/18 08:18 Objective: Vital Signs Temp Pulse Resp BP Pulse Ox 36.5 C 88 16 135/83 H 99 05/09/18 07:29 05/09/18 07:29 05/09/18 07:29 05/09/18 07:29 05/09/18 07:29 Microbiology 05/07/18 08:40 Gram Stain - Final Arm - Aspirate Laboratory Results 05/08/18 03:50 05/08/18 03:50 05/08/18 05/09/18 05/10/18 05:59 05:59 06:59 Intake Total 555 950 Output Total 61 Balance 494 950 PT 14.9 SEC (12.0-15.0) 05/05/18 17:56 INR 1.22 (0.83-1.16) H 05/05/18 17:56 ICD10 Worksheet Patient Problems: Problems Problem Status Onset Arm pain Acute End stage renal disease Acute Fever Acute Disorder of pancreas Active MRSA - Methicillin resistant Staphylococcus aureus infection Active MRSA - Methicillin resistant Staphylococcus aureus infection Active Metabolic acidosis Active Renal failure syndrome Active Abdominal pain Acute Altered mental status Acute Anemia Acute Chest pain Acute Chest pain Acute Dialysis complication Acute Diarrhea Acute Hyperkalemia Acute Hypotension Acute Opioid overdose Acute Renal failure Acute
--- NOTE | 2018-05-09 10:26 | HOSPPROG ---
Hospitalist Progress Note Assessment/Plan: #Left AV fistula/graft abscess, s/p I&D and wound vac 05/07 -will need wound vac at dc -cont IV Ancef, ID following, will discussed DOT and option to transfer to [facility] #Tachycardia: resolved. Related to transfusion rxn -telemetry #Blood transfusion reaction: s/p steroid, benadryl. Symptoms resolved after benadryl, did not require steroids. -would pre-treat if requires transfusion in future #Anemia renal disease: transfused 1 unit 05/07, hgb stable -follow #Hyperkalemia: chronic, HD per renal #Sepsis: leukocytosis, tachy, abscess. Sepsis physiology resolved. 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 On transplant list, non-tunnelled catheter in groin -HD today (,, schedule) -will need current line transitioned to tunneled catheter prior to dc, will coordinate with renal (also has PICC) #Hypervolemic hyponatremia: volume overloaded, Na normalized -HD as above #HTN: home medications #Chronic pain syndrome: home meds, pt requested I increase this to q4h, declined -one time dose of IV dilaudid to get on top of pain, cont current home dose of oxy IR #h/o cardiac arrest #h/o polysubstance abuse: denies recent use #Metabolic acidosis: due to ESRD. HD #Diet: renal Disp: cont inpt Subjective: Pt c/o pain in LUE, asking for increased oxy IR dose. Less redness. No fevers. No CP or SOB. Objective: Vital Signs Temp Pulse Resp BP Pulse Ox 36.5 C 88 16 135/83 H 99 05/09/18 07:29 05/09/18 07:29 05/09/18 07:29 05/09/18 07:29 05/09/18 07:29 Microbiology 05/07/18 08:40 Gram Stain - Final Arm - Aspirate Laboratory Results 05/08/18 03:50 05/08/18 05/09/18 05/10/18 05:59 05:59 06:59 Intake Total 555 950 Output Total 61 Balance 494 950 PT 14.9 SEC (12.0-15.0) 05/05/18 17:56 INR 1.22 (0.83-1.16) H 05/05/18 17:56 - Physical Exam Constitutional: no apparent distress Eyes: PERRL Ears, Nose, Mouth, Throat: moist mucous membranes Cardiovascular: regular rate and rhythym Respiratory: no respiratory distress, clear to auscultation Gastrointestinal: normoactive bowel sounds, soft, non-tender abdomen Skin: warm Musculoskeletal: full muscle strength, other (LUE edema, decreased erythema) Neurologic: AAOx3 Psychiatric: interacting appropriately ICD10 Worksheet Patient Problems: Problems Problem Status Onset Arm pain Acute End stage renal disease Acute Fever Acute Disorder of pancreas Active MRSA - Methicillin resistant Staphylococcus aureus infection Active MRSA - Methicillin resistant Staphylococcus aureus infection Active Metabolic acidosis Active Renal failure syndrome Active Abdominal pain Acute Altered mental status Acute Anemia Acute Chest pain Acute Chest pain Acute Dialysis complication Acute Diarrhea Acute Hyperkalemia Acute Hypotension Acute Opioid overdose Acute Renal failure Acute
[2018-05-09] MEDS ORDERED: HYDROmorphONE/DILAUDID 1 MG/ML INJ IVP ONE (10:37)
[2018-05-09] MEDS: FLUTICASONE NASAL 120 SPRAYS/16 GM MDI EACHNARE SCH ×2 (10:50→20:15)
--- NOTE | 2018-05-09 12:14 | PCMIDPN ---
Assessment/Plan: 1. Val-AV graft abscess/skin and soft tissue infection status post incision and drainage and wound VAC placement: Of note in this case, the patient was on antecedent Keflex when blood cultures were drawn, which could have altered their growth. Brief operative note states that the abscess abutted the graft material. Had extensive conversation with patient today about this difficult situation. Patient states that she is at the top of the transplant list, and could get a call any day now. Would prefer that the patient have no nidus of infection in anticipation of imminent transplant, which means that the graft material should probably be removed. Told her that the other option would be chronic suppression after a 7 day course of Ancef with something like Keflex, but would prefer to have graft material removed as definitive treatment. Patient expressed understanding and is agreeable to this. Patient tells me she wants a new tunneled catheter prior to discharge, and I told her I would discuss this with the hospitalist. I did call the hospitalist, Dr. Rodriguez to convey my conversation with the patient and plan, including the fact that graft material should probably go. She will have a conversation with later today. For now, continue IV cefazolin, as she has improved on this antibiotic. Over 35 min spent with this patient today. 05/09/18 12:15 Subjective: Patient feels better overall. Tolerating Ancef with no diarrhea. Frustrated by the fact that "the doctors are not talking to each other, and no one seems to know the plan."Proceeded to have extensive conversation with patient today about potential options for treatment moving forward. Objective: Ancef 2 g IV Q Friday 4 No fevers Vital Signs Temp Pulse Resp BP Pulse Ox 36.9 C 85 18 140/84 H 94 05/09/18 11:58 05/09/18 11:58 05/09/18 11:58 05/09/18 11:58 05/09/18 11:58 Microbiology 05/07/18 08:40 Gram Stain - Final Arm - Aspirate Laboratory Results 05/08/18 03:50 05/09/18 09:45 05/08/18 05/09/18 05/10/18 05:59 05:59 06:59 Intake Total 555 950 Output Total 61 Balance 494 950 Blood cultures no growth May 07 abscess: 4+ polys, no growth - Physical Exam General Appearance: alert, no apparent distress EENT: No scleral icterus, No thrush Extremities: other (Patient's left arm is notable for a fairly large wound VAC in place in her left upper extremity. There is no erythema that I can see and no significant tenderness.) ICD10 Worksheet Patient Problems: Problems Problem Status Onset Arm pain Acute End stage renal disease Acute Fever Acute Disorder of pancreas Active MRSA - Methicillin resistant Staphylococcus aureus infection Active MRSA - Methicillin resistant Staphylococcus aureus infection Active Metabolic acidosis Active Renal failure syndrome Active Abdominal pain Acute Altered mental status Acute Anemia Acute Chest pain Acute Chest pain Acute Dialysis complication Acute Diarrhea Acute Hyperkalemia Acute Hypotension Acute Opioid overdose Acute Renal failure Acute
--- NOTE | 2018-05-09 15:45 | SOAPPROG ---
SOAP Progress Note Assessment/Plan: Assessment: 1. esrd: dialysis today on typical TTS schedule. Using temp fem cath, this presumably will need to be converted to tunneled cath prior to d/c. 2. hyperK: chronic issue, low-K diet, dialysis. 3. avg infection: on abx, wound vac in place. Graft may not actually be infected , if that is the case I would be reluctant to recommend resection given her limited access options. Will need to clarify with Dr. Redd Friday. 4. access: currently dialyzing via temp fem cath as above and has no suitable upper venous access. Will need wound vac on avg, therefore will need temp line converted to tunneled line prior to d/c. Will ask IR to do this Friday. I have d /w her potential hazards of ambulation with temp fem cath (ie, dislodgment, falling out, etc). She refuses to change her habits and accepts risks of this. 5. anemia: transfusing prn. Plan: 05/08/18 16:16 05/09/18 15:41 Subjective: Currently on hd. Has been ambulating in halls with temp femoral hd cath. Eager to go home. Objective: Vital Signs Temp Pulse Resp BP Pulse Ox 36.9 C 85 18 140/84 H 94 05/09/18 11:58 05/09/18 11:58 05/09/18 11:58 05/09/18 11:58 05/09/18 11:58 Microbiology 05/07/18 08:40 Gram Stain - Final Arm - Aspirate Laboratory Results 05/08/18 03:50 05/09/18 09:45 05/08/18 05/09/18 05/10/18 05:59 05:59 06:59 Intake Total 555 950 Output Total 61 Balance 494 950 PT 14.9 SEC (12.0-15.0) 05/05/18 17:56 INR 1.22 (0.83-1.16) H 05/05/18 17:56 Physical Exam - Physical Exam General Appearance: no apparent distress Extremities: pedal edema (none) ICD10 Worksheet Patient Problems: Problems Problem Status Onset Arm pain Acute End stage renal disease Acute Fever Acute Disorder of pancreas Active MRSA - Methicillin resistant Staphylococcus aureus infection Active MRSA - Methicillin resistant Staphylococcus aureus infection Active Metabolic acidosis Active Renal failure syndrome Active Abdominal pain Acute Altered mental status Acute Anemia Acute Chest pain Acute Chest pain Acute Dialysis complication Acute Diarrhea Acute Hyperkalemia Acute Hypotension Acute Opioid overdose Acute Renal failure Acute
--- NOTE | 2018-05-09 16:56 | ASMTCMCOM ---
CM Note CM Note Notes: Pt now has wound vac and is getting IV Abx. Per hospitalist d/c not before next week. Pt may need IV Abx and Wound Vac upon discharge, however it is too soon to tell. No therapies ordered at this time. Pt lives with boyfriend in [place]. CM to follow. D/C Plan: DARRELL possibly SALLY RN for Wound Vac Date Signed: 05/09/2018 04:56 PM Electronically Signed By:Sabrina Bright
[2018-05-09] MEDS: MELATONIN 3 MG TAB PO SCH (20:15)
[2018-05-09] MEDS ORDERED: HEPARIN 10,000 UNIT/10 ML MDV (1,000 UNIT/ML) IV ONE (22:09)
[2018-05-09] MEDS ORDERED: HEPARIN 50,000 UNIT/10 ML VIAL IV ONE (22:09)
[2018-05-10] MEDS: oxyCODONE IR 15 MG TAB PO PRN ×3 (01:51→21:27)
[2018-05-10] MEDS: PROMETHAZINE HCL 25 MG/ML INJ IVP PRN ×4 (04:44→21:03)
[2018-05-10] MEDS: FUROSEMIDE 80 MG TAB PO SCH ×2 (04:46→16:42)
[2018-05-10] MEDS: PROMETHAZINE HCL 25 MG TAB PO SCH ×2 (05:37→16:42)
--- NOTE | 2018-05-10 08:01 | SOAPPROG ---
SHREE Progress Note Assessment/Plan: Assessment: 42 y/o F s/p LUE AV graft revision with interposition Lyman-deniz graft to distal brachial vein on 04/22/18 s/p wash out of LUE - ngtd Wound vac to suction S/p temp dialysis catheter placement in groin. Question if graft needs to be removed. Came in with fever but NGTD on cultures and underwhelming at surgery High on transplant list May need tunneled cath Continue ABX and transition to po as appropriate Will defer to Dr. Redd re if graft should be removed S: Feeling improved. Less pain in arm. Still tight on posterior aspect O: Alert Afebrile today No increased WOB LUE: Upper arm with vac in place. Less edema. Moves it much easier. Plan: 05/09/18 08:18 05/10/18 07:59 Objective: Vital Signs Temp Pulse Resp BP Pulse Ox 36.7 C 84 14 123/75 H 100 05/10/18 03:19 05/10/18 03:19 05/10/18 03:19 05/10/18 03:19 05/10/18 03:19 Microbiology 05/07/18 08:40 Gram Stain - Final Arm - Aspirate Laboratory Results 05/10/18 04:50 05/10/18 04:50 05/09/18 05/10/18 05/11/18 04:59 05:59 05:59 Intake Total Output Total Balance PT 14.9 SEC (12.0-15.0) 05/05/18 17:56 INR 1.22 (0.83-1.16) H 05/05/18 17:56 ICD10 Worksheet Patient Problems: Problems Problem Status Onset Arm pain Acute End stage renal disease Acute Fever Acute Disorder of pancreas Active MRSA - Methicillin resistant Staphylococcus aureus infection Active MRSA - Methicillin resistant Staphylococcus aureus infection Active Metabolic acidosis Active Renal failure syndrome Active Abdominal pain Acute Altered mental status Acute Anemia Acute Chest pain Acute Chest pain Acute Dialysis complication Acute Diarrhea Acute Hyperkalemia Acute Hypotension Acute Opioid overdose Acute Renal failure Acute
--- NOTE | 2018-05-10 09:28 | PCMIDPN ---
Assessment/Plan: 1. Val-AV graft abscess/skin and soft tissue infection status post incision and drainage and wound VAC placement: After discussion with Michael Burleson, and reading 's notes, I have re -thought need to excise graft. Patient is an extremely difficult access, and it is unclear at this point in time whether not the graft itself is infected. Again, antecedent Keflex may have altered blood and abscess culture results. That being said, given her access situation, favor leaving graft in place for now if okay with Dr. Redd, and treating with another 5 days of cefazolin to complete 10 days of treatment. Will stop antibiotics thereafter, and if infection recurs, graft material will need to be removed. Will discuss above plan with Dr. Redd tomorrow. Continue cefazolin for 5 more days, which she can get after dialysis. All of this was explained to the patient today, who expressed understanding. Subjective: Patient is sleepy. No complaints. Tells me that her arm "feels back to normal. " Objective: Ancef 2 g IV Q Friday 5 No fevers Vital Signs Temp Pulse Resp BP Pulse Ox 36.7 C 84 14 123/75 H 100 05/10/18 03:19 05/10/18 03:19 05/10/18 03:19 05/10/18 03:19 05/10/18 03:19 Microbiology 05/07/18 08:40 Gram Stain - Final Arm - Aspirate Laboratory Results 05/10/18 04:50 05/10/18 04:50 05/09/18 05/10/18 05/11/18 04:59 05:59 05:59 Intake Total Output Total Balance No new microbiology data Graft abscess remains no growth, as do blood cultures - Physical Exam General Appearance: alert, no apparent distress Extremities: other (Left upper extremity with wound VAC in place: No surrounding erythema or swelling or tenderness.) ICD10 Worksheet Patient Problems: Problems Problem Status Onset Arm pain Acute End stage renal disease Acute Fever Acute Disorder of pancreas Active MRSA - Methicillin resistant Staphylococcus aureus infection Active MRSA - Methicillin resistant Staphylococcus aureus infection Active Metabolic acidosis Active Renal failure syndrome Active Abdominal pain Acute Altered mental status Acute Anemia Acute Chest pain Acute Chest pain Acute Dialysis complication Acute Diarrhea Acute Hyperkalemia Acute Hypotension Acute Opioid overdose Acute Renal failure Acute
[2018-05-10] MEDS: PANTOPRAZOLE SODIUM 40 MG TAB PO SCH ×2 (09:48→21:03)
[2018-05-10] MEDS: CALCIUM ACETATE 667 MG CAP PO SCH ×3 (09:48→16:35)
[2018-05-10] MEDS: FAMOTIDINE 20 MG/NACL 50 ML IV SCH ×2 (09:49→21:02)
[2018-05-10] MEDS: FLUTICASONE NASAL 120 SPRAYS/16 GM MDI EACHNARE SCH ×2 (09:50→21:01)
[2018-05-10] MEDS: SENNOSIDES/DOCUSATE SODIUM TAB PO SCH ×2 (11:29→21:02)
[2018-05-10] MEDS ORDERED: HYDROmorphONE/DILAUDID 1 MG/ML INJ IVP ONE (12:10)
--- NOTE | 2018-05-10 13:19 | SOAPPROG ---
SOAP Progress Note Assessment/Plan: Assessment: 1. esrd: dialysis yesterday on typical TTS schedule, next tentatively Friday if remains admitted. Currently with temp fem cath for access, if avg not usable at d/c this will need to be converted to tunneled cath. 2. hyperK: chronic issue, low-K diet, dialysis. Resolved currently. 3. avg infection: on abx, wound vac in place. Graft may not actually be infected , if that is the case I would be reluctant to recommend resection given her limited access options. Will need to clarify with Dr. Redd Friday. 4. access: currently dialyzing via temp fem cath as above and has no suitable upper venous access. Will need wound vac on avg, therefore I suspect will need temp line converted to tunneled line prior to d/c but would clarify with Dr. Redd tomorrow prior to asking IR to do this. I have d/w her potential hazards of ambulation with temp fem cath (ie, dislodgment, falling out, etc). She refuses to change her habits and accepts risks of this. 5. anemia: transfusing prn. Plan: 05/08/18 16:16 05/09/18 15:41 05/10/18 13:16 Subjective: Pt currently off floor, therefore I did not see her. Chart reviewed. Objective: Vital Signs Temp Pulse Resp BP Pulse Ox 36.8 C 88 20 132/93 H 99 05/10/18 10:00 05/10/18 10:00 05/10/18 10:00 05/10/18 10:00 05/10/18 10:00 Microbiology 05/07/18 08:40 Gram Stain - Final Arm - Aspirate Laboratory Results 05/10/18 04:50 05/10/18 04:50 05/09/18 05/10/18 05/11/18 04:59 05:59 05:59 Intake Total Output Total Balance PT 14.9 SEC (12.0-15.0) 05/05/18 17:56 INR 1.22 (0.83-1.16) H 05/05/18 17:56 ICD10 Worksheet Patient Problems: Problems Problem Status Onset Arm pain Acute End stage renal disease Acute Fever Acute Disorder of pancreas Active MRSA - Methicillin resistant Staphylococcus aureus infection Active MRSA - Methicillin resistant Staphylococcus aureus infection Active Metabolic acidosis Active Renal failure syndrome Active Abdominal pain Acute Altered mental status Acute Anemia Acute Chest pain Acute Chest pain Acute Dialysis complication Acute Diarrhea Acute Hyperkalemia Acute Hypotension Acute Opioid overdose Acute Renal failure Acute
--- NOTE | 2018-05-10 15:32 | HOSPPROG ---
Hospitalist Progress Note Assessment/Plan: #Left AV fistula/graft abscess, s/p I&D and wound vac 05/07 -will need wound vac at dc -cont IV Ancef, ID following, recommends 5 more days of IV atbx -not clear that the graft itself was infected, neg BCx's -pain control #Tachycardia: resolved. Related to transfusion rxn -telemetry #Blood transfusion reaction: s/p steroid, benadryl. Symptoms resolved after benadryl, did not require steroids. -would pre-treat if requires transfusion in future #Anemia renal disease: transfused 1 unit 05/07, hgb stable -follow #Hyperkalemia: chronic, HD per renal #Sepsis: leukocytosis, tachy, abscess. Sepsis physiology resolved. 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 On transplant list, non-tunnelled catheter in groin -HD per jonathan; (,, schedule) -will likely need current femoral line transitioned to tunneled catheter prior to dc -will discuss with Dr. Redd tomorrow if graft can be salvaged (as above, no clear e/o infected graft) #Hypervolemic hyponatremia: volume overloaded, Na normalized -HD as above #HTN: home medications #Chronic pain syndrome: home meds, pt requested I increase this to q4h, declined -one time am dose of IV dilaudid to get on top of pain, cont current home dose of oxy IR #h/o cardiac arrest #h/o polysubstance abuse: denies recent use #Metabolic acidosis: due to ESRD. HD #Diet: renal Disp: cont inpt Subjective: Pt feels ok. Reports LUE pain and swelling at night, wonders if this is worse with elbow flexion, will try to keep straight. No fevers/chills. Tolerating po. No CP or SOB. Objective: Vital Signs Temp Pulse Resp BP Pulse Ox 36.8 C 88 20 132/93 H 99 05/10/18 10:00 05/10/18 10:00 05/10/18 10:00 05/10/18 10:00 05/10/18 10:00 Microbiology 05/07/18 08:40 Gram Stain - Final Arm - Aspirate Laboratory Results 05/10/18 04:50 05/10/18 04:50 0305/10/18 05/11/18 04:59 05:59 05:59 Intake Total Output Total Balance PT 14.9 SEC (12.0-15.0) 05/05/18 17:56 INR 1.22 (0.83-1.16) H 05/05/18 17:56 - Physical Exam Constitutional: no apparent distress Eyes: PERRL Ears, Nose, Mouth, Throat: moist mucous membranes Cardiovascular: regular rate and rhythym Respiratory: no respiratory distress, clear to auscultation Gastrointestinal: normoactive bowel sounds, soft, non-tender abdomen Skin: warm, other (LUE wound vac, no surrounding erythema, distal swelling noted ) Musculoskeletal: full muscle strength Neurologic: AAOx3 Psychiatric: interacting appropriately ICD10 Worksheet Patient Problems: Problems Problem Status Onset Arm pain Acute End stage renal disease Acute Fever Acute Disorder of pancreas Active MRSA - Methicillin resistant Staphylococcus aureus infection Active MRSA - Methicillin resistant Staphylococcus aureus infection Active Metabolic acidosis Active Renal failure syndrome Active Abdominal pain Acute Altered mental status Acute Anemia Acute Chest pain Acute Chest pain Acute Dialysis complication Acute Diarrhea Acute Hyperkalemia Acute Hypotension Acute Opioid overdose Acute Renal failure Acute
[2018-05-10] MEDS: [UNRECOGNIZED DRUG - OTHER] DT SCH (21:01)
[2018-05-10] MEDS: MELATONIN 3 MG TAB PO SCH (21:02)
[2018-05-11] MEDS: PROMETHAZINE HCL 25 MG/ML INJ IVP PRN ×5 (02:57→21:06)
[2018-05-11] MEDS: oxyCODONE IR 15 MG TAB PO PRN ×4 (02:58→21:07)
[2018-05-11] MEDS: FUROSEMIDE 80 MG TAB PO SCH ×2 (07:01→16:01)
[2018-05-11] MEDS: CALCIUM ACETATE 667 MG CAP PO SCH ×3 (08:56→18:55)
[2018-05-11] MEDS: SENNOSIDES/DOCUSATE SODIUM TAB PO SCH ×2 (08:58→21:06)
[2018-05-11] MEDS: PANTOPRAZOLE SODIUM 40 MG TAB PO SCH ×2 (08:58→21:07)
[2018-05-11] MEDS: [UNRECOGNIZED DRUG - OTHER] DT SCH (09:02)
[2018-05-11] MEDS: FAMOTIDINE 20 MG/NACL 50 ML IV SCH ×2 (09:03→21:07)
[2018-05-11] MEDS: FLUTICASONE NASAL 120 SPRAYS/16 GM MDI EACHNARE SCH ×2 (09:04→21:06)
--- NOTE | 2018-05-11 09:49 | SOAPPROG ---
SOAP Progress Note Assessment/Plan: Assessment/Plan: 42 Y F c 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 c CADE AV graft s/p revision, s/p washout for cellulitis. AV graft wound with some fat necrosis. Vac to be replaced today. No gross sign of infection. Surgical findings were under whelming--very little purulence seen , but what was seen was apparently in contact with graft. Cultures NGTD, but has been on antibiotics. Afebrile, WBCs wnl. Would like to save AV graft if possible, but still, understand may require removal if ongoing infection. Keep in place for now. Will get US vein mapping of RUE to look at R arm AVF options. Patient thinks she was told she has one good vein on that arm. Will also get US neck [facility]. Per pt and renal, has had many tunneled neck catheters and may not be possible to access. Seen with Dr. Redd. S: hopeful that she will get transplant soon. hopeful that she can save her graft. less arm pain and swelling. making jewelry to pass time. O: alert, nad ncat, mmm no wob rrr abd soft, nt ext R groin cath site clean. AV graft c thrill. wound with some fat necrosis but no erythema, malodor, induration, or fluctuance. tenderness much improved. tolerated vac removal very well. 05/11/18 09:49 Objective: Vital Signs Temp Pulse Resp BP Pulse Ox 36.3 C 98 20 141/93 H 99 05/11/18 07:54 05/11/18 07:54 05/11/18 07:54 05/11/18 07:54 05/11/18 07:54 Microbiology 05/05/18 18:37 Blood Culture - Final Blood 05/05/18 17:56 Blood Culture - Final Blood 05/07/18 08:40 Gram Stain - Final Arm - Aspirate Laboratory Results 05/10/18 04:50 05/11/18 02:45 05/10/18 05/11/18 05/12/18 05:59 05:59 05:59 Intake Total 770 Balance 770 PT 14.9 SEC (12.0-15.0) 05/05/18 17:56 INR 1.22 (0.83-1.16) H 05/05/18 17:56 ICD10 Worksheet Patient Problems: Problems Problem Status Onset Arm pain Acute End stage renal disease Acute Fever Acute Disorder of pancreas Active MRSA - Methicillin resistant Staphylococcus aureus infection Active MRSA - Methicillin resistant Staphylococcus aureus infection Active Metabolic acidosis Active Renal failure syndrome Active Abdominal pain Acute Altered mental status Acute Anemia Acute Chest pain Acute Chest pain Acute Dialysis complication Acute Diarrhea Acute Hyperkalemia Acute Hypotension Acute Opioid overdose Acute Renal failure Acute
--- NOTE | 2018-05-11 10:07 | WOCRNPDOC ---
WOCRN Advanced Assessment Note - Skin Integrity Problem, Advanced Assess Left Upper Arm Dialysis Shunt Dressing Type: Gauze, Jeet Dressing Description: Clean/Dry, Intact Integumentary Issue Intervention: Dressing Changed Val Wound Swelling: None Wound Bed Color: [place], Yellow, White Wound Bed Constitution: Granulation Tissue, Muscle, Subcutaneous Fat Wound Edges: Epithelizing, Attached Site Odor: None Site Measurement - Head-to-Toe Length X Width X Depth (cm): 3.8X2.8X1.2 Skin Integrity Problem Comment: Wet to dry dressing removed. wound cleaned with ns and gauze. Pale muscle/graft noted near superior wound margins. Sutures also visible. No tunnlening noted nor vascular structures. Skin prep val wound then drapped. x1 piece of Small black VAC Simplace foam placed in wound bed covered with second trac landing pad. covered with drape. Trac pad placed. VAC turned on with no leak. Wound vac written and verbal education provided. All questions answered. Next wound vac changed due Saturday 05/13. Emily ZAMORA in room for care. YARELY Riggins visualized wound. Soniya BURNS in room for some of care.
[2018-05-11] MEDS ORDERED: HYDROmorphONE/DILAUDID 1 MG/ML INJ IVP ONE (10:15)
--- NOTE | 2018-05-11 10:23 | SOAPPROG ---
SOAP Progress Note Assessment/Plan: Assessment: 1. esrd: next dialysis tomorrow on typical TTS schedule. Currently with temp fem cath for access but cannulate-able area of avf is actually in forearm, not under vac. If this can be cannulated she does not need hd cath at all. 2. hyperK: chronic issue, low-K diet, dialysis. Resolved currently. 3. avg infection: on abx, wound vac in place. Graft may not actually be infected , if that is the case I would be reluctant to recommend resection given her limited access options. 4. access: currently dialyzing via temp fem cath as above and reportedly has no suitable upper venous access. If avf can be accessed, she should not need a catheter at all. She does have small aneurysmal area on avf, she is unclear how long this has been present. 5. anemia: transfusing prn. Plan: 05/08/18 16:16 05/09/18 15:41 05/10/18 13:16 05/11/18 10:19 05/11/18 10:23 Subjective: No c/o, enroute to u/s. She showed me where her avf has been cannulated in forearm. Objective: Vital Signs Temp Pulse Resp BP Pulse Ox 36.3 C 98 20 141/93 H 99 05/11/18 07:54 05/11/18 07:54 05/11/18 07:54 05/11/18 07:54 05/11/18 07:54 Microbiology 05/05/18 18:37 Blood Culture - Final Blood 05/05/18 17:56 Blood Culture - Final Blood 05/07/18 08:40 Gram Stain - Final Arm - Aspirate Laboratory Results 05/10/18 04:50 05/11/18 02:45 05/10/18 05/11/18 05/12/18 05:59 05:59 05:59 Intake Total 770 Balance 770 PT 14.9 SEC (12.0-15.0) 05/05/18 17:56 INR 1.22 (0.83-1.16) H 05/05/18 17:56 Physical Exam - Physical Exam General Appearance: no apparent distress Respiratory: lungs clear Cardiac/Chest: regular rate, rhythm Abdomen: non-tender, soft Extremities: pedal edema (none), other (+patent L forearm avf with approx 1cm aneurysmal area on lateral limb) ICD10 Worksheet Patient Problems: Problems Problem Status Onset Arm pain Acute End stage renal disease Acute Fever Acute Disorder of pancreas Active MRSA - Methicillin resistant Staphylococcus aureus infection Active MRSA - Methicillin resistant Staphylococcus aureus infection Active Metabolic acidosis Active Renal failure syndrome Active Abdominal pain Acute Altered mental status Acute Anemia Acute Chest pain Acute Chest pain Acute Dialysis complication Acute Diarrhea Acute Hyperkalemia Acute Hypotension Acute Opioid overdose Acute Renal failure Acute
--- NOTE | 2018-05-11 11:47 | PCMIDPN ---
Assessment/Plan: Assessment: 42-year-old woman with left upper extremity deep soft tissue infection complicating AV graft placement. Clinically, she is improved with resolution of fevers and normalization of her total white blood cell count. Confirmed with her outpatient pneumatic tube repairer at the [facility] that she is not listed for transplant and has not been listed for transplant previously. She still has numerous steps that she has to complete prior to being listed for transplant at the [facility]. Due to the time will take for her to get listed in the transplanted this process will not inform our decision making as it pertains to her deep soft tissue infection adjacent to her AV graft. 1. Left upper extremity deep soft tissue infection, wound VAC in place 2. Status post left upper extremity debridement washout 05/11/2018 3. ESRD secondary to polycystic kidney disease requiring hemodialysis; Not actively listed for transplant 4. Status post left [place] nephrectomy 04/17/2018 5. Chronic, active hepatitis C virus infection 6. History of C diff colitis, March 2018 7. History of right femoral PermCath insertion site infection March 2018, removed 03/26/2018 Plan: 1. Continue cefazolin as prescribed with dialysis schedule 2. Will determine if she requires suppressive antibiotics as alternative dialysis sites are evaluated and whether the left upper extremity AV graft will remain in place 3. No therapy directed at hepatitis C virus infection at this time 4. Reviewed in detail potential side effects of beta-lactam antibiotics to include: allergy, rash, nausea, antibiotic-associated diarrhea, Clostridioides difficile colitis. Sergio Riggins MD Infectious Diseases 05/11/18 11:42 Subjective: No fever or chills over the weekend. Tolerating oral diet with solids and liquids; occasional nausea with emesis. No diarrhea. No rash. Appetite improving. Ambulating without difficulty. Improved since admission but not back to baseline health. Objective: Vital Signs Temp Pulse Resp BP Pulse Ox 36.3 C 98 20 141/93 H 99 05/11/18 07:54 05/11/18 07:54 05/11/18 07:54 05/11/18 07:54 05/11/18 07:54 Microbiology 05/07/18 08:40 Gram Stain - Final Arm - Aspirate 05/05/18 18:37 Blood Culture - Final Blood 05/05/18 17:56 Blood Culture - Final Blood Laboratory Results 05/10/18 04:50 05/11/18 02:45 05/10/18 05/11/18 05/12/18 05:59 05:59 05:59 Intake Total 770 Balance 770 Medications Generic Name Dose Route Start Last Admin Trade Name Allison PRN Reason Stop Dose Admin Cefazolin Sodium/Dextrose 100 mls @ 200 mls/hr 05/11/18 12:00 Ancef IV 05/11/18 12:29 ONCE ONE Cefazolin Sodium/Dextrose 100 mls @ 200 mls/hr 05/12/18 21:00 Ancef IV 06/05/18 20:59 [email or web address] [facility] Protocol Microbiology 05/07/18 08:40 Arm - Aspirate Gram Stain - Final 05/05/18 18:37 Blood Blood Culture - Final 05/05/18 17:56 Blood Blood Culture - Final 05/07/18 19:54 Blood Blood Culture - Preliminary 05/07/18 18:15 Blood Blood Culture - Preliminary 05/07/18 08:40 Arm - Aspirate Fungal Culture - Preliminary 05/07/18 08:40 Arm - Aspirate Anaerobic Culture - Preliminary Laboratory Tests 05/06/18 05/07/18 03:35 05:00 WBC 10.83 H 8.00 Plt Count 251 246 - Physical Exam General Appearance: no apparent distress, non-toxic EENT: No scleral icterus Respiratory: No accessory muscle use Neck: full range of motion, supple Skin: other (Left upper extremity surgical site examined with the wound VAC off , no erythema or induration surrounding incision site, no purulence in the wound bed, no drainage) Neuro/Psych: alert, oriented x 3, depressed affect, No confused - Time Spent With Patient Time Spent with Patient: greater than 35 minutes (Care coordinated by phone with her pneumatic tube repairer keep [facility] in Dr. Redd her surgeon) Time Spent with Patient: Greater than 35 minutes spent on this patients care, greater than 50% of time spent counseling, educating, and coordinating care regarding the above mentioned plan. 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
[2018-05-11] MEDS ORDERED: ceFAZolin 2 GM/DEXTROSE 100 ML IV ONE (12:00)
--- NOTE | 2018-05-11 12:33 | GCON ---
[f rep st] CONSULTATION DATE OF CONSULTATION: 05/05/2018 HISTORY OF PRESENT ILLNESS: Patient is a 42-year-old female well known to me for chronic renal failu re. She has had an AV graft revision approximately 1 month ago with a large extension up into her up per arm from the forearm loop graft. She has just recently been discharged from the hospital where s he was admitted for some other reason. She complains of left arm pain, discomfort, and some swelling . She has had no fever, no drainage, and no erythema in the arm, but increasing pain over the last 2 days. REVIEW OF SYSTEMS: Negative on a full 10-point review, except as related to the HPI and the past his tory. PAST MEDICAL HISTORY: Includes hypertension, end-stage renal disease with polycystic kidneys. She h as a left arm AV loop graft. She has had multiple AV fistulas and procedures in the left upper arm a nd had recently clotted off for the entire left upper arm venous outflow. She is currently on dialys is. She also has a history of C difficile problems, and she has had a left nephrectomy. She has chr onic pain, persistent opioid use. SOCIAL HISTORY: Reveals she is an ex-smoker. FAMILY HISTORY: Noncontributory. PHYSICAL EXAMINATION: GENERAL: An alert, cooperative 42-year-old female who is in no acute distress . HEAD/NECK: No icterus, adenopathy, or oral lesions. CHEST: Clear. CARDIAC: Regular rhythm. A BDOMEN: Soft and nontender without masses. EXTREMITIES: Full range of motion, full pulses. Her le ft upper extremity room does suggest some swelling. She has a well healed incision with some tendern ess in the upper arm with no erythema, drainage, or adenopathy. IMPRESSION: Left arm pain. I would be suspicious of deep vein clots or possible deeper hematoma, ab scess, or complication from possible illicit drug use. RECOMMENDATIONS: Evaluation with ultrasound to rule out a deep clot. Her fistula appears to be flow ing well, so I do not think that is an issue, but ultrasound should help us with deeper clots and oth er veins in the arm and/or possible hematoma or abscess. Risks and options fully discussed with the patient and the emergency physician will proceed with that workup. /[id number]/MODL
--- NOTE | 2018-05-11 12:58 | GOP ---
[f rep st] OPERATIVE REPORT DATE OF OPERATION: 05/07/2018 SURGEON: Vipul Redd MD PRINCIPAL QUALITY ENGINEER: Angelica Sharp NP PREOPERATIVE DIAGNOSIS: Left upper arm abscess in association with dialysis graft. POSTOPERATIVE DIAGNOSIS: Left upper arm abscess in association with dialysis graft. PROCEDURE PERFORMED: Incision, drainage, and debridement, left upper arm with wound VAC placement. FINDINGS: Patient was found to have necrotic fat around in the upper arm with exposed graft deep in the wound. There was no gross purulence, no hematoma, and no significant bleeding, but a fair amount of necrotic fat. This tissue and fluid were sent for culture. DESCRIPTION OF PROCEDURE: The patient was taken to the operating room where she received satisfactor y general endotracheal anesthesia by Dr. Binta Rocha. She was placed in supine position with the lef t arm outstretched on arm board, prepped and draped in the usual sterile fashion. Incision was made in the old incision in an area of erythema. Dissection extended into the subcu and basically fat necrosis was encountered with no purulence or hematoma. Dissection extended right on down through the fatty tissue down to the graft, itself, which was not well integrated in the tissue. The wound was copiously irrigated around this area. Some fatty tissue was debrided. There was no significant bleeding. The wound was copiously irrigated, and then, the subcutaneous tissue was c losed with a running 3-0 Vicryl suture, and a wound VAC was placed over the area. The wound was infi ltrated with 0.5% Marcaine. She tolerated the procedure well. Blood loss was negligible. No compli cations. Taken to the recovery room in good condition. /[id number]/MODL
[2018-05-11] MEDS: ACETAMINOPHEN 325 MG TAB PO PRN (15:24)
[2018-05-11] MEDS: LISINOPRIL 20 MG TAB PO PRN (15:24)
--- NOTE | 2018-05-11 15:29 | HOSPPROG ---
Hospitalist Progress Note Assessment/Plan: #CADE abscess in region of AV graft / fistula, s/p I&D and wound vac 05/07, changed today -will need wound vac at dc -cont IV Ancef, ID following, recommends 4 more days of IV atbx (can be given after dialysis) -no clear evidence that the graft itself was infected, neg BCx's -pain control #Tachycardia: resolved. Related to transfusion rxn -telemetry #Blood transfusion reaction: s/p steroid, benadryl. Symptoms resolved after benadryl, did not require steroids. -would pre-treat if requires transfusion in future #Anemia renal disease: transfused 1 unit 05/07, hgb stable -follow #Hyperkalemia: chronic, HD per renal #Sepsis: leukocytosis, tachy, abscess. Sepsis physiology resolved. 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 On transplant list, non-tunnelled catheter in groin -HD per renal; (,, schedule) -discussed access with renal and surg, sounds like her fistula is still functioning and can likely continue to use -she will dialyze with fistula tomorrow and if all goes well, d/c femoral line and PICC line at hospital discharge #Hypervolemic hyponatremia: volume overloaded, Na normalized -HD as above #HTN: home medications #Chronic pain syndrome: home meds, pt requested I increase this to q4h, declined -one time am dose of IV dilaudid to get on top of pain, cont current home dose of oxy IR #Hypertension - Lisinopril #h/o cardiac arrest #h/o polysubstance abuse: denies recent use #Metabolic acidosis: due to ESRD. HD #Diet: renal Disp: cont inpt Subjective: Pt c/o left arm pain after wound vac changed. No fevers. No CP, SOB or garcia. BP elevated. Objective: Vital Signs Temp Pulse Resp BP Pulse Ox 36.5 C 99 16 170/117 H 100 05/11/18 15:16 05/11/18 15:16 05/11/18 15:16 05/11/18 15:16 05/11/18 15:16 Microbiology 05/07/18 08:40 Gram Stain - Final Arm - Aspirate 05/05/18 18:37 Blood Culture - Final Blood 05/05/18 17:56 Blood Culture - Final Blood Laboratory Results 05/10/18 04:50 05/11/18 02:45 05/10/18 05/11/18 05/12/18 05:59 05:59 05:59 Intake Total 770 Balance 770 PT 14.9 SEC (12.0-15.0) 05/05/18 17:56 INR 1.22 (0.83-1.16) H 05/05/18 17:56 - Physical Exam Constitutional: no apparent distress Eyes: PERRL Ears, Nose, Mouth, Throat: moist mucous membranes Cardiovascular: regular rate and rhythym Respiratory: no respiratory distress, clear to auscultation Gastrointestinal: normoactive bowel sounds, soft, non-tender abdomen Skin: warm Musculoskeletal: full muscle strength Neurologic: AAOx3 Psychiatric: interacting appropriately ICD10 Worksheet Patient Problems: Problems Problem Status Onset Arm pain Acute End stage renal disease Acute Fever Acute Disorder of pancreas Active MRSA - Methicillin resistant Staphylococcus aureus infection Active MRSA - Methicillin resistant Staphylococcus aureus infection Active Metabolic acidosis Active Renal failure syndrome Active Abdominal pain Acute Altered mental status Acute Anemia Acute Chest pain Acute Chest pain Acute Dialysis complication Acute Diarrhea Acute Hyperkalemia Acute Hypotension Acute Opioid overdose Acute Renal failure Acute
[2018-05-11] MEDS ORDERED: oxyCODONE IR 5 MG TAB PO ONE (15:44)
--- NOTE | 2018-05-11 16:26 | ASMTCMCOM ---
CM Note CM Note Notes: Spoke with pt in the room. Pt has medicare and medicaid, and was grateful to be connected with [facility] and [facility] [employer] [facility]. CM to notify [facility] on day of discharge. [facility] notified via email. Pt to discharge with [facility] RN for wound vac. [facility] has accepted. CM to follow. D/C Plan: [facility] RN, [facility], support from [facility] Date Signed: 05/11/2018 04:26 PM Electronically Signed By:Sabrina Bright
[2018-05-11] MEDS: MELATONIN 3 MG TAB PO SCH (21:07)
[2018-05-12] MEDS: ACETAMINOPHEN 325 MG TAB PO PRN ×4 (00:22→18:40)
[2018-05-12] MEDS: LISINOPRIL 20 MG TAB PO PRN (00:22)
[2018-05-12] MEDS: oxyCODONE IR 15 MG TAB PO PRN ×5 (02:32→22:46)
[2018-05-12] MEDS: PROMETHAZINE HCL 25 MG/ML INJ IVP PRN ×5 (02:34→20:57)
[2018-05-12] MEDS: FUROSEMIDE 80 MG TAB PO SCH ×2 (06:01→18:41)
[2018-05-12] MEDS ORDERED: LORazepam 2 MG/ML INJ IVP ONE (07:29)
--- NOTE | 2018-05-12 09:09 | HOSPPROG ---
Hospitalist Progress Note Assessment/Plan: #LUE abscess in region of proximal AV graft revision. Her fistula is distal to this. She is s/p I&D with upper arm wound vac placed 05/07, changed yesterday. Continues to have LUE pain and swelling. U/S neg for DVT. -will need wound vac at dc -cont IV Ancef, ID following, recommends 2 more days of IV atbx (to be given after dialysis) -no clear evidence that the graft itself was infected, neg BCx's, so will try to maintain this dialysis access -pain control with home oxy, have given occasional IV dilaudid doses. 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 On transplant list, temporary non-tunnelled catheter in groin, placed on admission due to above -HD per renal; (,, schedule) -discussed access with renal and surg, sounds like her fistula (distal to region of infection) is still functioning and can likely continue to use -she will dialyze with fistula today and if all goes well, d/c femoral line and PICC line at hospital discharge #Blood transfusion reaction 05/07: Symptoms resolved after benadryl, did not require steroids. -would pre-treat if requires transfusion in future #Anemia renal disease: transfused 1 unit 05/07, hgb trending down, 7.3 today -defer transfusion today, cont to follow #H/O hyperkalemia: HD per renal #Sepsis: leukocytosis, tachy, 2/2 LUE abscess. Sepsis physiology resolved. -atbx as above #Hypervolemic hyponatremia: Na normalized -HD as above #HTN: cont home medications, uses Lisinopril prn, but not on dialysis days #Chronic pain syndrome: home meds, pt requested I increase this to q4h, declined -one time am dose of IV dilaudid to get on top of pain, cont current home dose of oxy IR #h/o cardiac arrest #h/o polysubstance abuse: denies recent use #Metabolic acidosis: due to ESRD. HD #Diet: renal Disp: cont inpt, ADD possibly tomorrow if all goes well using AV fistula on dialysis today. Subjective: PT vomited this am and received Ativan. She is now quite sleepy. Pain better controlled this am. No fevers/chills. No CP / SOB. Objective: Vital Signs Temp Pulse Resp BP Pulse Ox 37.1 C 106 H 18 152/106 H 100 05/12/18 07:24 05/12/18 07:24 05/12/18 07:24 05/12/18 07:24 05/12/18 07:24 Microbiology 05/07/18 08:40 Gram Stain - Final Arm - Aspirate 05/05/18 18:37 Blood Culture - Final Blood 05/05/18 17:56 Blood Culture - Final Blood Laboratory Results 05/12/18 02:30 05/12/18 02:30 05/11/18 05/12/18 05/13/18 05:59 05:59 05:59 Intake Total 770 50 Balance 770 50 PT 14.9 SEC (12.0-15.0) 05/05/18 17:56 INR 1.22 (0.83-1.16) H 05/05/18 17:56 - Physical Exam Constitutional: no apparent distress Eyes: PERRL Ears, Nose, Mouth, Throat: moist mucous membranes Cardiovascular: regular rate and rhythym Respiratory: no respiratory distress, clear to auscultation Gastrointestinal: normoactive bowel sounds, soft, non-tender abdomen Skin: warm Musculoskeletal: full muscle strength, other (LUE with persistent swelling, no erythema, wound vac in upper arm functioning well) Neurologic: AAOx3 Psychiatric: interacting appropriately ICD10 Worksheet Patient Problems: Problems Problem Status Onset Arm pain Acute End stage renal disease Acute Fever Acute Disorder of pancreas Active MRSA - Methicillin resistant Staphylococcus aureus infection Active MRSA - Methicillin resistant Staphylococcus aureus infection Active Metabolic acidosis Active Renal failure syndrome Active Abdominal pain Acute Altered mental status Acute Anemia Acute Chest pain Acute Chest pain Acute Dialysis complication Acute Diarrhea Acute Hyperkalemia Acute Hypotension Acute Opioid overdose Acute Renal failure Acute
[2018-05-12] MEDS: PANTOPRAZOLE SODIUM 40 MG TAB PO SCH ×2 (09:24→20:58)
[2018-05-12] MEDS: SENNOSIDES/DOCUSATE SODIUM TAB PO SCH ×2 (09:24→20:58)
[2018-05-12] MEDS: FAMOTIDINE 20 MG/NACL 50 ML IV SCH ×2 (09:24→20:57)
[2018-05-12] MEDS: FLUTICASONE NASAL 120 SPRAYS/16 GM MDI EACHNARE SCH ×2 (09:24→20:58)
[2018-05-12] MEDS: [UNRECOGNIZED DRUG - OTHER] DT SCH (09:24)
[2018-05-12] MEDS: CALCIUM ACETATE 667 MG CAP PO SCH ×3 (09:26→21:56)
[2018-05-12] MEDS: POLYETHYLENE GLYCOL 3350 17 GM PKT PO PRN (09:32)
--- NOTE | 2018-05-12 09:58 | SOAPPROG ---
SOAP Progress Note Assessment/Plan: Assessment: 1. Arm Infection I&D'd, wound vac in place. Not contiguous with graft. ID following. On Ancef. 1-2 more doses, post HD. 2. Dialysis Today. Will use graft. If this works, line may be dc'd. On TTS schedule. 3. Her main dialysis provider is COMMERCIAL HOUSEKEEPER Savana Navas with [facility]. I will call her and review DC planning. Her number is [phone]. 4. Anemia Below goal, but stable. Dose with procrit Plan: 05/12/18 09:54 05/12/18 09:57 Subjective: Sleepy, but awakens and responds. Is oriented. Objective: Vital Signs Temp Pulse Resp BP Pulse Ox 37.1 C 106 H 18 152/106 H 100 05/12/18 07:24 05/12/18 07:24 05/12/18 07:24 05/12/18 07:24 05/12/18 07:24 Microbiology 05/07/18 08:40 Gram Stain - Final Arm - Aspirate 05/05/18 18:37 Blood Culture - Final Blood 05/05/18 17:56 Blood Culture - Final Blood Laboratory Results 05/12/18 02:30 05/12/18 02:30 05/11/18 05/12/18 05/13/18 05:59 05:59 05:59 Intake Total 770 50 Balance 770 50 PT 14.9 SEC (12.0-15.0) 05/05/18 17:56 INR 1.22 (0.83-1.16) H 05/05/18 17:56 Physical Exam - Physical Exam General Appearance: no apparent distress Respiratory: lungs clear Cardiac/Chest: regular rate, rhythm Extremities: pedal edema, other (Wound vac noted. ) Neuro/Psych: alert ICD10 Worksheet Patient Problems: Problems Problem Status Onset Arm pain Acute End stage renal disease Acute Fever Acute Disorder of pancreas Active MRSA - Methicillin resistant Staphylococcus aureus infection Active MRSA - Methicillin resistant Staphylococcus aureus infection Active Metabolic acidosis Active Renal failure syndrome Active Abdominal pain Acute Altered mental status Acute Anemia Acute Chest pain Acute Chest pain Acute Dialysis complication Acute Diarrhea Acute Hyperkalemia Acute Hypotension Acute Opioid overdose Acute Renal failure Acute
[2018-05-12] MEDS ORDERED: EPOETIN ALFA 10,000 UNIT/ML VIAL SC SCH (10:00)
--- NOTE | 2018-05-12 17:57 | CPEKG ---
Test Reason : OPEN Blood Pressure : / mmHG Vent. Rate : 126 BPM Atrial Rate : 127 BPM P-R Int : 125 ms QRS Dur : 072 ms QT Int : 317 ms P-R-T Axes : 055 -11 038 degrees QTc Int : 459 ms Sinus tachycardia Abnormal inferior Q waves Anterior infarct, old Confirmed by Max Corea ([id number]) on 05/12/2018 5:57:08 PM Referred By: Patrick Taylor Confirmed By:Max Corea
--- NOTE | 2018-05-12 18:19 | SOAPPROG ---
SOAP Progress Note Assessment/Plan: Assessment/Plan: 42 Y F c 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 c LUE AV graft s/p revision, s/p washout for cellulitis. Seen earlier today. Attempting use of AV graft today. If fevers or other problems then continue groin access. Very challenging access for this patient--IJ's not an option according to US. Could attempt tunneled subclavian v access--not the greatest option, but our hand may be forced. Vein of RUE are small. Potential for a good AVF in the RUE is low. Continue wound vac, abx, observation. Also, patient hopeful for transplant soon. S: feeling tired and sick today--"like the flu" +N. O: alert, nad ncat, mmm no wob rrr abd soft, nt ext R groin cath site clean. AV graft c thrill. wound with vac. 05/12/18 18:16 Objective: Vital Signs Temp Pulse Resp BP Pulse Ox 37.1 C 104 H 18 166/91 H 100 05/12/18 07:24 05/12/18 12:19 05/12/18 12:19 05/12/18 12:19 05/12/18 12:19 Microbiology 05/07/18 08:40 Gram Stain - Final Arm - Aspirate 05/12/18 09:30 Respiratory Panel (PCR) - Final Nasal, Sinus - [place] Viral Transport No Organism Detected By Pcr Laboratory Results 05/12/18 02:30 05/12/18 02:30 05/11/18 05/12/18 05/13/18 05:59 05:59 05:59 Intake Total 770 50 Balance 770 50 PT 14.9 SEC (12.0-15.0) 05/05/18 17:56 INR 1.22 (0.83-1.16) H 05/05/18 17:56 ICD10 Worksheet Patient Problems: Problems Problem Status Onset Arm pain Acute End stage renal disease Acute Fever Acute Disorder of pancreas Active MRSA - Methicillin resistant Staphylococcus aureus infection Active MRSA - Methicillin resistant Staphylococcus aureus infection Active Metabolic acidosis Active Renal failure syndrome Active Abdominal pain Acute Altered mental status Acute Anemia Acute Chest pain Acute Chest pain Acute Dialysis complication Acute Diarrhea Acute Hyperkalemia Acute Hypotension Acute Opioid overdose Acute Renal failure Acute
[2018-05-12] MEDS ORDERED: LIDOCAINE 1% *Not for Epidural 20 ML MDV ONE (20:33)
--- NOTE | 2018-05-12 20:39 | SOAPPROG ---
SOAP Progress Note Assessment/Plan: Assessment: Called by patient through answering service this evening asking what is going on and why no one is addressing her fever or pain. She reports a fever of 102 today in dialysis but I don's see the dialysis documentation. I read Denny her notes from today. Tried to provide reassurance. Asked [facility] to go by Plan: 05/09/18 08:18 05/10/18 07:59 05/12/18 20:37 Objective: Vital Signs Temp Pulse Resp BP Pulse Ox 37.3 C 119 H 18 155/95 H 97 05/12/18 18:36 05/12/18 18:36 05/12/18 18:36 05/12/18 18:36 05/12/18 18:36 Microbiology 05/07/18 08:40 Gram Stain - Final Arm - Aspirate 05/12/18 09:30 Respiratory Panel (PCR) - Final Nasal, Sinus - [place] Viral Transport No Organism Detected By Pcr Laboratory Results 05/12/18 02:30 05/12/18 02:30 05/11/18 05/12/18 05/13/18 05:59 05:59 05:59 Intake Total 770 50 200 Balance 770 50 200 PT 14.9 SEC (12.0-15.0) 05/05/18 17:56 INR 1.22 (0.83-1.16) H 05/05/18 17:56 ICD10 Worksheet Patient Problems: Problems Problem Status Onset Arm pain Acute End stage renal disease Acute Fever Acute Disorder of pancreas Active MRSA - Methicillin resistant Staphylococcus aureus infection Active MRSA - Methicillin resistant Staphylococcus aureus infection Active Metabolic acidosis Active Renal failure syndrome Active Abdominal pain Acute Altered mental status Acute Anemia Acute Chest pain Acute Chest pain Acute Dialysis complication Acute Diarrhea Acute Hyperkalemia Acute Hypotension Acute Opioid overdose Acute Renal failure Acute
[2018-05-12] MEDS ORDERED: ceFAZolin 2 GM/DEXTROSE 100 ML IV SCH (21:00)
[2018-05-12] MEDS: MELATONIN 3 MG TAB PO SCH (22:46)
[2018-05-12] MEDS: hydrALAZINE 25 MG TAB PO PRN (22:47)
[2018-05-13] MEDS: ACETAMINOPHEN 325 MG TAB PO PRN ×2 (01:30→17:40)
[2018-05-13] MEDS: PROMETHAZINE HCL 25 MG/ML INJ IVP PRN ×5 (01:30→22:13)
[2018-05-13] MEDS: oxyCODONE IR 15 MG TAB PO PRN ×5 (04:07→22:13)
[2018-05-13 04:37] LABS: PLATELET COUNT 273 10^3/uL (150-400)
[2018-05-13] MEDS: FUROSEMIDE 80 MG TAB PO SCH ×2 (05:52→17:15)
[2018-05-13] MEDS: PANTOPRAZOLE SODIUM 40 MG TAB PO SCH ×2 (08:34→20:21)
[2018-05-13] MEDS: SENNOSIDES/DOCUSATE SODIUM TAB PO SCH ×2 (08:34→20:21)
[2018-05-13] MEDS: ALTEPLASE 2 MG VIAL IVP PRN ×2 (08:45→09:35)
[2018-05-13] MEDS: [UNRECOGNIZED DRUG - OTHER] DT SCH (09:28)
[2018-05-13] MEDS: FLUTICASONE NASAL 120 SPRAYS/16 GM MDI EACHNARE SCH ×2 (09:28→20:22)
--- NOTE | 2018-05-13 09:47 | PCMIDPN ---
Assessment/Plan: Assessment: 42-year-old woman with left upper extremity deep soft tissue infection complicating AV graft placement. No fever without focal signs or symptom of a nosocomial infection. The only objective changes there is an increased amount of warmth over the left upper extremity with increased swelling. It is feasible that she may have developed thromboses related to either the graft or, based on difficulty with the right upper extremity PICC line, other vascular access sites. No acute indication for change in antimicrobials and if no further fevers developing consider stepping down to oral therapy which she will have through her follow up with infectious diseases. 1. Nosocomial fever without focality, possible thromboses 1. Left upper extremity deep soft tissue infection, wound VAC in place 2. Status post left upper extremity debridement washout 05/11/2018 3. ESRD secondary to polycystic kidney disease requiring hemodialysis; Not actively listed for transplant 4. Status post left [facility] [place] nephrectomy 04/17/2018 5. Chronic, active hepatitis C virus infection 6. History of C diff colitis, March 2018 7. History of right femoral PermCath insertion site infection March 2018, removed 03/26/2018 Plan: 1. Continue cefazolin as prescribed with dialysis schedule 2. If no further fevers can stop down to cephalexin 500 mg Q 24 hr dosed in the evening to ensure it is given after dialysis session on dialysis days; this should be continued at least through her infectious diseases follow-up date on 3. No therapy directed at hepatitis C virus infection at this time 4. Reviewed in detail potential side effects of beta-lactam antibiotics to include: allergy, rash, nausea, antibiotic-associated diarrhea, Clostridioides difficile colitis. Sergio Riggins MD Infectious Diseases 05/13/18 21:58 Subjective: She has had periodic fevers over the last 24 hr. Fevers are associated with general fatigue in a general sense of feeling poorly without focal signs or symptoms. She notes no cough, shortness of breath at rest but does have mild shortness of breath when ambulating to the restroom, no rash, no arthralgias or myalgias, no abdominal pain or diarrhea. She is having bowel movements which she states are normal. She has noted a small nodular swelling at the anterior aspect of her nephrectomy incision that is nonpainful. She states she has no pain around her nephrectomy incision site. She is having headaches that she feels are associated with her elevated blood pressures the past 24-48 hours. She feels her left upper extremity has increased swelling not only in the upper arm near the surgical site but also extending distally to the forearm. Her right upper extremity PICC line has been flushing but not aspirating. Objective: Vital Signs Temp Pulse Resp BP Pulse Ox 36.9 C 104 H 18 131/86 H 91 L 05/13/18 08:00 05/13/18 08:00 05/13/18 08:00 05/13/18 08:00 05/13/18 08:00 Microbiology 05/07/18 19:54 Blood Culture - Final Blood 05/07/18 18:15 Blood Culture - Final Blood 05/07/18 08:40 Gram Stain - Final Arm - Aspirate 05/12/18 09:30 Respiratory Panel (PCR) - Final Nasal, Sinus - [place] Viral Transport No Organism Detected By Pcr Laboratory Results 05/13/18 04:15 05/12/18 02:30 05/12/18 05/13/18 05/14/18 05:59 05:59 05:59 Intake Total 50 350 Output Total 0 50 Balance 50 350 -50 Medications Generic Name Dose Route Start Last Admin Trade Name Freq PRN Reason Stop Dose Admin Cefazolin Sodium/Dextrose 100 mls @ 200 mls/hr 05/12/18 21:00 05/12/18 20:57 Ancef IV 06/05/18 20:59 100 mls [id number] [facility] Protocol Microbiology 05/12/18 09:30 Nasal, Sinus - [place] Viral Transport Respiratory Panel ( PCR) - Final No Organism Detected By Pcr 05/07/18 19:54 Blood Blood Culture - Final 05/07/18 18:15 Blood Blood Culture - Final 05/07/18 08:40 Arm - Aspirate Gram Stain - Final 05/05/18 18:37 Blood Blood Culture - Final 05/05/18 17:56 Blood Blood Culture - Final 05/07/18 08:40 Arm - Aspirate Fungal Culture - Preliminary 05/07/18 08:40 Arm - Aspirate Anaerobic Culture - Preliminary Laboratory Tests 05/07/18 05/12/18 05/13/18 05:00 02:30 04:15 WBC 8.00 9.76 H 11.40 H Absolute Neuts (auto) 9.21 H - Physical Exam General Appearance: no apparent distress, non-toxic EENT: No scleral icterus Respiratory: lungs clear, normal breath sounds, No respiratory distress, No accessory muscle use, No crackles, No wheezing Neck: full range of motion, supple Cardiac/Chest: tachycardia, systolic murmur, No diastolic murmur (Normal S1 and S2) Extremities: other (Left upper extremity medial aspect of upper arm with wound VAC in place, no erythema surrounding the surgical site, no induration, no fluctuance; the left upper extremity upper arm is warmer than the right upper extremity, there is no erythema, there is increased edema extending from the upper arm distally to the forearm) Abdomen: normal bowel sounds, non-tender, soft, other (Small subcutaneous nodular, nontender lesion the inferior aspect of her infraumbilical incision which is well healed without surrounding erythema, induration, fluctuance), No distended, No guarding Skin: No rash, No erythema Neuro/Psych: alert, oriented x 3, depressed affect, No confused - Time Spent With Patient Time Spent with Patient: greater than 35 minutes Time Spent with Patient: Greater than 35 minutes spent on this patients care, greater than 50% of time spent counseling, educating, and coordinating care regarding the above mentioned plan. 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
[2018-05-13] MEDS: CALCIUM ACETATE 667 MG CAP PO SCH ×3 (10:01→18:00)
--- NOTE | 2018-05-13 10:24 | SOAPPROG ---
SOAP Progress Note Assessment/Plan: Assessment/Plan: 42 y/o F s/p LUE AV graft revision with interposition [place]-deniz graft to distal brachial vein on 04/22/18 Now admitted with fever and increased redness and swelling in LUE. CT shows fluid collection surrounding graft, likely representing an abscess. S/p temp dialysis catheter placement in groin. S/p RUE abscess I&D. Now with wound vac. Tried AV graft for dialysis yesterday. Became febrile up to 38.9 yesterday evening. Temp back down now. RUE with increased swelling today. Plan to use groin cath for dialysis tomorrow. Pt will likely lose AV graft and need alternate access. Difficult situation as both IJs are occluded. Possible to place tunneled cath in groin or subclavian vein. Vac change today. Continue iv abx. S: Feels better after dialysis, but still nauseous. O: Alert Afebrile today RRR No increased WOB Abdomen soft, incision sites from recent nephrectomy cdi LUE: Upper arm incision is slightly edematous. + radial pulse. Wound vac to suction. 05/13/18 10:19 Objective: Vital Signs Temp Pulse Resp BP Pulse Ox 36.9 C 104 H 18 131/86 H 91 L 05/13/18 08:00 05/13/18 08:00 05/13/18 08:00 05/13/18 08:00 05/13/18 08:00 Microbiology 05/07/18 19:54 Blood Culture - Final Blood 05/07/18 18:15 Blood Culture - Final Blood 05/07/18 08:40 Gram Stain - Final Arm - Aspirate 05/12/18 09:30 Respiratory Panel (PCR) - Final Nasal, Sinus - [place] Viral Transport No Organism Detected By Pcr Laboratory Results 05/13/18 04:15 05/12/18 02:30 05/12/18 05/13/18 05/14/18 05:59 05:59 05:59 Intake Total 50 350 Output Total 0 50 Balance 50 350 -50 PT 14.9 SEC (12.0-15.0) 05/05/18 17:56 INR 1.22 (0.83-1.16) H 05/05/18 17:56 ICD10 Worksheet Patient Problems: Problems Problem Status Onset Arm pain Acute End stage renal disease Acute Fever Acute Disorder of pancreas Active MRSA - Methicillin resistant Staphylococcus aureus infection Active MRSA - Methicillin resistant Staphylococcus aureus infection Active Metabolic acidosis Active Renal failure syndrome Active Abdominal pain Acute Altered mental status Acute Anemia Acute Chest pain Acute Chest pain Acute Dialysis complication Acute Diarrhea Acute Hyperkalemia Acute Hypotension Acute Opioid overdose Acute Renal failure Acute
[2018-05-13] MEDS: FAMOTIDINE 20 MG/NACL 50 ML IV SCH ×2 (11:00→20:21)
[2018-05-13] MEDS: MELATONIN 3 MG TAB PO SCH (20:22)
--- NOTE | 2018-05-13 20:57 | WOCRNPDOC ---
WOCRN Advanced Assessment Note - Skin Integrity Problem, Advanced Assess Left Upper Arm Dialysis Shunt Dressing Type: Black Vac Foam (x2), Wound Vac Dressing Description: Clean/Dry, Intact Exudate Amount: None Integumentary Issue Intervention: Dressing Changed Morgan Wound Swelling: Moderate (biceps area) Wound Bed Constitution: Granulation Tissue (80%) Wound Edges: Epithelizing, Attached Site Odor: None Skin Integrity Problem Comment: Wound appears to be filling in. Cleaned with ns and gauze. Skin prep to morgan wound then drape. One piece of black small simplace foam to wound bed and covered by a black piece of foam as a "landing pad". Vac restarted at -125 mm Hg continuous with no leaks. Pateint tolerated procedure well. Next change due Friday. Wound care will follow.
[2018-05-13] MEDS ORDERED: CYCLOBENZAPRINE 10 MG TAB PO PRN (21:35)
--- NOTE | 2018-05-13 21:40 | HOSPPROG ---
Hospitalist Progress Note Assessment/Plan: #LUE abscess in region of proximal AV graft revision. Her fistula is distal to this. She is s/p I&D with upper arm wound vac placed 05/07 -Continues to have LUE pain and swelling. U/S neg for DVT. -will need wound vac at dc -cont IV Ancef, ID following, discussed care plan with Dr Riggins -no clear evidence that the graft itself was infected, neg BCx's, so will try to maintain this dialysis access -pain control with home oxy, have given occasional IV dilaudid doses. 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 says she is on transplant list, temporary non-tunnelled catheter in groin, placed on admission due to above -HD per renal; (,, schedule) -discussed access with renal and surg, sounds like her fistula (distal to region of infection) is still functioning and can likely continue to use #Blood transfusion reaction 05/07: Symptoms resolved after benadryl, did not require steroids. -would pre-treat if requires transfusion in future #Anemia renal disease: transfused 1 unit 05/07, hgb trending down -defer transfusion for now, cont to follow #H/O hyperkalemia: HD per renal #Sepsis: leukocytosis, tachy, 2/2 LUE abscess. Sepsis physiology resolved. -abx as above -noted 102 temp yesterday, discussed with ID, no change to meds at this time #Hypervolemic hyponatremia: Na normalized -HD as above #HTN: cont home medications, uses Lisinopril prn, but not on dialysis days #Chronic pain syndrome: home meds, pt requested increase to q4h, declined by prev hospitalist -add cyclobenzaprine prn #h/o cardiac arrest #h/o polysubstance abuse: denies recent use #Metabolic acidosis: due to ESRD. HD #Nausea -trial carafate PCP Dr Durán at [facility] Disp: likely >48 hrs, depends upon length of IV abx and possible surgery Objective: Vital Signs Temp Pulse Resp BP Pulse Ox 98.4 F 104 H 18 131/86 H 91 L 05/13/18 08:00 05/13/18 08:00 05/13/18 08:00 05/13/18 08:00 05/13/18 08:00 Microbiology 05/07/18 19:54 Blood Culture - Final Blood 05/07/18 18:15 Blood Culture - Final Blood Laboratory Results 05/13/18 04:15 05/13/18 17:10 05/12/18 05/13/18 05/14/18 11:59 11:59 11:59 Intake Total 50 350 Output Total 50 Balance 50 300 PT 14.9 SEC (12.0-15.0) 05/05/18 17:56 INR 1.22 (0.83-1.16) H 05/05/18 17:56 - Time Spent With Patient Time Spent with Patient: greater than 35 minutes (Says cant eat anything, feels very nauseous. Upset bc of fever during dialysis last nt.) Time Spent with Patient: Greater than 35 minutes spent on this patients care, greater than 50% of time spent counseling, educating, and coordinating care regarding the above mentioned plan. - Physical Exam Constitutional: appears nourished Eyes: anicteric sclera Ears, Nose, Mouth, Throat: moist mucous membranes Cardiovascular: regular rate and rhythym Respiratory: no respiratory distress, no rales or rhonchi, clear to auscultation Gastrointestinal: normoactive bowel sounds, soft, non-tender abdomen Skin: warm Musculoskeletal: other (wound vac in place R arm) Psychiatric: anxious, agitated ICD10 Worksheet Patient Problems: Problems Problem Status Onset Disorder of pancreas Active 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
[2018-05-14] MEDS: oxyCODONE IR 15 MG TAB PO PRN ×5 (02:43→20:22)
[2018-05-14] MEDS: FUROSEMIDE 80 MG TAB PO SCH ×2 (05:32→16:09)
[2018-05-14] MEDS: PROMETHAZINE HCL 25 MG/ML INJ IVP PRN ×4 (05:32→23:32)
[2018-05-14 05:54] LABS: PLATELET COUNT 235 10^3/uL (150-400)
[2018-05-14] MEDS: CALCIUM ACETATE 667 MG CAP PO SCH ×3 (07:36→18:03)
[2018-05-14] MEDS: SENNOSIDES/DOCUSATE SODIUM TAB PO SCH ×2 (07:37→23:31)
[2018-05-14] MEDS: PANTOPRAZOLE SODIUM 40 MG TAB PO SCH ×2 (07:39→23:31)
[2018-05-14] MEDS ORDERED: VANCOMYCIN HCL/NORMAL SALINE 250 ML IV SCH (08:00)
[2018-05-14] MEDS: FAMOTIDINE 20 MG/NACL 50 ML IV SCH (10:17)
[2018-05-14] MEDS: SUCRALFATE 1 GM TAB PO SCH ×4 (10:19→23:31)
[2018-05-14] MEDS: hydrALAZINE 25 MG TAB PO PRN (10:19)
[2018-05-14] MEDS: FLUTICASONE NASAL 120 SPRAYS/16 GM MDI EACHNARE SCH (10:24)
[2018-05-14] MEDS: [UNRECOGNIZED DRUG - OTHER] DT SCH (10:25)
--- NOTE | 2018-05-14 10:58 | SOAPPROG ---
SOAP Progress Note Assessment/Plan: Assessment: 1. Arm Infection Overall odd picture, and clinical decision making is atypical by necessity based on patient's compliance issues and very limited access options. Pt had I&D of upper arm area of necrotic fat. It was not contiguous with Lower arm graft. However, upon using graft, she spiked to 103. She was dialyzed Friday via R groin line. She was switched from ancef to Vanco. Cultures have been negative. She has been afebrile. Arm is swollen but not red. Upper arm wound is covered by wound vac. Pt is more mobile with fem line than I would like. I advised her of my concerns. 2. Dialysis Today. Will use line. Will keep in house and use graft on Friday. 3. Her main dialysis provider is [employer] DEPART[employer] SECRETARY Savana Navas with [facility]. I spoke with her today. She would like to be called when patient DC'd. Her number is [phone]. 4. Anemia Below goal, but stable. Dose with procrit Subjective: No major complaints Objective: Vital Signs Temp Pulse Resp BP Pulse Ox 36.8 C 105 H 16 153/103 H 96 05/14/18 08:41 05/14/18 08:41 05/14/18 08:41 05/14/18 08:41 05/14/18 08:41 Microbiology 05/07/18 19:54 Blood Culture - Final Blood 05/07/18 18:15 Blood Culture - Final Blood Laboratory Results 05/14/18 05:40 05/14/18 05:40 05/13/18 05/14/18 05/15/18 05:59 05:59 05:59 Intake Total 350 50 Output Total 0 50 Balance 350 0 PT 14.9 SEC (12.0-15.0) 05/05/18 17:56 INR 1.22 (0.83-1.16) H 05/05/18 17:56 Physical Exam - Physical Exam General Appearance: no apparent distress Respiratory: lungs clear Cardiac/Chest: regular rate, rhythm Extremities: other (L arm with wound vac. Some edema in upper and lower arm. 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
--- NOTE | 2018-05-14 13:20 | SOAPPROG ---
SOAP Progress Note Assessment/Plan: Assessment/Plan: 42 y/o F s/p LUE AV graft revision with interposition [place]-deniz graft to distal brachial vein on 04/22/18 Now admitted with fever and increased redness and swelling in LUE. CT shows fluid collection surrounding graft, likely representing an abscess. S/p temp dialysis catheter placement in groin. S/p RUE abscess I&D. Now with wound vac. Tried AV graft for dialysis Friday. Became febrile up to 38.9 yesterday evening. Temp back down now. RUE with increased swelling today. Currently in dialysis using groin cath. Plan to use AV graft for dialysis on Friday. If pt spikes temp again, will plan on taking graft out and placing tunneled subclavian catheter. Vac change tomorrow. Continue iv abx. S: Feels well overall. O: Alert Afebrile today RRR No increased WOB Abdomen soft, incision sites from recent nephrectomy cdi LUE: Upper arm incision is slightly edematous. + radial pulse. Wound vac to suction. 05/14/18 13:18 Objective: Vital Signs Temp Pulse Resp BP Pulse Ox 36.8 C 105 H 16 153/103 H 96 05/14/18 08:41 05/14/18 08:41 05/14/18 08:41 05/14/18 08:41 05/14/18 08:41 Microbiology 05/07/18 08:40 Gram Stain - Final Arm - Aspirate Anaerobic Culture - Final 05/07/18 19:54 Blood Culture - Final Blood 05/07/18 18:15 Blood Culture - Final Blood Laboratory Results 05/14/18 05:40 05/14/18 05:40 05/13/18 05/14/18 05/15/18 05:59 05:59 05:59 Intake Total 350 50 370 Output Total 0 50 Balance 350 0 370 PT 14.9 SEC (12.0-15.0) 05/05/18 17:56 INR 1.22 (0.83-1.16) H 05/05/18 17:56 ICD10 Worksheet Patient Problems: Problems Problem Status Onset Arm pain Acute End stage renal disease Acute Fever Acute Disorder of pancreas Active MRSA - Methicillin resistant Staphylococcus aureus infection Active MRSA - Methicillin resistant Staphylococcus aureus infection Active Metabolic acidosis Active Renal failure syndrome Active Abdominal pain Acute Altered mental status Acute Anemia Acute Chest pain Acute Chest pain Acute Dialysis complication Acute Diarrhea Acute Hyperkalemia Acute Hypotension Acute Opioid overdose Acute Renal failure Acute
--- NOTE | 2018-05-14 14:56 | PCMIDPN ---
Assessment/Plan: # Abscess surrounding AV graft s/p I&D with negative cx but rec'd both cephalosporin and dose of vancomycin prior to I&D (by her history, I did not confirm). This is my first exam but arm still swollen, warm, upper arm mildly tender. Reasonable to try to switch abx to cover MRSA but another reason for failure is infection associated graft material --dc cefazolin --start vancomycin after HD, dose of 750mg ok # Continued intermittent Fever: likely related to infection LUE but also could consider drug fever. Resp panel PCR neg # Remote MRSA h/o Meds Cefazolin IV intermittently #8 Microbiology 05/07/18 19:54 Blood Cx (2) NGTD 05/07/18 08:40 Arm - :Gram stain neg for org. Cx neg 05/05/18 17:56 Blood Cx (2) neg 05/05/18 17:54 Respiratory Panel (PCR) Neg Subjective: patient c/o L shoulder pain, L upper arm pain feels a little better than compared to admission, describes it as up and down Objective: Vital Signs Temp Pulse Resp BP Pulse Ox 36.8 C 105 H 16 153/103 H 96 05/14/18 08:41 05/14/18 08:41 05/14/18 08:41 05/14/18 08:41 05/14/18 08:41 Microbiology 05/07/18 08:40 Gram Stain - Final Arm - Aspirate Anaerobic Culture - Final Laboratory Results 05/14/18 05:40 05/14/18 05:40 05/13/18 05/14/18 05/15/18 05:59 05:59 05:59 Intake Total 350 50 370 Output Total 0 50 Balance 350 0 370 - Physical Exam General Appearance: alert, no apparent distress, non-toxic EENT: pale conjunctiva Respiratory: lungs clear, No accessory muscle use Neck: supple Cardiac/Chest: regular rate, rhythm Extremities: other (LUE swelling and warmth, wound vac in place medial upper arm ; radial pulse intact, palpable thrill forearm) Skin: No rash Neuro/Psych: alert, normal mood/affect, oriented x 3 - Line/s other Lines: other (R groin HD cath c/d/i), No drainage, No erythema - Time Spent With Patient Time Spent with Patient: greater than 35 minutes (care coordinated with surgery) Time Spent with Patient: Greater than 35 minutes spent on this patients care, greater than 50% of time spent counseling, educating, and coordinating care regarding the above mentioned plan. 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
[2018-05-14] MEDS: ACETAMINOPHEN 325 MG TAB PO PRN (17:00)
--- NOTE | 2018-05-14 17:40 | ASMTCMCOM ---
CM Note CM Note Notes: Pt has wound vac on upper arm due to abscess around AV graft. She gets dialysis T//FRI, no therapies ordered. Anticipate pt will dc home when medically stable, CM available for any changes. DC Plan: Independent Date Signed: 05/14/2018 05:40 PM Electronically Signed By:Mela Jose RN
--- NOTE | 2018-05-14 20:44 | HOSPPROG ---
Hospitalist Progress Note Assessment/Plan: #LUE abscess in region of proximal AV graft revision. Her fistula is distal to this. She is s/p I&D with upper arm wound vac placed 05/07 -Continues to have LUE pain and swelling. U/S neg for DVT. -will need wound vac at dc -discussed care plan with ID and surgery -no clear evidence that the graft itself was infected, neg BCx's, so will try to maintain this dialysis access -pain control with home oxy, have given occasional IV dilaudid doses. 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 On transplant list, temporary non-tunnelled catheter in groin, placed on admission due to above -HD per renal; (,, schedule) -discussed access with renal and surg, sounds like her fistula (distal to region of infection) is still functioning and can likely continue to use -discussing with IR about PICC issues #Blood transfusion reaction 05/07: Symptoms resolved after benadryl, did not require steroids. -would pre-treat if requires transfusion in future #Anemia renal disease: transfused 1 unit 05/07, hgb trending down -defer transfusion for now, cont to follow #H/O hyperkalemia: HD per renal #Sepsis: leukocytosis, tachy, 2/2 LUE abscess. Sepsis physiology resolved. #Hypervolemic hyponatremia: Na normalized -HD as above #HTN: cont home medications, uses Lisinopril prn, but not on dialysis days #Chronic pain syndrome: home meds, pt requested increase to q4h, declined by prev hospitalist -cyclobenzaprine prn #h/o cardiac arrest #h/o polysubstance abuse: denies recent use #Metabolic acidosis: due to ESRD. HD #Nausea -added carafate PCP Dr Durán at [facility] Dispo: unclear at this time, depends upon IV abx, possible surgery Objective: Vital Signs Temp Pulse Resp BP Pulse Ox 98.3 F 102 H 16 130/80 H 98 05/14/18 15:58 05/14/18 15:58 05/14/18 15:58 05/14/18 15:58 05/14/18 15:58 Microbiology 05/07/18 08:40 Gram Stain - Final Arm - Aspirate Anaerobic Culture - Final Laboratory Results 05/14/18 05:40 05/14/18 05:40 05/13/18 05/14/18 05/15/18 11:59 11:59 11:59 Intake Total 350 420 Output Total 50 0 100 Balance 300 420 -100 PT 14.9 SEC (12.0-15.0) 05/05/18 17:56 INR 1.22 (0.83-1.16) H 05/05/18 17:56 - Time Spent With Patient Time Spent with Patient: greater than 35 minutes (PICC not working/leaking per RN. She is a bit calmer/less nauseous today. No further fever.) Time Spent with Patient: Greater than 35 minutes spent on this patients care, greater than 50% of time spent counseling, educating, and coordinating care regarding the above mentioned plan. 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
[2018-05-14] MEDS: VANCOMYCIN 750 MG in D5W 150 ML IV SCH (21:37)
[2018-05-14] MEDS: MELATONIN 3 MG TAB PO SCH (23:31)
[2018-05-15] MEDS: oxyCODONE IR 15 MG TAB PO PRN ×6 (00:26→22:28)
[2018-05-15] MEDS: FLUTICASONE NASAL 120 SPRAYS/16 GM MDI EACHNARE SCH ×3 (01:41→22:33)
[2018-05-15] MEDS: FUROSEMIDE 80 MG TAB PO SCH ×2 (06:17→18:23)
[2018-05-15] MEDS: PROMETHAZINE HCL 25 MG/ML INJ IVP PRN ×3 (06:36→18:24)
[2018-05-15 07:08] LABS: PLATELET COUNT 247 10^3/uL (150-400)
[2018-05-15 07:17] LABS: INR 1.09 (0.83-1.16); PROTIME(PATIENT) 13.7 SEC (12.0-15.0)
[2018-05-15] MEDS: PANTOPRAZOLE SODIUM 40 MG TAB PO SCH ×2 (08:27→22:21)
[2018-05-15] MEDS: SENNOSIDES/DOCUSATE SODIUM TAB PO SCH ×2 (08:27→22:20)
[2018-05-15] MEDS: SUCRALFATE 1 GM TAB PO SCH ×4 (08:28→22:20)
[2018-05-15] MEDS: CALCIUM ACETATE 667 MG CAP PO SCH ×3 (08:28→18:23)
[2018-05-15] MEDS: [UNRECOGNIZED DRUG - OTHER] DT SCH (08:29)
--- NOTE | 2018-05-15 12:29 | WOCRNPDOC ---
WOCRN Advanced Assessment Note - Skin Integrity Problem, Advanced Assess Left Upper Arm Dialysis Shunt Dressing Type: Black Vac Foam (x2) Dressing Description: Clean/Dry, Intact (reinforced several times) Exudate Amount: Scant Exudate Color: Reddish/Yellow Exudate Characteristic(s): Serosanguinous Integumentary Issue Intervention: Dressing Changed Morgan Wound Tissue: Intact Wound Bed Color: Peralta Wound Bed Constitution: Red/Peralta - Non Granular Tissue (90%), Subcutaneous Fat ( 10%) Wound Edges: Attached, Well Defined Site Odor: None Site Measurement - Head-to-Toe Length X Width X Depth (cm): 4x2x0.8 Skin Integrity Problem Comment: Wound bed cleaned with NS and gauze and skin prep applied to morgan-wound tissue. Wound bed measured and measurements shared with Angelica GIORDNAO. Small piece of black simplace foam cut to fit wound bed and draped. Hole cut in drape for trac pad and good seal achieved at -125mmHg. Patient tolerated the procedure well. All questions answered. Wound care will round again on Friday for next vac change.
--- NOTE | 2018-05-15 12:37 | PCMIDPN ---
Assessment/Plan: Assessment: Right upper extremity abscess-micro samples not revealing a pathogen but patient on antibiotics prior to sampling. Currently we are dosing vancomycin intermittently by levels. Will check her level following dialysis tomorrow. Also will use the access of the graft tomorrow to see if she has any febrile response. If she does have febrile response this may indicate need for graft revision. Plan: 1. Continue vancomycin intermittently dosed. 2. Check vancomycin random level following dialysis tomorrow. Re-dose is appropriate. 3. Follow Vital Signs after dialysis access of graft tomorrow. 05/15/18 13:12 Subjective: Patient is resting in her hospital bed. She feels and looks well. Denies any new complaint or fevers. Objective: Vancomycin # 2 Vital Signs Temp Pulse Resp BP Pulse Ox 36.6 C 140 H 14 154/86 H 96 05/15/18 07:12 05/15/18 07:12 05/15/18 07:12 05/15/18 07:12 05/15/18 07:12 Microbiology 05/07/18 08:40 Gram Stain - Final Arm - Aspirate Anaerobic Culture - Final Laboratory Results 05/15/18 06:26 05/15/18 06:26 05/14/18 05/15/18 05/16/18 05:59 05:59 05:59 Intake Total 50 370 Output Total 50 100 Balance 0 270 - Physical Exam General Appearance: WD/WN, alert, no apparent distress, non-toxic Respiratory: lungs clear, normal breath sounds, No respiratory distress Cardiac/Chest: regular rate, rhythm, No tachycardia Skin: normal color, warm/dry, No rash Neuro/Psych: alert, normal mood/affect, oriented x 3 ICD10 Worksheet Patient Problems: Problems Problem Status Onset Arm pain Acute End stage renal disease Acute Fever Acute Disorder of pancreas Active MRSA - Methicillin resistant Staphylococcus aureus infection Active MRSA - Methicillin resistant Staphylococcus aureus infection Active Metabolic acidosis Active Renal failure syndrome Active Abdominal pain Acute Altered mental status Acute Anemia Acute Chest pain Acute Chest pain Acute Dialysis complication Acute Diarrhea Acute Hyperkalemia Acute Hypotension Acute Opioid overdose Acute Renal failure Acute
--- NOTE | 2018-05-15 13:32 | SOAPPROG ---
[facility] Progress Note Assessment/Plan: Assessment/Plan: 42 y/o F s/p LUE AV graft revision with interposition Hostetter-deniz graft to distal brachial vein on 04/22/18 Now admitted with fever and increased redness and swelling in LUE. CT shows fluid collection surrounding graft, likely representing an abscess. S/p temp dialysis catheter placement in groin. S/p RUE abscess I&D. Now with wound vac. Tried AV graft for dialysis Friday. Became febrile up to 38.9 yesterday evening. Afebrile since then. Plan to use AV graft for dialysis on Friday. If pt spikes temp again, will plan on taking graft out. Continue iv abx. S: Feels well overall. O: Alert Afebrile today RRR No increased WOB Abdomen soft, incision sites from recent nephrectomy cdi LUE: Upper arm incision is slightly edematous. + radial pulse. Wound vac taken down to reveal healthy granulation tissue. 05/15/18 13:31 Objective: Vital Signs Temp Pulse Resp BP Pulse Ox 36.6 C 140 H 14 154/86 H 96 05/15/18 07:12 05/15/18 07:12 05/15/18 07:12 05/15/18 07:12 05/15/18 07:12 Microbiology 05/07/18 08:40 Gram Stain - Final Arm - Aspirate Anaerobic Culture - Final Laboratory Results 05/15/18 06:26 05/15/18 06:26 05/14/18 05/15/18 05/16/18 05:59 05:59 05:59 Intake Total 50 370 Output Total 50 100 Balance 0 270 PT 13.7 SEC (12.0-15.0) 05/15/18 06:26 INR 1.09 (0.83-1.16) 05/15/18 06:26 ICD10 Worksheet Patient Problems: Problems Problem Status Onset Arm pain Acute End stage renal disease Acute Fever Acute Disorder of pancreas Active MRSA - Methicillin resistant Staphylococcus aureus infection Active MRSA - Methicillin resistant Staphylococcus aureus infection Active Metabolic acidosis Active Renal failure syndrome Active Abdominal pain Acute Altered mental status Acute Anemia Acute Chest pain Acute Chest pain Acute Dialysis complication Acute Diarrhea Acute Hyperkalemia Acute Hypotension Acute Opioid overdose Acute Renal failure Acute
--- NOTE | 2018-05-15 15:24 | SOAPPROG ---
SOAP Progress Note Assessment/Plan: Assessment: ESRD on TTS HD as outpatient, does her dialysis in [place] recent AVF revision with graft interposition swollen fistula arm post op debridement and washout of AVF site, vac in place Anemia, had transfusion Plan: HD tomorrow ID consulted for ABX assistance continue wound care Wants to move to [place] HD unit pt says she is going back to OR today, plan on HD tomorrow, will attempt to use graft, has been getting febrile when we use it 05/07/18 14:40 05/15/18 15:21 Subjective: spirits overall good frustrated about still being in the hospital no cp sob c/o nausea and vomiting despite phenergan getting up and around Objective: Vital Signs Temp Pulse Resp BP Pulse Ox 36.6 C 140 H 14 154/86 H 96 05/15/18 07:12 05/15/18 07:12 05/15/18 07:12 05/15/18 07:12 05/15/18 07:12 Microbiology 05/07/18 08:40 Gram Stain - Final Arm - Aspirate Anaerobic Culture - Final Laboratory Results 05/15/18 06:26 05/15/18 06:26 05/14/18 05/15/18 05/16/18 05:59 05:59 05:59 Intake Total 50 370 Output Total 50 100 Balance 0 270 PT 13.7 SEC (12.0-15.0) 05/15/18 06:26 INR 1.09 (0.83-1.16) 05/15/18 06:26 Physical Exam - Physical Exam General Appearance: alert Neck: normal inspection Respiratory: rales, No rhonchi, No wheezing Cardiac/Chest: regular rate, rhythm, edema, No friction rub Abdomen: normal bowel sounds, non-tender, soft Extremities: swelling Neuro/Psych: alert, normal mood/affect, oriented x 3 ICD10 Worksheet Patient Problems: Problems Problem Status Onset Arm pain Acute End stage renal disease Acute Fever Acute Disorder of pancreas Active MRSA - Methicillin resistant Staphylococcus aureus infection Active MRSA - Methicillin resistant Staphylococcus aureus infection Active Metabolic acidosis Active Renal failure syndrome Active Abdominal pain Acute Altered mental status Acute Anemia Acute Chest pain Acute Chest pain Acute Dialysis complication Acute Diarrhea Acute Hyperkalemia Acute Hypotension Acute Opioid overdose Acute Renal failure Acute
[2018-05-15] MEDS ORDERED: IOPAMIDOL (ISOVUE-300) 100 ML BTL ONE ×2 (15:38→16:06)
[2018-05-15] MEDS ORDERED: HEPARIN 10,000 UNIT/10 ML MDV (1,000 UNIT/ML) ONE (15:46)
[2018-05-15] MEDS: hydrALAZINE 25 MG TAB PO PRN (18:34)
[2018-05-15] MEDS ORDERED: LORazepam 1 MG TAB PO ONE (19:15)
[2018-05-15] MEDS: MELATONIN 3 MG TAB PO SCH (22:20)
--- NOTE | 2018-05-15 23:47 | HOSPPROG ---
Hospitalist Progress Note Assessment/Plan: #LUE abscess in region of proximal AV graft revision. Her fistula is distal to this. She is s/p I&D with upper arm wound vac placed 05/07 -Continues to have LUE pain and swelling. U/S neg for DVT. -will need wound vac at dc -discussed care plan with ID, surgery, IR, and at length with her today -no clear evidence that the graft itself was infected, neg BCx's, so will try to maintain this dialysis access -pain control with home oxy, have given occasional IV dilaudid doses. 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 On transplant list, temporary non-tunnelled catheter in groin, placed on admission due to above -HD per renal; (,, schedule) -fistula (distal to region of infection) is still functioning and can likely continue to use, will access tomorrow and take a bd cx at same time in case has temp again -apologized unable to do procedure today/was a scheduling issue. Reminded her that I spoke on the phone with Dr Son in her room yesterday re this procedure. -I will speak tomorrow with Dr Clark, covering for Dr Redd for the weekend re plan for weekend #Blood transfusion reaction 05/07: Symptoms resolved after benadryl, did not require steroids. -would pre-treat if requires transfusion in future #Anemia renal disease: transfused 1 unit 05/07, hgb trending down -defer transfusion for now, cont to follow #H/O hyperkalemia: HD per renal #Sepsis: leukocytosis, tachy, 2/2 LUE abscess. Sepsis physiology resolved. #Hypervolemic hyponatremia: Na normalized -HD as above #HTN: cont home medications, uses Lisinopril prn, but not on dialysis days #Chronic pain syndrome: home meds, pt requested increase to q4h, declined by prev hospitalist -cyclobenzaprine prn #h/o cardiac arrest #h/o polysubstance abuse: denies recent use #Metabolic acidosis: due to ESRD. HD #Nausea -added carafate PCP Dr Durán at [facility] Dispo: unclear at this time, depends upon IV abx, possible surgery Subjective: Very upset, aggressive/yelling at me. Says no one is commuicating with her, eg no one told her Dr Son was doing procedure today (I was on the phone with Dr Son in her room yesterday discussing with her the procedure and her sedation concerns.) Says transplant providers never able to get ahold of anyone here and we are all doing it wrong but doesnt want to transfer or leave because wants Dr Redd to clean up his s... and will go to [facility] when she s ready. Objective: Vital Signs Temp Pulse Resp BP Pulse Ox 97.9 F 101 H 16 163/92 H 100 05/15/18 19:56 05/15/18 19:56 05/15/18 19:56 05/15/18 19:56 05/15/18 19:56 Laboratory Results 05/15/18 06:26 05/15/18 06:26 05/14/18 05/15/18 05/16/18 11:59 11:59 11:59 Intake Total 420 Output Total 0 100 Balance 420 -100 PT 13.7 SEC (12.0-15.0) 05/15/18 06:26 INR 1.09 (0.83-1.16) 05/15/18 06:26 - Time Spent With Patient Time Spent with Patient: greater than 35 minutes Time Spent with Patient: Greater than 35 minutes spent on this patients care, greater than 50% of time spent counseling, educating, and coordinating care regarding the above mentioned plan. - Physical Exam Constitutional: other (very upset/yelling) Eyes: anicteric sclera Ears, Nose, Mouth, Throat: moist mucous membranes Cardiovascular: tachycardia Respiratory: no respiratory distress, no rales or rhonchi, clear to auscultation Psychiatric: anxious, agitated ICD10 Worksheet Patient Problems: Problems Problem Status Onset Disorder of pancreas Active 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
[2018-05-16] MEDS: FUROSEMIDE 80 MG TAB PO SCH ×2 (05:22→17:15)
[2018-05-16] MEDS: PROMETHAZINE HCL 25 MG/ML INJ IVP PRN ×3 (05:38→20:41)
[2018-05-16] MEDS: oxyCODONE IR 15 MG TAB PO PRN ×4 (05:39→21:58)
[2018-05-16] MEDS: CALCIUM ACETATE 667 MG CAP PO SCH ×3 (09:49→17:15)
[2018-05-16] MEDS: SUCRALFATE 1 GM TAB PO SCH ×4 (09:49→20:31)
[2018-05-16] MEDS: ACETAMINOPHEN 325 MG TAB PO PRN ×2 (13:13→20:40)
[2018-05-16] MEDS: PANTOPRAZOLE SODIUM 40 MG TAB PO SCH ×2 (13:13→20:31)
[2018-05-16] MEDS: FLUTICASONE NASAL 120 SPRAYS/16 GM MDI EACHNARE SCH ×2 (13:14→22:36)
[2018-05-16] MEDS: [UNRECOGNIZED DRUG - OTHER] DT SCH (13:14)
[2018-05-16] MEDS: SENNOSIDES/DOCUSATE SODIUM TAB PO SCH ×2 (13:18→20:31)
--- NOTE | 2018-05-16 15:50 | ASMTCMCOM ---
CM Note CM Note Notes: Wound vac taken down from upper extremity. She gets dialysis T/TH/SAT, no therapies ordered. Anticipate she will dc home w/support of family when medically stable, CM available for any changes. DC Plan: Independent Date Signed: 05/16/2018 03:50 PM Electronically Signed By:Mela Jose RN
--- NOTE | 2018-05-16 18:36 | SOAPPROG ---
SOAP Progress Note Assessment/Plan: Assessment/Plan: #ESRD-- on HD TTS as outpatient --Had HD on 05/16 per routine schedule. Accessed AVG and had blood cultures drawn. No fevers or chills with accessing fistula on 05/16 --per Keyur's note: MARKETING PRODUCTION COORDINATOR Savana Navas at [facility] would like call prior to patient discharge ([phone]) # Access- very difficult access in past --Still has temp femoral line, encouraged to minimize activity --Used LUE AVG on 05/16 without significant issues (mildly elevated pressures per HD nurse) --s/p washout with wound vac in place --ID following # Anemia --Check CBC with AM labs --Avoiding IV iron in setting of concern for infection Subjective: Patient reports still having some arm swelling. HD today via AVG, patient denies fevers or chills. Objective: Vital Signs Temp Pulse Resp BP Pulse Ox 36.9 C 94 16 143/94 H 95 05/16/18 17:25 05/16/18 17:25 05/16/18 17:25 05/16/18 17:25 05/16/18 17:25 Laboratory Results 05/15/18 06:26 05/16/18 05:31 05/15/18 05/16/18 05/17/18 05:59 05:59 05:59 Intake Total 370 Output Total 100 300 Balance 270 -300 PT 13.7 SEC (12.0-15.0) 05/15/18 06:26 INR 1.09 (0.83-1.16) 05/15/18 06:26 Exam- General- awake, alert, well-appearing Eyes- anicteric sclera, no conjunctival injection HEENT- MMM, no gross oral lesions CV- NRRR, no g/m/r Pulm- CTAB, no wheezes or rales, breathing comfortably on RA Extrem- wound vac proximal LUE, AVG with good bruit and thrill no erythema or warmth, some swelling of LUE Skin- multiple tattoos ICD10 Worksheet Patient Problems: Problems Problem Status Onset Arm pain Acute End stage renal disease Acute Fever Acute Disorder of pancreas Active MRSA - Methicillin resistant Staphylococcus aureus infection Active MRSA - Methicillin resistant Staphylococcus aureus infection Active Metabolic acidosis Active Renal failure syndrome Active Abdominal pain Acute Altered mental status Acute Anemia Acute Chest pain Acute Chest pain Acute Dialysis complication Acute Diarrhea Acute Hyperkalemia Acute Hypotension Acute Opioid overdose Acute Renal failure Acute
[2018-05-16] MEDS: MELATONIN 3 MG TAB PO SCH (20:31)
[2018-05-16] MEDS ORDERED: HEPARIN 50,000 UNIT/10 ML VIAL ONE (20:33)
[2018-05-16] MEDS: VANCOMYCIN 750 MG in D5W 150 ML IV SCH (21:59)
[2018-05-16] MEDS ORDERED: LORazepam 0.5 MG TAB PO ONE (22:22)
[2018-05-17] MEDS: PROMETHAZINE HCL 25 MG/ML INJ IVP PRN ×4 (02:43→18:16)
[2018-05-17] MEDS: oxyCODONE IR 15 MG TAB PO PRN ×5 (05:09→20:47)
[2018-05-17] MEDS: FUROSEMIDE 80 MG TAB PO SCH ×2 (05:09→16:47)
[2018-05-17] MEDS: PANTOPRAZOLE SODIUM 40 MG TAB PO SCH ×2 (08:51→20:36)
[2018-05-17] MEDS: CALCIUM ACETATE 667 MG CAP PO SCH ×3 (08:51→16:50)
[2018-05-17] MEDS: SUCRALFATE 1 GM TAB PO SCH ×4 (08:51→20:36)
[2018-05-17] MEDS: FLUTICASONE NASAL 120 SPRAYS/16 GM MDI EACHNARE SCH ×2 (08:51→22:40)
[2018-05-17] MEDS: SENNOSIDES/DOCUSATE SODIUM TAB PO SCH ×2 (08:52→20:36)
[2018-05-17] MEDS: [UNRECOGNIZED DRUG - OTHER] DT SCH (12:01)
[2018-05-17] MEDS: LORazepam 0.5 MG TAB PO PRN (12:30)
[2018-05-17] MEDS: ACETAMINOPHEN 325 MG TAB PO PRN (12:32)
[2018-05-17] MEDS: hydrALAZINE 25 MG TAB PO PRN (12:37)
--- NOTE | 2018-05-17 16:13 | SOAPPROG ---
SOAP Progress Note Assessment/Plan: Assessment/Plan: #ESRD-- on HD TTS as outpatient --Had HD on 05/16 per routine schedule. Accessed AVG and had blood cultures drawn , NGTD as of 05/17. No fevers or chills with accessing fistula on 05/16 --per Keyur's note: FAMILY AND CONSUMER SCIENCES TEACHER Savana Navas at [facility] wanted a call prior to patient discharge ([phone]). Called and left a voicemail on 05/17 --Return to regular outpatient dialysis on Friday # Access- very difficult access in past --Still has temp femoral line--will need d/c'ed prior to discharge with strict bed rest for 2hrs after line removed --Used LUE AVG on 05/16 without significant issues (mildly elevated pressures per HD nurse). Discussed with ID. Khan for discharge off antibiotics. Patient given instructions to return to ED if she develops fevers or other signs/ symptoms of infection --s/p washout with wound vac in placement on upper arm # Anemia --Hgb 7.3 on 05/17, CTM as outpatient with SAMMY --Avoiding IV iron in setting of concern for infection # Hypertension- --would plan for discharge on outpatient antihypertensive regimen # Pain- --would avoid Tylenol as don't want to mask a fever 05/17/18 16:19 Subjective: Having nausea but still wants to go home. No fevers/chills. Reports Bp intermittently elevated. Objective: Vital Signs Temp Pulse Resp BP Pulse Ox 36.9 C 112 H 16 130/71 H 96 05/17/18 15:33 05/17/18 15:33 05/17/18 15:33 05/17/18 15:33 05/17/18 15:33 Laboratory Results 05/17/18 05:10 05/17/18 05:10 05/16/18 05/17/18 05/18/18 05:59 05:59 05:59 Output Total 300 Balance -300 PT 13.7 SEC (12.0-15.0) 05/15/18 06:26 INR 1.09 (0.83-1.16) 05/15/18 06:26 General- awake, alert, well-appearing Eyes- anicteric sclera, no conjunctival injection HEENT- MMM, no gross oral lesions CV- NRRR, no g/m/r Pulm- CTAB, no wheezes or rales, breathing comfortably on RA Extrem- wound vac proximal LUE, AVG with good bruit and thrill no erythema or warmth, some swelling of LUE, trace lower extremity edema Skin- multiple tattoos ICD10 Worksheet Patient Problems: Problems Problem Status Onset Arm pain Acute End stage renal disease Acute Fever Acute Disorder of pancreas Active MRSA - Methicillin resistant Staphylococcus aureus infection Active MRSA - Methicillin resistant Staphylococcus aureus infection Active Metabolic acidosis Active Renal failure syndrome Active Abdominal pain Acute Altered mental status Acute Anemia Acute Chest pain Acute Chest pain Acute Dialysis complication Acute Diarrhea Acute Hyperkalemia Acute Hypotension Acute Opioid overdose Acute Renal failure Acute
--- NOTE | 2018-05-17 16:25 | HOSPPROG ---
Hospitalist Progress Note Assessment/Plan: #LUE abscess in region of proximal AV graft revision. Her fistula is distal to this. She is s/p I&D with upper arm wound vac placed 05/07, U/S neg for DVT. 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 On transplant list, temporary non-tunnelled catheter in groin, placed on admission due to above -HD per renal, (,, schedule) -I called [place] today and spoke with blocker and cutter contact lens for transplant team Dr Giraldo ( nephrology) to coordinate care, her primary transplant surgeon is Dr Powell #Blood transfusion reaction 05/07: Symptoms resolved after benadryl, did not require steroids -would pre-treat if requires transfusion in future -hgb stable #Anemia renal disease: transfused 1 unit 05/07 -see above #H/O hyperkalemia: HD per renal #Sepsis: leukocytosis, tachy, 2/2 LUE abscess. Sepsis physiology resolved. -abx per ID -noted 102 temp during dialysis a few days ago, none since and none with dialysis today (accessed AVG today for dialysis- see above) #Hypervolemic hyponatremia: Na normalized -HD as above #HTN: cont home medications, uses Lisinopril prn, but not on dialysis days -labile, likely component anxiety also #Chronic pain syndrome: home meds, pt requested increase to q4h, declined by prev hospitalist -see above #h/o cardiac arrest #h/o polysubstance abuse: denies recent use #Metabolic acidosis: due to ESRD. HD #Nausea -carafate added, not sure if helping #Diet: renal PCP Dr Durán at [facility] Dispo > 48 hours as blood cultures pending, reassessment of need to remove AVG Subjective: Very worn out and nauseous since dialysis this AM. Says she is ' going to stop fighting' and just 'go with the flow.' Says her transplant Dr said to stay and get treatment. BF is in room. Objective: Vital Signs Temp Pulse Resp BP Pulse Ox 98.5 F 112 H 16 130/71 H 96 05/17/18 15:33 05/17/18 15:33 05/17/18 15:33 05/17/18 15:33 05/17/18 15:33 Laboratory Results 05/17/18 05:10 05/17/18 05:10 05/16/18 05/17/18 05/18/18 11:59 11:59 11:59 Output Total 300 Balance -300 PT 13.7 SEC (12.0-15.0) 05/15/18 06:26 INR 1.09 (0.83-1.16) 05/15/18 06:26 - Time Spent With Patient Time Spent with Patient: greater than 35 minutes (total floor time) Time Spent with Patient: Greater than 35 minutes spent on this patients care, greater than 50% of time spent counseling, educating, and coordinating care regarding the above mentioned plan. - Physical Exam Constitutional: no apparent distress Eyes: anicteric sclera, EOMI Ears, Nose, Mouth, Throat: moist mucous membranes, hearing normal Cardiovascular: regular rate and rhythym, No edema Respiratory: no respiratory distress, no rales or rhonchi, clear to auscultation Gastrointestinal: normoactive bowel sounds, No guarding, No rebound, No distension Skin: warm Psychiatric: interacting appropriately, not anxious, not encephalopathic ICD10 Worksheet Patient Problems: Problems Problem Status Onset Arm pain Acute End stage renal disease Acute Fever Acute Disorder of pancreas Active MRSA - Methicillin resistant Staphylococcus aureus infection Active MRSA - Methicillin resistant Staphylococcus aureus infection Active Metabolic acidosis Active Renal failure syndrome Active Abdominal pain Acute Altered mental status Acute Anemia Acute Chest pain Acute Chest pain Acute Dialysis complication Acute Diarrhea Acute Hyperkalemia Acute Hypotension Acute Opioid overdose Acute Renal failure Acute
--- NOTE | 2018-05-17 17:31 | PCMIDPN ---
Assessment/Plan: Assessment: Right upper extremity abscess-micro samples not revealing a pathogen but patient on antibiotics prior to sampling. Currently we are dosing vancomycin intermittently by levels. Patient did not have a problem with fever around dialysis yesterday. Would stop antibiotics at this point and allow her to discharge home. Continue wound VAC while at home. Patient is caution to re- presented with fevers especially around dialysis. Plan: 1. Discontinue IV vancomycin. 2. Discharge when stable and home wound care set up. 05/15/18 13:12 05/17/18 17:29 Subjective: Patient resting in her hospital bed. No new complaints. No fevers or chills. Objective: Vancomycin intermittently dosed. Vital Signs Temp Pulse Resp BP Pulse Ox 36.9 C 112 H 16 130/71 H 96 05/17/18 15:33 05/17/18 15:33 05/17/18 15:33 05/17/18 15:33 05/17/18 15:33 Laboratory Results 05/17/18 05:10 05/17/18 05:10 05/16/18 05/17/18 05/18/18 05:59 05:59 05:59 Output Total 300 Balance -300 - Physical Exam General Appearance: WD/WN, alert, no apparent distress, non-toxic Respiratory: lungs clear, normal breath sounds, No respiratory distress Skin: normal color, warm/dry, No rash Neuro/Psych: alert, normal mood/affect, oriented x 3 ICD10 Worksheet Patient Problems: Problems Problem Status Onset Arm pain Acute End stage renal disease Acute Fever Acute Disorder of pancreas Active MRSA - Methicillin resistant Staphylococcus aureus infection Active MRSA - Methicillin resistant Staphylococcus aureus infection Active Metabolic acidosis Active Renal failure syndrome Active Abdominal pain Acute Altered mental status Acute Anemia Acute Chest pain Acute Chest pain Acute Dialysis complication Acute Diarrhea Acute Hyperkalemia Acute Hypotension Acute Opioid overdose Acute Renal failure Acute
[2018-05-17] MEDS: MELATONIN 3 MG TAB PO SCH (20:36)
[2018-05-18] MEDS: LORazepam 0.5 MG TAB PO PRN (00:05)
[2018-05-18] MEDS: PROMETHAZINE HCL 25 MG/ML INJ IVP PRN ×3 (00:38→14:00)
--- NOTE | 2018-05-18 01:42 | HOSPPROG ---
Hospitalist Progress Note Assessment/Plan: #LUE abscess in region of proximal AV graft revision. Her fistula is distal to this. She is s/p I&D with upper arm wound vac placed 05/07, U/S neg for DVT. -continue wound vac per surgery, care discussed with Dr Clark -appreciate ID assistance, discussed care plan with Dr Mccollum, off abx, afebrile > 48 hours -no clear evidence that the graft itself was infected, neg BCx to date, had another blood culture drawn yesterday from graft with dialysis -chronic scheduled pain meds + prn #ESRD: due to PCKD. On transplant list, temporary non-tunnelled catheter in groin, placed on admission due to above -HD per renal, (,, schedule) -I called [facility] yesterday and spoke with business continuity management director for transplant team Dr Giraldo (nephrology) to coordinate care, her primary transplant surgeon is Dr Powell -discussed care plan with Dr Rico today #Blood transfusion reaction 05/07: Symptoms resolved after benadryl, did not require steroids -pre-treat if requires transfusion in future -hgb stable #Anemia renal disease: transfused 1 unit 05/07 -stable #H/O hyperkalemia: HD per renal #Sepsis: leukocytosis, tachy, 2/2 LUE abscess. Sepsis physiology resolved. -no further abx per ID -noted 102 temp during dialysis a few days ago, none since and none with dialysis yesterday #Hypervolemic hyponatremia: Na normalized -HD as above #HTN: cont home medications, uses Lisinopril prn but she says this works well for her so scheduled it -labile, likely component anxiety also so added ativan bid prn temporarily #Chronic pain syndrome: home meds, pt requested increase to q4h, declined by prev hospitalist -see above #h/o cardiac arrest #h/o polysubstance abuse: denies recent use #Metabolic acidosis: due to ESRD/HD #Nausea -carafate added, not sure if helping #Diet: renal PCP Dr Durán at [facility] Dispo she wants to discharge in AM, surgery to set up wound vac for home vs remove Subjective: Nauseous, doesn't feel well. Upset bc BF seeing her like this. Objective: Laboratory Results 05/17/18 05:10 05/17/18 05:10 05/16/18 05/17/18 05/18/18 11:59 11:59 11:59 Output Total 300 Balance -300 PT 13.7 SEC (12.0-15.0) 05/15/18 06:26 INR 1.09 (0.83-1.16) 05/15/18 06:26 - Time Spent With Patient Time Spent with Patient: greater than 35 minutes (total floor time) Time Spent with Patient: Greater than 35 minutes spent on this patients care, greater than 50% of time spent counseling, educating, and coordinating care regarding the above mentioned plan. - Physical Exam Constitutional: no apparent distress Eyes: anicteric sclera, EOMI Ears, Nose, Mouth, Throat: moist mucous membranes, hearing normal Cardiovascular: regular rate and rhythym, No edema Respiratory: no respiratory distress, no rales or rhonchi, clear to auscultation Gastrointestinal: normoactive bowel sounds, tenderness (mild in UQs), No guarding, No rebound, No distension Skin: warm Musculoskeletal: other (L upper extremity wound vac in place, R upper extremity PICC, R lower extremity groin access) Psychiatric: anxious, agitated ICD10 Worksheet Patient Problems: Problems Problem Status Onset Arm pain Acute End stage renal disease Acute Fever Acute Disorder of pancreas Active MRSA - Methicillin resistant Staphylococcus aureus infection Active MRSA - Methicillin resistant Staphylococcus aureus infection Active Metabolic acidosis Active Renal failure syndrome Active Abdominal pain Acute Altered mental status Acute Anemia Acute Chest pain Acute Chest pain Acute Dialysis complication Acute Diarrhea Acute Hyperkalemia Acute Hypotension Acute Opioid overdose Acute Renal failure Acute
[2018-05-18] MEDS: oxyCODONE IR 15 MG TAB PO PRN ×4 (04:03→16:14)
[2018-05-18] MEDS: ACETAMINOPHEN 325 MG TAB PO PRN ×2 (04:07→10:11)
[2018-05-18] MEDS: FUROSEMIDE 80 MG TAB PO SCH ×2 (05:10→16:14)
[2018-05-18] MEDS: SUCRALFATE 1 GM TAB PO SCH ×3 (07:58→18:50)
[2018-05-18] MEDS ORDERED: LISINOPRIL 20 MG TAB PO SCH (09:00)
[2018-05-18] MEDS: FLUTICASONE NASAL 120 SPRAYS/16 GM MDI EACHNARE SCH (09:04)
[2018-05-18] MEDS: PANTOPRAZOLE SODIUM 40 MG TAB PO SCH (09:11)
[2018-05-18] MEDS: SENNOSIDES/DOCUSATE SODIUM TAB PO SCH (09:12)
[2018-05-18] MEDS: CALCIUM ACETATE 667 MG CAP PO SCH ×2 (10:10→17:01)
--- NOTE | 2018-05-18 10:35 | SOAPPROG ---
SOAP Progress Note Assessment/Plan: Assessment/Plan: ESRD: on HD TTS as outpatient. - Pt had HD on 05/16 per routine. - Next HD due tomorrow, can be done as outpatient if discharged. Anemia: avoiding IV iron in setting of infection, getting weekly epo. HTN: BP has been higher today, restarted on her lisinopril this am. Would discharge on her regular outpatient antihypertensive regimen. STEPHON: phos at goal on current phos binders. Access: LUE AVG used on 05/16 without issues, has been discussed with Dr. Redd and is ok to use. ID says ok to discharge off antibiotics. Pt has wound vac in place on upper arm. She will need temp femoral line removed prior to discharge. Subjective: No acute events overnight. Pt is concerned that she still has nausea and swelling in L arm. Objective: Vital Signs Temp Pulse Resp BP Pulse Ox 37.0 C 90 16 156/87 H 95 05/18/18 08:00 05/18/18 08:00 05/17/18 23:49 05/18/18 09:04 05/18/18 08:00 Laboratory Results 05/17/18 05:10 05/17/18 05:10 05/17/18 05/18/18 05/19/18 05:59 05:59 05:59 Output Total 300 Balance -300 PT 13.7 SEC (12.0-15.0) 05/15/18 06:26 INR 1.09 (0.83-1.16) 05/15/18 06:26 General: alert and oriented, no acute distress Eyes: EOMI, PERRL OP: Clear CV: RRR Resp: nonlabored respirations on RA Abd: Soft, NT/ND Neuro: CN II-XII Grossly intact, no asterixis Psych: cooperative, appropriate mood and affect Access: LUE AVG with thrill and bruit appreciated ICD10 Worksheet Patient Problems: Problems Problem Status Onset Arm pain Acute End stage renal disease Acute Fever Acute Disorder of pancreas Active MRSA - Methicillin resistant Staphylococcus aureus infection Active MRSA - Methicillin resistant Staphylococcus aureus infection Active Metabolic acidosis Active Renal failure syndrome Active Abdominal pain Acute Altered mental status Acute Anemia Acute Chest pain Acute Chest pain Acute Dialysis complication Acute Diarrhea Acute Hyperkalemia Acute Hypotension Acute Opioid overdose Acute Renal failure Acute
--- NOTE | 2018-05-18 11:54 | WOCRNPDOC ---
WOCRN Advanced Assessment Note - Skin Integrity Problem, Advanced Assess Left Upper Arm Dialysis Shunt Dressing Type: Black Vac Foam, Wound Vac Dressing Description: Clean/Dry, Intact Exudate Amount: Scant Exudate Characteristic(s): Serosanguinous Integumentary Issue Intervention: Dressing Changed Val Wound Swelling: Mild Wound Bed Constitution: Granulation Tissue (80%), Smooth Tissue (20%) Wound Edges: Epithelizing, Attached Site Measurement - Head-to-Toe Length X Width X Depth (cm): 3.5x2x0.2 Skin Integrity Problem Comment: Per Dr. Redd he would like to continue wound vac at this time. Removed one piece of small black foam. Cleaned with ns and gauze. Skin prep and drape applied val wound. One piece of small black simplace foam to wound bed covered with a second trac landing pad. Suction restarted at -125 mm Hg continuous with no leaks. Nathan BURNS in room for care. Next vac change due Wed. Reported to Angelica Sharp NP and Analisa GIORDANO.
--- NOTE | 2018-05-18 14:24 | HOSPPROG ---
Hospitalist Progress Note Assessment/Plan: 72 yo F w ESRD here w LUE abscess proximal to AVF LUE abscess in region of proximal AV graft revision. Her fistula is distal to this. She is s/p I&D with upper arm wound vac placed 05/07, U/S neg for DVT. continue wound vac per surgery, care discussed with Dr Redd appreciate ID assistance, discussed care plan with Dr Mccollum, off abx, afebrile > 48 hours no clear evidence that the graft itself was infected, neg BCx to date, had another blood culture drawn yesterday from graft with dialysis chronic scheduled pain meds + prn ESRD: due to PCKD. On transplant list, temporary non-tunnelled catheter in groin , placed on admission due to above HD per renal, (,, schedule) Blood transfusion reaction 05/07: Symptoms resolved after benadryl, did not require steroids pre-treat if requires transfusion in future hgb stable Anemia renal disease: transfused 1 unit 05/07 stable H/O hyperkalemia: HD per renal Sepsis: leukocytosis, tachy, 2/2 LUE abscess. Sepsis physiology resolved. no further abx per ID noted 102 temp during dialysis a few days ago, none since and none with dialysis yesterday Hypervolemic hyponatremia: Na normalized HD as above HTN: cont home medications, uses Lisinopril prn but she says this works well for her so scheduled it labile, likely component anxiety also so added ativan bid prn temporarily Chronic pain syndrome: home meds, pt requested increase to q4h, declined by prev hospitalist see above h/o cardiac arrest h/o polysubstance abuse: denies recent use Metabolic acidosis: due to ESRD/HD Nausea home today home care, wound vac lines out > 30 minutes on dc Subjective: case d/w dr redd Objective: Vital Signs Temp Pulse Resp BP Pulse Ox 37.0 C 90 16 156/87 H 95 05/18/18 08:00 05/18/18 08:00 05/17/18 23:49 05/18/18 09:04 05/18/18 08:00 Laboratory Results 05/17/18 05:10 05/17/18 05:10 05/17/18 05/18/18 05/19/18 05:59 05:59 05:59 Output Total 300 500 Balance -300 -500 PT 13.7 SEC (12.0-15.0) 05/15/18 06:26 INR 1.09 (0.83-1.16) 05/15/18 06:26 - Physical Exam Constitutional: no apparent distress, appears nourished Eyes: PERRL, anicteric sclera Ears, Nose, Mouth, Throat: moist mucous membranes, hearing normal Cardiovascular: regular rate and rhythym, no murmur, rub, or gallop Respiratory: no respiratory distress, no rales or rhonchi Gastrointestinal: normoactive bowel sounds, soft, non-tender abdomen Genitourinary: no bladder fullness, No mustafa in urethra Skin: warm, normal color Musculoskeletal: full muscle strength Neurologic: AAOx3 ICD10 Worksheet Patient Problems: Problems Problem Status Onset Arm pain Acute End stage renal disease Acute Fever Acute Disorder of pancreas Active MRSA - Methicillin resistant Staphylococcus aureus infection Active MRSA - Methicillin resistant Staphylococcus aureus infection Active Metabolic acidosis Active Renal failure syndrome Active Abdominal pain Acute Altered mental status Acute Anemia Acute Chest pain Acute Chest pain Acute Dialysis complication Acute Diarrhea Acute Hyperkalemia Acute Hypotension Acute Opioid overdose Acute Renal failure Acute
--- NOTE | 2018-05-18 14:25 | PDIAF ---
- Diagnosis Diagnosis: LUE abscess Code Status: Full Code - Medication Management Discharge Medications: electronically signed and located in the Home Medication List. - Orders Services needed: Home Care, Registered Nurse Home Care Face to Face: I certify that this patient was under my care and that I had the required [id number] encounter meeting the encounter requirements on the discharge day. My findings support the fact that the patient is homebound as defined in Home Care Face to Face Continued: CMS Chapter 7 Medicare Benefits Manual 30.1.1 , The condition of the patient is such that there exists a normal inability to leave home and consequently, leaving home would require a considerable and taxing effort. Isolation Type: None Diet Recommendation: potassium restricted Diet Texture: Regular Texture Diet Additional Instructions: You have an appointment at your dialysis center tomorrow morning. Dr. Navas has confirmed this, and strongly recommends you make this appointment. Wound Vac: Continuous suction -125 mm Hg. Change dressing to wound vac MWF.s. - Follow Up Care Current Providers and Referrals: Sergio Riggins MD [Medical Doctor] - follow up in 1 week Vipul Redd MD [Medical Doctor] -
--- NOTE | 2018-05-18 14:53 | GDS ---
[f rep st] DISCHARGE SUMMARY DISCHARGE DIAGNOSES: 1. Left upper extremity abscess with negative micro. 2. End-stage renal disease, secondary to polycystic disease. 3. Left arm arteriovenous fistula revision, history of left nephrectomy. 4. Past history of Clostridium difficile. 5. Chronic pain syndrome on chronic narcotics. 6. Hypertension. 7. Depression. 8. History of hepatitis C, status post treatment. 9. History of polysubstance abuse, status post treatment. 10. History of cardiac arrest. CONSULTS DURING THIS ADMISSION: End-stage Renal Disease, Infectious Disease, and General Surgery. PROCEDURES: The patient had an operative management of her abscess on the where fat necrosis was seen without a lot of purulence. Micro was negative from that. She had negative blood cultures as well. She received a course of antibiotics about 10 days long. She currently has a wound VAC. Her fistula is working well. She had a temporary groin line for dialysis during the perioperative period given the concern of infection from her left upper extremity abscess notably. This is on her medial biceps proximal to her AV fistula. She was seen by Dr. Redd, who knows her well and really was of the opi nion that her AV fistula was okay to use and not involved in the infection. She received dialysis wi th blood cultures during it that remain negative. Additionally, the patient had no fevers during lucretia lysis and has remained afebrile since. She is discharged home on unchanged medication regimen other than the addition of Compazine for p.r.n. nausea as well as a limited prescription for some pain pill s. She has a wound VAC with home wound care. She has follow up with her transplant topstitcher zigzag thi s week. /[id number]/[facility]
--- NOTE | 2018-05-18 16:23 | ASMTDCNOTE ---
Case Management Discharge Discharge Order Complete? Answers: Yes Patient to Obtain Answers: via Family Medications Transportation Arranged Answers: Family/Friends Transport will Pick (Date 05/18/2018 12:00 AM & Time) Faxed Final Orders Answers: Yes Agency/Facility Transfer Answers: Yes Report Printed & Faxed to Receiving Agency Family Notified Answers: Yes Notes: partner in the room Discharge Comments Notes: Completed paperwork for [employer] home vac and delivered vac to the room. Arranged for [facility] RN services to pt's home and confirmed home address. Updated phone number is [phone]. CM arranged ride for pt to dialysis tomorrow via [employer]. [facility] RN to do intake with pt after dialysis at 17:00 tomorrow. No further CM needs noted at this time. Date Signed: 05/18/2018 04:22 PM Electronically Signed By:Sabrina Bright
--- NOTE | 2018-05-18 16:27 | ASDISCHSUM ---
Discharge Information Plan Status:Home with Home Health Medically Cleared to Leave:05/18/2018 Discharge Date:05/18/2018 CM D/C Disposition:Home, Routine, Self-Care ADT D/C Disposition:Home, Routine, Self-Care Projected Discharge Date:05/18/2018 11:00 AM Transportation at D/C:Friend Discharge Delay Reason: Follow-Up Date:05/18/2018 11:00 AM Discharge Slot: Final Diagnosis:Left arm abscess Placement Information Referral Type:*Home Health Care Services Referral ID:[id number] Provider Name:[facility] Address 1:[address] Address 2: City:[place] Selection Factors: State:[place] Patient Contact Information Contact Name:DAVIDA Relationship:Other Address:[address] [place] [address] Work Phone: City:[place] Alternate Phone: [facility]/Zip Code:[place] [address] Email: Financial Information Financial Class:Medicare Primary Plan Desc:MEDICARE INPATIENT Primary Plan Number:[id number] Secondary Plan Desc:MED[place] Secondary Plan Number:[id number] Assessment Information LACE LACE Acuity / Level of Answers: Yes Care: Did the patient have an inpatient admission? Comorbidities - select Answers: Moderate or severe liver all that apply or renal disease Opioid dependence / Chronic pain Previous myocardial infarction Other Notes: HTN # of Emergency department Answers: 5-8 visits in the last 6 months Social determinants Answers: Mental health diagnosis (anxiety, depression, pers onality disorders, etc.) Score: 20 Date Signed: 05/06/2018 09:05 AM Electronically Signed By:Lauren Goddard [facility] CM Progress Note CM Note CM Note Notes: Pt is a 42 yo F presented with L arm swelling and end stage renal disease. Pt had absess, surgery consulted. Discharge needs are TBD. No PT/OT ordered at this time, CM to follow to assess needs after procedure. Plan: TBD Date Signed: 05/06/2018 03:16 PM Electronically Signed By:ADRIANO Knight [facility] CM Progress Note CM Note CM Note Notes: Pt now has wound vac and is getting IV Abx. Per hospitalist d/c not before next week. Pt may need IV Abx and Wound Vac upon discharge, however it is too soon to tell. No therapies ordered at this time. Pt lives with boyfriend in [place]. CM to follow. D/C Plan: TBD possibly [facility] RN for Wound Vac Date Signed: 05/09/2018 04:56 PM Electronically Signed By:Sabrina Bright [facility] CM Progress Note CM Note CM Note Notes: Spoke with pt in the room. Pt has medicare and medicaid, and was grateful to be connected with [facility] and [employer]. CM to notify [facility] on day of discharge. [facility] notified via email. Pt to discharge with C RN for wound vac. [facility] has accepted. CM to follow. D/C Plan: [facility] RN, [facility], support from [facility] Date Signed: 05/11/2018 04:26 PM Electronically Signed By:Sabrina Bright [facility] CM Progress Note CM Note CM Note Notes: Pt has wound vac on upper arm due to abscess around AV graft. She gets dialysis T/TH/SAT, no therapies ordered. Anticipate pt will dc home when medically stable, CM available for any changes. DC Plan: Independent Date Signed: 05/14/2018 05:40 PM Electronically Signed By:Mela Jose RN [facility] CM Progress Note CM Note CM Note Notes: Wound vac taken down from upper extremity. She gets dialysis T/TH/SAT, no therapies ordered. Anticipate she will dc home w/support of family when medically stable, CM available for any changes. DC Plan: Independent Date Signed: 05/16/2018 03:50 PM Electronically Signed By:Mela Jose RN Case Management Discharge Plan Note Case Management Discharge Discharge Order Complete? Answers: Yes Patient to Obtain Answers: via Family Medications Transportation Arranged Answers: Family/Friends Transport will Pick (Date 05/18/2018 12:00 AM & Time) Faxed Final Orders Answers: Yes Agency/Facility Transfer Answers: Yes Report Printed & Faxed to Receiving Agency Family Notified Answers: Yes Notes: partner in the room Discharge Comments Notes: Completed paperwork for [employer] home vac and delivered vac to the room. Arranged for [facility] RN services to pt's home and confirmed home address. Updated phone number is [phone]. CM arranged ride for pt to dialysis tomorrow via [facility] RN to do intake with pt after dialysis at 17:00 tomorrow. No further CM needs noted at this time. Date Signed: 05/18/2018 04:22 PM Electronically Signed By:Sabrina Bright Intervention Information Intervention Type:*IM-Signed Date of Service:05/18/2018 03:21 PM Patient Type:Inpatient Staff Member:Lauren Goddard Hours: Discipline: Severity: Comment:
[2018-05-18] MEDS: [UNRECOGNIZED DRUG - OTHER] DT SCH (17:01)
[2018-05-18 17:17] VITALS: BP 161/103
--- NOTE | 2018-05-27 08:41 | PQFORM ---
PHYSICIAN QUERY FORM Needs Your Response This query form is being sent to you to assure this patient record is coded properly. Please respond to the question below: ROVING WINDER QUESTION: Dr Prescott Sepsis was documented in the chart (in the H/P as well as in the Progress Notes ) however Sepsis was not mentioned in the Discharge Summary. Do you agree with the diagnosis of Sepsis? X __ Yes __ No __ Other (Please Specify ) __ Undetermined Thank You Brianne WINN [employer] INSTRUCTIONS FOR RESPONSE: Answer question by clicking on the "Edit Document" button. Move cursor to area below the stars. When complete, hit "Save." Click on the "Sign" button, then click "Sign" again. Type in your PIN and hit "Enter." MTDD
--- NOTE | 2018-05-27 08:43 | PQFORM ---
PHYSICIAN QUERY FORM Needs Your Response This query form is being sent to you to assure this patient record is coded properly. Please respond to the question below: AGRICULTURE INTERN QUESTION: Dr Prescott Progress Notes mention a Transfusion Reaction but this diagnosis was not reflected in the Discharge Summary. Do you agree with the diagnosis of Transfusion Reaction for this patient? __ Yes _X_ No __ Other (Please Specify ____) __ Undetermined Thank You Brianne WINN Custom T[employer]or INSTRUCTIONS FOR RESPONSE: Answer question by clicking on the "Edit Document" button. Move cursor to area below the stars. When complete, hit "Save." Click on the "Sign" button, then click "Sign" again. Type in your PIN and hit "Enter." MTDD
== END 2018-05-18 18:12 | disposition home or self-care (01) | DRG 871 ==
LOC: EEVIPCON 17:07 → F3E 18:42
PROVIDERS: ADMIT Internal Medicine; ATTEND Internal Medicine
PROC: 02HV33Z Insertion of Infusion Device into Superior Vena Cava, Percutaneous Approach (ICD-10-PCS; 2018-05-05)
PROC: 06HM33Z Insertion of Infusion Device into Right Femoral Vein, Percutaneous Approach (ICD-10-PCS; 2018-05-06)
PROC: 5A1D70Z Performance of Urinary Filtration, Intermittent, Less than 6 Hours Per Day (ICD-10-PCS; 2018-05-06)
PROC: 30233N1 Transfusion of Nonautologous Red Blood Cells into Peripheral Vein, Percutaneous Approach (ICD-10-PCS; 2018-05-08)
PROC: 0J9F0ZX Drainage of Left Upper Arm Subcutaneous Tissue and Fascia, Open Approach, Diagnostic (ICD-10-PCS; principal; 2018-05-11)
PROC: 2W1BX6Z Compression of Left Upper Arm using Pressure Dressing (ICD-10-PCS; principal; 2018-05-11)
DX: A41.9 Sepsis, unspecified organism (principal); L02.414 Cutaneous abscess of left upper limb; I12.0 Hypertensive chronic kidney disease with stage 5 chronic kidney disease or end stage renal disease; N18.6 End stage renal disease; Q61.2 Polycystic kidney, adult type; E87.5 Hyperkalemia; D63.1 Anemia in chronic kidney disease; G89.29 Other chronic pain; K21.9 Gastro-esophageal reflux disease without esophagitis; B18.2 Chronic viral hepatitis C; Z87.442 Personal history of urinary calculi; Z90.5 Acquired absence of kidney; Z99.2 Dependence on renal dialysis; Z87.891 Personal history of nicotine dependence
CPT/HCPCS: 80307; 96374; C1750; C1751; C1769; G0480; J0690; J0885; J1170; J1200; J1642; J1644; J2060; J2250; J2370; J2405; J2550; J2704; J2930; J2997; J3010; J3370; P9016; Q9967

== ENCOUNTER 2018-05-20 15:12 | Inpatient (IN) | payer OTHER, MEDICAID ==
--- NOTE | 2018-05-20 16:01 | GCON ---
[f rep st] CONSULTATION GENERAL VASCULAR SURGERY CONSULTATION HISTORY OF PRESENT ILLNESS: The patient is a 42-year-old female with end-stage renal disease, second sherie to polycystic kidney disease who is status post recent nephrectomy and is on dialysis. She has h ad multiple failed arteriovenous fistulas in her left arm and now has a left upper extremity graft cr eated at the [facility] in [place]. She was admitted for C difficile and at the same time had problem s with her graft. Her graft had clotted and she went to surgery for thrombectomy. It reclotted, and ultimately, she underwent revision. Since then, her graft has been open, but she was readmitted wit h cellulitis of the right upper extremity. She was found to have a fluid collection on imaging and u nderwent exploratory surgery with incision and drainage. There was minimal purulence seen at surgery and the graft was not exposed. Cultures were no growth to date, but she had been on antibiotics. S he has had a wound VAC in place since then. She underwent a 10 day course of antibiotics while in [facility]. Her symptoms and fevers improved and so the AV graft was used. Ultimately, she went sev eral days without fevers using the AV graft and was discharged to home. After discharge home, she had dialysis using her AV graft and complained of nausea, malaise, and feve rs to 102. She also complained of recurrent arm swelling. She was seen in the emergency department in [place] and was sent home. She comes our office today here for followup. Again, she has complaint s of intermittent fevers, malaise, and nausea. The patient has very little access options for dialysis. She has had multiple internal jugular uyliet ters, and now, they are closed. This was confirmed with ultrasound. Ultrasound showed that she does have bilateral patent subclavian veins. Veins in the right upper extremity are too small for fistul a creation. She did have a temporary groin catheter while in the hospital, but that has been removed . She has a history of IV drug use. PAST MEDICAL HISTORY: Includes end-stage renal disease on hemodialysis, secondary to polycystic kidn ey disease as described above. Also history of C difficile, chronic pain syndrome with chronic opioi d dependence, hypertension, depression, esophageal reflux, hepatitis C, status post treatment, histor y of polysubstance abuse, status post treatment, history of cardiac arrest, history of pancreatitis, kidney stones, cervical spine surgery, and section. PAST SURGICAL HISTORY: Includes multiple fistulas, neck catheters, left nephrectomy, sectio n, AV graft creation with thrombectomy and revision. MEDICATIONS: Please see MAR for detailed medication list. ALLERGIES: Include Zofran, hydrochlorothiazide, sulfa. FAMILY MEDICAL HISTORY: Three siblings with polycystic kidney disease. SOCIAL HISTORY: The patient has a boyfriend who has been at bedside during her multiple hospital sta ys. She does have a history of polysubstance abuse, including IV drug use with admission for overdos e, but reports no current substance or alcohol abuse. PHYSICAL EXAMINATION: GENERAL: Reveals a somewhat chronically ill-appearing 42-year-old female, non toxic appearing and in no acute distress. HEENT: Normocephalic, atraumatic. Sclerae white. Mucous membranes are moist. CHEST: Clear to auscultation bilaterally without wheezes. CARDIAC: Regular rate and rhythm without murmurs. ABDOMEN: Soft, nontender. EXTREMITIES: Warm, dry. Left upper ex tremity with open wound and mild swelling. Wound has good granulation. There is a pocket that is pr chanda and some serous fluid is released. No erythema, induration, or fluctuance. No purulence. Palp able radial pulses. Hand is warm and strong. PSYCH: Normal mood and affect. SKIN: Warm and dry. IMPRESSION: This is a 42-year-old female with end-stage renal disease on hemodialysis with a likely infected arteriovenous graft. PLAN: Plan will be to admit the patient to the hospital. It is a difficult decision to make as she has very little options for dialysis access, but due to her fevers and nausea, we will plan to remove her AV graft. We will first plan on hemodialysis. I have discussed this with both Nephrology and [facility] hospitalist service. After her AV graft removal, will wait a couple of days to place a tunneled s ubclavian catheter. /[id number]/[facility]
[2018-05-20 16:05] LABS: PLATELET COUNT 237 10^3/uL (150-400)
--- NOTE | 2018-05-20 16:52 | ASMTCMCOM ---
CM Note CM Note Notes: Pt was discharged from [facility] on 05/18. She is current with [facility]. Pt has a hx of ESRD and dialysis. She was readmitted today with nausea, malaise and fevers, and arm swelling. Current plan is to remove her AV graft after hemodialysis. Nephrology is following. She discharged 05/18 with a wound vac and HC RN. CM will follow for any d/c needs. D/C plan: TBD Date Signed: 05/20/2018 04:51 PM Electronically Signed By:LACEY Castorena
[2018-05-20] MEDS ORDERED: LINEZOLID 600 MG TAB PO ONE (17:33)
[2018-05-20] MEDS ORDERED: CALCIUM ACETATE 667 MG CAP PO PRN (17:37)
[2018-05-20] MEDS ORDERED: SEVELAMER HCL 800 MG TAB PO PRN (17:37)
[2018-05-20] MEDS: LISINOPRIL 20 MG TAB PO PRN ×2 (17:54→17:55)
[2018-05-20] MEDS: ACETAMINOPHEN 325 MG TAB PO PRN (17:55)
[2018-05-20] MEDS: PROMETHAZINE HCL 25 MG TAB PO SCH (17:55)
[2018-05-20] MEDS: oxyCODONE IR 15 MG TAB PO PRN ×2 (17:57→22:56)
--- NOTE | 2018-05-20 18:01 | PDGENHP ---
History and Physical History and Physical: HISTORY: Have been asked by Dr. Redd to assist in the care of this patient who is coming in for semi-urgent surgery to be done tomorrow. This patient who was admitted here May 05 with fevers with felt at that time to have possible infection of her AV fistula in the left arm. She went to the OR however in on surgical exploration she had a large mass of necrotic fat tissue around the graft but no purulent fluid and cultures of blood and from the wound were all negative. She was given antibiotics for suspected infection and temperatures resolved overnight, however there was recurrence of fever on hospital May 09, day 3, that did not recur again afterwards. She went from May 10 through May 18 here in the hospital without any fevers. Her white count at the time of that admission was 15,000. It did come down to 6000 by May 14. Her last dose of antibiotic was on May 17. Yesterday at dialysis however she had significant fever and her dialysis was stopped after 2 hr for medical reasons. She is now sent by Dr. Redd for admission because of fever recurring and suspected infection of her AV graft. She does admit to some pain in the upper left arm at this time, some chills and feels hot. She is having some nausea which is a common problem for her. She has no respiratory symptoms, urinary symptoms, bowel symptoms, nausea, belly pain, chest discomfort, acute neurologic symptoms, joint symptoms, or new skin lesions. ROS: A comprehensive 10 system review revealed no other significant findings PAST MEDICAL HISTORY: ESRD due to polycystic kidney disease; left arm AV fistula with revision Left nephrectomy Past history C diff colitis Chronic pain syndrome on chronic prescribed narcotics daily Hypertension Depression Esophageal reflux Hepatitis-C status post treatment History of poly substance abuse History of cardiac arrest Pancreatitis Kidney stones Cervical spine surgery FAMILY MEDICAL HISTORY: 3 siblings with polycystic kidney disease SOCIAL HISTORY: Single but has a longstanding boyfriend who is here at the bedside and supportive History of substance abuse, no current substance abuse and no current alcohol abuse MEDICATIONS: The patients list has been reconciled by our clinical pharmacist in the EMR. I have reviewed the list and ordered appropriate medicines. PHYSICAL EXAMINATION: Vital Signs: 38.3, pulse 116s, good blood pressure and respirations Tube Dispatcher: sinus tach Examination: General: Wide awake alert oriented, looks mildly uncomfortable and tired Skin: warm, dry, good color, no rash HEENT: normal Neck: no mass or jvd Resps: relaxed Lungs: clear breath sounds Heart: regular, no murmur Abdomen: soft, nondistended, nontender, +BS, no mass Upper Extremities: Wound well healed from her previous surgery on May 07. She has some tenderness in the left upper extremity there is no cellulitis. Lower Extremities: no edema, warm No Bleeding or bruising Neurologic: normal speech/language, normal caustic mixer, no focal weakness LABORATORY DATA: White count 13,000 up from 6000 3 days ago Hemoglobin stable at 8 CO2 is at 16, potassium good, sodium 134 BUN as expected given her dialysis situation ASSESSMENT: * Recurrent fever and high white blood cell count with ongoing pain in left upper extremity with 2 days after stopping empiric vancomycin for question of infection in the left upper arm where she has an AV fistula for dialysis. (had received 13 days of vancomycin iv) When she was initially admitted here May 05 for fever and pain in the arm there was remarkable cellulitic process and a CT scan showing what looked like a fluid collection which on surgical exploration turned out to be necrotic fat. Cultures of blood and the wound during that admission were all negative. Gram stain of the material collected at surgery were negative for organisms. * End-stage renal disease due to polycystic kidney disease on dialysis * Chronic nausea * History of left nephrectomy * Chronic pain syndrome on chronic prescribed daily narcotics * Hypertension * Depression * Hepatitis-C status post treatment for that * History of polysubstance abuse * History of cardiac arrest * History of C difficile colitis * Kidney stones * History of pancreatitis I reviewed the case in detail with Dr. Redd today. Her situation is quite difficult. It is unclear whether there is truly infection but sure certainly is behaving as if there is an infection that responded to vancomycin. We have not however been able to identify an organism nor was definite purulent material found at her previous surgery. There is no history of symptoms at this time and no examination findings to suggest a different site or source of infection. Dr. Redd describes that she has very difficult venous anatomy, such that placement of a temporary dialysis catheter will be difficult, and future placement of a tunneled catheter or another fistula at a different site is anticipated to be even more difficult. Nonetheless with fever and tachycardia recurring after vancomycin was stopped, there is little choice but to re- explore her arm and consider removal of her current fistula. On previous admission we were unable to get a peripheral IV placed despite multiple nurses including or nurses with site map for attempting. Again today here that the ER nurse with site member was unable to get a peripheral IV in. I discussed the scenario in detail with Dr. Vipul Redd. Her venous anatomy is so difficult that placing a PICC or other central venous catheter tonight may cause real difficulties in terms of taking care things tomorrow. As long she remains stable enough for choices to give her oral linezolid until we get her to the OR tomorrow morning and get a venous access there to do surgery. If she becomes unstable overnight we may need to abandon this plan and go ahead and place a central catheter tonight. PLANS: * I have ordered blood cultures to be done now * I have ordered oral linezolid for the moment * Follow her clinical status closely attempt to get by without IV access at this point but we may need to change that during the night * Attempts to dialysis in the morning * Plan to go to OR tomorrow for exploration of left upper extremity and likely removal of AV fistula * Continue her other usual medications for now
[2018-05-20] MEDS: CALCIUM ACETATE 667 MG CAP PO SCH (19:21)
[2018-05-20] MEDS: SEVELAMER HCL 800 MG TAB PO SCH (19:22)
[2018-05-20] MEDS ORDERED: ALTEPLASE 2 MG VIAL IVP PRN (20:43)
[2018-05-20] MEDS ORDERED: SCOPOLAMINE HYDROBROMIDE 1 MG/3 DAYS PATCH TD PRN (21:48)
[2018-05-20] MEDS: PROMETHAZINE HCL 25 MG/ML INJ IVP PRN (22:05)
[2018-05-20] MEDS: FLUTICASONE NASAL 120 SPRAYS/16 GM MDI NS SCH (22:57)
[2018-05-20] MEDS ORDERED: LINEZOLID 600 MG/DEXTROSE 300 ML IV ONE (23:45)
[2018-05-21] MEDS ORDERED: VANCOMYCIN HCL/NORMAL SALINE 250 ML IV ONE ×2 (01:00→15:30)
[2018-05-21] MEDS: PROMETHAZINE HCL 25 MG/ML INJ IVP PRN ×3 (05:03→20:43)
[2018-05-21] MEDS: ACETAMINOPHEN 325 MG TAB PO PRN ×2 (05:07→20:43)
[2018-05-21] MEDS: FUROSEMIDE 80 MG TAB PO SCH ×2 (05:07→20:44)
[2018-05-21] MEDS: PROMETHAZINE HCL 25 MG TAB PO SCH ×2 (05:12→20:30)
[2018-05-21] MEDS: oxyCODONE IR 15 MG TAB PO PRN ×3 (05:13→13:21)
[2018-05-21 05:24] LABS: PLATELET COUNT 218 10^3/uL (150-400)
--- NOTE | 2018-05-21 08:11 | ASMTLACE ---
DOLLY Comorbidities - select Answers: Moderate or severe liver all that apply or renal disease Opioid dependence / Chronic pain Other Notes: HTN # of Emergency department Answers: 3-4 visits in the last 6 months Social determinants Answers: History of substance abuse (ETOH, street drugs, prescription drugs, etc.) Mental health diagnosis (anxiety, depression, pers onality disorders, etc.) Score: 18 Date Signed: 05/21/2018 08:10 AM Electronically Signed By:Lauren Goddard
[2018-05-21] MEDS ORDERED: LINEZOLID 600 MG TAB PO ONE (08:18)
--- NOTE | 2018-05-21 08:23 | HOSPPROG ---
Hospitalist Progress Note Assessment/Plan: DIAGNOSES: * Acute sepsis * Suspected infection of dialysis fistula left arm / Recurrent fever and high white blood cell count with ongoing pain in left upper extremity with 2 days after stopping empiric vancomycin for question of infection in the left upper arm where she has an AV fistula for dialysis. (had received 13 days of vancomycin iv) When she was initially admitted here May 05 for fever and pain in the arm there was remarkable cellulitic process and a CT scan showing what looked like a fluid collection which on surgical exploration turned out to be necrotic fat. Cultures of blood and the wound during that admission were all negative. Gram stain of the material collected at surgery were negative for organisms. * End-stage renal disease due to polycystic kidney disease on dialysis * Chronic nausea * History of left nephrectomy * Chronic pain syndrome on chronic prescribed daily narcotics * Hypertension * Depression * Hepatitis-C status post treatment for that * History of polysubstance abuse * History of cardiac arrest * History of C difficile colitis * Kidney stones * History of pancreatitis PLANS: * Last evening and IV was eventually obtained and we did give vancomycin instead of Zyvox * She will be dialyzed this morning, will get at the vancomycin level after the dialysis, re-dose with level * To OR this afternoon for removal of dialysis fistula * Continue antibiotics and delay placement of temporary dialysis catheter until her next dialysis session * I will review with nephrology, she may not tolerate much in the way of fluid removal with today's dialysis * Will check a chest x-ray at this time SUBJECTIVE: Worse pain and swelling in left arm Still with nausea vomiting No shortness of breath OBJECTIVE Vitals reviewed: 38.6 highest temp, remains tachycardic but a bit better than yesterday, blood pressures remain good Oxygen: Some hypoxemia is noted Edge Inker, my review: Exam: alert oriented looks uncomfortable skin febrile resps not labored lungs clear BSs heart regular abd soft nondistended nontender, bowel sounds present limbs her left arm is more edematous diffusely today, and tender IV site right forearm looks okay Lab data: WBC remains elevated 12.5 Hemoglobin down further at 6.9 Platelets [id number] Objective: Vital Signs Temp Pulse Resp BP Pulse Ox 37.0 C 107 H 16 120/79 89 L 05/21/18 07:45 05/21/18 07:45 05/21/18 07:45 05/21/18 07:45 05/21/18 07:45 Laboratory Results 05/21/18 05:02 05/21/18 05:02 05/20/18 05/21/18 05/22/18 06:59 06:59 06:59 Intake Total 700 Output Total 150 Balance 550 ICD10 Worksheet Patient Problems: Problems Problem Status Onset Disorder of pancreas Active 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
[2018-05-21] MEDS: PANTOPRAZOLE SODIUM 40 MG TAB PO SCH (09:12)
--- NOTE | 2018-05-21 09:24 | PDCONSULT ---
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 She was here for a similar issue and a wound vac was placed, however no culture growth and was treated with antibiotics until 05/17. HD yesterday was stopped after 2 hours due to pain and fever. She currently is having some nausea, however this is frequent for her. She also had a fever earlier this am she thinks. Dr. Redd is planning to remove her AVG today after dialysis and place a tunneled catheter in 1-2 days after antibiotics are started. please see full consult from recent admission on 05/05 Objective: Temp Pulse Resp BP Pulse Ox 37.0 C 107 H 16 120/79 89 L 05/21/18 07:45 05/21/18 07:45 05/21/18 07:45 05/21/18 07:45 05/21/18 07:45 O2 (L/minute) 2 Physical Exam: Gen: Mild distress, oriented HEENT: No jaundice, MMM CV: Tachy, no murmurs RESP: Decreased b/l, no wheezing ABD: Soft, ND, NT Ext: AVG in place with wound vac, warm to touch Neuro: Non-focal WBC 12.49 10^3/uL (3.80-9.50) H 05/21/18 05:02 RBC 2.33 10^6/uL (4.18-5.33) L 05/21/18 05:02 Hgb 6.9 g/dL (12.6-16.3) L 05/21/18 05:02 Hct 22.1 % (38.0-47.0) L 05/21/18 05:02 MCV 94.8 fL (81.5-99.8) 05/21/18 05:02 MCH 29.6 pg (27.9-34.1) 05/21/18 05:02 MCHC 31.2 g/dL (32.4-36.7) L 05/21/18 05:02 RDW 16.0 % (11.5-15.2) H 05/21/18 05:02 Plt Count 218 10^3/uL (150-400) 05/21/18 05:02 MPV 8.8 fL (8.7-11.7) 05/21/18 05:02 Neut % (Auto) 83.2 % (39.3-74.2) H 05/21/18 05:02 Lymph % (Auto) 10.2 % (15.0-45.0) L 05/21/18 05:02 [place] % (Auto) 5.5 % (4.5-13.0) 05/21/18 05:02 Eos % (Auto) 0.4 % (0.6-7.6) L 05/21/18 05:02 Baso % (Auto) 0.2 % (0.3-1.7) L 05/21/18 05:02 Nucleat RBC Rel Count 0.0 % (0.0-0.2) 05/21/18 05:02 Absolute Neuts (auto) 10.39 10^3/uL (1.70-6.50) H 05/21/18 05:02 Absolute Lymphs (auto) 1.27 10^3/uL (1.00-3.00) 05/21/18 05:02 Absolute Monos (auto) 0.69 10^3/uL (0.30-0.80) 05/21/18 05:02 Absolute Eos (auto) 0.05 10^3/uL (0.03-0.40) 05/21/18 05:02 Absolute Basos (auto) 0.03 10^3/uL (0.02-0.10) 05/21/18 05:02 Absolute Nucleated RBC 0.00 10^3/uL (0-0.01) 05/21/18 05:02 Immature Gran % 0.5 % (0.0-1.1) 05/21/18 05:02 Immature Gran # 0.06 10^3/uL (0.00-0.10) 05/21/18 05:02 Platelet Estimate ADEQUATE (ADEQ) 05/21/18 05:02 Polychromasia 1+ H 05/21/18 05:02 Hypochromasia 2+ H 05/21/18 05:02 Oval Macrocytes 1+ H 05/21/18 05:02 Smear Review By Catherine GONZALEZ MD 05/21/18 05:02 Sodium 132 mEq/L (135-145) L 05/21/18 05:02 Potassium 5.1 mEq/L (3.5-5.2) 05/21/18 05:02 Chloride 95 mEq/L (97-110) L 05/21/18 05:02 Carbon Dioxide 27 mEq/l (22-31) 05/21/18 05:02 Anion Gap 10 mEq/L (6-14) 05/21/18 05:02 BUN 36 mg/dL (7-23) H 05/21/18 05:02 Creatinine 7.1 mg/dL (0.6-1.0) H 05/21/18 05:02 Estimated GFR 6 05/21/18 05:02 Glucose 97 mg/dL (70-100) 05/21/18 05:02 Calcium 8.1 mg/dL (8.5-10.4) L 05/21/18 05:02 Phosphorus 5.7 mg/dL (2.5-4.5) H 05/21/18 05:02 Magnesium 2.0 mg/dL (1.6-2.3) 05/21/18 05:02 A/P: 42 y/o F with probable infected AVG who presents for removal of her HD access and temporary catheter placement. ESRD on HD TTS -plan for HD late this am -goes to [facility] -renal diet Access -plan for removal of AVG per Dr. Redd today -on abx renally dosed -may need to consider HOLDEN if no improvement after 48h -wound vac per surgery -cultures pending -place TDC in 48h after abx started HTN -resume home meds -BP at goal Hyponatremia -free water restrict -will UF today on HD Anemia -plan for EPO today -may hold transfusion for now and repeat CBC post HD Please contact if ?s, #[phone] Brandon Cuevas, DO [facility]
[2018-05-21] MEDS: CALCIUM ACETATE 667 MG CAP PO SCH ×3 (09:56→20:26)
[2018-05-21] MEDS: SEVELAMER HCL 800 MG TAB PO SCH ×3 (09:57→20:26)
--- NOTE | 2018-05-21 09:57 | SOAPPROG ---
SOAP Progress Note Assessment/Plan: Assessment/plan: 42 y/o F with ESRD on dialysis. Admitted with fevers after using infected AV gortex graft for dialysis on Friday. Plan for dialysis this am, then surgery immediately following to remove AV graft. Options and risks have been fully discussed and pt wishes to proceed. Will then plan to allow the infection to clear with abx and will plan on placing a tunneled subclavian catheter on Friday or Friday. S: C/o n/v and LUE swelling. O:Alert Febrile at 38.0 RRR No increased WOB LUE: wound appears clean with healthy granulation tissue. Diffuse edema throughout extremity. +radial pulse. 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
[2018-05-21] MEDS: FLUTICASONE NASAL 120 SPRAYS/16 GM MDI NS SCH ×2 (11:01→23:28)
--- NOTE | 2018-05-21 13:25 | PDMN ---
Medical Necessity Medical necessity: Pt meets IP criteria per PA & MCG M-160; est los >2 mn for eval/tx of sepsis r/t suspected infection of dialysis fistula; admit for urgent surgical removal of AV graft, placement of tunneled subclavian catheter & IV abx ; hx ESRD on HD; per order 05/20/18
[2018-05-21] MEDS ORDERED: BUPIVACAINE 0.5% 30 ML SDV ONE (13:33)
[2018-05-21] MEDS ORDERED: LIDOCAINE 1% 300 MG/30 ML SDV ONE (13:34)
[2018-05-21] MEDS ORDERED: THROMBIN (BOVINE) 5,000 UNIT VIAL TP ONE (13:35)
[2018-05-21] MEDS ORDERED: THIAMINE HCL 100 MG TAB PO SCH (14:00)
[2018-05-21] MEDS ORDERED: EPOETIN ALFA 10,000 UNIT/ML VIAL IVP SCH ×2 (14:00)
[2018-05-21] MEDS ORDERED: NS 1,000 ML IV ONE (15:36)
[2018-05-21] MEDS ORDERED: PAPAVERINE HCL 60 MG/2 ML SDV ONE (15:41)
[2018-05-21] MEDS ORDERED: POLYMYXIN B SULFATE 500,000 UNIT/10 ML SYR IRR ONE (15:41)
[2018-05-21] MEDS ORDERED: BACITRACIN 50,000 UNITS/10 ML SYR IRR ONE (15:42)
[2018-05-21] MEDS ORDERED: NA BICARBONATE 50 MEQ/50 ML VIAL ONE (15:43)
[2018-05-21] MEDS ORDERED: PROTAMINE SULFATE 50 MG/5 ML VIAL IVP ONE (15:44)
[2018-05-21] MEDS ORDERED: IOTHALAMATE MEG (CONRAY) 50 ML VIAL IV ONE (15:44)
[2018-05-21] MEDS ORDERED: LIDOCAINE 1% *Not for Epidural 20 ML MDV ONE (15:46)
--- NOTE | 2018-05-21 15:52 | ASMTCMCOM ---
CM Note CM Note Notes: Patient in OR this afternoon for AV graft removal. Unable to meet with patient to discuss possible needs upon d/c. Of note, patient is current with [facility] RN and did have a [facility] wound vac upon d/c on 05/18. Exact d/c needs unclear at this time. CM will follow-up post procedure when patient is available. Plan: TBD (Possible return home with resumption of [facility]). Date Signed: 05/21/2018 03:51 PM Electronically Signed By:Ashley Goff RN
[2018-05-21] MEDS ORDERED: MIDAZOLAM 2 MG/2 ML VIAL IVP ONE (15:59)
--- NOTE | 2018-05-21 15:59 | PDANEPAE ---
ANE History of Present Illness 42 yo for removal infected avf ANE Past Medical History - Cardiovascular History Hx Hypertension: Yes Hx Arrhythmias: No Hx Chest Pain: No Hx Coronary Artery / Peripheral Vascular Disease: No Hx CHF / Valvular Disease: No Hx Palpitations: No - Pulmonary History Hx COPD: No Hx Asthma/Reactive Airway Disease: No Hx Recent Upper Respiratory Infection: No Hx Oxygen in Use at Home: No Hx Sleep Apnea: No Sleep Apnea Screening Result - Last Documented: Positive - Endocrine History Hx Diabetes: No - Renal History Hx Renal Disorders: Yes - Liver History Hx Hepatic Disorders: No - Chronic Pain History Chronic Pain: Yes (kidneys, low back) ANE Review of Systems Review of Systems: - Exercise capacity METS (RN): 3 METS ANE Patient History - Allergies Allergies/Adverse Reactions: Marijuana/Cannabi *RETIRED-11/11/11 [Marijuana/Cannabinoid] Allergy (Severe, Verified 05/05/18 10:12) Anaphylaxis ondansetron HCl [From Zofran (as hydrochloride)] Allergy (Severe, Verified 05/05 10:12) Tingling of mouth/throat hydrochlorothiazide Allergy (Verified 05/05/18 10:12) Anaphylaxis NSAIDS (Non-Steroidal Anti-Inflamma [Nsaids] Allergy (Verified 05/05/18 10:12) Sulfa (Sulfonamide Antibiotics) Allergy (Verified 05/05/18 10:12) Hives - Home Medications Home Medications: Furosemide [Lasix 80 MG (*)] 160 mg PO BID@,05/21/16 [Last Taken 05/19/18] Promethazine HCl [Phenergan 25mg (*)] 25 mg PO BID@05/21/16 [Last Taken ] Sevelamer Carbonate [Renvela] 1,600 mg PO TIDMEAL 05/21/16 [Last Taken 05/19/18] Calcium Acetate [Phoslo (*)] 2,001 each PO TIDMEAL 07/16/16 [Last Taken 05/19/18 ] Fluticasone Nasal [Flonase Nasal [place]] 2 sprays NASAL BID 09/23/17 [Last Taken 04/30/18] Lisinopril [Zestril 20 mg (*)] 20 mg PO DAILY PRN 09/23/17 [Last Taken 02/22/18] Midodrine HCl 10 mg PO AD 09/23/17 [Last Taken 02/28/18 15:00] Calcium Acetate [Phoslo (*)] 2,001 mg PO PRN PRN 03/02/18 [Last Taken 05/19/18] Omeprazole 40 mg PO DAILY 03/02/18 [Last Taken 04/30/18] Sevelamer Carbonate [Renvela] 1,600 mg PO PRN PRN 03/02/18 [Last Taken 05/19/18] - NPO status NPO Since - Liquids (Date): 05/21/18 NPO Since - Liquids (Time): 01:00 NPO Since - Solids (Date): 05/20/18 NPO Since - Solids (Time): 21:00 - Smoking Hx Smoking Status: Never smoked ANE Labs/Vital Signs - Labs Result Diagrams: 05/21/18 05:02 05/21/18 05:02 - Vital Signs Blood Pressure: 165/80 Heart Rate: 122 Respiratory Rate: 16 O2 Sat (%): 95 Height: 5 ft 2 in Weight: 68.2 kg ANE Physical Exam - Airway Neck exam: FROM Mallampati Score: Class 3 Mouth exam: normal dental/mouth exam - Pulmonary Pulmonary: no respiratory distress - Cardiovascular Cardiovascular: regular rate and rhythym - ASA Status ASA Status: III ANE Anesthesia Plan Anesthesia Plan: GA w LMA
[2018-05-21] MEDS ORDERED: fentaNYL 100 MCG/2 ML INJ ONE ×2 (16:09→19:32)
[2018-05-21] MEDS ORDERED: PROPOFOL/EMULSION 500 MG/50 ML BOTTLE IV ONE (16:09)
[2018-05-21] MEDS ORDERED: VANCOMYCIN IV ONE (16:30)
[2018-05-21] MEDS ORDERED: D5W IV ONE (16:30)
[2018-05-21 16:40] LABS: HEPATITIS B SURFACE ANTIGEN NEGATIVE (NEGATIVE)
[2018-05-21] MEDS ORDERED: THROMBIN (BOVINE) 20,000 UNIT SPRAY TP ONE (17:43)
[2018-05-21] MEDS ORDERED: fentaNYL 100 MCG/2 ML INJ IVP PRN (17:51)
[2018-05-21] MEDS ORDERED: NALOXONE HCL 0.4 MG/ML INJ IVP PRN (17:51)
[2018-05-21] MEDS ORDERED: PROMETHAZINE HCL 25 MG/ML INJ IVP PRN (17:51)
[2018-05-21] MEDS ORDERED: VODKA 50 ML BOTTLE PO SCH (18:00)
[2018-05-21] MEDS ORDERED: HYDROmorphONE/DILAUDID 1 MG/ML INJ IVP PRN (18:11)
--- NOTE | 2018-05-21 18:13 | POSTOPPROG ---
Post Op Note Date of Operation: 05/21/18 Surgeon: Vipul Redd Cut Press Operator: Aron Anesthesiologist: Daniel Anesthesia: GET(General Endotracheal) Pre-op Diagnosis: Infected AVF graft Post-op Diagnosis: Same Indication: same Procedure: Removal of AVF graft Findings: No purulence or other signs of infection Inf/Abcess present in the surg proc area at time of surgery?: No Depth: Superfical (Skin SQ) EBL: 50-100 Bowel Protocol: N/A Clean Closure Performed: N/A Drains: Aroldo Navarro Specimen(s): Graft for culture
[2018-05-21] MEDS ORDERED: HYDROmorphONE/DILAUDID 2 MG/ML INJ ONE (19:18)
[2018-05-21] MEDS ORDERED: HYDROmorphONE/DILAUDID 2 MG/ML INJ IVP PRN ×2 (19:30→19:33)
--- NOTE | 2018-05-21 19:36 | POSTOPPROG ---
Post Op Note Date of Operation: 05/21/18 Surgeon: Vipul Redd Anesthesiologist: FARHAN Anesthesia: GET(General Endotracheal) Pre-op Diagnosis: INFECTED DIALYSIS GRAFT Post-op Diagnosis: SAME Indication: CONTINUED FEBRILE COURSE Procedure: EXCISION OF AV GRAFT LEFT ARM WITH LATERAL VEIN OR FEE Findings: NO ACTUAL PURULENT MATERIAL AROUND THE GRAFT ALTHOUGH SOME INFLAMMATION IN Inf/Abcess present in the surg proc area at time of surgery?: Yes Depth: Deep Incisional (Fascial) EBL: 50-100 Complications: NONE Bowel Protocol: N/A Clean Closure Performed: N/A Drains: Aroldo Navarro, Wound Vac Specimen(s): INFECTED GRAFT
[2018-05-21] MEDS: HYDROmorphONE/DILAUDID 1 MG/ML INJ IVP PRN (23:04)
[2018-05-22] MEDS: PROMETHAZINE HCL 25 MG/ML INJ IVP PRN ×4 (03:30→22:18)
[2018-05-22] MEDS: HYDROmorphONE/DILAUDID 1 MG/ML INJ IVP PRN ×8 (03:30→22:31)
[2018-05-22] MEDS: PROMETHAZINE HCL 25 MG TAB PO SCH ×2 (06:35→18:21)
[2018-05-22] MEDS: FUROSEMIDE 80 MG TAB PO SCH ×2 (06:35→16:26)
[2018-05-22] MEDS: CALCIUM ACETATE 667 MG CAP PO SCH ×3 (09:10→18:14)
[2018-05-22] MEDS: PANTOPRAZOLE SODIUM 40 MG TAB PO SCH (09:10)
[2018-05-22] MEDS: SEVELAMER HCL 800 MG TAB PO SCH ×3 (09:11→18:15)
[2018-05-22] MEDS: FLUTICASONE NASAL 120 SPRAYS/16 GM MDI NS SCH ×2 (09:12→20:35)
--- NOTE | 2018-05-22 09:13 | SOAPPROG ---
SOAP Progress Note Assessment/Plan: Assessment/Plan: 42 y/o F with h/o ESRD and recent graft infection with persistent fevers now s/p graft removal. -afebrile overnight -vanc troughs at goal -cultures NTD -plan for placing TDC tomorrow if possible and doing HD, calling IR -AVG removed per surgery, following -continue home meds -renal diet and restrict fluids given mild hyponatremia -consider checking sed rate and may need further work-up if fevers persist -please contact if ?'s, #[phone] 05/22/18 09:13 Subjective: Afebrile overnight. Minimal purulent material found around AVG. Objective: Vital Signs Temp Pulse Resp BP Pulse Ox 37.5 C 111 H 16 105/64 97 05/22/18 08:00 05/22/18 08:00 05/22/18 08:00 05/22/18 08:00 05/22/18 08:00 Microbiology 05/21/18 17:27 Gram Stain - Final Other - Tissue Laboratory Results 05/21/18 05:02 05/21/18 05:02 05/21/18 05/22/18 05/23/18 05:59 05:59 05:59 Intake Total 700 650 Output Total 150 25 140 Balance 550 625 -140 Physical Exam - Physical Exam General Appearance: WD/WN, alert, mild distress EENT: PERRL/EOMI Neck: non-tender, full range of motion, supple Respiratory: chest non-tender, lungs clear Cardiac/Chest: regular rate, rhythm, edema Abdomen: normal bowel sounds, non-tender, soft Skin: pallor Extremities: normal range of motion, non-tender, swelling (L arm) Neuro/Psych: depressed affect ICD10 Worksheet Patient Problems: Problems Problem Status Onset Disorder of pancreas Active 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
--- NOTE | 2018-05-22 09:42 | SOAPPROG ---
SOAP Progress Note Assessment/Plan: Assessment/plan: 42 y/o F with ESRD on dialysis. Admitted with fevers after using infected AV gortex graft for dialysis on Friday. S/p removal of AV graft POD #1. No purulence found at time of surgery. Cultures pending. IV vanc started. Appreciate ID input. Persistent fevers over night. Normothermic this am after Tylenol. Plan for tunneled subclavian catheter placement on Friday. S: C/o arm pain. IV dilaudid helping. O:Alert Afebrile this morning RRR No increased WOB LUE: Wounds well dressed. Wound vac to suction on upper arm wound. 2+edema throughout extremity. +radial pulse. 05/22/18 09:38 Objective: Vital Signs Temp Pulse Resp BP Pulse Ox 37.5 C 111 H 16 105/64 97 05/22/18 08:00 05/22/18 08:00 05/22/18 08:00 05/22/18 08:00 05/22/18 08:00 Microbiology 05/21/18 17:27 Gram Stain - Final Other - Tissue Laboratory Results 05/21/18 05:02 05/21/18 05:02 05/21/18 05/22/18 05/23/18 05:59 05:59 05:59 Intake Total 700 650 Output Total 150 25 140 Balance 550 625 -140 ICD10 Worksheet Patient Problems: Problems Problem Status Onset Disorder of pancreas Active 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
[2018-05-22] MEDS: oxyCODONE IR 15 MG TAB PO PRN ×4 (10:42→23:18)
[2018-05-22] MEDS ORDERED: VANCOMYCIN HCL/NORMAL SALINE 250 ML IV SCH (12:00)
--- NOTE | 2018-05-22 14:05 | PDCONSULT ---
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 Other left upper extremity AV graft is out will see if she has any further fevers. 1. Fevers with unclear source, possible left upper extremity AV graft dysfunction 2. Status post left upper extremity AV graft excision 05/21/2018 3. ESRD secondary to polycystic kidney disease 4. 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 Chronic active hepatitis C virus infection Plan: 1. Hold on re-dosing vancomycin with a good level 2. Will follow blood cultures 3. Reviewed in detail potential side effects of vancomycin to include: allergy, rash, nausea, antibiotic-associated diarrhea, Clostridioides difficile colitis. 4. ID will follow Sergio Riggins MD Infectious Diseases Chief Complaint: Escalating fevers Requesting Provider: Dr. Patterson Reason for Referral: Consultation was requested by Dr. Patterson regarding antimicrobial management. HPI: 42-year-old woman who re-presented to hospital shortly after a recent discharge as she had escalating intensity of fevers at home. Her admission earlier this month was related to a possible left upper extremity AV graft site infection which was found to be necrotic fat tissue and debrided in the operating room. She had presented with fevers and negative blood cultures and defervesced while receiving cefazolin intermittently. She had been on 5-7 days of cephalexin prior to her previous admission which is suspected to be contributing to why operative cultures were sterile. Due to the complexity of her venous access for dialysis it was decided that her left upper extremity AV graft would remain in place. She states that even after returning home she continued to have low-grade fevers with increasing intensity over the the 2 days prior to admission. She was seen by her surgeon who advised her to present to the emergency department due to a fever of 103 degrees at home. She was discharged with a wound VAC over at the surgical site of the upper left upper extremity and she does say that she had increased swelling of the upper extremity after her discharge home but no erythema. She underwent operative removal of her left upper extremity AV graft yesterday and is recovering post surgery with no fevers the through the morning today. She had received vancomycin since admission and states she is generally feeling better since surgery yesterday. She notes no diarrhea, upper respiratory symptoms, cough, rash, myalgias, or arthralgias. After discharge she did present to her primary care office who tested her for influenza which was negative. Reviewed patient medical records in [facility], and [facility] ([facility] Past Medical History: ESRD due to polycystic kidney disease; chronic active hepatitis C virus infection Past Surgical History: Left upper extremity AV graft removal 05/21/2018; left upper extremity AV graft debridement and washout 05/07/2018; left upper extremity AV graft revision with interposition to distal brachial vein 04/04/2018; left eek nephrectomy 04/17/2018; clotted left upper extremity AV graft thrombectomy 04/01/2018; left upper extremity AV graft placement 2014 Social History: Does not use tobacco products; Does not consume marijuana products; Drinks alcohol socially; Does not use any other drugs currently or in the past Family History: No family members with recurrent infections Allergies: Sulfa drugs listed as allergy based on a number of years ago swelling of the tunnel associated with multiple medications given same time, she has come Bactrim approximately 6 months before this admission for a weeks course and had no adverse effects Medications: Reviewed in medical record and confirmed with patient. ROS: 10 organ systems reviewed; pertinent positives and negatives listed in the HPI, all other organ systems negative. Physical Exam: VS: Reviewed Gen: No acute distress; Breathing comfortably without supplemental oxygen; Able to speak in complete sentences Eyes: No conjunctival injection; No scleral icterus HENT: No gross deformities Neck: No limitation in range of motion Pulm: Audible inspiratory sounds to the bases bilaterally; No wheeze, rhonchi, or rales CV: Normal S1 and S2, 3/6 systolic murmur; Regular tachycardia; No rubs or gallops; No lower extremity edema Abd: Not distended; Normo-active bowel sounds; Soft; Non-tender Skin: A full skin exam including exposed bilateral upper extremities, bilateral lower extremities to the knees, face, neck, abdomen, chest, and back performed; Skin intact, warm, with no rash MSK: Joints without erythema or edema; No gross limitation in range of motion; LUE with post-surgical dressing in place, not taken down Ext: No clubbing or cyanosis Neuro: Awake and alert Psych: Normal mood and blunted affect Labs/Imaging: All microbiology testing (culture and non-culture) reviewed in the medical record. Personally reviewed and interpreted the images of the following radiographs: Chest x-ray without infiltrates Medications Discontinued Medications Generic Name Dose Route Start Last Admin Trade Name Freq PRN Reason Stop Dose Admin Vancomycin HCl 250 mg/ 55 mls @ 110 mls/hr 05/21/18 16:30 05/21/18 16:42 Dextrose IV 05/21/18 16:59 55 mls ONCALL ONE Vancomycin/Sodium Chloride 250 mls @ 250 mls/hr 05/21/18 15:30 Vancomycin 1 Gm (Premix) IV 05/21/18 16:29 ONCALL ONE Protocol Vancomycin/Sodium Chloride 250 mls @ 250 mls/hr 05/22/18 12:00 Vancomycin 1 Gm (Premix) IV 06/21/18 11:59 Q24H REPLACED BY [facility] Protocol Microbiology 05/21/18 17:27 Other - Tissue Gram Stain - Final 05/21/18 17:27 Other - Tissue Anaerobic Culture - Preliminary 05/20/18 22:06 Blood Blood Culture - Preliminary 05/20/18 22:00 Blood Blood Culture - Preliminary Laboratory Tests 05/20/18 05/21/18 05/21/18 15:54 05:02 12:10 WBC 13.66 H 12.49 H Hgb 8.0 L 6.9 L Plt Count 237 218 Vancomycin Trough 24.7 H* Ongoing monitoring for antimicrobial toxicity with: CBC, BMP.
--- NOTE | 2018-05-22 16:09 | HOSPPROG ---
Hospitalist Progress Note Assessment/Plan: DIAGNOSES: * Acute sepsis * Suspected infection of dialysis fistula left arm / Recurrent fever and high white blood cell count with ongoing pain in left upper extremity with 2 days after stopping empiric vancomycin for question of infection in the left upper arm where she has an AV fistula for dialysis. (had received 13 days of vancomycin iv) When she was initially admitted here May 05 for fever and pain in the arm there was remarkable cellulitic process and a CT scan showing what looked like a fluid collection which on surgical exploration turned out to be necrotic fat. Cultures of blood and the wound during that admission were all negative. Gram stain of the material collected at surgery were negative for organisms. * End-stage renal disease due to polycystic kidney disease on dialysis * Chronic nausea * History of left nephrectomy * Chronic pain syndrome on chronic prescribed daily narcotics * Hypertension * Depression * Hepatitis-C status post treatment for that * History of polysubstance abuse * History of cardiac arrest * History of C difficile colitis * Kidney stones * History of pancreatitis PLANS: * S/p OR with removal of dialysis fistula on 05/22 * ID consulted this AM, holding on re-dosing vancomycin with a good level currently * Blood cultures pending * Nephrology following, recommending placement of tunneled HD catheter over the weekend, likely Friday, surgery following as well * Pain control PRN Subjective: Patient reports pain in LUE this AM Objective: Vital Signs Temp Pulse Resp BP Pulse Ox 37.4 C 106 H 16 121/88 H 96 05/22/18 11:38 05/22/18 11:38 05/22/18 11:38 05/22/18 11:38 05/22/18 11:38 Microbiology 05/21/18 17:27 Gram Stain - Final Other - Tissue Laboratory Results 05/21/18 05:02 05/21/18 05:02 05/21/18 05/22/18 05/23/18 05:59 05:59 05:59 Intake Total 700 650 Output Total 150 25 140 Balance 550 625 -140 - Physical Exam Constitutional: uncomfortable Eyes: PERRL Ears, Nose, Mouth, Throat: moist mucous membranes Cardiovascular: regular rate and rhythym Respiratory: no respiratory distress Gastrointestinal: soft, non-tender abdomen Skin: warm Neurologic: AAOx3 Psychiatric: interacting appropriately ICD10 Worksheet Patient Problems: Problems Problem Status Onset Disorder of pancreas Active 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
[2018-05-23] MEDS: HYDROmorphONE/DILAUDID 1 MG/ML INJ IVP PRN ×8 (01:35→22:15)
[2018-05-23] MEDS: oxyCODONE IR 15 MG TAB PO PRN ×4 (05:08→18:41)
[2018-05-23] MEDS: PROMETHAZINE HCL 25 MG/ML INJ IVP PRN ×3 (05:08→18:41)
[2018-05-23] MEDS: FUROSEMIDE 80 MG TAB PO SCH ×2 (05:08→17:38)
[2018-05-23] MEDS: PROMETHAZINE HCL 25 MG TAB PO SCH ×2 (05:56→17:39)
[2018-05-23] MEDS: PANTOPRAZOLE SODIUM 40 MG TAB PO SCH (08:15)
[2018-05-23] MEDS: CALCIUM ACETATE 667 MG CAP PO SCH ×3 (08:15→20:22)
[2018-05-23] MEDS: SEVELAMER HCL 800 MG TAB PO SCH ×3 (08:15→20:23)
[2018-05-23] MEDS: FLUTICASONE NASAL 120 SPRAYS/16 GM MDI NS SCH ×2 (08:16→22:39)
--- NOTE | 2018-05-23 08:40 | SOAPPROG ---
SOAP Progress Note Assessment/Plan: Assessment: AFEBRILE/ WOUND VAC WORKING/ SOME PAIN EXPECTED/ MINIMAL KALI OUT GOOD RADIAL PULSE AND MOTER FUNCTION LEFT HAND Plan:TUNNELLED CATH IN AM IF AFEBRILE/ CONTINUE VAC 05/23/18 08:38 Objective: Vital Signs Temp Pulse Resp BP Pulse Ox 37.2 C 91 16 126/72 H 96 05/23/18 08:00 05/23/18 08:00 05/23/18 08:00 05/23/18 08:00 05/23/18 08:00 Microbiology 05/21/18 17:27 Gram Stain - Final Other - Tissue Laboratory Results 05/21/18 05:02 05/23/18 05:24 05/22/18 05/23/18 05/24/18 05:59 05:59 05:59 Intake Total 650 600 Output Total 25 190 Balance 625 410 ICD10 Worksheet Patient Problems: Problems Problem Status Onset Disorder of pancreas Active 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
--- NOTE | 2018-05-23 14:07 | SOAPPROG ---
SOAP Progress Note Assessment/Plan: Assessment/Plan: 42 y/o F with h/o ESRD and recent graft infection with persistent fevers now s/p graft removal. -afebrile overnight -vanc troughs at goal per pharmacy and will redose after HD tomorrow -cultures NTD -plan for placing TDC tomorrow am per Dr. Redd -continue home meds -renal diet and restrict fluids given mild hyponatremia -ok to hold labs until HD -please contact if ?'s, #[phone] 05/23/18 14:06 Objective: Vital Signs Temp Pulse Resp BP Pulse Ox 37.2 C 108 H 18 122/84 H 92 05/23/18 11:47 05/23/18 11:47 05/23/18 11:47 05/23/18 11:47 05/23/18 11:47 Microbiology 05/21/18 17:27 Gram Stain - Final Other - Tissue Laboratory Results 05/23/18 05:24 05/23/18 05:24 05/22/18 05/23/18 05/24/18 05:59 05:59 05:59 Intake Total 650 600 Output Total 25 190 Balance 625 410 Physical Exam - Physical Exam General Appearance: WD/WN, alert, mild distress EENT: PERRL/EOMI Neck: non-tender, full range of motion, supple Respiratory: decreased breath sounds Cardiac/Chest: normal peripheral pulses, regular rate, rhythm Abdomen: normal bowel sounds, non-tender, soft Extremities: other (L arm wrapped) Neuro/Psych: oriented x 3 ICD10 Worksheet Patient Problems: Problems Problem Status Onset Disorder of pancreas Active 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
--- NOTE | 2018-05-23 15:25 | HOSPPROG ---
Hospitalist Progress Note Assessment/Plan: DIAGNOSES: * Acute sepsis * Suspected infection of dialysis fistula left arm / Recurrent fever and high white blood cell count with ongoing pain in left upper extremity with 2 days after stopping empiric vancomycin for question of infection in the left upper arm where she has an AV fistula for dialysis. (had received 13 days of vancomycin iv) When she was initially admitted here May 05 for fever and pain in the arm there was remarkable cellulitic process and a CT scan showing what looked like a fluid collection which on surgical exploration turned out to be necrotic fat. Cultures of blood and the wound during that admission were all negative. Gram stain of the material collected at surgery were negative for organisms. * End-stage renal disease due to polycystic kidney disease on dialysis * Chronic nausea * History of left nephrectomy * Chronic pain syndrome on chronic prescribed daily narcotics * Hypertension * Depression * Hepatitis-C status post treatment for that * History of polysubstance abuse * History of cardiac arrest * History of C difficile colitis * Kidney stones * History of pancreatitis PLANS: * S/p OR with removal of dialysis fistula on 05/22 * ID consulted, holding on re-dosing vancomycin with a good level currently, redose after HD tomorrow * Blood and wound cultures pending * Nephrology following, recommending placement of tunneled HD catheter tomorrow , HD after per Nephrology * Pain control PRN Subjective: Patient reports continued pain in LUE this AM Objective: Vital Signs Temp Pulse Resp BP Pulse Ox 37.2 C 108 H 18 122/84 H 92 05/23/18 11:47 05/23/18 11:47 05/23/18 11:47 05/23/18 11:47 05/23/18 11:47 Microbiology 05/21/18 17:27 Gram Stain - Final Other - Tissue Laboratory Results 05/23/18 05:24 05/23/18 05:24 05/22/18 05/23/18 05/24/18 05:59 05:59 05:59 Intake Total 650 600 Output Total 25 190 Balance 625 410 - Physical Exam Constitutional: no apparent distress Eyes: PERRL Ears, Nose, Mouth, Throat: moist mucous membranes Cardiovascular: regular rate and rhythym Respiratory: no respiratory distress Gastrointestinal: soft, non-tender abdomen Skin: warm Musculoskeletal: pain with ROM Neurologic: AAOx3 Psychiatric: interacting appropriately ICD10 Worksheet Patient Problems: Problems Problem Status Onset Disorder of pancreas Active 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
--- NOTE | 2018-05-23 17:49 | PCMIDPN ---
Assessment/Plan: Assessment: 42-year-old woman with fevers of unclear source which now may well be related to a deep soft tissue infection related to Haemophilus parainfluenza recovered from culture. Although this is not definitive with a single colony growing in culture, this is an indolent organism and could very well explain her chronic infectious syndrome and the lack of purulence found operatively. We will target this organism as the possible pathogen to ensure we decrease her risk for relapse. 1. Probable deep soft tissue infection with Haemophilus parainfluenza 2. 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 Status post left upper extremity AV graft excision 05/21/2018 4. ESRD secondary to polycystic kidney disease 5. Status post left [place] nephrectomy 04/17/2018 6. Chronic active hepatitis C virus infection Plan: 1. Start ceftriaxone 1 g daily 2. Reviewed in detail potential side effects of beta-lactam antibiotics to include: allergy, rash, nausea, antibiotic-associated diarrhea, Clostridioides difficile colitis. 3. ID to follow Sergio Riggins MD Infectious Diseases 05/23/18 17:47 Subjective: No fever or chills in the past 24-hours. Tolerating oral diet with solids and liquids. No diarrhea, overall nausea improved but not resolved. No rash. Appetite improving. Ambulating without difficulty. Improved since admission but not back to baseline health. Possible tunneled dialysis catheter placement tomorrow. Objective: Vital Signs Temp Pulse Resp BP Pulse Ox 36.9 C 89 16 107/62 98 05/23/18 16:00 05/23/18 16:00 05/23/18 16:00 05/23/18 16:00 05/23/18 16:00 Microbiology 05/21/18 17:27 Gram Stain - Final Other - Tissue Laboratory Results 05/23/18 05:24 05/23/18 05:24 05/22/18 05/23/18 05/24/18 05:59 05:59 05:59 Intake Total 650 600 Output Total 25 190 Balance 625 410 Medications Generic Name Dose Route Start Last Admin Trade Name Freq PRN Reason Stop Dose Admin Ceftriaxone Sodium/Dextrose 50 mls @ 100 mls/hr 05/23/18 17:00 05/23/18 17:39 Rocephin 1 Gm (Premix) IV 06/22/18 16:59 50 mls DAILY AVI Protocol Discontinued Medications Generic Name Dose Route Start Last Admin Trade Name Allison PRN Reason Stop Dose Admin Vancomycin HCl 250 mg/ 55 mls @ 110 mls/hr 05/21/18 16:30 05/21/18 16:42 Dextrose IV 05/21/18 16:59 55 mls ONCALL ONE Vancomycin/Sodium Chloride 250 mls @ 250 mls/hr 05/21/18 01:00 05/21/18 00:51 Vancomycin 1 Gm (Premix) IV 05/21/18 01:59 250 mls ONCE ONE Vancomycin/Sodium Chloride 250 mls @ 250 mls/hr 05/21/18 15:30 Vancomycin 1 Gm (Premix) IV 05/21/18 16:29 ONCALL ONE Protocol Vancomycin/Sodium Chloride 250 mls @ 250 mls/hr 05/22/18 12:00 Vancomycin 1 Gm (Premix) IV 06/21/18 11:59 Q24H [facility] Protocol Microbiology 05/21/18 17:27 Other - Tissue Gram Stain - Final 05/21/18 17:27 Other - Tissue Anaerobic Culture - Preliminary Haemophilus Parainfluenza 05/20/18 22:06 Blood Blood Culture - Preliminary 05/20/18 22:00 Blood Blood Culture - Preliminary Laboratory Tests 05/20/18 05/21/18 15:54 05:02 WBC 13.66 H 12.49 H - Physical Exam General Appearance: no apparent distress, non-toxic EENT: No scleral icterus Respiratory: No respiratory distress, No accessory muscle use Neck: full range of motion, supple Extremities: other (Wound VAC in place over the medial aspect of the upper left upper extremity, gauze wrapping over the forearm on the left not taken down), No erythema Skin: No erythema Neuro/Psych: alert, oriented x 3, depressed affect, No confused - Time Spent With Patient Time Spent with Patient: greater than 25 minutes (Discussed with patient and her significant other at bedside the clinical main fullness of the recovered bacteria as a single colony, potential side effects of ceftriaxone, expected time resolution) Time Spent with Patient: Greater than 25 minutes spent on this patients care, greater than 50% of time spent counseling, educating, and coordinating care regarding the above mentioned plan. ICD10 Worksheet Patient Problems: Problems Problem Status Onset Disorder of pancreas Active 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
--- NOTE | 2018-05-23 22:15 | GOP ---
[f rep st] OPERATIVE REPORT DATE OF OPERATION: 05/21/2018 SURGEON: Vipul Redd MD STAFFING PROGRAM MANAGER: There was no permit review assistant. ANESTHESIOLOGIST: Dr. Sanchez. PREOPERATIVE DIAGNOSIS: Possible infected dialysis graft, left arm. POSTOPERATIVE DIAGNOSIS: Possible infected dialysis graft, left arm. PROCEDURE PERFORMED: Excision of arteriovenous graft, left arm, with a lateral venorrhaphy. FINDINGS: Patient was found to have a graft in the upper arm that had no tissue adherence. There ap peared to be necrotic fat in the area, but no gross purulence and no pockets of purulence throughout the course of the graft. ESTIMATED BLOOD LOSS: Less than 50 cc. DESCRIPTION OF PROCEDURE: Patient taken to the operating room. She received satisfactory general en dotracheal anesthesia by Dr. Sanchez. She was placed in the supine position with the left arm outst retched on an arm board, prepped and draped in the usual sterile fashion. Initial incision was made at the origin of the loop graft in the forearm, dissection extended down and the Basye-Hernandez graft was d issected free. It was ligated proximally with an 0 silk tie and then a 2nd 2-0 silk suture ligature. The graft was then divided. There was minimal blood from the back flow. That distal graft was damon ed up somewhat from its subcutaneous connections, but there was no evidence of infection or purulence at that area. That wound was closed with 3-0 Vicryl for the subcutaneous and a 4-0 Monocryl subcuti cular stitch for the skin. A second incision was then made in the upper arm through the previous old incision which was somewhat elongated. The graft was identified. Again, it was freely mobilized wi th no tissue adherence. It was dissected back to the previous anastomosis. After adequate exposure was achieved, the vein was repaired with a running 4-0 Prolene suture for the lateral venorrhaphy bel ow the anastomosis. Once that was completed, the old anastomosis was excised and the sutures were re moved. The venorrhaphy closure was reinforced again with a running 4-0 Prolene suture. It appeared to be quite hemostatic. The graft was then further dissected free with multiple short incisions arou nd the loop of the forearm graft, freeing the graft up and then undermining through the skin bridges until the entire Basye-Hernandez graft could be removed. A 15-round silicone KALI drain was brought out throu gh a separate stab incision and placed around the forearm loop, secured to the skin with a 3-0 nylon suture. The skin of these multiple incisions was closed with skin savannah and the wounds were infilt rated with Marcaine. Attention was turned to the open wound in the upper arm. This was t hen dressed with a wound VAC without difficulty. She tolerated the procedure well. COMPLICATIONS: There were no complications. Copy requested to: Asif Durán MD /[id number]/MODL
[2018-05-24] MEDS: oxyCODONE IR 15 MG TAB PO PRN ×5 (03:32→21:56)
[2018-05-24] MEDS: HYDROmorphONE/DILAUDID 1 MG/ML INJ IVP PRN ×2 (03:32→07:41)
[2018-05-24] MEDS: PROMETHAZINE HCL 25 MG/ML INJ IVP PRN ×2 (03:45→13:39)
[2018-05-24] MEDS: PROMETHAZINE HCL 25 MG TAB PO SCH ×2 (06:00→18:05)
[2018-05-24] MEDS: FUROSEMIDE 80 MG TAB PO SCH ×2 (06:00→17:25)
[2018-05-24] MEDS ORDERED: NS 500 ML IV ONE (09:55)
[2018-05-24] MEDS ORDERED: MIDAZOLAM 2 MG/2 ML VIAL IVP ONE (10:16)
[2018-05-24] MEDS ORDERED: ACETAMINOPHEN 500 MG TAB PO PRN (10:19)
[2018-05-24] MEDS ORDERED: NALOXONE HCL 0.4 MG/ML INJ IVP PRN (10:19)
[2018-05-24] MEDS ORDERED: NS 500 ML IV PRN (10:19)
[2018-05-24] MEDS ORDERED: PROMETHAZINE HCL 25 MG/ML INJ IVP PRN (10:19)
[2018-05-24] MEDS ORDERED: HYDROCODONE/APAP 5/325 TAB PO PRN (10:19)
--- NOTE | 2018-05-24 10:19 | PDANEPAE ---
ANE Past Medical History - Cardiovascular History Hx Hypertension: Yes Hx Arrhythmias: No Hx Chest Pain: No Hx Coronary Artery / Peripheral Vascular Disease: No Hx CHF / Valvular Disease: No Hx Palpitations: No - Pulmonary History Hx COPD: No Hx Asthma/Reactive Airway Disease: No Hx Recent Upper Respiratory Infection: No Hx Oxygen in Use at Home: No Hx Sleep Apnea: Yes Sleep Apnea Screening Result - Last Documented: Positive - Endocrine History Hx Diabetes: No Obesity: mild - Renal History Hx Renal Disorders: Yes - Liver History Hx Hepatic Disorders: No - Chronic Pain History Chronic Pain: Yes (kidneys, low back) ANE Review of Systems Review of Systems: - Exercise capacity METS (RN): 3 METS ANE Patient History - Allergies Allergies/Adverse Reactions: Marijuana/[place] *RETIRED-11/11/11 [Marijuana/Cannabinoid] Allergy (Severe, Verified 05/05/18 10:12) Anaphylaxis ondansetron HCl [From Zofran (as hydrochloride)] Allergy (Severe, Verified 05/05 10:12) Tingling of mouth/throat hydrochlorothiazide Allergy (Verified 05/05/18 10:12) Anaphylaxis NSAIDS (Non-Steroidal Anti-Inflamma [Nsaids] Allergy (Verified 05/05/18 10:12) Sulfa (Sulfonamide Antibiotics) Allergy (Verified 05/05/18 10:12) Hives - Home Medications Home medications: home medication list seen and reviewed Home Medications: Furosemide [Lasix 80 MG (*)] 160 mg PO BID@05/21/16 [Last Taken 05/19/18] Promethazine HCl [Phenergan 25mg (*)] 25 mg PO BID@05/21/16 [Last Taken ] Sevelamer Carbonate [Renvela] 1,600 mg PO TIDMEAL 05/21/16 [Last Taken 05/19/18] Calcium Acetate [Phoslo (*)] 2,001 each PO TIDMEAL 07/16/16 [Last Taken 05/19/18 ] Fluticasone Nasal [Flonase Nasal [place]] 2 sprays NASAL BID 09/23/17 [Last Taken 04/30/18] Lisinopril [Zestril 20 mg (*)] 20 mg PO DAILY PRN 09/23/17 [Last Taken 02/22/18] Midodrine HCl 10 mg PO AD 09/23/17 [Last Taken 02/28/18 15:00] Calcium Acetate [Phoslo (*)] 2,001 mg PO PRN PRN 03/02/18 [Last Taken 05/19/18] Omeprazole 40 mg PO DAILY 03/02/18 [Last Taken 04/30/18] Sevelamer Carbonate [Renvela] 1,600 mg PO PRN PRN 03/02/18 [Last Taken 05/19/18] - NPO status NPO Status: no food or drink >8 hours NPO Since - Liquids (Date): 05/24/18 NPO Since - Liquids (Time): 06:30 NPO Since - Solids (Date): 05/20/18 NPO Since - Solids (Time): 21:00 - Anes Hx Anes Hx: no prior problems - Smoking Hx Smoking Status: Never smoked ANE Labs/Vital Signs - Labs Result Diagrams: 05/23/18 05:24 05/23/18 05:24 - Vital Signs Blood Pressure: 144/84 Heart Rate: 109 Respiratory Rate: 14 O2 Sat (%): 94 Height: 157.48 cm Weight: 67.4 kg ANE Physical Exam - Airway Neck exam: FROM Mallampati Score: Class 3 Mouth exam: normal dental/mouth exam - Pulmonary Pulmonary: no respiratory distress, no rales or rhonchi, clear to auscultation - Cardiovascular Cardiovascular: regular rate and rhythym, no murmur, rub, or gallop - ASA Status ASA Status: III ANE Anesthesia Plan Anesthesia Plan: MAC
[2018-05-24] MEDS ORDERED: fentaNYL 100 MCG/2 ML INJ ONE ×3 (10:22→12:43)
[2018-05-24] MEDS ORDERED: PROPOFOL 200 MG/20 ML VIAL ONE ×3 (10:23→11:48)
[2018-05-24] MEDS ORDERED: LIDOCAINE 1% 300 MG/30 ML SDV ONE ×2 (10:26→11:36)
[2018-05-24] MEDS ORDERED: MIDAZOLAM 2 MG/2 ML VIAL ONE (10:27)
[2018-05-24] MEDS ORDERED: HEPARIN 50,000 UNIT/10 ML VIAL ONE ×2 (10:27→16:30)
[2018-05-24] MEDS ORDERED: BUPIVACAINE 0.5% 30 ML SDV ONE ×2 (10:27→11:34)
[2018-05-24] MEDS ORDERED: LIDOCAINE 2% 2 ML INJ ONE (10:32)
[2018-05-24] MEDS ORDERED: SODIUM BICARBONATE 50 MEQ/50 ML SYR ONE (10:32)
[2018-05-24] MEDS ORDERED: IOTHALAMATE MEG (CONRAY) 50 ML VIAL IV ONE ×2 (10:59→11:18)
[2018-05-24] MEDS ORDERED: HYDROmorphONE/DILAUDID 1 MG/ML INJ IVP PRN (11:22)
--- NOTE | 2018-05-24 12:05 | SOAPPROG ---
SOAP Progress Note Assessment/Plan: Assessment/Plan: 42 y/o F with h/o ESRD and recent graft infection with persistent fevers now s/p graft removal. -h. influenzae, on ceftriaxone 1g daily per ID -little to no IV access and prefer to avoid PICC placement given issues with future HD access -will discuss possibility of dosing through TDC post HD for infection, d/w pharmacy today -obtaining TDC per Dr. Redd currently, will do HD today -continue other home meds, prefer po pain medications -renal diet and restrict fluids given mild hyponatremia -ok to hold labs until HD -please contact if ?'s, #[phone] 05/24/18 12:03 Subjective: Patient combative over IV medications. Afebrile overnight. Objective: Vital Signs Temp Pulse Resp BP Pulse Ox 37.7 C 109 H 14 144/84 H 94 05/24/18 10:00 05/24/18 10:19 05/24/18 10:19 05/24/18 10:19 05/24/18 10:19 Microbiology 05/21/18 17:27 Gram Stain - Final Other - Tissue Laboratory Results 05/23/18 05:24 05/23/18 05:24 05/23/18 05/24/18 05/25/18 05:59 05:59 05:59 Intake Total 600 300 Output Total 190 900 300 Balance 410 -600 -300 Physical Exam - Physical Exam General Appearance: WD/WN, alert, mild distress EENT: PERRL/EOMI Neck: non-tender, full range of motion, normal inspection Respiratory: chest non-tender, lungs clear Cardiac/Chest: normal peripheral pulses, regular rate, rhythm, edema Abdomen: normal bowel sounds, non-tender, soft Skin: pallor Extremities: swelling (L arm wrapped) Neuro/Psych: alert, depressed affect ICD10 Worksheet Patient Problems: Problems Problem Status Onset Disorder of pancreas Active 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
--- NOTE | 2018-05-24 12:10 | ASMTCMCOM ---
CM Note CM Note Notes: Pts case reviewed and discussed w/ GRANT Ramirez. ID is consulting on this case. It is uncertain if pt will require ivabx at time of d/c. Plans are TBD. Pt is current w/ GRANT RENTERIA and pt will most likely continue. CM to follow. Plan: TBD Date Signed: 05/24/2018 12:09 PM Electronically Signed By:ADRIANO Wilkins
--- NOTE | 2018-05-24 12:32 | POSTANESTH ---
Post Anesthetic Evaluation Cardiovascular Status: Normal, Stable, Similar to Pre-Op Cond Respiratory Status: Similar to Pre-op Cond. Level of Consciousness/Mental Status: Can Participate in Eval, Mildly Sleepy, Arousable Pain Control: Adequate, Prn Tx Ordered Nausea/Vomiting Control: Adequate, Prn Tx Ordered Complications Possibly Related to Anesthesia: None Noted
[2018-05-24] MEDS: fentaNYL 100 MCG/2 ML INJ IVP PRN ×2 (12:44→12:50)
--- NOTE | 2018-05-24 13:58 | POSTOPPROG ---
Post Op Note Date of Operation: 05/24/18 Surgeon: Vipul Redd Anesthesiologist: KAMARI Anesthesia: IV Sedation Pre-op Diagnosis: CRF Post-op Diagnosis: SAME Indication: DIALYSIS ACCESS Procedure: ATTEMPTED BILAT SUBCLAVIAN CATHETER/ RT FEMORAL TUNNELLED CATH Findings: GOOD FLOW/ UNABLE TO PASS SUBCLAVIAN PAST SVC Inf/Abcess present in the surg proc area at time of surgery?: No Depth: Deep Incisional (Fascial) EBL: 50-100 Complications: 0
[2018-05-24] MEDS: CALCIUM ACETATE 667 MG CAP PO SCH ×3 (14:07→18:05)
[2018-05-24] MEDS: SEVELAMER HCL 800 MG TAB PO SCH ×3 (14:08→18:05)
--- NOTE | 2018-05-24 15:06 | HOSPPROG ---
Hospitalist Progress Note Assessment/Plan: DIAGNOSES: * Acute sepsis * Suspected infection of dialysis fistula left arm / Recurrent fever and high white blood cell count with ongoing pain in left upper extremity with 2 days after stopping empiric vancomycin for question of infection in the left upper arm where she has an AV fistula for dialysis. (had received 13 days of vancomycin iv) When she was initially admitted here May 05 for fever and pain in the arm there was remarkable cellulitic process and a CT scan showing what looked like a fluid collection which on surgical exploration turned out to be necrotic fat. Cultures of blood and the wound during that admission were all negative. Gram stain of the material collected at surgery were negative for organisms. * End-stage renal disease due to polycystic kidney disease on dialysis * Chronic nausea * History of left nephrectomy * Chronic pain syndrome on chronic prescribed daily narcotics * Hypertension * Depression * Hepatitis-C status post treatment for that * History of polysubstance abuse * History of cardiac arrest * History of C difficile colitis * Kidney stones * History of pancreatitis * Anemia PLANS: * S/p OR with removal of dialysis fistula on 05/22 * ID consulted, was previously on vancomycin, switched to Ceftriaxone on 05/23 due to would culture growing Haemophilus Parainfluenza * Nephrology following, placement of tunneled HD catheter this AM, HD after per Nephrology * Pain control PRN * S/p 1 units PRBC on 05/22 for Hgb 6.9, 7.4 yesterday, continue to monitor, transfuse H/H <7/20 Subjective: Patient reports continued pain in LUE this AM Objective: Vital Signs Temp Pulse Resp BP Pulse Ox 36.8 C 94 16 142/82 H 95 05/24/18 13:45 05/24/18 13:45 05/24/18 13:45 05/24/18 13:45 05/24/18 13:45 Microbiology 05/21/18 17:27 Gram Stain - Final Other - Tissue Laboratory Results 05/23/18 05:24 05/23/18 05/24/18 05/25/18 05:59 05:59 05:59 Intake Total 600 300 550 Output Total 190 900 300 Balance 410 -600 250 - Physical Exam Constitutional: chronically ill appearing Eyes: PERRL Ears, Nose, Mouth, Throat: moist mucous membranes Cardiovascular: regular rate and rhythym Respiratory: no respiratory distress Gastrointestinal: soft, non-tender abdomen Skin: warm Musculoskeletal: pain with ROM Neurologic: AAOx3 Psychiatric: anxious ICD10 Worksheet Patient Problems: Problems Problem Status Onset Disorder of pancreas Active 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
[2018-05-24] MEDS: PANTOPRAZOLE SODIUM 40 MG TAB PO SCH (15:12)
[2018-05-24] MEDS: FLUTICASONE NASAL 120 SPRAYS/16 GM MDI NS SCH ×2 (15:12→20:17)
[2018-05-24] MEDS: ACETAMINOPHEN 325 MG TAB PO PRN (18:08)
[2018-05-24] MEDS ORDERED: HYDROmorphONE/DILAUDID 1 MG/ML INJ IVP ONE (20:00)
[2018-05-24] MEDS ORDERED: PROTAMINE SULFATE 50 MG/5 ML VIAL IVP ONE (21:44)
[2018-05-24] MEDS ORDERED: LORazepam 0.5 MG TAB PO ONE ×2 (22:30→23:30)
--- NOTE | 2018-05-24 23:37 | HOSPPROG ---
Hospitalist Progress Note Assessment/Plan: Called on stat team to patients bedside. Patient noted to be actively bleeding heavily from HD catheter site in thigh, pressure being held. Dr. Redd also at bedside notes that she did get HD today and therefore given heparin and recommends one dose of protamine. Nothing on the leg appears to be in need of surgical intervention currently, patients vital signs stable. No further intervention currently, > 30 min critical care time spent in evaluation at bedside, review of labs and chart and coordination with specialist at bedside. Objective: Vital Signs Temp Pulse Resp BP Pulse Ox 37.6 C 105 H 16 157/86 H 98 05/24/18 19:22 05/24/18 19:22 05/24/18 19:22 05/24/18 19:22 05/24/18 19:22 Microbiology 05/21/18 17:27 Gram Stain - Final Other - Tissue Laboratory Results 05/23/18 05:24 05/24/18 14:35 05/23/18 05/24/18 05/25/18 05:59 05:59 05:59 Intake Total 600 300 550 Output Total 190 900 300 Balance 410 -600 250 ICD10 Worksheet Patient Problems: Problems Problem Status Onset Abdominal pain Acute Renal failure syndrome Active Metabolic acidosis Active Disorder of pancreas Active Renal failure Acute Chest pain Acute End stage renal disease Acute Opioid overdose Acute Altered mental status Acute Diarrhea Acute Anemia Acute Hyperkalemia Acute Arm pain Acute Fever Acute MRSA - Methicillin resistant Staphylococcus aureus infection Active MRSA - Methicillin resistant Staphylococcus aureus infection Active Dialysis complication Acute Chest pain Acute Hypotension Acute
[2018-05-25] MEDS: ACETAMINOPHEN 325 MG TAB PO PRN ×2 (00:46→13:55)
[2018-05-25] MEDS ORDERED: LORazepam 2 MG/ML INJ IVP ONE (00:55)
--- NOTE | 2018-05-25 04:17 | GOP ---
[f rep st] OPERATIVE REPORT DATE OF OPERATION: 05/24/2018 SURGEON: Vipul Redd MD VENEER STOCK GRADER: There was no optometry assistant. ANESTHESIOLOGIST: Dr. Decker. PREOPERATIVE DIAGNOSIS: Chronic renal failure and loss of access. POSTOPERATIVE DIAGNOSIS: Chronic renal failure and loss of access. PROCEDURE PERFORMED: 1. Attempted bilateral subclavian Palindrome catheter placement, with fluoroscopy. 2. Ultrasound guided right femoral tunneled Palindrome catheter. FINDINGS: The patient was found to have open subclavian veins but the catheter guidewires would not pass into the right atrium, and they appeared to be stuck at the atriocaval junction or higher. Mult iple attempts from both sides were unsuccessful in getting the catheter to pass. On the left side we thought we were successful, and we placed the introducer sheath and dilator system, but the Palindro me catheter would not go below that point. A right-sided attempt was done with a guidewire only and it would not pass appropriately and the subclavian approach was abandoned. A right femoral approach was successful with good backflow and good position of the catheter. DESCRIPTION OF PROCEDURE: The patient was taken to the operating room where she received IV sedation and monitored anesthesia care by Dr. Decker. She was placed in the supine position, prepped and drap ed in the usual sterile fashion. She was then placed in Trendelenburg. Using 1% Xylocaine local inf iltration, a single stick was made in the left subclavian vein. Guidewire was introduced and passed under fluoroscopic guidance. However, the guidewire continued to pass out the other arm until finall y we get the guidewire to pass down, but would not go past the atriocaval junction. The Palindrome c atheter was brought in through a separate stab incision and tunneled to this site. The dilators were passed with the guidewire which was then removed. The Palindrome catheter was introduced via the in troducer sheath, but again would not go down into the heart. MAC flow was present but it was not fel t to be adequate for dialysis in that position. The catheter was removed and compression was held on the vein until the bleeding was controlled. The right-sided stick was made. The guidewire would no t pass on that side and the upper arm approach was abandoned. We re-prepped and draped for the right groin. Using ultrasound guidance, a single stick was made in the right common femoral vein. A guid ewire was introduced and passed, confirmed with fluoroscopy. The vein had been identified using ultr asound guidance. Seriel dilators were passed over the guidewire. The Palindrome catheter was tunnel ed in from a separate stab incision on the anterior thigh and brought into that incision. It was the n introduced via the introducer sheath and dilator system into the inferior vena cava. Good backflow was present. The catheter was flushed with heparin saline and it was then instilled with the approp riate amount of 5000 per unit of heparin. It was fixed at the exit site with 3-0 Prolene sutures and the entrance site was closed with 4-0 Prolene mattress sutures. Wounds were infiltrated with 0.5% M arcaine. She tolerated the procedure well. Recheck of the subclavian sites showed no bleeding or he matoma formation, and she was taken to recovery room in good condition. There were no complications. /[id number]/MODL
[2018-05-25] MEDS: FUROSEMIDE 80 MG TAB PO SCH ×2 (07:57→18:09)
[2018-05-25] MEDS: PROMETHAZINE HCL 25 MG TAB PO SCH ×2 (07:58→18:09)
[2018-05-25] MEDS: PANTOPRAZOLE SODIUM 40 MG TAB PO SCH (07:59)
[2018-05-25 10:06] LABS: PLATELET COUNT 219 10^3/uL (150-400)
[2018-05-25] MEDS: SEVELAMER HCL 800 MG TAB PO SCH ×3 (10:12→18:07)
[2018-05-25] MEDS: CALCIUM ACETATE 667 MG CAP PO SCH ×3 (10:13→18:08)
[2018-05-25] MEDS: oxyCODONE IR 15 MG TAB PO PRN ×3 (11:01→20:38)
[2018-05-25] MEDS: FLUTICASONE NASAL 120 SPRAYS/16 GM MDI NS SCH ×2 (12:31→21:54)
[2018-05-25] MEDS ORDERED: LABETALOL HCL 100 MG TAB PO PRN (12:38)
[2018-05-25] MEDS ORDERED: LABETALOL HCL 5 MG/ML 20 ML MDV IVP PRN (12:39)
--- NOTE | 2018-05-25 12:46 | HOSPPROG ---
Hospitalist Progress Note Assessment/Plan: The patient is a 42-year-old female with PMH ESRD on HD, IV drug abuse, history of AV graft complications including clots who was admitted for cellulitis over LUE AV graft. 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 Normally pt take midodrine to help w/ hypotension as outpt. -Check labs today. Repeat H/H -- if Hgb < 7 will likely transfuse 1u PRBC. -Repeat HD today since it was not completed last night. -ID signed off- recommended abx 10 days total. -Neph recs appreciated. HD today. Normal schedule //. Pt on weekly Epo. -Behavioral health consult requested for behavioral issues interfering with optimal hospital care. -Palliative care consult for ESRD and complex comorbidities including chronic pain. -Gave pt an extra dose of oxycodone 7.5mg this afternoon for breakthrough pain. Avoiding increasing scheduled pain medication, as pt seemed lethargic this AM. VTE prophylaxis: SCDs. Code Status: Full code. Status: Inpatient for > 2 midnight stay. 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 HD was discontinued early because patient started bleeding from her catheter site. Refer to Dr. Inman's note. Around midnight, she spiked a fever and 1 blood culture and a chest x-ray was performed. Today, patient feels okay. She wants to go home soon. She is angry and wants to file a complaint about her experience in the hospital. She refused AM labs today, but complied when a repeat set was ordered. OBJECTIVE: Physical Exam: General: The patient is a female who is lethargic and in no acute distress. HEENT: normocephalic, extraocular movements intact, conjunctivae clear. Mucous membranes moist. Neck: trachea midline, no visible masses. Resp: unlabored. Abd: soft and nondistended. Musculoskeletal: Normal muscle tone/bulk. Neuro: cranial nerves II - XII grossly intact. Intact gross motor and sensory function. Psych: Irritated mood and appropriate affect. Skin: No pallor. No petechiae. Dressings on R thigh and L forearm CDI. Dressing on L upper chest blood tinged. Heme/lymph: No peripheral edema at bilateral lower extremities. Labs/Imaging/Other Tests: Personally reviewed/interpreted. Blood Cx prelim - negative. PLANS: * S/p OR with removal of dialysis fistula on 05/22 * ID consulted, was previously on vancomycin, switched to Ceftriaxone on 05/23 due to would culture growing Haemophilus Parainfluenza * Nephrology following, placement of tunneled HD catheter this AM, HD after per Nephrology * Pain control PRN * S/p 1 units PRBC on 05/22 for Hgb 6.9, 7.4 yesterday, continue to monitor, transfuse H/H <7/20 Objective: Vital Signs Temp Pulse Resp BP Pulse Ox 37.1 C 93 16 179/90 H 95 05/25/18 12:00 05/25/18 12:00 05/25/18 12:00 05/25/18 12:00 05/25/18 12:00 Microbiology 05/21/18 17:27 Gram Stain - Final Other - Tissue Laboratory Results 05/25/18 09:54 05/25/18 09:54 05/24/18 05/25/18 05/26/18 05:59 05:59 05:59 Intake Total 300 1150 Output Total 900 300 Balance -600 850 - Time Spent With Patient Time Spent with Patient: greater than 35 minutes Time Spent with Patient: Greater than 35 minutes spent on this patients care, greater than 50% of time spent counseling, educating, and coordinating care regarding the above mentioned plan. - Pending Discharge Pending Discharge Within 24 Hours: Yes Pending Discharge Within 48 Hours: Yes Pending Discharge Date: 05/26/18 Pending Discharge Time: 11:00 ICD10 Worksheet Patient Problems: Problems Problem Status Onset Disorder of pancreas Active 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
[2018-05-25] MEDS ORDERED: METOPROLOL TARTRATE 5 MG/5 ML INJ IVP PRN (12:48)
[2018-05-25] MEDS: LISINOPRIL 20 MG TAB PO PRN (13:05)
--- NOTE | 2018-05-25 14:15 | SOAPPROG ---
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 Using R fem line, 3K/2.5Ca bath, goal UF. Some bleeding from fem cath last night. Sleeping right now, received ativan and benadryl earlier. Objective: Vital Signs Temp Pulse Resp BP Pulse Ox 37.1 C 93 16 179/90 H 95 05/25/18 12:00 05/25/18 12:00 05/25/18 12:00 05/25/18 12:00 05/25/18 12:00 Microbiology 05/21/18 17:27 Gram Stain - Final Other - Tissue Laboratory Results 05/25/18 09:54 05/25/18 09:54 05/24/18 05/25/18 05/26/18 05:59 05:59 05:59 Intake Total 300 1150 Output Total 900 300 Balance -600 850 Physical Exam - Physical Exam General Appearance: no apparent distress Respiratory: lungs clear Cardiac/Chest: regular rate, rhythm, other (no rub) Abdomen: normal bowel sounds, non-tender, soft Extremities: other (trace edema, arm dressing c/d/i) Neuro/Psych: other (sleeping but easily arousable) ICD10 Worksheet Patient Problems: Problems Problem Status Onset Disorder of pancreas Active 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
[2018-05-25] MEDS ORDERED: LIDOCAINE 2% JELLY 6 ML TOPICAL SYR TP PRN (18:00)
[2018-05-25] MEDS ORDERED: LIDOCAINE 4%/MENTHOL 1% PATCH TD SCH (18:00)
[2018-05-25] MEDS ORDERED: oxyCODONE IR 5 MG TAB PO ONE (18:30)
--- NOTE | 2018-05-25 20:09 | PCMIDPN ---
Assessment/Plan: Assessment: 42-year-old woman with fevers of unclear source which now may well be related to a deep soft tissue infection related to Haemophilus parainfluenza recovered from culture. New fever does not have a clear infectious source and may be related to vascular manipulation with tunneled dialysis catheter placement. Will continue with ceftriaxone for now pending repeat blood culture results. 1. Nosocomial fever; no clear infectious source 2. Possible deep soft tissue infection with Haemophilus parainfluenza 3. Left upper extremity AV graft infection secondary to Haemophilus parainfluenza 4. Status post left upper extremity AV graft excision 05/21/2018 5. ESRD secondary to polycystic kidney disease 6. Status post left [place] nephrectomy 04/17/2018 7. Chronic active hepatitis C virus infection Plan: 1. TTE ordered 2. Continue ceftriaxone 1 g daily 3. Reviewed in detail potential side effects of beta-lactam antibiotics to include: allergy, rash, nausea, antibiotic-associated diarrhea, Clostridioides difficile colitis. 4. ID to follow Sergio Riggins MD Infectious Diseases 05/25/18 20:09 Subjective: Fever overnight. She underwent femoral tunneled dialysis catheter placement on Friday. Left upper extremity remains painful. She is very frustrated with her pain medication regimen and stated that she is considering leaving against medical advice but has not committed to that this evening. Objective: Vital Signs Temp Pulse Resp BP Pulse Ox 37.1 C 94 16 152/85 H 92 05/25/18 19:46 05/25/18 19:46 05/25/18 19:46 05/25/18 19:46 05/25/18 19:46 Microbiology 05/21/18 17:27 Gram Stain - Final Other - Tissue Laboratory Results 05/25/18 19:23 05/25/18 09:54 05/24/18 05/25/18 05/26/18 05:59 05:59 05:59 Intake Total 300 1150 330 Output Total 900 300 Balance -600 850 330 Medications Generic Name Dose Route Start Last Admin Trade Name Freq PRN Reason Stop Dose Admin Ceftriaxone Sodium/Dextrose 50 mls @ 100 mls/hr 05/23/18 17:00 05/25/18 10:06 Rocephin 1 Gm (Premix) IV 06/22/18 16:59 50 mls DAILY AVI Protocol Microbiology 05/21/18 17:27 Other - Tissue Gram Stain - Final 05/21/18 17:27 Other - Tissue Anaerobic Culture - Preliminary Haemophilus Parainfluenza Laboratory Tests 05/20/18 05/21/18 05/23/18 15:54 05:02 05:24 WBC 13.66 H 12.49 H Hgb 7.4 L 05/25/18 05/25/18 09:54 19:23 WBC 6.72 Hgb 7.1 L - Physical Exam General Appearance: no apparent distress, non-toxic EENT: No scleral icterus Respiratory: No respiratory distress, No accessory muscle use Neck: full range of motion, supple Skin: other (Left upper extremity with wound VAC in place over the medial aspect of the upper arm; surgical dressing over the forearm not taken down; no erythema over the left hand) Neuro/Psych: alert, oriented x 3, depressed affect, No confused - Time Spent With Patient Time Spent with Patient: greater than 25 minutes (Discussed possibility of Haemophilus species being the cause of her overall fevers and other systemic symptoms, the uncertainty regarding this diagnosis with a small amount of growth in the lab, and the need to do an echocardiogram to evaluate cardiac valves) Time Spent with Patient: Greater than 25 minutes spent on this patients care, greater than 50% of time spent counseling, educating, and coordinating care regarding the above mentioned plan. ICD10 Worksheet Patient Problems: Problems Problem Status Onset Disorder of pancreas Active 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
[2018-05-25] MEDS: PATCH REMOVAL 1 EA PATCH TD SCH (21:55)
[2018-05-25] MEDS: LORazepam 1 MG TAB PO PRN (21:56)
[2018-05-25] MEDS ORDERED: HEPARIN 50,000 UNIT/10 ML VIAL ONE (22:17)
[2018-05-26] MEDS: oxyCODONE IR 15 MG TAB PO PRN ×5 (00:28→19:29)
[2018-05-26] MEDS: PROMETHAZINE HCL 25 MG TAB PO SCH ×2 (05:44→19:29)
[2018-05-26] MEDS: LORazepam 1 MG TAB PO PRN ×2 (05:44→19:29)
[2018-05-26] MEDS: FUROSEMIDE 80 MG TAB PO SCH ×2 (05:45→18:06)
--- NOTE | 2018-05-26 08:35 | PCMIDPN ---
Assessment/Plan: # Fistula infection s/p removal. Intraoperative no purulence or other signs of infection. Cx show rare H paraflu and strep sanguinis - both oral mati organisms. With ongoing fever increased concern for endocarditis although initial blood cx negative. LUE without significant abn to suggest infection, arm soft, no warmth of erythema. no drainage from incision lines lower arm --follow up on ECHO --ok to continue w ceftriaxone --awaiting sensi # Fever 38.7 on 05/25/2018, none since. WBC normal yesterday # ESRD with tunneled R HD cath in groin due to inability to place in subclavian position Medications ceftriaxone 1gm IV daily 05/23, #3 Microbiology 05/20/18 Blood Cx (2) NGTD 05/21/18 graft Tissue Anaerobic Culture - Preliminary Haemophilus Parainfluenza, rare Streptococcus Sanguinis, 2+ 05/25/18 blood cx (1): pending Subjective: LUE arm better appetite ok Objective: Vital Signs Temp Pulse Resp BP Pulse Ox 37.2 C 82 14 119/78 92 05/26/18 04:49 05/26/18 04:49 05/26/18 04:49 05/26/18 04:49 05/26/18 04:49 Microbiology 05/21/18 17:27 Gram Stain - Final Other - Tissue 05/20/18 22:06 Blood Culture - Final Blood 05/20/18 22:00 Blood Culture - Final Blood Laboratory Results 05/25/18 19:23 05/25/18 09:54 05/25/18 05/26/18 05/27/18 05:59 05:59 05:59 Intake Total 1150 630 Output Total 300 Balance 850 630 - Physical Exam General Appearance: alert, no apparent distress Respiratory: lungs clear, other (L upper chest with some mild swelling, no erythema), No accessory muscle use Cardiac/Chest: tachycardia, systolic murmur Extremities: No pedal edema Abdomen: other (R groin HD line c/d/i) Skin: No diaphoresis, No rash Neuro/Psych: alert, normal mood/affect, oriented x 3 - Time Spent With Patient Time Spent with Patient: greater than 35 minutes Time Spent with Patient: Greater than 35 minutes spent on this patients care, greater than 50% of time spent counseling, educating, and coordinating care regarding the above mentioned plan. ICD10 Worksheet Patient Problems: Problems Problem Status Onset Disorder of pancreas Active 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
[2018-05-26] MEDS: SEVELAMER HCL 800 MG TAB PO SCH ×3 (09:02→18:07)
[2018-05-26] MEDS: PANTOPRAZOLE SODIUM 40 MG TAB PO SCH (09:02)
[2018-05-26] MEDS: CALCIUM ACETATE 667 MG CAP PO SCH ×3 (09:03→18:07)
--- NOTE | 2018-05-26 09:43 | SOAPPROG ---
SOAP Progress Note Assessment/Plan: Assessment: 1. ESRD HD tomorrow then , to get on home unit ([facility]) schedule. 2. Access LUE wounds look good. Now with tunneled groin catheter. 3. ID Appreciate Dr. Gregory' input. Will likely move toward cefazolin after each dialysis. Would like patient to be afebrile for 48h. Echo pending. 4. Anemia s/p transfusion. 5. Psychosocial Some difficult behavioral issues on dialysis last weekend. Our service is working on this. Plan: 05/26/18 09:39 Subjective: Tired of being in hospital. Wants to go home. Objective: Vital Signs Temp Pulse Resp BP Pulse Ox 37.0 C 84 18 132/95 H 94 05/26/18 08:40 05/26/18 08:40 05/26/18 08:40 05/26/18 08:40 05/26/18 08:40 Microbiology 05/21/18 17:27 Gram Stain - Final Other - Tissue 05/20/18 22:06 Blood Culture - Final Blood 05/20/18 22:00 Blood Culture - Final Blood Laboratory Results 05/25/18 19:23 05/25/18 09:54 05/25/18 05/26/18 05/27/18 05:59 05:59 05:59 Intake Total 1150 630 Output Total 300 Balance 850 630 Physical Exam - Physical Exam General Appearance: no apparent distress Respiratory: lungs clear, decreased breath sounds Cardiac/Chest: tachycardia Extremities: other (No LE edema. LUE examined. No redness. Wound vac in place) Neuro/Psych: oriented x 3 ICD10 Worksheet Patient Problems: Problems Problem Status Onset Disorder of pancreas Active 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
--- NOTE | 2018-05-26 11:10 | SOAPPROG ---
SOAP Progress Note Assessment/Plan: Assessment/Plan: 42 Y F 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 s/p presumed AV graft infection, s/p removal of AV graft and subsequent placement of tunneled R femoral catheter. Limited HD access options. +Vac and KALI drain. No fever recorded in last 24 hours. WBC's normal. No nausea/vomiting (which has been a symptom of infection for Denny). Appreciate renal, ID, medicine input. Could consider d/c. Patient has home wound vac in room. Would need to switch over to home vac and confirm/restart home nursing for vac changes, M, W, F's. Would continue drain for now and f/u in office in 2-5 days for wound check and possible KAIL removal. S: eager to go home. Feeling better and alot of family things she wants to attend to. O: alert, nad, (sleeping comfortably, but arousable and appropriate) no wob ext vac to suction, drain clear and serous, R groin cath site clean. 05/26/18 11:05 Objective: Vital Signs Temp Pulse Resp BP Pulse Ox 37.0 C 84 18 132/95 H 94 05/26/18 08:40 05/26/18 08:40 05/26/18 08:40 05/26/18 08:40 05/26/18 08:40 Microbiology 05/21/18 17:27 Gram Stain - Final Other - Tissue 05/20/18 22:06 Blood Culture - Final Blood 05/20/18 22:00 Blood Culture - Final Blood Laboratory Results 05/25/18 19:23 05/25/18 09:54 05/25/18 05/26/18 05/27/18 05:59 05:59 05:59 Intake Total 1150 630 Output Total 300 Balance 850 630 ICD10 Worksheet Patient Problems: Problems Problem Status Onset Disorder of pancreas Active 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
[2018-05-26] MEDS: FLUTICASONE NASAL 120 SPRAYS/16 GM MDI NS SCH ×2 (12:56→20:49)
--- NOTE | 2018-05-26 14:47 | ASMTCMCOM ---
CM Note CM Note Notes: 05/26/2018 Case Management Note Discussed pt during rounds today. Pt currently on IV abx. Pt blood cultures are positive, sensitivities pending per ID note. ECHO planned for possible endocarditis. Once d/c antibiotic needs are determined, case management will send referral to infusion [facility]. Pt has wound vac placed with home vac in pt room for discharge. Pt has tunneled R HD cath in groin. HD planned for tomorrow and per Dr. Rocha note. There are no therapy evals ordered today. Referred to [facility]. Bettye Turner [phone] visited pt onsite and will follow at discharge. Please see Mela Crain note today. Deferred meeting w/pt today as pt is upset and discharge date is undetermined at this time. Discused with Jesus from Palliative Care. Palliative Care meeting for goals of care and outpatient follow deferred until completion of behavioral health eval. [facility]. Discussed updates with [facility] on the phone. Anticipating pt will d/c with wound vac. Per Analisa Ordonez note today, home care will change wound vac MWF. Case Management d/c poc: resume [facility] for IV abx and wound vac. Pt to resume outpatient dialysis upon discharge. Infusion [facility] referral for IV abx to be determined. Case Management to follow. Date Signed: 05/26/2018 02:46 PM Electronically Signed By:Berenice Rocha RN
--- NOTE | 2018-05-26 15:56 | HOSPPROG ---
Hospitalist Progress Note Assessment/Plan: The patient is a 42-year-old female with PMH ESRD on HD, IV drug abuse, history of AV graft complications including clots who was admitted for cellulitis over LUE AV graft. 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 Add a standing prn oxycodone 5mg order for breakthrough pain, in case the 15mg tabs are not enough. Pt reasonably in more pain than usual, given recent surgeries. -Continue promethazine 25mg BID. Gave pt an extra dose of promethazine this afternoon for increased nausea. -Discussed w/ ID today. If pt is fever free x 48 hrs she can go home to complete Abx (cefazolin post HD) for 10 days total from graft excision. FU blood C/S final result. -Echo does not show IE. -Neph recs appreciated. Normal schedule //. Pt on weekly Epo. Pt wants to switch HD location from [place] to [place]. -Palliative care and behavioral health consulted - recs/support appreciated. VTE prophylaxis: SCDs. Code Status: Full code. Status: Inpatient for > 2 midnight stay. Disposition: Med surg with discharge anticipated to home w/ home health wound care ____ SUBJECTIVE: Last night pt got 1u PRBC. She c/o nausea untouched by AM dose of promethazine. She is frustrated that she has to ask for her pain medication in the AM. OBJECTIVE: Physical Exam: General: The patient is a female who is lethargic and in no acute distress. HEENT: normocephalic, extraocular movements intact, conjunctivae clear. Mucous membranes moist. Neck: trachea midline, no visible masses. Resp: unlabored. Abd: soft and nondistended. Musculoskeletal: Normal muscle tone/bulk. Neuro: cranial nerves II - XII grossly intact. Intact gross motor and sensory function. Psych: Irritated mood and appropriate affect. Skin: No pallor. No petechiae. LUE - KALI drain and wound vac in place. Hope intact. L upper chest - dressing CDI. Heme/lymph: No peripheral edema at bilateral lower extremities. Labs/Imaging/Other Tests: Personally reviewed/interpreted. Blood Cx prelim - Strep sanguinis. Haemophilaus parainfluenza. Objective: Vital Signs Temp Pulse Resp BP Pulse Ox 37.1 C 88 12 147/76 H 99 05/26/18 11:48 05/26/18 11:48 05/26/18 11:48 05/26/18 11:48 05/26/18 11:48 Microbiology 05/21/18 17:27 Gram Stain - Final Other - Tissue 05/20/18 22:06 Blood Culture - Final Blood 05/20/18 22:00 Blood Culture - Final Blood Laboratory Results 05/25/18 19:23 05/25/18 09:54 05/25/18 05/26/18 05/27/18 05:59 05:59 05:59 Intake Total 1150 630 Output Total 300 Balance 850 630 - Time Spent With Patient Time Spent with Patient: greater than 35 minutes Time Spent with Patient: Greater than 35 minutes spent on this patients care, greater than 50% of time spent counseling, educating, and coordinating care regarding the above mentioned plan. ICD10 Worksheet Patient Problems: Problems Problem Status Onset Disorder of pancreas Active 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
--- NOTE | 2018-05-26 16:00 | ECHO ---
[email or web address] [address] [address] Main: [phone] Echocardiography Examination Transthoracic Name: LUI DODD MR#: [id number] Study Date: 05/26/2018 Study Time: 02:05 PM Date of : 1975 Age: 42 year(s) Height: 157.5 cm (62 in.) Weight: 63.96 kg (141 lb.) BSA: 1.65 m2 Gender: Female Examination: Echo Contrast: Image Quality: Adequate Rhythm: Normal sinus rhythm Heart Rate: 93 bpm BP: 151 mmHg/90 mmHg Indication: Fevers Procedure Staff Referring Physician: Rv Detailer: Devaughn Hoang RDCS Reading Physician: Sameer Morocho MD Requesting Provider: Ordering Physician: Sergio Riggins Indication: Fevers Measurements Chambers AV/MV Label Value Normal Value Label Value Normal Value EF lower range (%) 70 % AR Vena contracta 0.4 cm EF upper range (%) 75 % AV PGmax 10 mmHg IVSd, 2D 1 cm (0.6cm - 1.1cm) AV PGmean 5 mmHg LVDd, 2D 4 cm (3.9cm - 5.3cm) AV Vmax 1.55 m/s LVDs, 2D 2.3 cm (2.1cm - 4cm) LINDSEY (continuity eq. 1.6 cm2 LVEF, 2D 74 % (54% - 74%) Vmax) LVOT PGmax 3 mmHg LINDSEY D (continuity eq. 1.5 cm2 LVOT PGmean 2 mmHg VTI) LVOT Vmax 0.88 m/s (0.7m/s - 1.1m/s) MR Vena Contracta 0.3 cm LVOT Vmean 0.58 m/s MV A Vmax 1.06 m/s LVOTd 1.9 cm (1.8cm - 2cm) MV E Vmax 0.91 m/s LVPWd, 2D 0.9 cm MV E/A 0.86 Additional Vessels TV/PV Label Value Normal Value Label Value Normal Value AoRoot, MM 2.6 cm (2.2cm - 3.7cm) RA Pressure 5 mmHg RVSP 25 mmHg TR Pmax 20 mmHg TR Vmax 2.21 m/s PV PGmax 5 mmHg Patient: LUI DODD Study Date: 05/26/2018 Page 1 of 2 02:05 PM PV Vmax, Caliper 1.13 m/s (0.6m/s - 0.9m/s) Conclusions Overall Conclusions: no pericardial effusion. Ejection fraction 70 75%. Mild to moderate mitral regurgitation. Trileaflet aortic valve with mild aortic regurgitation. Mild tricuspid regurgitation with right ventricular systolic pressure 25 mm of mercury. Findings Left Ventricle: Left ventricle is normal in size. Normal global systolic left ventricular function. EF range is estimated at 70 % - 75 %. Left ventricle wall thickness is normal. There are no regional wall motion abnormalities. Grade I Diastolic Dysfunction. Right Ventricle: Normal size right ventricle. Right ventricular systolic function is normal. Left Atrium: The left atrium is normal in size. Right Atrium: The right atrium is normal in size. Mitral Valve: Mitral valve appears structurally normal. Mild to moderate mitral regurgitation. No mitral valve stenosis. Aortic Valve: Mild aortic regurgitation is present. Aortic leaflets exhibit no calcification. The aortic valve is trileaflet. Tricuspid Valve: Mild tricuspid regurgitation. Right Ventricular systolic pressure is measured at 25 mmHg. Pulmonary artery pressure normal. Pulmonic Valve: Pulmonic leaflets are normal in appearance and function. Aorta: The aorta is normal. The aortic root size in M-mode measures 2.6 cm. Aorta Measurements AoRoot, MM is 2.6 cm. Pericardium: No pericardial effusion. Exam Details Procedure Ordered: Echo Procedure Status: Routine study Image Quality: Adequate Facility Location: Cardiac Echo 1 (No Signature Object) Patient: LUI DODD Study Date: 05/26/2018 Page 2 of 2 02:05 PM [id number]
[2018-05-26] MEDS ORDERED: PROMETHAZINE HCL 25 MG TAB PO ONE (16:30)
[2018-05-26] MEDS: oxyCODONE IR 5 MG TAB PO PRN (18:07)
[2018-05-26] MEDS: PATCH REMOVAL 1 EA PATCH TD SCH (21:22)
[2018-05-27] MEDS: LORazepam 1 MG TAB PO PRN (05:11)
[2018-05-27] MEDS: PROMETHAZINE HCL 25 MG TAB PO SCH (05:11)
[2018-05-27] MEDS: oxyCODONE IR 15 MG TAB PO PRN ×3 (05:11→15:12)
[2018-05-27] MEDS: FUROSEMIDE 80 MG TAB PO SCH ×2 (06:41→15:12)
[2018-05-27] MEDS: CALCIUM ACETATE 667 MG CAP PO SCH ×2 (09:07→12:08)
[2018-05-27] MEDS: FLUTICASONE NASAL 120 SPRAYS/16 GM MDI NS SCH (09:08)
[2018-05-27] MEDS: PANTOPRAZOLE SODIUM 40 MG TAB PO SCH (09:08)
[2018-05-27] MEDS: oxyCODONE IR 5 MG TAB PO PRN (09:08)
[2018-05-27] MEDS: SEVELAMER HCL 800 MG TAB PO SCH ×2 (09:09→12:08)
--- NOTE | 2018-05-27 11:03 | SOAPPROG ---
SOAP Progress Note Assessment/Plan: Assessment/Plan: 42 Y F 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 s/p presumed AV graft infection, s/p removal of AV graft and subsequent placement of tunneled R femoral catheter. Limited HD access options. +Vac and KALI drain. No fever recorded in last 48+ hours. Denny agrees with this. WBC's normal on . Appreciate renal, ID, medicine input. Likely d/c to home today pending medical clearance. HD today versus per her normal routine tomorrow as outpatient per renal and medicine's recs. Patient has home wound vac in room. Will to switch over to home vac--discussed with label printing machinist. Will need to confirm/restart home nursing for vac changes, M , W, F's--discussed this with RN. Would continue drain for now and f/u in office in 2-5 days for wound check and possible KALI removal. S: eager to go home. Feeling better and a lot of family things she wants to attend to. O: alert, nad, (sleeping comfortably, but arousable and appropriate) no wob ext vac to suction, drain clear and serous, R groin cath site with old dark blood under tegaderm. No bright blood seen. No erythema. 05/27/18 11:00 Objective: Vital Signs Temp Pulse Resp BP Pulse Ox 36.8 C 101 H 16 175/107 H 93 05/27/18 09:28 05/27/18 09:28 05/27/18 09:28 05/27/18 09:28 05/27/18 09:28 Microbiology 05/21/18 17:27 Gram Stain - Final Other - Tissue 05/20/18 22:06 Blood Culture - Final Blood 05/20/18 22:00 Blood Culture - Final Blood Laboratory Results 05/25/18 19:23 05/25/18 09:54 05/26/18 05/27/18 05/28/18 05:59 05:59 05:59 Intake Total 630 0 Output Total 400 Balance 630 -400 ICD10 Worksheet Patient Problems: Problems Problem Status Onset Disorder of pancreas Active 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
--- NOTE | 2018-05-27 11:12 | SOAPPROG ---
SOAP Progress Note Assessment/Plan: Assessment: ESRD, HD later today if still here infected AVG, s/p removal fever improved HTN reasonable control Plan: HD later today if Dr. Redd thinks its ok for dismissal, OK with me with follow up at her outpatient HD spot tomorrow outpatient antibiotics on HD TIW 05/27/18 11:08 Subjective: frustrated, but overall spirits OK sig other at bedside, all questions answered to both Denny and sig other satisfaction no cp sob nausea or vomiting pain seems manageable Objective: Vital Signs Temp Pulse Resp BP Pulse Ox 36.8 C 101 H 16 175/107 H 93 05/27/18 09:28 05/27/18 09:28 05/27/18 09:28 05/27/18 09:28 05/27/18 09:28 Microbiology 05/21/18 17:27 Gram Stain - Final Other - Tissue 05/20/18 22:06 Blood Culture - Final Blood 05/20/18 22:00 Blood Culture - Final Blood Laboratory Results 05/25/18 19:23 05/25/18 09:54 05/26/18 05/27/18 05/28/18 05:59 05:59 05:59 Intake Total 630 0 Output Total 400 Balance 630 -400 Physical Exam - Physical Exam General Appearance: alert Neck: normal inspection Respiratory: No rhonchi, No wheezing Cardiac/Chest: regular rate, rhythm, systolic murmur, No friction rub Abdomen: normal bowel sounds, non-tender, soft Skin: warm/dry Neuro/Psych: alert, normal mood/affect, oriented x 3 ICD10 Worksheet Patient Problems: Problems Problem Status Onset Disorder of pancreas Active 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
[2018-05-27 12:13] VITALS: BP 172/106
--- NOTE | 2018-05-27 12:18 | PCMIDPN ---
Assessment/Plan: Assessment: 42-year-old woman with fevers of unclear source which now may well be related to a deep soft tissue infection related to Haemophilus parainfluenza recovered from culture. Fever has not recurred, the surgical site looks uninfected and no signs of infection around the wound VAC site. Will complete approximately 14 day course with oral cefdinir to ensure they recovered Haemophilus and Streptococcus are fully eradicated if they are in fact underlying a deep soft tissue infection. She was not require Infectious Diseases follow-up in she understands that if her fevers recur she can call ID clinic and we can evaluate her in the outpatient setting. 1. Nosocomial fever; no clear infectious source; resolved 2. Probable deep soft tissue infection with Haemophilus parainfluenza and Streptococcus 3. Left upper extremity AV graft infection secondary to Haemophilus parainfluenza 4. Status post left upper extremity AV graft excision 05/21/2018 5. ESRD secondary to polycystic kidney disease 6. Status post left [place] nephrectomy 04/17/2018 7. Chronic active hepatitis C virus infection Plan: 1. Start cefdinir 300 mg p.o. Take 1 dose post dialysis x5 total doses at discharge 2. Stop ceftriaxone 1 g daily 3. Reviewed in detail potential side effects of beta-lactam antibiotics to include: allergy, rash, nausea, antibiotic-associated diarrhea, Clostridioides difficile colitis. 4. No ID follow-up required Sergio Riggins MD Infectious Diseases 05/27/18 12:15 Subjective: No fever or chills in the past 24-hours. Tolerating oral diet with solids and liquids. No diarrhea. No rash. Appetite improving. Ambulating without difficulty. Improved since admission but not back to baseline health. She continues to have nausea but she feels that this might related to her renal failure. Objective: Vital Signs Temp Pulse Resp BP Pulse Ox 36.7 C 109 H 16 172/106 H 96 05/27/18 12:11 05/27/18 12:11 05/27/18 12:11 05/27/18 12:11 05/27/18 12:11 Microbiology 05/21/18 17:27 Gram Stain - Final Other - Tissue 05/20/18 22:06 Blood Culture - Final Blood 05/20/18 22:00 Blood Culture - Final Blood Laboratory Results 05/25/18 19:23 05/25/18 09:54 05/26/18 05/27/18 05/28/18 05:59 05:59 05:59 Intake Total 630 0 Output Total 400 Balance 630 -400 - Physical Exam General Appearance: no apparent distress, non-toxic EENT: No scleral icterus Respiratory: No respiratory distress, No accessory muscle use Neck: full range of motion, supple Skin: other (Left upper extremity forearm surgical site with savannah in place, no surrounding erythema, no areas of fluctuance or induration; left upper extremity upper arm with wound VAC in place without surrounding erythema.) Neuro/Psych: alert, oriented x 3, depressed affect, No confused - Time Spent With Patient Time Spent with Patient: greater than 25 minutes Time Spent with Patient: Greater than 25 minutes spent on this patients care, greater than 50% of time spent counseling, educating, and coordinating care regarding the above mentioned plan. ICD10 Worksheet Patient Problems: Problems Problem Status Onset Disorder of pancreas Active 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
--- NOTE | 2018-05-27 12:33 | WOCRNPDOC ---
WOCRN Advanced Assessment Note - Skin Integrity Problem, Advanced Assess Left Upper Arm Surgical Wound/Incision Dressing Type: Black Vac Foam (x2), Wound Vac Dressing Description: Clean/Dry, Intact Exudate Amount: Scant Exudate Characteristic(s): Sanguinous Integumentary Issue Intervention: Dressing Changed Wound Bed Color: Red Wound Bed Constitution: Granulation Tissue (100%) Wound Edges: Epithelizing Site Measurement - Head-to-Toe Length X Width X Depth (cm): 8.7x5.2x2 Extremity Temperature: Warm Skin Integrity Problem Comment: Cleaned with ns and gauze. Skin prep and drape morgan wound. Two pieces of small black simplace to wound bed. Vac restarted at - 125 mm Hg continuous suction with no leaks. Next vac change Friday. Nathan BURNS in room for care. Analisa GIORDANO updated.
--- NOTE | 2018-05-27 13:46 | PDDCSUM ---
Discharge Summary Discharge Summary: HPI/hospital course: 42-year-old woman with fevers of unclear source which now may well be related to a deep soft tissue infection related to Haemophilus parainfluenza recovered from culture. Fever has not recurred, the surgical site looks uninfected and no signs of infection around the wound VAC site. Will complete approximately 14 day course with oral cefdinir to ensure they recovered Haemophilus and Streptococcus are fully eradicated if they are in fact underlying a deep soft tissue infection. She is s/p removal of AV graft and subsequent placement of tunneled R femoral catheter. Limited HD access options. +Vac and KALI drain. . She has home vac in place and will need vac changes on m/w/f. Continue drain for now and f/u with surgery in 2-5 days for wound check and possible KALI removal. There was some concern about bleeding around Fem HD cath overnight. This appears better and she was evaluated by surgery this morning and they have cleared her for discharge. Return precautions provided. She does not require Infectious Diseases follow-up unless fevers recurs she will have HD on her regular schedule starting tomorrow: //Fri DDX: 1. Nosocomial fever; no clear infectious source; resolved 2. Probable deep soft tissue infection with Haemophilus parainfluenza and Streptococcus 3. Left upper extremity AV graft infection secondary to Haemophilus parainfluenza 4. Status post left upper extremity AV graft excision 05/21/2018 5. ESRD secondary to polycystic kidney disease 6. Status post left [place] nephrectomy 04/17/2018 7. Chronic active hepatitis C virus infection 8. s/p sepsis 9. chronic pain syndrome 10. HTN 11. Depression 12. hx of polysubstance abuse Exam: NAD AAOX3 RRR CTA B S/NT/ND total time spent on d/c is 35 mins
--- NOTE | 2018-05-27 14:14 | ASMTCMCOM ---
CM Note CM Note Notes: Pt reviewed in rounds and met with her. [facility] called to inform of discharge home and Pt is arrange for home care (wound Care) starting tomorrow. IV antibiotic will be changed to PO. Meals on wheels arranged. CM available for needs. PLAN: Discharge home with [facility] home care. Date Signed: 05/27/2018 02:13 PM Electronically Signed By:Luann Simon
--- NOTE | 2018-05-27 15:25 | PDIAF ---
- Diagnosis Diagnosis: infected av graft Code Status: Full Code - Medication Management Discharge Medications: electronically signed and located in the Home Medication List. - Orders Services needed: Home Care, Certified Charge Aide Home Care Face to Face: I certify that this patient was under my care and that I had the required [id number] encounter meeting the encounter requirements on the discharge day. My findings support the fact that the patient is homebound as defined in Home Care Face to Face Continued: CMS Chapter 7 Medicare Benefits Manual 30.1.1 , The condition of the patient is such that there exists a normal inability to leave home and consequently, leaving home would require a considerable and taxing effort. Isolation Type: None Diet Recommendation: potassium restricted Diet Texture: Regular Texture Diet Additional Instructions: Wound vac change M, W, F's. Routine tunneled catheter care (R groin). KALI to bulb suction, strip and record drainage. Please f/u with Wound/Surgery on Friday or Friday Please f/u with Dialysis tomorrow Meds: per med rec. Abx should be taken after dialysis for a total of 5 doses. If fever recurs, please call the ID clinic for an appt. If bleeding from catheter sit recurs, then proceed to the ER. Message has been left for [employer] [facility] in [place] to schedule meals. #[phone] - Follow Up Care Current Providers and Referrals: SARAH LEE [Primary Care Provider] - Vipul Redd MD [Medical Doctor] - (2-5 days if you still have your drain in place. if drain removed, then f/u in 1 week)
== END 2018-05-27 15:45 | disposition home health service (06) | DRG 314 ==
LOC: OBSVTOIN 15:24 → F1N 15:24
PROVIDERS: ADMIT Internal Medicine; ATTEND Internal Medicine
PROC: 30233N1 Transfusion of Nonautologous Red Blood Cells into Peripheral Vein, Percutaneous Approach (ICD-10-PCS; 2018-05-21)
PROC: 0JPV0WZ Removal of Totally Implantable Vascular Access Device from Upper Extremity Subcutaneous Tissue and Fascia, Open Approach (ICD-10-PCS; principal; 2018-05-21 14:00)
PROC: 06H033Z Insertion of Infusion Device into Inferior Vena Cava, Percutaneous Approach (ICD-10-PCS; 2018-05-24)
PROC: 02HV33Z Insertion of Infusion Device into Superior Vena Cava, Percutaneous Approach (ICD-10-PCS; 2018-05-24)
PROC: 5A1D70Z Performance of Urinary Filtration, Intermittent, Less than 6 Hours Per Day (ICD-10-PCS; 2018-05-24)
DX: T82.7XXA Infection and inflammatory reaction due to other cardiac and vascular devices, implants and grafts, initial encounter (principal); A41.3 Sepsis due to Hemophilus influenzae; I12.0 Hypertensive chronic kidney disease with stage 5 chronic kidney disease or end stage renal disease; N18.6 End stage renal disease; B95.5 Unspecified streptococcus as the cause of diseases classified elsewhere; D63.1 Anemia in chronic kidney disease; K73.2 Chronic active hepatitis, not elsewhere classified; G89.4 Chronic pain syndrome; F32.9 Major depressive disorder, single episode, unspecified; Z90.5 Acquired absence of kidney
CPT/HCPCS: C1750; J0696; J0885; J1170; J1200; J1642; J1644; J2020; J2060; J2250; J2270; J2440; J2550; J2704; J2720; J3010; J3370; P9016; Q9961

== ENCOUNTER 2018-06-23 18:36 | Inpatient (IN) | payer OTHER, MEDICAID ==
[2018-06-23 19:08] LABS: PLATELET COUNT 209 10^3/uL (150-400)
[2018-06-23 19:16] LABS: INR 1.09 (0.83-1.16); PROTIME(PATIENT) 13.7 SEC (12.0-15.0)
[2018-06-23] MEDS ORDERED: SODIUM ZIRCONIUM CYCLOSILICATE 10 GM PACKET PO ONE (19:39)
--- NOTE | 2018-06-23 19:43 | EDPHY ---
H & P Stated Complaint: R leg tunnelled cath "clotted" Time Seen by Provider: 06/23/18 18:39 HPI/ROS: CHIEF COMPLAINT: Clotted dialysis catheter HISTORY OF PRESENT ILLNESS: 42-year-old female with end-stage renal disease presents with a clotted dialysis catheter. She was in dialysis today and the dialysis staff attempted to use her right femoral dialysis catheter. They were unable to access the catheter and placed tPA, [address] Nilsa Redd was consulted and sent her to the emergency department for admission. He plans to place a new shunt in the right upper extremity tomorrow. REVIEW OF SYSTEMS: complete 10 point ROS reviewed and is negative except for the noted elements in the HPI - Personal History LMP (Females 10-55): Now Tetanus Vaccine Date: 12/2010 - Medical/Surgical History Hx Asthma: No Hx Chronic Respiratory Disease: No Hx Diabetes: No Hx Cardiac Disease: Yes Hx Renal Disease: Yes Hx Cirrhosis: No Hx Alcoholism: No Hx HIV/AIDS: No Hx Splenectomy or Spleen Trauma: No Other PMH: ESRD-on Dialysis-polycystic kidney disease, hypotension, Hep C (in remission), tubal ligation. L neprectomy, failed renal tx,IN,depression, gerd, kidney stones, chronic pain - Social History Smoking Status: Never smoked Alcohol Use: Sober Drug Use: None - Physical Exam Exam: General Appearance: Alert, pleasant Eyes: Pupils equal and round, no conjunctival pallor ENT, Mouth: Mucous membranes moist Neck: Normal inspection Respiratory: Lungs are clear to auscultation Cardiovascular: Regular rate and rhythm Gastrointestinal: Abdomen is soft and nontender Neurological: A&O, nonfocal, normal gait Skin: Warm and dry Extremities: Right femoral catheter in place, no right lower extremity swelling or tenderness; left upper extremity wound VAC in place, no erythema, warmth or tenderness Psychiatric: Mood and affect normal Constitutional: Initial Vital Signs Temperature (C) 37.2 C 06/23/18 18:43 Heart Rate 100 06/23/18 18:43 Respiratory Rate 16 06/23/18 18:43 Blood Pressure 168/92 H 06/23/18 18:43 O2 Sat (%) 99 06/23/18 18:43 O2 Delivery Mode Room Air Allergies/Adverse Reactions: Marijuana/Cannabi *RETIRED-11/11/11 [Marijuana/Cannabinoid] Allergy (Severe, Verified 05/05/18 10:12) Anaphylaxis ondansetron HCl [From Zofran (as hydrochloride)] Allergy (Severe, Verified 05/05 10:12) Tingling of mouth/throat hydrochlorothiazide Allergy (Verified 05/05/18 10:12) Anaphylaxis lidocaine Allergy (Verified 05/25/18 18:32) NSAIDS (Non-Steroidal Anti-Inflamma [Nsaids] Allergy (Verified 05/05/18 10:12) Sulfa (Sulfonamide Antibiotics) Allergy (Verified 05/05/18 10:12) Hives Home Medications: Medication Instructions Recorded Furosemide [Lasix 80 MG (*)] 160 mg PO BID@05/21/16 Sevelamer Carbonate [Renvela] 3,200 mg PO TIDMEAL 05/21/16 Calcium Acetate [Phoslo (*)] 3 tab PO TIDMEAL 07/16/16 Fluticasone Nasal [Flonase Nasal 2 sprays NASAL BID 09/23/17 [place]] Midodrine HCl 10 mg PO AD 09/23/17 Calcium Acetate [Phoslo (*)] 1,334 mg PO PRN PRN 03/02/18 Omeprazole 40 mg PO DAILY 03/02/18 Sevelamer Carbonate [Renvela] 800 mg PO PRN PRN 03/02/18 Promethazine HCl [Phenergan 25mg 25 mg PO BID@ #30 tab 05/27/18 (*)] oxyCODONE IR [Oxycodone Ir (*)] 15 mg PO Q4H PRN #30 tab 05/27/18 Lisinopril [Zestril 20 mg (*)] 20 mg PO SUMO 06/23/18 amLODIPine BESYLATE [Norvasc 5 mg 5 mg PO DAILY 06/23/18 (*)] Medical Decision Making - Diagnostics EKG Interpretation: EKG interpreted by me reveals NSR, rate 92, inferior Q waves c/w old IMI. Interpretation: abnormal EKG Imaging Results: Sono reveals a clotted catheter, no evidence of DVT. Imaging: Discussed imaging studies w/ yardage caller Radiologist ED Course/Re-evaluation: This pt presents with a clotted dialysis catheter. Consulted Dr. Redd, plan for shunt placement in am. Potassium 6.0, Lokelma given. EKG: no signs of hyperkalemia. No indication for emergent dialysis this evening. The hospitalist service was consulted for admission. Differential Diagnosis: includes though not limited to DVT, PE, cardiac toxicity, severe hyperkalemia, catheter infection. - Data Points Laboratory Results: Laboratory Results 06/23/18 19:00 06/23/18 19:00 Medications Given: Amlodipine Besylate (Norvasc) 5 mg PO DAILY AVI Stop: 12/21/18 08:59 Last Admin: 06/25/18 09:25 Dose: 5 mg Calcium Acetate (Phoslo) 1,334 mg PO TIDMEAL AVI Stop: 12/21/18 07:59 Last Admin: 06/25/18 10:38 Dose: 1,334 mg Cephalexin HCl (Keflex) 500 mg PO DAILY AVI PRN Reason: Protocol Stop: 07/24/18 08:59 Last Admin: 06/25/18 09:25 Dose: 500 mg Diphenhydramine HCl (Benadryl Injection) 25 - 50 mg IVP DAILY PRN PRN Reason: WITH DIALYSIS Stop: 12/21/18 16:55 Last Admin: 06/24/18 17:09 Dose: 50 mg Fluticasone Propionate (Flonase Nasal [place]) 2 sprays EACHNARE BID AVI Stop: 12/21/18 08:59 Last Admin: 06/25/18 09:26 Dose: Not Given Furosemide (Lasix) 160 mg PO BID@06,18 AVI Stop: 12/21/18 05:59 Last Admin: 06/25/18 06:46 Dose: 160 mg Heparin Sodium (Porcine) (Heparin 50 Units/Ml (Premix)) 500 mls @ 0 mls/hr IV CONT AVI; Per Protocol PRN Reason: Protocol Stop: 12/21/18 17:59 Last Admin: 06/24/18 18:37 Dose: 500 mls Lorazepam (Ativan) 1 mg PO Q4HRS PRN PRN Reason: Nausea/Vomiting, Use 2nd Stop: 12/20/18 21:38 Last Admin: 06/23/18 21:47 Dose: 1 mg Miscellaneous Medication (Lokelma) 10 gm PO DAILY AT 6AM AVI Stop: 12/21/18 05:59 Last Admin: 06/25/18 06:46 Dose: 10 gm Oxycodone HCl (Oxycodone Ir) 15 mg PO Q4H PRN PRN Reason: Pain, Breakthrough Stop: 07/03/18 21:37 Last Admin: 06/25/18 11:02 Dose: 15 mg Pantoprazole Sodium (Protonix) 40 mg PO DAILY [facility] Stop: 12/21/18 08:59 Last Admin: 06/25/18 09:25 Dose: 40 mg Promethazine HCl (Phenergan) 25 mg PO BID@06,18 [facility] Stop: 12/21/18 05:59 Last Admin: 06/25/18 06:46 Dose: 25 mg Sevelamer HCl (Renagel) 3,200 mg PO TIDMEAL [facility] Stop: 12/21/18 07:59 Last Admin: 06/25/18 10:37 Dose: 3,200 mg Discontinued Medications Bupivacaine HCl (Sensorcaine 0.5% Vial) Confirm Administered Dose 30 ml .ROUTE .STK-MED ONE Stop: 06/24/18 09:50 Last Admin: 06/24/18 13:23 Dose: Not Given Bupivacaine HCl (Sensorcaine 0.5% Vial) Confirm Administered Dose 30 ml .ROUTE .STK-MED ONE Stop: 06/24/18 09:54 Last Admin: 06/24/18 13:02 Dose: Not Given Calcium Acetate (Phoslo) 1,334,667 mg PO TIDMEAL [facility] Stop: 12/21/18 07:59 Last Admin: 06/24/18 17:33 Dose: Not Given Heparin Sodium (Porcine) (Heparin Sodium) Confirm Administered Dose 50,000 unit .ROUTE .STK-MED ONE Stop: 06/24/18 09:50 Last Admin: 06/24/18 13:24 Dose: 50,000 unit Heparin Sodium (Porcine) (Heparin Lock Flush) Confirm Administered Dose 500 unit IVP .STK-MED ONE Stop: 06/24/18 09:51 Last Admin: 06/24/18 13:02 Dose: 500 unit Heparin Sodium (Porcine) (Heparin Lock Flush) Confirm Administered Dose 2,000 unit IVP .STK-MED ONE Stop: 06/24/18 10:30 Last Admin: 06/24/18 13:23 Dose: 2,000 unit Cefazolin Sodium/Dextrose (Ancef) 100 mls @ 200 mls/hr IV ONCALL ONE PRN Reason: Protocol Stop: 06/24/18 10:29 Last Admin: 06/24/18 12:37 Dose: 100 mls Iothalamate Meglumine ([place]) Confirm Administered Dose 50 ml IV .STK-MED ONE Stop: 06/24/18 13:04 Last Admin: 06/24/18 13:23 Dose: 40 ml Lidocaine HCl (Lidocaine Hcl 1%) Confirm Administered Dose 300 mg .ROUTE .STK- MED ONE Stop: 06/24/18 09:50 Last Admin: 06/24/18 13:05 Dose: Not Given Miscellaneous Medication (Lokelma) 10 gm PO EDNOW ONE Stop: 06/23/18 19:40 Last Admin: 06/23/18 20:00 Dose: 10 gm Oxycodone HCl (Oxycodone Ir) 15 mg PO ONCE ONE Stop: 06/24/18 12:46 Last Admin: 06/24/18 12:25 Dose: 15 mg Departure - Departure Disposition: [facility] Inpatient Acute Clinical Impression: Hyperkalemia Complications, dialysis, catheter, mechanical Qualifiers: Encounter type: initial encounter Qualified Code(s): T82.49XA - Other complication of vascular dialysis catheter, initial encounter Condition: Fair
[2018-06-23] MEDS ORDERED: ACETAMINOPHEN 325 MG TAB PO PRN (20:25)
[2018-06-23] MEDS ORDERED: ONDANSETRON 4 MG/2 ML VIAL IVP PRN (20:25)
[2018-06-23] MEDS ORDERED: ONDANSETRON DISINTEGRATING 4 MG TAB PO PRN (20:25)
[2018-06-23] MEDS ORDERED: CALCIUM ACETATE 667 MG CAP PO PRN (21:38)
--- NOTE | 2018-06-23 21:40 | PDGENHP ---
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 She was last dialyzed on Friday. Went in for HD today and tech was unable to flush dialysis catheter. Multiple attempts were made. A call was placed to her surgeon, Dr Dima Redd, who recommended admission so she came to the ED. She denies shortness of breath, leg swelling, or chest pain. She has been nauseated for the last few weeks. She was hospitalized in May due to an infection involving her left arm AV graft. The AV graft was removed with subsequent placement of tunneled R femoral catheter. A wound vac was placed over infection site. She completed a course of antibiotics with cefdinir. At follow up with Dr Redd last week, she was started on keflex for some redness around the R femoral catheter. She reports that the wound vac fell out earlier today. History Information - Allergies/Home Medication List Allergies/Adverse Reactions: Marijuana/Cannabi *RETIRED-11/11/11 [Marijuana/Cannabinoid] Allergy (Severe, Verified 05/05/18 10:12) Anaphylaxis ondansetron HCl [From Zofran (as hydrochloride)] Allergy (Severe, Verified 05/05 10:12) Tingling of mouth/throat hydrochlorothiazide Allergy (Verified 05/05/18 10:12) Anaphylaxis lidocaine Allergy (Verified 05/25/18 18:32) NSAIDS (Non-Steroidal Anti-Inflamma [Nsaids] Allergy (Verified 05/05/18 10:12) Sulfa (Sulfonamide Antibiotics) Allergy (Verified 05/05/18 10:12) Hives Home Medications: Furosemide [Lasix 80 MG (*)] 160 mg PO BID@,05/21/16 [Last Taken 06/23/18] Sevelamer Carbonate [Renvela] 3,200 mg PO TIDMEAL 05/21/16 [Last Taken 06/23/18] Calcium Acetate [Phoslo (*)] 2,001 each PO TIDMEAL 07/16/16 [Last Taken 06/23/18 ] Fluticasone Nasal [Flonase Nasal [employer]] 2 sprays NASAL BID 09/23/17 [Last Taken 06/23/18] Midodrine HCl 10 mg PO AD 09/23/17 [Last Taken 06/20/18] Calcium Acetate [Phoslo (*)] 1,334 mg PO PRN PRN 03/02/18 [Last Taken 06/23/18] Omeprazole 40 mg PO DAILY 03/02/18 [Last Taken 06/23/18] Sevelamer Carbonate [Renvela] 800 mg PO PRN PRN 03/02/18 [Last Taken 06/23/18] Lisinopril [Zestril 20 mg (*)] 20 mg PO SUMO 06/23/18 [Last Taken 06/22/18] amLODIPine BESYLATE [Norvasc 5 mg (*)] 5 mg PO DAILY 06/23/18 [Last Taken ] I have personally reviewed and updated: family history, medical history, social history, surgical history - Past Medical History Additional medical history: 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 //Fri (failed AV fistula s/ p graft), 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, GERD, HTN, depression, HCV s/ p tx, polysubstance abuse, cardiac arrest r/t opioid overdose, chronic pain with continuous opioid dependency, h/o etoh pancreatitis, nephrolithiasis - Surgical History Additional surgical history: left arm AV fistula, LUE AV graft placement and revision, hx of HD catheter/removal and line infection, cervical spine, c- section, left nephrectomy 04/2018 - Family History Additional family history: polycystic kidney disease in all 3 siblings - Social History Smoking Status: Never smoked Alcohol Use: Sober Drug Use: None Additional social history: patient lives with significant other Review of Systems Review of Systems: ROS: 10pt was reviewed & negative except for what was stated in HPI & below Physical Exam Physical Exam: Temp Pulse Resp BP Pulse Ox 37.2 C 97 16 146/89 H 100 06/23/18 18:43 06/23/18 21:08 06/23/18 21:08 06/23/18 20:03 06/23/18 21:08 Constitutional: no apparent distress, appears nourished, not in pain Eyes: PERRL, anicteric sclera, EOMI Ears, Nose, Mouth, Throat: moist mucous membranes, hearing normal, ears appear normal, no oral mucosal ulcers Cardiovascular: regular rate and rhythym, no murmur, rub, or gallop, No edema Respiratory: no respiratory distress, no rales or rhonchi, clear to auscultation Genitourinary: no bladder fullness, no bladder tenderness Skin: erythema (mild erythema surrounding right groin catheter) Musculoskeletal: full muscle strength, no muscle tenderness, normal joint ROM, no joint effusions Neurologic: AAOx3 Psychiatric: interacting appropriately, not anxious, not encephalopathic, thought process linear Lab Data & Imaging Review 06/23/18 19:00 06/23/18 19:00 WBC 5.98 10^3/uL (3.80-9.50) 06/23/18 19:00 RBC 3.35 10^6/uL (4.18-5.33) L 06/23/18 19:00 Hgb 10.2 g/dL (12.6-16.3) L 06/23/18 19:00 Hct 32.8 % (38.0-47.0) L 06/23/18 19:00 MCV 97.9 fL (81.5-99.8) 06/23/18 19:00 MCH 30.4 pg (27.9-34.1) 06/23/18 19: MCHC 31.1 g/dL (32.4-36.7) L 06/23/18 19:00 RDW 16.0 % (11.5-15.2) H 06/23/18 19:00 Plt Count 209 10^3/uL (150-400) 06/23/18 19:00 MPV 8.3 fL (8.7-11.7) L 06/23/18:00 Neut % (Auto) 69.8 % (39.3-74.2) 06/23/18 19:00 Lymph % (Auto) 19.7 % (15.0-45.0) 06/23/18 19:00 [place] % (Auto) 8.4 % (4.5-13.0) 06/23/18 19:00 Eos % (Auto) 1.3 % (0.6-7.6) 06/23/18 19:00 Baso % (Auto) 0.5 % (0.3-1.7) 06/23/18 19:00 Nucleat RBC Rel Count 0.0 % (0.0-0.2) 06/23/18 19:00 Absolute Neuts (auto) 4.17 10^3/uL (1.70-6.50) 06/23/18 19:00 Absolute Lymphs (auto) 1.18 10^3/uL (1.00-3.00) 06/23/18 19:00 Absolute Monos (auto) 0.50 10^3/uL (0.30-0.80) 06/23/18 19:00 Absolute Eos (auto) 0.08 10^3/uL (0.03-0.40) 06/23/18 19:00 Absolute Basos (auto) 0.03 10^3/uL (0.02-0.10) 06/23/18 19:00 Absolute Nucleated RBC 0.00 10^3/uL (0-0.01) 06/23/18 19:00 Immature Gran % 0.3 % (0.0-1.1) 06/23/18 19: Immature Gran # 0.02 10^3/uL (0.00-0.10) 06/23/18 19:00 PT 13.7 SEC (12.0-15.0) 06/23/18 19:00 INR 1.09 (0.83-1.16) 06/23/18 19:00 APTT 32.0 SEC (23.0-38.0) 06/23/18 19:00 Sodium 134 mEq/L (135-145) L 06/23/18 19:00 Potassium 6.0 mEq/L (3.5-5.2) H 06/23/18 19:00 Chloride 99 mEq/L (97-110) 06/23/18 19:00 Carbon Dioxide 19 mEq/l (22-31) L 06/23/18 19:00 Anion Gap 16 mEq/L (6-14) H 06/23/18 19:00 BUN 85 mg/dL (7-23) H 06/23/18 19:00 Creatinine 11.0 mg/dL (0.6-1.0) H* 06/23/18 19:00 Estimated GFR 4 06/23/18 19:00 Glucose 98 mg/dL (70-100) 06/23/18 19:00 Calcium 8.4 mg/dL (8.5-10.4) L 06/23/18 19:00 EKG additional interpertation: ECG: sinus rhythm, normal intervals, inferior q waves (old), no peaked T waves, no ischemic ST-T segment changes Assessment & Plan Assessment: 42yo F with history of 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 Plan: #Malfunctioning R femoral temporary dialysis catheter - Dr Redd consulted - NPO at midnight. Will need new temp HD catheter placed. Also needs long- term dialysis access plan. #Hyperkalemia: K 6.0. No ECG changes - S/p sodium zirconium in ED. Will give additional dose in morning - Monitor on telemetry, repeat BMP in AM #ESRD 2/2 PCDK: Typically dialyzes T/Th/Sat. Missed HD today. - Consult nephrology in AM once have dialysis access - Continue phos binders #LUE AV graft infection s/p graft removal and wound vac placement - S/p course of cefdinir - Wound care consult #? cellulitis near R femoral TDC site - Continue keflex (started as outpatient) #Hypertension - Resume home meds #Chronic active hepatitis C virus infection #Chronic pain: Continue home oxycodone. VTE ppx: Code: full Diet: renal, NPO at midnight Dispo: Admit as inpatient
[2018-06-23] MEDS: LORazepam 1 MG TAB PO PRN (21:47)
[2018-06-23] MEDS: oxyCODONE IR 15 MG TAB PO PRN (21:48)
[2018-06-24] MEDS: PROMETHAZINE HCL 25 MG TAB PO SCH ×2 (05:12→18:37)
[2018-06-24] MEDS: FUROSEMIDE 80 MG TAB PO SCH ×2 (05:12→18:38)
[2018-06-24] MEDS: oxyCODONE IR 15 MG TAB PO PRN ×3 (05:13→21:59)
[2018-06-24 05:35] LABS: PLATELET COUNT 177 10^3/uL (150-400)
[2018-06-24] MEDS: SODIUM ZIRCONIUM CYCLOSILICATE 10 GM PACKET PO SCH (07:44)
[2018-06-24] MEDS ORDERED: SEVELAMER HCL 800 MG TAB PO PRN (08:00)
--- NOTE | 2018-06-24 09:27 | ASMTLACE ---
DOLLY Acuity / Level of Answers: Yes Care: Did the patient have an inpatient admission? Comorbidities - select Answers: Moderate or severe liver all that apply or renal disease Opioid dependence / Chronic pain Previous myocardial infarction Other Notes: HTN # of Emergency department Answers: 5-8 visits in the last 6 months Social determinants Answers: History of substance abuse (ETOH, street drugs, prescription drugs, etc.) Mental health diagnosis (anxiety, depression, pers onality disorders, etc.) Score: 23 Date Signed: 06/24/2018 09:26 AM Electronically Signed By:Lauren Goddard
[2018-06-24] MEDS ORDERED: HEPARIN 50,000 UNIT/10 ML VIAL ONE ×2 (09:49→21:44)
[2018-06-24] MEDS ORDERED: BUPIVACAINE 0.5% 30 ML SDV ONE ×2 (09:49→09:53)
[2018-06-24] MEDS ORDERED: LIDOCAINE 1% 300 MG/30 ML SDV ONE (09:49)
[2018-06-24] MEDS ORDERED: ceFAZolin 2 GM/DEXTROSE 100 ML IV ONE (10:00)
--- NOTE | 2018-06-24 10:41 | PDANEPAE ---
ANE History of Present Illness ESRD s/f revision of dialysis catheter ANE Past Medical History - Cardiovascular History Hx Hypertension: Yes Hx Arrhythmias: No Hx Chest Pain: No Hx Coronary Artery / Peripheral Vascular Disease: No Hx CHF / Valvular Disease: No Hx Palpitations: No - Pulmonary History Hx COPD: No Hx Asthma/Reactive Airway Disease: No Hx Recent Upper Respiratory Infection: No Hx Oxygen in Use at Home: No Hx Sleep Apnea: Yes Sleep Apnea Screening Result - Last Documented: Positive - Endocrine History Hx Diabetes: No - Renal History Hx Renal Disorders: Yes - Liver History Hx Hepatic Disorders: No - Chronic Pain History Chronic Pain: Yes (kidneys, low back) ANE Review of Systems Review of Systems: - Exercise capacity Exercise capacity: <4 METS ANE Patient History - Allergies Allergies/Adverse Reactions: Marijuana/Cannabi *RETIRED-11/11/11 [Marijuana/Cannabinoid] Allergy (Severe, Verified 05/05/18 10:12) Anaphylaxis ondansetron HCl [From Zofran (as hydrochloride)] Allergy (Severe, Verified 05/05 10:12) Tingling of mouth/throat hydrochlorothiazide Allergy (Verified 05/05/18 10:12) Anaphylaxis lidocaine Allergy (Verified 05/25/18 18:32) NSAIDS (Non-Steroidal Anti-Inflamma [Nsaids] Allergy (Verified 05/05/18 10:12) Sulfa (Sulfonamide Antibiotics) Allergy (Verified 05/05/18 10:12) Hives - Home Medications Home medications: home medication list seen and reviewed Home Medications: Furosemide [Lasix 80 MG (*)] 160 mg PO BID@,18 05/21/16 [Last Taken 06/23/18] Sevelamer Carbonate [Renvela] 3,200 mg PO TIDMEAL 05/21/16 [Last Taken 06/23/18] Calcium Acetate [Phoslo (*)] 2,001 each PO TIDMEAL 07/16/16 [Last Taken 06/23/18 ] Fluticasone Nasal [Flonase Nasal [place]] 2 sprays NASAL BID 09/23/17 [Last Taken 06/23/18] Midodrine HCl 10 mg PO AD 09/23/17 [Last Taken 06/20/18] Calcium Acetate [Phoslo (*)] 1,334 mg PO PRN PRN 03/02/18 [Last Taken 06/23/18] Omeprazole 40 mg PO DAILY 03/02/18 [Last Taken 06/23/18] Sevelamer Carbonate [Renvela] 800 mg PO PRN PRN 03/02/18 [Last Taken 06/23/18] Lisinopril [Zestril 20 mg (*)] 20 mg PO SUMO 06/23/18 [Last Taken 06/22/18] amLODIPine BESYLATE [Norvasc 5 mg (*)] 5 mg PO DAILY 06/23/18 [Last Taken ] - NPO status NPO Status: no food or drink >8 hours NPO Since - Liquids (Date): 06/24/18 NPO Since - Liquids (Time): 00:00 NPO Since - Solids (Date): 06/24/18 NPO Since - Solids (Time): 00:00 - Anes Hx Anes Hx: no prior problems - Smoking Hx Smoking Status: Never smoked - Alcohol Use Alcohol Use: Sober - Family Anes Hx Family Anes Hx: none ANE Labs/Vital Signs - Labs Result Diagrams: 06/24/18 05:15 06/24/18 05:15 - Vital Signs Blood Pressure: 154/87 Heart Rate: 83 Respiratory Rate: 16 O2 Sat (%): 100 Height: 157.48 cm Weight: 64.41 kg ANE Physical Exam - Airway Neck exam: decreased ROM Mallampati Score: Class 2 Mouth exam: poor dentition - Pulmonary Pulmonary: no respiratory distress - Cardiovascular Cardiovascular: regular rate and rhythym - ASA Status ASA Status: III ANE Anesthesia Plan Anesthesia Plan: GA w LMA, GA with mask (high K+ noted, low enough to proceed as dialysis is needed)
--- NOTE | 2018-06-24 11:13 | PDMN ---
Medical Necessity Medical necessity: Pt meets IP criteria per & MCG M-515; est los >2 mn for eval/tx of R femoral clotted dialysis catheter w/hyperkalemia (K 6.0); admit for further monitoring, Surgery consult w/new HD catheter placement & Nephrology consult; hx ESRD w/multiple dialysis access; per H&P & order 06/23/18
[2018-06-24] MEDS ORDERED: oxyCODONE IR 5 MG TAB ONE (12:22)
[2018-06-24] MEDS ORDERED: fentaNYL 100 MCG/2 ML INJ ONE (12:35)
[2018-06-24] MEDS ORDERED: PROPOFOL/EMULSION 500 MG/50 ML BOTTLE IV ONE (12:36)
[2018-06-24] MEDS ORDERED: oxyCODONE IR 5 MG TAB PO ONE (12:45)
[2018-06-24] MEDS ORDERED: IOTHALAMATE MEG (CONRAY) 50 ML VIAL IV ONE (13:03)
[2018-06-24] MEDS ORDERED: PROPOFOL 200 MG/20 ML VIAL ONE (13:15)
[2018-06-24] MEDS ORDERED: oxyCODONE IR 5 MG TAB PO PRN (13:24)
[2018-06-24] MEDS ORDERED: ALBUTEROL 3 ML DEYVIAL IH PRN (13:24)
[2018-06-24] MEDS ORDERED: fentaNYL 100 MCG/2 ML INJ IVP PRN (13:24)
[2018-06-24] MEDS ORDERED: NALOXONE HCL 0.4 MG/ML INJ IVP PRN (13:24)
--- NOTE | 2018-06-24 13:31 | HOSPPROG ---
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 First encounter, chart reviewed. Was called from PACU/ patient was in a rapid rate of 120-170. She was transferred to the telemetry unit. When I evaluated her, she was in sinus rhythm. #Malfunctioning R femoral temporary dialysis catheter -OR today for new temp HD catheter -needs machine long goods helper dialysis access #Hyperkalemia: K 6.2 - S/p sodium zirconium x 2 -dialysis today #ESRD 2/2 PCDK -spoke w nephrology, they are aware patient is here -dialyzes T//Fri. Missed HD Friday -resumed phos binders #LUE AV graft infection s/p graft removal and wound vac placement - S/p course of cefdinir - Wound care consult #? cellulitis near R femoral TDC site - Continue keflex (started as outpatient) #Hypertension - Resume home meds #Chronic active hepatitis C virus infection #Chronic pain: Continue home oxycodone. #plan: reviewed patients care w Analisa GIORDANO w Dr Redd, catheter placed today but concern for clot in SVC after venogram was performed, Will get a CT of abd/pelvis w contrast for further evaluation. Spoke w Dr Melgar and ok to order w dye. Subjective: Denny is c/o being tired. Objective: Vital Signs Temp Pulse Resp BP Pulse Ox 36.8 C 83 16 154/87 H 100 06/24/18 09:24 06/24/18 10:41 06/24/18 10:41 06/24/18 10:41 06/24/18 10:41 Laboratory Results 06/24/18 05:15 06/24/18 05:15 06/23/18 06/24/18 06/25/18 05:59 05:59 05:59 Intake Total 200 Balance 200 PT 13.7 SEC (12.0-15.0) 06/23/18 19:00 INR 1.09 (0.83-1.16) 06/23/18 19:00 - Physical Exam Constitutional: appears nourished, chronically ill appearing Eyes: PERRL Ears, Nose, Mouth, Throat: hearing normal Cardiovascular: regular rate and rhythym Respiratory: no respiratory distress Skin: warm Neurologic: AAOx3 Psychiatric: interacting appropriately ICD10 Worksheet Patient Problems: Problems Problem Status Onset Complications, dialysis, catheter, mechanical Acute Disorder of pancreas Active 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
--- NOTE | 2018-06-24 13:51 | POSTOPPROG ---
Post Op Note Date of Operation: 06/24/18 Surgeon: Vipul Redd Insurance Claims Adjuster: none Anesthesia: GET(General Endotracheal) Pre-op Diagnosis: clotted tunneled femoral catheter Post-op Diagnosis: patent catheter, possible svc clot, unlikely to be totally occluded Procedure: intraop catheter venogram Findings: catheter patent so not exhanged, will need CT abd/pel, ok to have HD Inf/Abcess present in the surg proc area at time of surgery?: No EBL: Minimal Complications: none Bowel Protocol: N/A Clean Closure Performed: N/A
--- NOTE | 2018-06-24 14:03 | SOAPPROG ---
SOAP Progress Note Assessment/Plan: Assessment: #ESRD- [facility] TTS -will run now using fem catheter -appreciate surgery involvement -plans for CT to further evaluate clot burden -recent resection AVG for infection-- her access options are limited #hyperkalemia -HD now, renal diet when taking po #post-op tachycardia- improved when I saw her -eval in progress, on tele #anemia CKD- -Hb at goal, continue EPo #MBD Of CKD -check phos am labs, renal diet when taking po I discussed with hospitalist 06/24/18 16:02 06/24/18 16:04 06/24/18 16:07 Subjective: 42 W with ESRD ([facility] unit), recent admit for infected AVG now admitted with malfunctioning femoral catheter. Dr. Redd took to OR and cath is working but concerned for clot burden higher up and planning on further imaging. Pt reports last HD was Friday. Feels nauseated and legs are "heavy." Ki is 6.2. Post op her HR was in 150s-170s in PCU, now normal rate. Denies cp. Objective: Vital Signs Temp Pulse Resp BP Pulse Ox 36.5 C 81 6 L 107/53 L 100 06/24/18 13:23 06/24/18 13:23 06/24/18 13:36 06/24/18 13:36 06/24/18 13:39 Laboratory Results 06/24/18 05:15 06/24/18 05:15 06/23/18 06/24/18 06/25/18 05:59 05:59 05:59 Intake Total 200 250 Output Total 50 Balance 200 200 PT 13.7 SEC (12.0-15.0) 06/23/18 19:00 INR 1.09 (0.83-1.16) 06/23/18 19:00 Physical Exam - Physical Exam General Appearance: alert, no apparent distress EENT: other (mmm) Neck: supple Respiratory: lungs clear Cardiac/Chest: regular rate, rhythm, other (no rub) Abdomen: normal bowel sounds, soft Pelvic Exam: other (femoral HD cath) Skin: warm/dry Extremities: other (+edema bilat lE, LUE AVG site well healed incision) Neuro/Psych: alert, oriented x 3 ICD10 Worksheet Patient Problems: Problems Problem Status Onset Complications, dialysis, catheter, mechanical Acute Disorder of pancreas Active 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
--- NOTE | 2018-06-24 15:26 | ASMTCMCOM ---
CM Note CM Note Notes: Pt is a 42 y/o female a admitted for clotted dialysis catheter. Pt has had multiple hospitalizations to [facility]. Pt goes to dialysis , , Fri. CM unable to meet w/ pt today because she was at a procedure. No therapies ordered at this time. Needs are TBD at this time. CM to follow. Plan: TBD Date Signed: 06/24/2018 03:25 PM Electronically Signed By:ADRIANO Wilkins
[2018-06-24] MEDS: amLODIPine BESYLATE 5 MG TAB PO SCH (15:41)
[2018-06-24] MEDS: SEVELAMER HCL 800 MG TAB PO SCH ×4 (15:43→19:26)
[2018-06-24] MEDS: PANTOPRAZOLE SODIUM 40 MG TAB PO SCH (16:09)
[2018-06-24] MEDS: CEPHALEXIN 500 MG CAP PO SCH (16:10)
[2018-06-24] MEDS: FLUTICASONE NASAL 120 SPRAYS/16 GM MDI EACHNARE SCH ×2 (16:35→21:58)
[2018-06-24] MEDS ORDERED: IOPAMIDOL (ISOVUE-370) 150 ML BTL IV ONE (16:43)
[2018-06-24] MEDS: CALCIUM ACETATE 667 MG CAP PO SCH ×2 (17:33→19:26)
--- NOTE | 2018-06-24 17:41 | CPEKG ---
Test Reason : OPEN Blood Pressure : / mmHG Vent. Rate : 092 BPM Atrial Rate : 092 BPM P-R Int : 131 ms QRS Dur : 074 ms QT Int : 361 ms P-R-T Axes : 043 -43 025 degrees QTc Int : 447 ms Sinus rhythm Inferior infarct, old Confirmed by Marcella Delcid ([id number]) on 06/24/2018 5:41:17 PM Referred By: Marcella Delcdi Confirmed By:Marcella Delcid
--- NOTE | 2018-06-24 17:44 | WOCRNPDOC ---
WOCRN Advanced Assessment Note - Skin Integrity Problem, Advanced Assess Left Arm Dressing Type: Gauze, Tegaderm Film Dressing Description: Clean/Dry, Intact Exudate Amount: Scant Exudate Color: Green Exudate Characteristic(s): Cloudy Wound Bed Constitution: Granulation Tissue (100%) Wound Edges: Epithelizing, Attached Site Odor: Moderate, Sweet, Pungent Site Measurement - Head-to-Toe Length X Width X Depth (cm): 5.2x1x0.2 Skin Integrity Problem Comment: Wound almost fully epithelized. It has almost completely filled in, and no longer needs a wound vac. Nathan BURNS performed wound care. Cleaned with ns and gauze. Aquacel Ag+ dressing non border cut in 1/2 and placed over wound bed. Secured with medipore tape. Wound care will follow.
[2018-06-24] MEDS ORDERED: HEPARIN 10,000 UNIT/10 ML MDV (1,000 UNIT/ML) IVP PRN (17:50)
[2018-06-24] MEDS: HEPARIN/DEXTROSE 500 ML IV SCH (18:37)
[2018-06-24] MEDS ORDERED: HEPARIN 10,000 UNIT/10 ML MDV (1,000 UNIT/ML) ONE (21:44)
[2018-06-25 00:25] LABS: INR 1.28 (0.83-1.16); PROTIME(PATIENT) 15.5 SEC (12.0-15.0)
[2018-06-25 01:00] LABS: PLATELET COUNT 198 10^3/uL (150-400)
[2018-06-25] MEDS: FUROSEMIDE 80 MG TAB PO SCH ×2 (06:46→17:32)
[2018-06-25] MEDS: SODIUM ZIRCONIUM CYCLOSILICATE 10 GM PACKET PO SCH (06:46)
[2018-06-25] MEDS: PROMETHAZINE HCL 25 MG TAB PO SCH ×2 (06:46→17:36)
[2018-06-25] MEDS: oxyCODONE IR 15 MG TAB PO PRN ×4 (06:46→20:05)
[2018-06-25] MEDS: CEPHALEXIN 500 MG CAP PO SCH (09:25)
[2018-06-25] MEDS: amLODIPine BESYLATE 5 MG TAB PO SCH (09:25)
[2018-06-25] MEDS: PANTOPRAZOLE SODIUM 40 MG TAB PO SCH (09:25)
[2018-06-25] MEDS: FLUTICASONE NASAL 120 SPRAYS/16 GM MDI EACHNARE SCH ×2 (09:26→20:05)
--- NOTE | 2018-06-25 09:48 | SOAPPROG ---
SHREE Progress Note Assessment/Plan: Assessment/plan: 42 y/o F admitted for malfunctioning tunneled R femoral dialysis catheter. Pt taken to OR yesterday to exchange catheter, however it appeared patent so it was not exchanged. Pt subsequently was found to have partial nonocclusive thrombus in IVC on CT scan. Now on heparin gtt. S/p dialysis yesterday. Feeling better. Will need alternate access for dialysis. Pt has very limited access options. Ultrasound today to evaluate deep veins in R arm and neck. May be possible to do a [place] loop graft using deep brachial vein in RUE. 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 Other option would be a groin AVF, this would be last resort. S: No complaints. Denies SOB and chest pain. O: Alert Afebrile RRR No increased WOB Abdomen: soft, nontender RLE: tunnelled dialysis catheter in place with dressing. Both lumens appear clear and patent. 06/25/18 09:39 Objective: Vital Signs Temp Pulse Resp BP Pulse Ox 36.7 C 79 10 L 128/90 H 95 06/25/18 07:14 06/25/18 07:14 06/25/18 07:14 06/25/18 07:14 06/25/18 07:14 Laboratory Results 06/24/18 23:59 06/24/18 05:15 06/24/18 06/25/18 06/26/18 05:59 05:59 05:59 Intake Total 200 560 Output Total 50 Balance 200 510 PT 15.5 SEC (12.0-15.0) H 06/24/18 23:59 INR 1.28 (0.83-1.16) H 06/24/18 23:59 ICD10 Worksheet Patient Problems: Problems Problem Status Onset Complications, dialysis, catheter, mechanical Acute Disorder of pancreas Active 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
[2018-06-25] MEDS: SEVELAMER HCL 800 MG TAB PO SCH ×3 (10:37→17:00)
[2018-06-25] MEDS: CALCIUM ACETATE 667 MG CAP PO SCH ×3 (10:38→17:00)
--- NOTE | 2018-06-25 15:32 | HOSPPROG ---
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 First encounter, chart reviewed. Was called from PACU/ patient was in a rapid rate of 120-170. She was transferred to the telemetry unit. When I evaluated her, she was in sinus rhythm. Malfunctioning R femoral temporary dialysis catheter OR today for new temp HD catheter needs termite helper dialysis access u/s for vein mapping today Hyperkalemia: K 6.2 S/p sodium zirconium x 2 dialysis today ESRD 2/2 PCDK spoke w nephrology, they are aware patient is here dialyzes T//Fri. Missed HD Friday resumed phos binders LUE AV graft infection s/p graft removal and wound vac placement S/p course of cefdinir Wound care consult IJ clot: heparin gtt likely warrants termite helper anticoag ? cellulitis near R femoral TDC site Continue keflex (started as outpatient) Hypertension Resume home meds Chronic active hepatitis C virus infection Chronic pain: Continue home oxycodone. Subjective: case d/w dr huynh Objective: Vital Signs Temp Pulse Resp BP Pulse Ox 36.7 C 96 10 L 111/74 95 06/25/18 15:29 06/25/18 15:29 06/25/18 15:29 06/25/18 15:29 06/25/18 15:29 Laboratory Results 06/24/18 23:59 06/25/18 09:46 06/24/18 06/25/18 06/26/18 05:59 05:59 05:59 Intake Total 200 560 800 Output Total 50 Balance 200 510 800 PT 15.5 SEC (12.0-15.0) H 06/24/18 23:59 INR 1.28 (0.83-1.16) H 06/24/18 23:59 - Physical Exam Constitutional: no apparent distress Eyes: PERRL, anicteric sclera Ears, Nose, Mouth, Throat: moist mucous membranes, hearing normal Cardiovascular: regular rate and rhythym, no murmur, rub, or gallop Respiratory: no respiratory distress, no rales or rhonchi Gastrointestinal: normoactive bowel sounds, soft, non-tender abdomen Genitourinary: no bladder fullness, No mustafa in urethra Skin: warm, normal color, no induration Musculoskeletal: full muscle strength Neurologic: AAOx3 ICD10 Worksheet Patient Problems: Problems Problem Status Onset Complications, dialysis, catheter, mechanical Acute Hyperkalemia Acute Disorder of pancreas Active MRSA - Methicillin resistant 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
--- NOTE | 2018-06-25 16:41 | SOAPPROG ---
[facility] Progress Note Assessment/Plan: Assessment: ESRD, HD planned for today hyperkalemia better poorly functioning R groin catheter, seems to be OK Access has been a problem over the past several months, Dr. Redd is doing vein mapping R arm for possible R arm AVF Plan: HD tonight HD friday hopefully can get a fistula soon 06/25/18 16:38 Subjective: spirits good tired today, but slept OK no cp sob nausea or vomiting appetite improving Objective: Vital Signs Temp Pulse Resp BP Pulse Ox 36.7 C 96 10 L 111/74 95 06/25/18 15:29 06/25/18 15:29 06/25/18 15:29 06/25/18 15:29 06/25/18 15:29 Laboratory Results 06/24/18 23:59 06/25/18 09:46 06/24/18 06/25/18 06/26/18 05:59 05:59 05:59 Intake Total 200 560 800 Output Total 50 Balance 200 510 800 PT 15.5 SEC (12.0-15.0) H 06/24/18 23:59 INR 1.28 (0.83-1.16) H 06/24/18 23:59 Physical Exam - Physical Exam General Appearance: alert Neck: normal inspection Respiratory: No rhonchi, No wheezing Cardiac/Chest: regular rate, rhythm, edema, systolic murmur, No friction rub Abdomen: normal bowel sounds, non-tender Extremities: swelling Neuro/Psych: alert, normal mood/affect, oriented x 3 ICD10 Worksheet Patient Problems: Problems Problem Status Onset Complications, dialysis, catheter, mechanical Acute Hyperkalemia Acute Disorder of pancreas Active MRSA - Methicillin resistant 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
[2018-06-25] MEDS: HEPARIN/DEXTROSE 500 ML IV SCH (20:05)
--- NOTE | 2018-06-25 21:48 | HOSPPROG ---
Hospitalist Progress Note Assessment/Plan: Notified by RN experiencing IV access difficulty with patient's right arm restricted and the other arm with upper wound and forearm has old AV graft so working with very limited space and patient initially refusing any further IV attempts; Dr. BRANDON Redd recommends patient continue heparin drip until tomorrow morning therefore patient will receive and is willing to receive an EJ. Objective: Vital Signs Temp Pulse Resp BP Pulse Ox 36.8 C 94 16 132/88 H 94 06/25/18 20:00 06/25/18 20:00 06/25/18 20:00 06/25/18 20:00 06/25/18 20:00 Laboratory Results 06/24/18 23:59 06/25/18 09:46 06/24/18 06/25/18 06/26/18 05:59 05:59 05:59 Intake Total 614 956 4434 Output Total 50 Balance 114 095 5746 PT 15.5 SEC (12.0-15.0) H 06/24/18 23:59 INR 1.28 (0.83-1.16) H 06/24/18 23:59 ICD10 Worksheet Patient Problems: Problems Problem Status Onset Complications, dialysis, catheter, mechanical Acute Hyperkalemia Acute Disorder of pancreas Active MRSA - Methicillin resistant 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
--- NOTE | 2018-06-25 22:07 | GOP ---
[f rep st] OPERATIVE REPORT DATE OF OPERATION: 06/24/2018 SURGEON: Vipul Redd MD PREOPERATIVE DIAGNOSIS: Chronic renal failure and occlusion of palindrome femoral dialysis catheter. POSTOPERATIVE DIAGNOSIS: 1. Chronic renal failure and occlusion of palindrome femoral dialysis catheter. 2. Vena cava clot. PROCEDURE PERFORMED: Palindrome catheter thrombectomy with operative venography. FINDINGS: The patient was found to have an easily opened femoral palindrome catheter with good blood flow. Venography, however, revealed DVT of the vena cava above the catheter. The guidewire was polo ble to be passed 2 inches above the end of the catheter. DESCRIPTION OF PROCEDURE: The patient was taken to the operating room where she received satisfactor y general endotracheal anesthesia by Dr. Dutta. She was prepped and draped in the usual sterile f ashion. The dialysis catheter was aspirated and some clotted blood was removed, but a heparin flush was then used and the catheter easily irrigated and it was elected at that point to leave the cathete r in place since the guidewire could not be passed further up. A venogram was done and showed fillin g defect above this level in the main body of the vena cava. The catheter was then instilled with th e appropriate amount of 5000 units of heparin and the catheter was resecured with 3-0 Prolene sutures . She tolerated the procedure well. She was taken to the recovery room in good condition. The plan is to obtain a CT scan to confirm the venography findings. /[id number]/MODL
[2018-06-26] MEDS: oxyCODONE IR 15 MG TAB PO PRN ×6 (00:11→22:15)
[2018-06-26] MEDS ORDERED: HEPARIN 5,000 UNIT/0.5 ML INJ SC SCH (01:00)
[2018-06-26] MEDS: LORazepam 1 MG TAB PO PRN (01:42)
[2018-06-26] MEDS: FUROSEMIDE 80 MG TAB PO SCH ×2 (05:13→18:14)
[2018-06-26] MEDS: PROMETHAZINE HCL 25 MG TAB PO SCH ×2 (05:13→18:14)
[2018-06-26] MEDS: SODIUM ZIRCONIUM CYCLOSILICATE 10 GM PACKET PO SCH (05:15)
[2018-06-26] MEDS: PANTOPRAZOLE SODIUM 40 MG TAB PO SCH (09:18)
--- NOTE | 2018-06-26 10:00 | SOAPPROG ---
SHREE Progress Note Assessment/Plan: Assessment: ESRD, HD planned for today hyperkalemia better poorly functioning R groin catheter, seems to be OK Access has been a problem over the past several months, Dr. Redd is doing vein mapping R arm for possible R arm AVF Plan: HD today HD friday, either here or at her usual HD spot arterial side of cath is tempermental, will TPA dwell post HD hopefully can get a fistula soon 06/25/18 16:38 06/26/18 09:57 Subjective: spirits good, wants to go home today no cp sob nausea or vomiting appetite and energy good Objective: Vital Signs Temp Pulse Resp BP Pulse Ox 36.9 C 103 H 12 133/83 H 96 06/26/18 09:08 06/26/18 09:08 06/26/18 09:08 06/26/18 09:08 06/26/18 09:08 Laboratory Results 06/24/18 23:59 06/25/18 09:46 06/25/18 06/26/18 06/27/18 05:59 05:59 05:59 Intake Total 560 1280 160 Output Total 50 Balance 510 1280 160 PT 15.5 SEC (12.0-15.0) H 06/24/18 23:59 INR 1.28 (0.83-1.16) H 06/24/18 23:59 Physical Exam - Physical Exam General Appearance: alert Neck: normal inspection Respiratory: No rhonchi, No wheezing Cardiac/Chest: regular rate, rhythm, systolic murmur Abdomen: normal bowel sounds, non-tender, soft Skin: warm/dry Extremities: No swelling Neuro/Psych: alert, normal mood/affect, oriented x 3 ICD10 Worksheet Patient Problems: Problems Problem Status Onset Complications, dialysis, catheter, mechanical Acute Hyperkalemia Acute Disorder of pancreas Active MRSA - Methicillin resistant 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
[2018-06-26] MEDS ORDERED: ALTEPLASE 2 MG VIAL IVP ONE (10:45)
[2018-06-26] MEDS: CALCIUM ACETATE 667 MG CAP PO SCH ×3 (12:33→20:49)
[2018-06-26] MEDS: FLUTICASONE NASAL 120 SPRAYS/16 GM MDI EACHNARE SCH ×2 (12:33→20:51)
[2018-06-26] MEDS: SEVELAMER HCL 800 MG TAB PO SCH ×3 (12:33→20:49)
[2018-06-26] MEDS: CEPHALEXIN 500 MG CAP PO SCH (13:48)
[2018-06-26] MEDS ORDERED: MIDODRINE HCL 10 MG TAB PO ONE (13:51)
--- NOTE | 2018-06-26 14:12 | HOSPPROG ---
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 First encounter, chart reviewed. Was called from PACU/ patient was in a rapid rate of 120-170. She was transferred to the telemetry unit. When I evaluated her, she was in sinus rhythm. Malfunctioning R femoral temporary dialysis catheter dr huynh to try graft in arm needs equipment operator intermodal yard dialysis access u/s for vein mapping yesterday Hyperkalemia: resolved follow S/p sodium zirconium x 2 dialysis today ESRD 2/2 [facility]K spoke w nephrology, they are aware patient is here dialyzes T//Fri. Missed HD Friday resumed phos binders LUE AV graft infection s/p graft removal and wound vac placement S/p course of cefdinir Wound care consult IJ clot: heparin gtt likely warrants equipment operator intermodal yard anticoag ? cellulitis near R femoral TDC site Continue keflex (started as outpatient) Hypertension Resume home meds Chronic active hepatitis C virus infection Chronic pain: Continue home oxycodone. Subjective: case d/w dr huynh. dizzy after dialysis Objective: Vital Signs Temp Pulse Resp BP Pulse Ox 37.0 C 116 H 16 103/60 96 06/26/18 13:43 06/26/18 13:43 06/26/18 13:43 06/26/18 13:43 06/26/18 09:08 Laboratory Results 06/26/18 09:45 06/25/18 09:46 06/25/18 06/26/18 06/27/18 05:59 05:59 05:59 Intake Total 560 1280 160 Output Total 50 Balance 510 1280 160 PT 15.5 SEC (12.0-15.0) H 06/24/18 23:59 INR 1.28 (0.83-1.16) H 06/24/18 23:59 - Physical Exam Constitutional: no apparent distress, appears nourished Eyes: PERRL, anicteric sclera Ears, Nose, Mouth, Throat: moist mucous membranes, hearing normal Cardiovascular: regular rate and rhythym, no murmur, rub, or gallop Respiratory: no respiratory distress, no rales or rhonchi Gastrointestinal: normoactive bowel sounds, soft, non-tender abdomen Genitourinary: No mustafa in urethra Skin: warm, normal color Musculoskeletal: full muscle strength Neurologic: AAOx3 Psychiatric: interacting appropriately ICD10 Worksheet Patient Problems: Problems Problem Status Onset Complications, dialysis, catheter, mechanical Acute Hyperkalemia Acute Disorder of pancreas Active MRSA - Methicillin resistant 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
--- NOTE | 2018-06-26 14:21 | SOAPPROG ---
SHREE Progress Note Assessment/Plan: Assessment/plan: 42 y/o F admitted for malfunctioning tunneled R femoral dialysis catheter. Pt taken to OR yesterday to exchange catheter, however it appeared patent so it was not exchanged. Pt subsequently was found to have partial nonocclusive thrombus in IVC on CT scan. Now on heparin gtt. S/p dialysis yesterday. Feeling better. Will need alternate access for dialysis. Pt has very limited access options. Ultrasound today to evaluate deep veins in R arm and neck. May be possible to do a [place]-deniz loop graft using deep brachial vein in RUE. 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 Other option would be a groin AVF, this would be last resort. S: No complaints. Denies SOB and chest pain. O: Alert Afebrile RRR No increased WOB Abdomen: soft, nontender RLE: tunnelled dialysis catheter in place with dressing. Both lumens appear clear and patent. 06/25/18 09:39 Subjective: Stopped by to see pt, but she was in dialysis. She will need to follow up as an outpt to schedule RUE AV graft placement. Will put info in discharge plan. 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
[2018-06-26] MEDS: amLODIPine BESYLATE 5 MG TAB PO SCH (15:01)
--- NOTE | 2018-06-26 16:42 | ASMTCMCOM ---
CM Note CM Note Notes: Transcribed 06/25/2018 from case management d/t technical difficulties with [employer] and [employer]. Pt admitted 06/23/2018 with clotted dialysis catheter. Met with pt. Pt was resistant to providing information and answers to questions. States that she lives at home with her father (Stephane). States that she is able to get herself around and obtain food without difficulty. Boyfriend is Daquan [phone]. PCP confirmed as Dr. Asif Durán. Confirmed with patient that she receives dialysis at [facility] on Fri//Fri. Confirmed that she receives home care with [facility]; phone call to [facility] to notify of admission; faxed referral by [employer]. Reviewed chart. Per [facility] most recent note, requested notification of admission. Left voicemail. Case Management plan: Return home continuing with [facility]. Date Signed: 06/26/2018 04:41 PM Electronically Signed By:Angelica Sen
[2018-06-27] MEDS: oxyCODONE IR 15 MG TAB PO PRN ×6 (02:15→23:07)
[2018-06-27] MEDS: SODIUM ZIRCONIUM CYCLOSILICATE 10 GM PACKET PO SCH (03:54)
[2018-06-27] MEDS: PROMETHAZINE HCL 25 MG TAB PO SCH ×2 (06:29→18:17)
[2018-06-27] MEDS: FUROSEMIDE 80 MG TAB PO SCH ×3 (06:29→19:19)
[2018-06-27] MEDS: HEPARIN/DEXTROSE 500 ML IV SCH (08:09)
[2018-06-27] MEDS: amLODIPine BESYLATE 5 MG TAB PO SCH (08:12)
[2018-06-27] MEDS: CALCIUM ACETATE 667 MG CAP PO SCH ×3 (09:48→18:17)
[2018-06-27] MEDS: SEVELAMER HCL 800 MG TAB PO SCH ×3 (09:48→18:19)
[2018-06-27] MEDS: CEPHALEXIN 500 MG CAP PO SCH (09:48)
[2018-06-27] MEDS: PANTOPRAZOLE SODIUM 40 MG TAB PO SCH ×2 (09:48→19:16)
[2018-06-27] MEDS: FLUTICASONE NASAL 120 SPRAYS/16 GM MDI EACHNARE SCH ×2 (09:49→21:55)
--- NOTE | 2018-06-27 11:57 | HOSPPROG ---
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 First encounter, chart reviewed. Was called from PACU/ patient was in a rapid rate of 120-170. She was transferred to the telemetry unit. When I evaluated her, she was in sinus rhythm. Malfunctioning R femoral temporary dialysis catheter dr huynh to try graft in arm needs giant tire repairer dialysis access u/s for vein mapping yesterday Hyperkalemia: resolved follow S/p sodium zirconium x 2 dialysis today ESRD 2/2 [facility]CDK spoke w nephrology, they are aware patient is here dialyzes T//Fri. 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 cellulitis near R femoral TDC site Continue keflex (started as outpatient) Hypertension Resume home meds Chronic active hepatitis C virus infection Chronic pain: Continue home oxycodone. Subjective: case d/w dr huynh. difficulty w blood draws Objective: Vital Signs Temp Pulse Resp BP Pulse Ox 37.2 C 96 18 114/63 97 06/27/18 08:00 06/27/18 08:00 06/27/18 08:00 06/27/18 08:00 06/27/18 08:00 Laboratory Results 06/26/18 09:45 06/27/18 02:53 06/26/18 06/27/18 06/28/18 05:59 05:59 05:59 Intake Total 1280 1024 Balance 1280 1024 PT 15.5 SEC (12.0-15.0) H 06/24/18 23:59 INR 1.28 (0.83-1.16) H 06/24/18 23:59 - Physical Exam Constitutional: no apparent distress, appears nourished Eyes: PERRL, anicteric sclera Ears, Nose, Mouth, Throat: moist mucous membranes, hearing normal Cardiovascular: regular rate and rhythym, no murmur, rub, or gallop Respiratory: no respiratory distress, no rales or rhonchi Gastrointestinal: normoactive bowel sounds, soft, non-tender abdomen Genitourinary: no bladder fullness, No mustafa in urethra Skin: warm, normal color Musculoskeletal: full muscle strength Neurologic: AAOx3 ICD10 Worksheet Patient Problems: Problems Problem Status Onset Complications, dialysis, catheter, mechanical Acute Hyperkalemia Acute Disorder of pancreas Active MRSA - Methicillin resistant 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
[2018-06-27] MEDS: APIXABAN 5 MG TAB PO SCH ×2 (12:02→19:16)
--- NOTE | 2018-06-27 13:10 | SOAPPROG ---
SHREE Progress Note Assessment/Plan: Assessment: DOING WELL/AFEBRILE/CONVERTING TO XARELTO A Plan: AV GRAFT RIGHT ARM ON FRIDAY/RISKS AND OPTIONS FULLY DISCUSSED 06/27/18 13:10 Objective: Vital Signs Temp Pulse Resp BP Pulse Ox 37.2 C 96 18 114/63 97 06/27/18 12:00 06/27/18 12:00 06/27/18 12:00 06/27/18 12:00 06/27/18 12:00 Laboratory Results 06/26/18 09:45 06/27/18 02:53 06/26/18 06/27/18 06/28/18 05:59 05:59 05:59 Intake Total 1280 1024 Balance 1280 1024 PT 15.5 SEC (12.0-15.0) H 06/24/18 23:59 INR 1.28 (0.83-1.16) H 06/24/18 23:59 ICD10 Worksheet Patient Problems: Problems Problem Status Onset Complications, dialysis, catheter, mechanical Acute Hyperkalemia Acute Disorder of pancreas Active MRSA - Methicillin resistant 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
--- NOTE | 2018-06-27 19:20 | SOAPPROG ---
SOAP Progress Note Assessment/Plan: Assessment/Plan: Plan for HD on 06/28 instead of 06/27 Dr. Redd planning for RUE AVG on Friday Subjective: Feeling fine today. Does report some swelling and tenderness on L hip area Objective: Vital Signs Temp Pulse Resp BP Pulse Ox 36.8 C 105 H 18 140/87 H 98 06/27/18 15:45 06/27/18 15:45 06/27/18 15:45 06/27/18 15:45 06/27/18 15:45 Laboratory Results 06/26/18 09:45 06/27/18 02:53 06/26/18 06/27/18 06/28/18 05:59 05:59 05:59 Intake Total 1280 1024 1250 Balance 1280 1024 1250 PT 15.5 SEC (12.0-15.0) H 06/24/18 23:59 INR 1.28 (0.83-1.16) H 06/24/18 23:59 General Appearance: alert Neck: normal inspection Respiratory: No rhonchi, No wheezing Cardiac/Chest: regular rate, rhythm, systolic murmur Abdomen: normal bowel sounds, non-tender, soft Skin: warm/dry Extremities: No swelling Neuro/Psych: alert, normal mood/affect, oriented x 3 ICD10 Worksheet Patient Problems: Problems Problem Status Onset Complications, dialysis, catheter, mechanical Acute Hyperkalemia Acute Disorder of pancreas Active MRSA - Methicillin resistant 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
[2018-06-28] MEDS: oxyCODONE IR 15 MG TAB PO PRN ×5 (03:24→19:55)
[2018-06-28] MEDS: MIDODRINE HCL 10 MG TAB PO PRN ×2 (05:54→11:58)
[2018-06-28] MEDS: SODIUM ZIRCONIUM CYCLOSILICATE 10 GM PACKET PO SCH (05:55)
[2018-06-28] MEDS: PROMETHAZINE HCL 25 MG TAB PO SCH ×2 (05:55→18:17)
[2018-06-28] MEDS: FUROSEMIDE 80 MG TAB PO SCH ×2 (05:56→18:17)
[2018-06-28] MEDS: amLODIPine BESYLATE 5 MG TAB PO SCH (07:45)
[2018-06-28] MEDS: FLUTICASONE NASAL 120 SPRAYS/16 GM MDI EACHNARE SCH ×2 (07:45→19:53)
[2018-06-28] MEDS: PANTOPRAZOLE SODIUM 40 MG TAB PO SCH ×2 (08:53→19:53)
[2018-06-28] MEDS: APIXABAN 5 MG TAB PO SCH (08:53)
[2018-06-28] MEDS: SEVELAMER HCL 800 MG TAB PO SCH ×3 (09:56→18:17)
[2018-06-28] MEDS: CALCIUM ACETATE 667 MG CAP PO SCH ×3 (09:56→18:17)
--- NOTE | 2018-06-28 12:00 | HOSPPROG ---
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 First encounter, chart reviewed. Was called from PACU/ patient was in a rapid rate of 120-170. She was transferred to the telemetry unit. When I evaluated her, she was in sinus rhythm. Malfunctioning R femoral temporary dialysis catheter dr huynh to try graft in arm needs adjunct faculty for medical terminology dialysis access u/s for vein mapping yesterday Hyperkalemia: resolved follow S/p sodium zirconium x 2 dialysis today ESRD 2/2 PCDK spoke w nephrology, they are aware patient is here dialyzes T//Fri. Missed HD Friday resumed phos binders LUE AV graft infection s/p graft removal and wound vac placement S/p course of cefdinir Wound care consult IJ clot: transition to eliquis discussed dosing w pharmacy hold eliquis this PM 06/28 ? cellulitis near R femoral TDC site Continue keflex (started as outpatient) Hypertension Resume home meds Chronic active hepatitis C virus infection Chronic pain: Continue home oxycodone. Subjective: case d/w dr huynh Objective: Vital Signs Temp Pulse Resp BP Pulse Ox 36.8 C 85 16 130/64 H 97 06/28/18 07:02 06/28/18 07:02 06/28/18 07:02 06/28/18 07:02 06/28/18 07:02 Laboratory Results 06/26/18 09:45 06/27/18 02:53 06/27/18 06/28/18 06/29/18 05:59 05:59 05:59 Intake Total 1024 1650 Balance 1024 1650 PT 15.5 SEC (12.0-15.0) H 06/24/18 23:59 INR 1.28 (0.83-1.16) H 06/24/18 23:59 - Physical Exam Constitutional: no apparent distress, appears nourished Eyes: PERRL, anicteric sclera Ears, Nose, Mouth, Throat: moist mucous membranes, hearing normal Cardiovascular: regular rate and rhythym, no murmur, rub, or gallop Respiratory: no respiratory distress, no rales or rhonchi Gastrointestinal: normoactive bowel sounds, soft, non-tender abdomen Genitourinary: no bladder fullness, No mustafa in urethra Skin: warm Musculoskeletal: other (L hip, iliac crest tender w no fluctuance, warmth, ) Neurologic: AAOx3 Psychiatric: interacting appropriately ICD10 Worksheet Patient Problems: Problems Problem Status Onset Complications, dialysis, catheter, mechanical Acute Hyperkalemia Acute Disorder of pancreas Active MRSA - Methicillin resistant 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
--- NOTE | 2018-06-28 14:18 | GCON ---
[f rep st] CONSULTATION DATE OF CONSULTATION: 06/24/2018 Patient is a 42-year-old female, well known to me, who was admitted at this time because of malfuncti on of her femoral dialysis catheter. It was noted to be occluded at dialysis and she was unable to h ave her dialysis. She needs a new access but has very limited options because of bilateral internal jugular occlusions and poor veins in her arm for any [place] fistula. Risks and options fully discuss ed. ALLERGIES: Include NSAIDs, sulfa, hydrochlorothiazide, Zofran, marijuana. PRESENT MEDICATIONS: Include Norvasc, Lasix, Renvela, Restoril, omeprazole, midodrine, Flonase, Phos Lo. PAST MEDICAL HISTORY: Includes end-stage renal disease. She has had multiple fistulas and grafts an d has had a recently removed infected graft. She does have GERD, hypertension and some depression wi th polysubstance abuse in the past. 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 Surgical history includes left arm AV fistula, left arm AV graft and revision of t hat, multiple hemodialysis catheters, , C-spine fusion, and a left nephrectomy. FAMILY HISTORY: Positive for polycystic kidney disease. SOCIAL HISTORY: Reveals she is but does not smoke. REVIEW OF SYSTEMS: Negative on a full 10-point review. PHYSICAL EXAMINATION: GENERAL: An alert and somewhat sedated 42-year-old female in no acute distres s. HEAD and NECK: Reveals no icterus, adenopathy, or oral lesions. NECK: Supple nontender. Pupil s are equal. CHEST: Clear. CARDIAC: Exam reveals a regular rhythm. ABDOMEN: Soft, slightly dist ended, nontender. EXTREMITIES: Reveal full range of motion, full pulses. She has had multiple scar s and surgeries on her left arm particularly. NEUROLOGIC: Exam is symmetric and physiologic. PSYCH : Exam reveals her to be alert, oriented, and cooperative. IMPRESSION: End-stage renal disease with poor dialysis access. Plan is revision of her femoral vein tunneled catheter. Risks and options were fully discussed and she wished to proceed. /[id number]/MODL
[2018-06-28] MEDS: CEPHALEXIN 500 MG CAP PO SCH (14:29)
[2018-06-28] MEDS ORDERED: HEPARIN 50,000 UNIT/10 ML VIAL ONE (14:47)
--- NOTE | 2018-06-28 18:11 | SOAPPROG ---
SOAP Progress Note Assessment/Plan: Assessment/Plan: Had HD on 06/28 instead of 06/27 due to scheduling. Femoral TDC worked well on . Plan for next HD on Friday Dr. Redd planning for RUE AVG on Friday Soft tissue ultrasound to further evaluate area of swelling over L hip/buttocks Subjective: Feeling fine. Patient thinks that the area of swelling of left hip/buttock has increased in size. Had HD today, went well. R femoral catheter worked well. Objective: Vital Signs Temp Pulse Resp BP Pulse Ox 36.6 C 93 14 116/69 94 06/28/18 15:53 06/28/18 15:53 06/28/18 15:53 06/28/18 15:53 06/28/18 15:53 Laboratory Results 06/26/18 09:45 06/27/18 02:53 06/27/18 06/28/18 06/29/18 05:59 05:59 05:59 Intake Total 1024 1650 Output Total 2200 Balance 1024 1650 -2200 PT 15.5 SEC (12.0-15.0) H 06/24/18 23:59 INR 1.28 (0.83-1.16) H 06/24/18 23:59 General Appearance: alert Neck: normal inspection Respiratory: No rhonchi, No wheezing Cardiac/Chest: regular rate, rhythm, systolic murmur Abdomen: normal bowel sounds, non-tender, soft Skin: warm/dry Extremities: area of edema over L hip/buttock area tender to palpation without overlying ecchymosis or erythema, R femoral TDC Neuro/Psych: alert, normal mood/affect, oriented x 3 ICD10 Worksheet Patient Problems: Problems Problem Status Onset Complications, dialysis, catheter, mechanical Acute Hyperkalemia Acute Disorder of pancreas Active MRSA - Methicillin resistant 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
[2018-06-28] MEDS ORDERED: LORazepam 0.5 MG TAB PO ONE (23:58)
[2018-06-29] MEDS: oxyCODONE IR 15 MG TAB PO PRN ×4 (00:11→16:45)
--- NOTE | 2018-06-29 02:38 | SOAPPROG ---
SHREE Progress Note Assessment/Plan: Assessment: DOING WELL/AFEBRILE/CONVERTING TO XARELTO A Plan: AV GRAFT RIGHT ARM ON FRIDAY/RISKS AND OPTIONS FULLY DISCUSSED 06/27/18 13:10 06/29/18 02:37 PT DOING WELL/ PLAN RT ARM AV GRAFT IN AM / RISKS AND OPTIONS FULLY DISCUSSED AND SHE WISHES TO PROCEED Objective: Vital Signs Temp Pulse Resp BP Pulse Ox 37.0 C 94 17 102/68 93 06/28/18 19:11 06/28/18 19:11 06/28/18 19:11 06/28/18 19:11 06/28/18 19:11 Laboratory Results 06/26/18 09:45 06/27/18 02:53 06/27/18 06/28/18 06/29/18 05:59 05:59 05:59 Intake Total 1024 1650 Output Total 2200 Balance 1024 1650 -2200 PT 15.5 SEC (12.0-15.0) H 06/24/18 23:59 INR 1.28 (0.83-1.16) H 06/24/18 23:59 ICD10 Worksheet Patient Problems: Problems Problem Status Onset Complications, dialysis, catheter, mechanical Acute Hyperkalemia Acute Disorder of pancreas Active MRSA - Methicillin resistant 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
[2018-06-29] MEDS: FUROSEMIDE 80 MG TAB PO SCH ×2 (05:11→17:44)
[2018-06-29] MEDS: PROMETHAZINE HCL 25 MG TAB PO SCH ×2 (05:11→17:44)
[2018-06-29] MEDS: SODIUM ZIRCONIUM CYCLOSILICATE 10 GM PACKET PO SCH (05:11)
[2018-06-29] MEDS: CALCIUM ACETATE 667 MG CAP PO SCH ×3 (09:52→17:36)
[2018-06-29] MEDS: SEVELAMER HCL 800 MG TAB PO SCH ×3 (09:52→17:37)
[2018-06-29] MEDS: PANTOPRAZOLE SODIUM 40 MG TAB PO SCH (09:53)
[2018-06-29] MEDS: CEPHALEXIN 500 MG CAP PO SCH (09:53)
[2018-06-29] MEDS: amLODIPine BESYLATE 5 MG TAB PO SCH (09:53)
[2018-06-29] MEDS: FLUTICASONE NASAL 120 SPRAYS/16 GM MDI EACHNARE SCH (09:53)
[2018-06-29] MEDS ORDERED: ceFAZolin 2 GM/DEXTROSE 100 ML IV ONE (10:00)
[2018-06-29] MEDS ORDERED: NS 1,000 ML IV SCH (10:15)
[2018-06-29] MEDS ORDERED: NA BICARBONATE 50 MEQ/50 ML VIAL ONE (11:02)
[2018-06-29] MEDS ORDERED: BUPIVACAINE 0.5% 30 ML SDV ONE (11:02)
[2018-06-29] MEDS ORDERED: PAPAVERINE HCL 60 MG/2 ML SDV ONE (11:03)
[2018-06-29] MEDS ORDERED: LIDOCAINE 1% 300 MG/30 ML SDV ONE (11:04)
[2018-06-29] MEDS ORDERED: PROTAMINE SULFATE 50 MG/5 ML VIAL IVP ONE (11:04)
[2018-06-29] MEDS ORDERED: POLYMYXIN B SULFATE 500,000 UNIT/10 ML SYR IRR ONE (11:04)
[2018-06-29] MEDS ORDERED: BACITRACIN 50,000 UNITS/10 ML SYR IRR ONE (11:04)
--- NOTE | 2018-06-29 11:40 | ASMTCMCOM ---
CM Note CM Note Notes: CM reviewed pts chart. Mela Crain went to meet w/ her. CM made a referral to [facility]. Pt is not medically stable to d/c at this time. CM to follow. Plan: GRANT RENTERIA Date Signed: 06/29/2018 11:38 AM Electronically Signed By:ADRIANO Wilkins
[2018-06-29] MEDS ORDERED: MIDAZOLAM 2 MG/2 ML VIAL IVP ONE (11:43)
--- NOTE | 2018-06-29 11:43 | PDANEPAE ---
ANE History of Present Illness 42 YO for av graft ANE Past Medical History - Cardiovascular History Hx Hypertension: Yes Hx Arrhythmias: No Hx Chest Pain: No Hx Coronary Artery / Peripheral Vascular Disease: No Hx CHF / Valvular Disease: No Hx Palpitations: No - Pulmonary History Hx COPD: No Hx Asthma/Reactive Airway Disease: No Hx Recent Upper Respiratory Infection: No Hx Oxygen in Use at Home: No Hx Sleep Apnea: Yes Sleep Apnea Screening Result - Last Documented: Positive - Endocrine History Hx Diabetes: No - Renal History Hx Renal Disorders: Yes - Liver History Hx Hepatic Disorders: No - Chronic Pain History Chronic Pain: Yes (kidneys, low back) ANE Review of Systems Review of Systems: - Exercise capacity METS (RN): 3 METS ANE Patient History - Allergies Allergies/Adverse Reactions: Marijuana/Cannabi *RETIRED-11/11/11 [Marijuana/Cannabinoid] Allergy (Severe, Verified 05/05/18 10:12) Anaphylaxis ondansetron HCl [From Zofran (as hydrochloride)] Allergy (Severe, Verified 05/05 10:12) Tingling of mouth/throat hydrochlorothiazide Allergy (Verified 05/05/18 10:12) Anaphylaxis lidocaine Allergy (Verified 05/25/18 18:32) NSAIDS (Non-Steroidal Anti-Inflamma [Nsaids] Allergy (Verified 05/05/18 10:12) Sulfa (Sulfonamide Antibiotics) Allergy (Verified 05/05/18 10:12) Hives - Home Medications Home medications: home medication list seen and reviewed Home Medications: Furosemide [Lasix 80 MG (*)] 160 mg PO BID@,18 05/21/16 [Last Taken 06/23/18] Sevelamer Carbonate [Renvela] 1,600 mg PO TIDMEAL 05/21/16 [Last Taken 06/23/18] Calcium Acetate [Phoslo (*)] 2,001 tab PO TIDMEAL 07/16/16 [Last Taken 06/23/18] Fluticasone Nasal [Flonase Nasal [place]] 2 sprays NASAL BID 09/23/17 [Last Taken 06/23/18] Midodrine HCl 10 mg PO AD 09/23/17 [Last Taken 06/20/18] Calcium Acetate [Phoslo (*)] 1,334 mg PO PRN PRN 03/02/18 [Last Taken 06/23/18] Omeprazole 40 mg PO DAILY 03/02/18 [Last Taken 06/23/18] Sevelamer Carbonate [Renvela] 800 mg PO PRN PRN 03/02/18 [Last Taken 06/23/18] Lisinopril [Zestril 20 mg (*)] 20 mg PO SUMO 06/23/18 [Last Taken 06/22/18] amLODIPine BESYLATE [Norvasc 5 mg (*)] 5 mg PO DAILY 06/23/18 [Last Taken ] - NPO status NPO Since - Liquids (Date): 06/29/18 NPO Since - Liquids (Time): 00:00 NPO Since - Solids (Date): 06/28/18 NPO Since - Solids (Time): 19:30 - Smoking Hx Smoking Status: Never smoked - Alcohol Use Alcohol Use: Sober ANE Labs/Vital Signs - Labs Result Diagrams: 06/29/18 08:04 06/29/18 08:04 - Vital Signs Blood Pressure: 105/69 Heart Rate: 100 Respiratory Rate: 18 O2 Sat (%): 100 Height: 5 ft 2 in Weight: 65.8 kg ANE Physical Exam - Airway Neck exam: FROM Mallampati Score: Class 3 Mouth exam: poor dentition - Pulmonary Pulmonary: no respiratory distress - Cardiovascular Cardiovascular: regular rate and rhythym - ASA Status ASA Status: III ANE Anesthesia Plan Anesthesia Plan: GA w LMA
[2018-06-29] MEDS ORDERED: THROMBIN (BOVINE) 5,000 UNIT VIAL TP ONE (11:50)
--- NOTE | 2018-06-29 13:02 | PDCONSULT ---
Riveter Helper Note: Patient in OR for AVG. Plan for HD tomorrow. Please contact if ?'s. #. Brandon Cuevas, [facility]
[2018-06-29] MEDS ORDERED: oxyCODONE IR 5 MG TAB PO PRN (14:09)
[2018-06-29] MEDS ORDERED: HYDROmorphONE/DILAUDID 1 MG/ML INJ IVP PRN (14:09)
--- NOTE | 2018-06-29 14:13 | POSTOPPROG ---
Post Op Note Date of Operation: 06/29/18 Surgeon: Vipul Redd Forging Press Setter Up: Analisa Ordonez Anesthesiologist: Carlos Sanchez Anesthesia: GET(General Endotracheal) Pre-op Diagnosis: CRF, needs HD access Post-op Diagnosis: same Procedure: RUE AV loop graft Findings: small artery, large deep vein, good thrill. Inf/Abcess present in the surg proc area at time of surgery?: No EBL: 50-100 Complications: none Bowel Protocol: N/A Clean Closure Performed: N/A Drains: Aroldo Navarro
[2018-06-29] MEDS ORDERED: fentaNYL 100 MCG/2 ML INJ ONE ×2 (14:22→14:46)
[2018-06-29] MEDS ORDERED: DEXAMETHASONE 4 MG/ML VIAL ONE (14:22)
[2018-06-29] MEDS ORDERED: HEPARIN 10,000 UNIT/10 ML MDV (1,000 UNIT/ML) ONE (14:22)
[2018-06-29] MEDS ORDERED: PROPOFOL/EMULSION 500 MG/50 ML BOTTLE IV ONE (14:23)
[2018-06-29] MEDS ORDERED: PROPOFOL 200 MG/20 ML VIAL ONE (14:23)
[2018-06-29] MEDS ORDERED: NALOXONE HCL 0.4 MG/ML INJ IVP PRN (14:42)
[2018-06-29] MEDS ORDERED: PROMETHAZINE HCL 25 MG/ML INJ IVP PRN (14:42)
[2018-06-29] MEDS ORDERED: MIDODRINE HCL 10 MG TAB PO ONE (14:45)
--- NOTE | 2018-06-29 14:59 | HOSPPROG ---
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 First encounter, chart reviewed. Was called from PACU/ patient was in a rapid rate of 120-170. She was transferred to the telemetry unit. When I evaluated her, she was in sinus rhythm. 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 Missed HD Friday resumed phos binders LUE AV graft infection s/p graft removal and wound vac placement S/p course of cefdinir Wound care consult IJ clot: transition to eliquis discussed dosing w pharmacy hold eliquis this PM 06/28 ? cellulitis near R femoral TDC site Continue keflex (started as outpatient) Hypertension Resume home meds Chronic active hepatitis C virus infection Chronic pain: Continue home oxycodone. will prepare dc for this afternoon evening. she may be unwilling/unable to go, which is OK > 30 minutes Subjective: seen in PACU, s/p RUE AV graft. in pain, but stating she wishes to go home when recovered Objective: Vital Signs Temp Pulse Resp BP Pulse Ox 36.9 C 100 18 105/69 100 06/29/18 10:08 06/29/18 11:43 06/29/18 11:43 06/29/18 11:43 06/29/18 11:43 Laboratory Results 06/29/18 08:04 06/29/18 08:04 06/28/18 06/29/18 06/30/18 05:59 05:59 05:59 Intake Total 1650 Output Total 2200 Balance 1650 -2200 PT 15.5 SEC (12.0-15.0) H 06/24/18 23:59 INR 1.28 (0.83-1.16) H 06/24/18 23:59 - Physical Exam Constitutional: no apparent distress, appears nourished Eyes: PERRL, anicteric sclera Ears, Nose, Mouth, Throat: moist mucous membranes, hearing normal Cardiovascular: regular rate and rhythym, no murmur, rub, or gallop Respiratory: no respiratory distress, no rales or rhonchi Gastrointestinal: normoactive bowel sounds, soft, non-tender abdomen Genitourinary: No mustafa in urethra Skin: warm, normal color Musculoskeletal: full muscle strength Neurologic: AAOx3 ICD10 Worksheet Patient Problems: Problems Problem Status Onset Complications, dialysis, catheter, mechanical Acute Hyperkalemia Acute Disorder of pancreas Active MRSA - Methicillin resistant 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
[2018-06-29] MEDS: fentaNYL 100 MCG/2 ML INJ IVP PRN ×2 (15:00→15:10)
--- NOTE | 2018-06-29 16:16 | ASDISCHSUM ---
Discharge Information Plan Status:Home with Home Health Medically Cleared to Leave:06/29/2018 Discharge Date:06/29/2018 CM D/C Disposition: ADT D/C Disposition: Projected Discharge Date:06/29/2018 11:00 AM Transportation at D/C: Discharge Delay Reason: Follow-Up Date:06/29/2018 11:00 AM Discharge Slot: Final Diagnosis: Placement Information Referral Type:*Home Health Care Services Referral ID:[facility]-[id number] Provider Name:[facility] Address 1:[address] Address 2: City:[place] Selection Factors: State:[place] Patient Contact Information Contact Name:DAVIDA Relationship:Other Address:[address] [place] [address] Work Phone: City:[place] Alternate Phone: State/Zip Code:[place] [address] Email: Financial Information Financial Class:Medicare Primary Plan Desc:MEDICARE INPATIENT Primary Plan Number:[id number] Secondary Plan Desc:MED[place] Secondary Plan Number:[id number] Assessment Information LACE LACE Acuity / Level of Answers: Yes Care: Did the patient have an inpatient admission? Comorbidities - select Answers: Moderate or severe liver all that apply or renal disease Opioid dependence / Chronic pain Previous myocardial infarction Other Notes: HTN # of Emergency department Answers: 5-8 visits in the last 6 months Social determinants Answers: History of substance abuse (ETOH, street drugs, prescription drugs, etc.) Mental health diagnosis (anxiety, depression, pers onality disorders, etc.) Score: 23 Date Signed: 06/24/2018 09:26 AM Electronically Signed By:Lauren Goddard [facility] CM Progress Note CM Note CM Note Notes: Pt is a 42 y/o female a admitted for clotted dialysis catheter. Pt has had multiple hospitalizations to [facility]. Pt goes to dialysis , , Fri. CM unable to meet w/ pt today because she was at a procedure. No therapies ordered at this time. Needs are TBD at this time. CM to follow. Plan: TBD Date Signed: 06/24/2018 03:25 PM Electronically Signed By:ADRIANO Wilkins [facility] CM Progress Note CM Note CM Note Notes: 06/25/2018 Pt admitted 06/23/2018 with clotted dialysis catheter. Met with pt. Pt was resistant to providing information and answers to questions. States that she lives at home with her father (Stephane). States that she is able to get herself around and obtain food without difficulty. Boyfriend is Daquan [phone]. PCP confirmed as Dr. Asif Duárn. Confirmed with patient that she receives dialysis at [facility] on Fri//Fri. Confirmed that she receives home care with [facility]; phone call to [facility] to notify of admission; faxed referral by [employer]. Reviewed chart. Per Mela Crain's most recent note, requested notification of admission. Left voicemail. Case Management plan: Return home continuing with [facility]. Date Signed: 06/25/2018 02:35 PM Electronically Signed By:Mona Garcia [facility] CM Progress Note CM Note CM Note Notes: Transcribed 06/25/2018 from case management d/t technical difficulties with [employer] and [employer]. Pt admitted 06/23/2018 with clotted dialysis catheter. Met with pt. Pt was resistant to providing information and answers to questions. States that she lives at home with her father (Stephane). States that she is able to get herself around and obtain food without difficulty. Boyfriend is Daquan [phone]. PCP confirmed as Dr. Asif Durán. Confirmed with patient that she receives dialysis at [facility] on /Fri. Confirmed that she receives home care with [facility]; phone call to [facility] to notify of admission; faxed referral by [employer]. Reviewed chart. Per Mela Carin's most recent note, requested notification of admission. Left voicemail. Case Management plan: Return home continuing with [facility]. Date Signed: 06/26/2018 04:41 PM Electronically Signed By:Angelica Sen [facility] Progress Note CM Note CM Note Notes: CM reviewed pts chart. Mela Crain went to meet w/ her. CM made a referral to [facility]. Pt is not medically stable to d/c at this time. CM to follow. Plan: [facility], RN Date Signed: 06/29/2018 11:38 AM Electronically Signed By:ADRIANO Wilkins Case Management Discharge Plan Note Case Management Discharge Discharge Order Complete? Answers: Yes Patient to Obtain Answers: Independently Medications Transportation Arranged Answers: Family/Friends EMTALA Complete Answers: No Case Management Transport Answers: No Form Complete Faxed Final Orders Answers: Yes Agency/Facility Transfer Answers: Yes Report Printed & Faxed to Receiving Agency Family Notified Answers: No Discharge Comments Notes: Pts case discussed w/ Dr. [facility]. Pt is being d/c'd today. CM notified [facility] of the d/c. CM available for changes. Plan: [facility]; RN Date Signed: 06/29/2018 04:15 PM Electronically Signed By:ADRIANO Wilkins Intervention Information
[2018-06-29 16:23] VITALS: BP 95/55
--- NOTE | 2018-06-29 16:35 | ASMTCMCOM ---
RAMÍREZ Note CM Note Notes: CM notified [facility] of pts d/c (P#:[phone]). Pt will resume her dialysis tomorrow (Friday, , Friday). Date Signed: 06/29/2018 04:34 PM Electronically Signed By:ADRIANO Wilkins
--- NOTE | 2018-06-29 17:00 | PDIAF ---
- Diagnosis Diagnosis: dialysis access issues Code Status: Full Code - Medication Management Discharge Medications: electronically signed and located in the Home Medication List. - Orders Services needed: Home Care, Registered Nurse Home Care Face to Face: I certify that this patient was under my care and that I had the required [id number] encounter meeting the encounter requirements on the discharge day. My findings support the fact that the patient is homebound as defined in Home Care Face to Face Continued: CMS Chapter 7 Medicare Benefits Manual 30.1.1 , The condition of the patient is such that there exists a normal inability to leave home and consequently, leaving home would require a considerable and taxing effort. Isolation Type: None Additional Instructions: Wound care: Change dressings to left biceps wound every 3 days and prn. 1. Clean with ns and gauze 2. Skin prep morgan wound 3. Apply a tiny amount of silvasorb gel to wound bed 4. Cover with 1/2 of a 4x4 Aquacel Ag+ dressing (placed pink side up) 5. Secure with medipore tape. Emily SAWYER. Follow up in Dr. Redd' office to schedule right arm AV graft placement. - Follow Up Care Current Providers and Referrals: SARAH LEE [Primary Care Provider] - As per Instructions Vipul Redd MD [Medical Doctor] -
[2018-07-01] MEDS ORDERED: APIXABAN 2.5 MG TAB PO SCH (21:00)
== END 2018-06-29 18:39 | disposition home health service (06) | DRG 264 ==
LOC: EEVIPCON 19:45 → F3E 21:25 → F2W 06-24 15:09
PROVIDERS: ADMIT Internal Medicine; ATTEND Internal Medicine
PROC: 3E03317 Introduction of Other Thrombolytic into Peripheral Vein, Percutaneous Approach (ICD-10-PCS; 2018-06-24)
PROC: 06WY33Z Revision of Infusion Device in Lower Vein, Percutaneous Approach (ICD-10-PCS; 2018-06-24)
PROC: 5A1D70Z Performance of Urinary Filtration, Intermittent, Less than 6 Hours Per Day (ICD-10-PCS; 2018-06-24)
PROC: 03170ZD Bypass Right Brachial Artery to Upper Arm Vein, Open Approach (ICD-10-PCS; principal; 2018-06-29 11:00)
DX: T82.868A Thrombosis due to vascular prosthetic devices, implants and grafts, initial encounter (principal); I12.0 Hypertensive chronic kidney disease with stage 5 chronic kidney disease or end stage renal disease; N18.6 End stage renal disease; Z99.2 Dependence on renal dialysis; E87.5 Hyperkalemia; B19.20 Unspecified viral hepatitis C without hepatic coma; G89.29 Other chronic pain; K21.9 Gastro-esophageal reflux disease without esophagitis
CPT/HCPCS: 85520-90; C1768; J0690; J1100; J1200; J1642; J1644; J2250; J2440; J2704; J2720; J2997; J3010; Q9961; Q9967

== ENCOUNTER 2018-07-13 15:33 | Inpatient (IN) | payer OTHER, MEDICAID ==
--- NOTE | 2018-07-13 16:28 | EDPHY ---
H & P Stated Complaint: bilateral legs Time Seen by Provider: 07/13/18 16:09 HPI/ROS: CHIEF COMPLAINT: Bilateral leg swelling, fatigue HISTORY OF PRESENT ILLNESS: Patient is a 42-year-old diabetic female with end- stage renal disease currently on hemodialysis. She had a graft placed in her right arm by Dr. Redd 2 weeks ago. She continues to have a catheter in her right groin where she receives dialysis. However on at the dialysis center it stopped working 2 hours into the procedure. The she presented on Friday again for dialysis but the catheter was clogged. They tried to place tPA but this did not work. Today she spoke with Dr. Redd and complained of bilateral leg swelling right worse than left. Also tenderness and a mild erythema to her right nuñez. She also states that she feels generally weak and fatigued. No focal weakness. No nausea vomiting or diarrhea. No chest pain or shortness of breath. She also reports that she is on Eliquis. Severity: Moderate Modifying factors: None REVIEW OF SYSTEMS: Constitutional: See HPI EENTM: denies: blurred vision, double vision, nose congestion Respiratory: denies: cough, shortness of breath Cardiac: denies: chest pain, irregular heart rate, lightheadedness, palpitations Gastrointestinal/Abdominal: denies: abdominal pain, diarrhea, nausea, vomiting, blood streaked stools Genitourinary: denies: dysuria, frequency, hematuria, pain Musculoskeletal: See HPI Skin: denies: lesions, rash, jaundice, bruising Neurological: See HPI denies: headache, numbness, paresthesia, tingling, dizziness, weakness Hematologic/Lymphatic: denies: blood clots, easy bleeding, easy bruising Immunologic/allergic: denies: HIV/AIDS, transplant 10 systems reviewed and negative except as noted EXAM: GENERAL: Moderate distress, uncomfortable HEAD: Atraumatic, normocephalic. EYES: Pupils equal round and reactive to light, extraocular movements intact, sclera anicteric, conjunctiva are normal. ENT: TMs normal, nares patent, oropharynx clear without exudates. Moist mucous membranes. NECK: Normal range of motion, supple without lymphadenopathy or JVD. LUNGS: Breath sounds clear to auscultation bilaterally and equal. No wheezes rales or rhonchi. HEART: Regular rate and rhythm without murmurs, rubs or gallops. ABDOMEN: Soft, nontender, normoactive bowel sounds. No guarding, no rebound. No masses appreciated. BACK: No CVA tenderness, no spinal tenderness, step-offs or deformities EXTREMITIES: Right leg 2+ edema, left leg 1+ edema, right nuñez with mild erythema consistent with venous stasis however warm to palpation. Graft in right arm well-healing and intact. NEUROLOGICAL: Cranial nerves II through XII grossly intact. Normal speech, normal gait. 5/5 strength, normal movement in all extremities, normal sensation , normal reflexes PSYCH: Normal mood, normal affect. SKIN: Warm, dry, normal turgor, no visible rashes or lesions. Source: Patient Exam Limitations: No limitations - Personal History Tetanus Vaccine Date: 12/2010 - Medical/Surgical History Hx Asthma: No Hx Chronic Respiratory Disease: No Hx Diabetes: No Hx Cardiac Disease: Yes Hx Renal Disease: Yes Hx Cirrhosis: No Hx Alcoholism: No Hx HIV/AIDS: No Hx Splenectomy or Spleen Trauma: No Other PMH: ESRD-on Dialysis-polycystic kidney disease, hypotension, Hep C (in remission), tubal ligation. L neprectomy, failed renal tx,[place],depression, gerd, kidney stones, chronic pain - Family History Significant Family History: No pertinent family hx - Social History Smoking Status: Never smoked Alcohol Use: Sober Drug Use: None Constitutional: Initial Vital Signs Temperature (C) 37.7 C 07/13/18 15:41 Heart Rate 117 H 07/13/18 15:41 Respiratory Rate 16 07/13/18 15:41 Blood Pressure 135/80 H 07/13/18 15:41 O2 Sat (%) 95 07/13/18 15:41 O2 Delivery Mode Room Air Allergies/Adverse Reactions: Marijuana/Cannabi *RETIRED-11/11/11 [Marijuana/Cannabinoid] Allergy (Severe, Verified 07/13/18 15:41) Anaphylaxis ondansetron HCl [From Zofran (as hydrochloride)] Allergy (Severe, Verified 07/13 15:41) Tingling of mouth/throat hydrochlorothiazide Allergy (Verified 07/13/18 15:41) Anaphylaxis lidocaine Allergy (Verified 07/13/18 15:41) NSAIDS (Non-Steroidal Anti-Inflamma [Nsaids] Allergy (Verified 07/13/18 15:41) Sulfa (Sulfonamide Antibiotics) Allergy (Verified 07/13/18 15:41) Hives Home Medications: Medication Instructions Recorded Furosemide [Lasix 80 MG (*)] 160 mg PO BID@05/21/16 Sevelamer Carbonate [Renvela] 1,600 mg PO TIDMEAL 05/21/16 Calcium Acetate [Phoslo (*)] 2,001 mg PO TIDMEAL 07/16/16 Fluticasone Nasal [Flonase Nasal 2 sprays NASAL BID 09/23/17 [place]] Midodrine HCl 10 mg PO AD 09/23/17 Calcium Acetate [Phoslo (*)] 1,334 mg PO PRN PRN 03/02/18 Omeprazole 40 mg PO DAILY 03/02/18 Sevelamer Carbonate [Renvela] 800 mg PO PRN PRN 03/02/18 Promethazine HCl [Phenergan 25mg 25 mg PO BID@ #30 tab 05/27/18 (*)] Lisinopril [Zestril 20 mg (*)] 20 mg PO SUMO 06/23/18 amLODIPine BESYLATE [Norvasc 5 mg 5 mg PO DAILY 06/23/18 (*)] Apixaban [Eliquis] 5 mg PO BID #120 tab 06/29/18 oxyCODONE IR [Oxycodone Ir (*)] 5 - 10 mg PO Q4HRS PRN #30 tab 06/29/18 Escitalopram Oxalate [Lexapro] 20 mg PO DAILY 07/14/18 diphenhydrAMINE [Benadryl 50 MG 50 mg PO AD 07/14/18 (*)] Medical Decision Making - Diagnostics EKG Interpretation: An EKG obtained and was read and documented in trace view. Please see trace view for full reading and report. Sinus tachycardia, peaked T-waves compared to previous Imaging: Discussed imaging studies w/ call center analyst Radiologist ED Course/Re-evaluation: We discussed the patient's lab and ultrasound results. I will start her on Rocephin for the erythema to her right nuñez and swelling. Will also admit to the hospitalist service and have paged renal for dialysis. Nephrology Dr. Nieto will consult and will dialyze if we can place a new hemodialysis catheter today. I spoke with Dr. Giron who would prefer IR to do this because she has had multiple lines in the past and will likely be difficult. I have paged IR. Dr. Nieto also requests bicarb drip and Kayexalate. Pharmacist is ordering Kayexalate. 5:50 p.m. Patient is accepting of new central line. Spoke with Interventional. In the past the patient has required anesthesia for this procedure. They will plan to do in the morning. Discussed with Dr. Brady for admission. Differential Diagnosis: Partial list of the Differential diagnosis considered include but were not limited to; dehydration, electrolyte abnormalities, infection, fluid overload and although unlikely based on the history and physical exam, I also considered sepsis, DVT. Critical Care Time: Critical care time spent by me, Dr. Ac exclusive with this patient was 45 minutes, exclusive of the PA time exclusive of procedures. The organ system that was at risk was cardiovascular and I gave fluids, medications, imaging, testing and consultation to prevent worsening of the patient's condition - Data Points Laboratory Results: Laboratory Results 07/13/18 15:55 07/13/18 15:55 Medications Given: Calcium Acetate (Phoslo) 2,001 mg PO TIDMEAL [facility] Stop: 01/10/19 11:59 Last Admin: 07/14/18 13:13 Dose: 2,001 mg Cefazolin Sodium/Dextrose (Ancef 1 Gm (Premix)) 50 mls @ 200 mls/hr IV Q24H [facility] Stop: 08/12/18 20:59 Last Admin: 07/14/18 02:10 Dose: 50 mls Midodrine (Midodrine Hcl) 10 mg PO TUTHSA@1200,1500 [facility] Stop: 01/10/19 11:59 Last Admin: 07/14/18 13:12 Dose: 10 mg Oxycodone HCl (Oxycodone Ir) 5 - 10 mg PO Q4HRS PRN PRN Reason: Pain, Breakthrough Stop: 07/24/18 11:27 Last Admin: 07/14/18 13:12 Dose: 5 mg Sevelamer HCl (Renagel) 1,600 mg PO TIDMEAL [facility] Stop: 01/10/19 11:59 Last Admin: 07/14/18 13:13 Dose: 1,600 mg Discontinued Medications Alteplase, Recombinant (Cathflo Activase) 2 mg IVP ONCE ONE Stop: 07/13/18 19:15 Last Admin: 07/14/18 13:11 Dose: Not Given Diphenhydramine HCl (Benadryl Injection) 50 mg IVP ONCE ONE Stop: 07/14/18 09:01 Last Admin: 07/14/18 08:52 Dose: 50 mg Hydromorphone HCl (Dilaudid) 1 mg IVP EDNOW ONE Stop: 07/13/18 16:34 Last Admin: 07/13/18 16:37 Dose: 1 mg Ceftriaxone Sodium/Dextrose (Rocephin 1 Gm (Premix)) 50 mls @ 100 mls/hr IV EDNOW ONE PRN Reason: Protocol Stop: 07/13/18 17:50 Last Admin: 07/13/18 17:39 Dose: 50 mls Sodium Bicarbonate 150 meq/ (Dextrose) 1,150 mls @ 0 mls/hr IV EDNOW ONE PRN Reason: As Directed Stop: 07/13/18 17:33 Last Admin: 07/13/18 20:08 Dose: 1,150 mls Calcium Gluconate 2 gm/ (Dextrose) 50 mls @ 100 mls/hr IV ONCE ONE Stop: 07/13/18 19:59 Last Admin: 07/14/18 02:36 Dose: 50 mls Metoclopramide HCl (Reglan Injection) 10 mg IVP EDNOW ONE Stop: 07/13/18 17:22 Last Admin: 07/13/18 17:39 Dose: 10 mg Miscellaneous Medication (Lokelma) 10 gm PO EDNOW ONE Stop: 07/13/18 18:01 Last Admin: 07/13/18 19:02 Dose: Not Given Miscellaneous Medication (Lokelma) 10 gm PO TID@0600,1400,2000 [facility] Stop: 01/09/19 19:59 Last Admin: 07/14/18 02:17 Dose: 10 gm Departure - Departure Disposition: [facility] Acute Clinical Impression: Acute hyperkalemia, End stage renal disease Cellulitis Qualifiers: Site of cellulitis: extremity Site of cellulitis of extremity: lower extremity Laterality: right Qualified Code(s): L03.115 - Cellulitis of right lower limb Condition: Critical
[2018-07-13] MEDS ORDERED: HYDROmorphONE/DILAUDID 2 MG/ML INJ IVP ONE (16:33)
[2018-07-13] MEDS ORDERED: HYDROmorphONE/DILAUDID 1 MG/ML INJ ONE (16:33)
[2018-07-13 16:39] LABS: PLATELET COUNT 237 10^3/uL (150-400)
[2018-07-13 17:03] LABS: INR 1.22 (0.83-1.16); PROTIME(PATIENT) 14.9 SEC (12.0-15.0)
[2018-07-13] MEDS ORDERED: METOCLOPRAMIDE 10 MG/2 ML VIAL ONE (17:19)
[2018-07-13] MEDS ORDERED: cefTRIAXone 1 GM/DEXTROSE 1 GM/50 ML BAG IV ONE (17:20)
[2018-07-13] MEDS ORDERED: METOCLOPRAMIDE 10 MG/2 ML VIAL IVP ONE (17:21)
--- NOTE | 2018-07-13 17:21 | CPEKG ---
Test Reason : OPEN Blood Pressure : / mmHG Vent. Rate : 108 BPM Atrial Rate : 109 BPM P-R Int : 136 ms QRS Dur : 081 ms QT Int : 325 ms P-R-T Axes : 053 -44 039 degrees QTc Int : 436 ms Sinus tachycardia Inferior infarct, old Confirmed by Farrukh Richard ([id number]) on 07/13/2018 5:21:10 PM Referred By: FARRUKH RICHARD Confirmed By:Farrukh Richard
[2018-07-13] MEDS ORDERED: SODIUM ZIRCONIUM CYCLOSILICATE 10 GM PACKET PO ONE (18:00)
[2018-07-13] MEDS: SODIUM BICARBONATE 150 MEQ in D5W 1,000 ML IV ONE ×2 (19:02→20:08)
[2018-07-13] MEDS ORDERED: ALTEPLASE 2 MG VIAL IVP ONE (19:14)
[2018-07-13] MEDS ORDERED: ACETAMINOPHEN 325 MG TAB PO PRN (19:24)
[2018-07-13] MEDS ORDERED: PROMETHAZINE HCL 25 MG/ML INJ IVP PRN (19:25)
[2018-07-13] MEDS ORDERED: CALCIUM GLUCONATE 2 GM in D5W 50 ML IV ONE (19:30)
--- NOTE | 2018-07-13 20:28 | GHP ---
[f rep st] HISTORY AND PHYSICAL DATE OF ADMISSION: 07/13/2018 CHIEF COMPLAINT: 1. Dysfunctioning dialysis catheter. 2. Fatigue. HPI: A 42-year-old female with end-stage renal disease secondary to polycystic kidney disease, chronic pain, hypertension who presents with a dysfunctioning femoral dialysis catheter. Dr. Redd placed a right upper extremity AV graft, 06/29. Staff at the dialysis center tried to use tPA, but this did not work. She spoke with Dr. Redd today and said her legs are swollen, right worse than left. She has some redness, tenderness in her right nuñez. She has been more fatigued for the last several days. Complains of nausea, vomiting, abdominal pain. Has pruritus. In the ER, potassium elevated to 6, mildly peaked T-waves. The plan is to trial HD again in the morning. If not, IR will have to replace the catheter line. REVIEW OF SYSTEMS: I completed a 10-point review of systems. It is negative except as noted in HPI. PAST MEDICAL HISTORY: 1. End-stage renal disease. 2. Hospitalization in May for a nosocomial fever. 3. Suspected deep soft tissue infection with Haemophilus parainfluenzae and Strep. 4. Left upper extremity AV graft infection secondary to Haemophilus influenzae. 5. Hepatitis C. 6. Chronic pain syndrome. 7. Hypertension. 8. Depression. 9. History of polysubstance abuse. 10. GERD. 11. Cardiac arrest after opioid overdose. 12. History of alcoholic pancreatitis. PAST SURGICAL HISTORY: 1. Left arm AV fistula graft replacement and revision. 2. . 3. Left nephrectomy, April 2018. FAMILY HISTORY: PCKD in 3 siblings. SOCIAL HISTORY: Lives with a significant other. Had a history of substance abuse but denies now. HOME MEDICATIONS: See medication reconciliation. ALLERGIES: Marijuana, Zofran, lidocaine, hydrochlorothiazide, NSAIDs, sulfa. PHYSICAL EXAM: VITAL SIGNS: Temperature 37.4. Blood pressure is 136/78. Heart rate is 109, respirations 16, 96% on room air. GENERAL: She is fatigued , restless in bed, tired. HEENT: PERRLA. Moist mucous membranes. CV: Regular rate. Bilateral lower extremity swelling, right greater than left. LUNGS: Clear. ABDOMEN: Soft, mild diffuse tenderness. No rebound or guarding. Positive bowel sounds. : No Solorio. SKIN: Small area of erythema , warmth, right nuñez. Tender to touch. NEURO: 2-12 intact. PSYCH: She is alert, not answering questions. LABS: WBC 12, hemoglobin 8.7, hematocrit 27, platelets 237. INR 1.2, PT 14. Sodium 132, potassium 6, chloride 23, carbon dioxide 16, anion gap 23, BUN 89, creatinine is 12.5. Right lower extremity U/s: negative for clot. ASSESSMENT AND PLAN: 1. Dysfunctioning hemodialysis catheter: Renal nurse placed tPA. We will try dialysis in the morning. If not effective, Interventional Radiology will need to replace dialysis catheter. N.p.o. after midnight. 2. Hyperkalemia. Potassium 6 with mildly peaked T-waves. Dose bicarb, calcium. Start Lokelma . Monitor on telemetry. 3. Mild metabolic encephalopathy: Secondary to uremia. Plan for dialysis tomorrow. 4. Leukocytosis: Mild area of cellulitis, right nuñez. We will treat with renally dosed Ancef once a day. 5. Hypervolemic hyponatremia and dialysis needed. 6. Anion gap metabolic acidosis secondary to end-stage renal disease. 7. Anemia of renal disease. H and H stable. No indication for transfusion. 8. Hypertension. Lisinopril. 9. Gastroesophageal reflux disease. Proton pump inhibitor .. 10. Polycystic kidney disease, status post nephrectomy, April. 11. Depression. Home meds. 12. Chronic pain with opioid dependency. Continue home meds. Bowel regimen. 13. Diet: Renal. N.p.o. after midnight. 14. Deep vein thrombosis prophylaxis. Sequential compression devices. This is an inpatient admission for a dysfunctioning catheter line, hyperkalemia warranting hemodialysis. /[id number]/MODL MTDD
[2018-07-14] MEDS: SODIUM ZIRCONIUM CYCLOSILICATE 10 GM PACKET PO SCH ×2 (02:17→19:49)
[2018-07-14] MEDS ORDERED: NS 1,000 ML IV SCH (09:00)
[2018-07-14] MEDS ORDERED: NS 1,000 ML IV PRN (09:00)
--- NOTE | 2018-07-14 09:03 | ASMTLACE ---
DOLLY Acuity / Level of Answers: Yes Care: Did the patient have an inpatient admission? Comorbidities - select Answers: Diabetes (uncontrolled or all that apply controlled) Moderate or severe liver or renal disease Opioid dependence / Chronic pain Previous myocardial infarction # of Emergency department Answers: 5-8 visits in the last 6 months Social determinants Answers: History of substance abuse (ETOH, street drugs, prescription drugs, etc.) Mental health diagnosis (anxiety, depression, pers onality disorders, etc.) Score: 23 Date Signed: 07/14/2018 09:01 AM Electronically Signed By:Lauren Goddard
[2018-07-14] MEDS ORDERED: CALCIUM ACETATE 667 MG CAP PO PRN (11:28)
[2018-07-14] MEDS ORDERED: MIDODRINE HCL 10 MG TAB PO SCH (12:00)
[2018-07-14] MEDS ORDERED: SEVELAMER HCL 800 MG TAB PO PRN (12:00)
--- NOTE | 2018-07-14 13:05 | GCON ---
[f rep st] CONSULTATION DATE OF CONSULTATION: 07/14/2018 REASON FOR CONSULTATION: Opinion regarding end-stage kidney failure. HISTORY OF PRESENT ILLNESS: Ms. Hercules is a very pleasant 42-year-old female with end-stage kidney failure on 3 times weekly dialysis Tuesdays, , and Saturdays. Ms. Hercules did not get to he r dialysis therapy on Friday as her 1st grandchild was born (granddaughter) and wanted to be there for the . She presented to the emergency department last night with increasing shortness of kevon ath and hypertension. She has not had fevers, chills, nausea, vomiting, chest pain, shortness of kevon ath, cough, sputum production, hemoptysis, hematemesis, epistaxis, or abdominal pain. Appetite is fi ne. Energy is okay. PAST MEDICAL HISTORY: Significant for: 1. End-stage kidney failure due to autosomal dominant polycystic kidney disease. 2. Autosomal dominant polycystic kidney disease. 3. Left upper arm AV graft infection due to Haemophilus influenza, status post resection. 4. History of hepatitis C. 5. Chronic pain. 6. Hypertension. 7. Gastroesophageal reflux disease. 8. History of a left nephrectomy in April 2018. 9. section. CURRENT MEDICATIONS: Include: 1. Ancef 1 g daily. 2. Tylenol. 3. Lokelma 10 g t.i.d. 4. Phenergan. FAMILY HISTORY: Positive for polycystic kidney disease. SOCIAL HISTORY: She lives with her significant other, but she does call him her . Has a hist ory of polysubstance abuse in the past. Lives independently. REVIEW OF SYSTEMS: A complete 12-point review of systems was performed with pertinent positives and negatives as per the previous sections. PHYSICAL EXAMINATION: VITAL SIGNS: Blood pressure 127/84, pulse 90s to low 100s, respirations 19, t emp 36.7 degrees. Urine output minimal (100 cc). GENERAL: She is awake, alert, cooperative, and is in no acute distress. HEENT: Pupils are reactive to light. Extraocular movements are intact. Muc ous membranes are moist. NECK: No lymphadenopathy or thyromegaly. She does have JVD. HEART: Regu lar with a grade 1/6 to 2/6 systolic murmur. LUNGS: No rhonchi or wheezes. She has rales in the ba ses. ABDOMEN: Bowel sounds are positive, nontender, nondistended. EXTREMITIES: Has a tunneled hem odialysis catheter in her right groin, she has what looks like a cellulitis on her right ankle. She has multiple tattoos. LYMPH: No palpable lymphadenopathy. MUSCULOSKELETAL: No effusions or tender ness. LABORATORY: WBC 12.1, hemoglobin 8.7, hematocrit 22, platelet count 237,000. INR 1.22. Serum sodiu m 132, potassium 6, chloride 93, CO2 16, BUN 89, creatinine 12.5, glucose 78, calcium 8.2. Urinalysi s: Specific gravity of 1.008, pH 9, +2 protein, +1 blood, 1 to 3 WBCs, trace bacteria. IMPRESSION(S): 1. End-stage kidney failure on 3 times weekly dialysis, she missed dialysis on Friday for the anu h of her granddaughter. 2. Hyperkalemia. She received her Lokelma 10 g t.i.d. Potassium this morning is reasonable at 6. 3. Metabolic acidosis due to her kidney failure. 4. Anemia of chronic kidney disease. 5. Poorly functioning right groin tunneled hemodialysis catheter, we did give her some tPA through t he night and it seems to be working fine this morning. 6. Cellulitis, right ankle, on Ancef. PLAN: 1. Plan on doing dialysis today. 2. Continue IV antibiotics. 3. We may be able to stop the Lokelma after dialysis today. Continue her other therapies. Thank you for allowing me to participate in the care of your patient, Denny Hercules. If there are an y questions, please do not hesitate to contact us. We will be following along with you. /[id number]/MODL
[2018-07-14] MEDS: MIDODRINE HCL 10 MG TAB PO SCH ×2 (13:12→15:38)
[2018-07-14] MEDS: oxyCODONE IR 5 MG TAB PO PRN ×3 (13:12→20:06)
[2018-07-14] MEDS: CALCIUM ACETATE 667 MG CAP PO SCH ×2 (13:13→16:07)
[2018-07-14] MEDS: SEVELAMER HCL 800 MG TAB PO SCH ×2 (13:13→16:07)
[2018-07-14] MEDS: amLODIPine BESYLATE 5 MG TAB PO SCH (14:12)
--- NOTE | 2018-07-14 14:42 | HOSPPROG ---
Hospitalist Progress Note Assessment/Plan: 42 yo f w esrd, access issues, herre w access issues and RLE cellulitis cellulitis: warm and tender cefazolin access issues: groin line appears to be wokring hyperkalemia: resolved w HD and sodium zirconium pain: continue oral meds proph: anticoagulated dispo: inpt Subjective: case d/w dr huynh, dr watt Objective: Vital Signs Temp Pulse Resp BP Pulse Ox 36.7 C 99 19 122/69 H 96 07/14/18 06:54 07/14/18 14:35 07/14/18 06:54 07/14/18 14:35 07/14/18 06:54 07/13/18 07/14/18 07/15/18 05:59 05:59 05:59 Intake Total 1150 Balance 1150 PT 14.9 SEC (12.0-15.0) 07/13/18 16:08 INR 1.22 (0.83-1.16) H 07/13/18 16:08 - Physical Exam Constitutional: no apparent distress, appears nourished Eyes: PERRL, anicteric sclera Ears, Nose, Mouth, Throat: moist mucous membranes, hearing normal Cardiovascular: regular rate and rhythym, no murmur, rub, or gallop Respiratory: no respiratory distress, no rales or rhonchi Gastrointestinal: normoactive bowel sounds, soft, non-tender abdomen Genitourinary: no bladder fullness, No mustafa in urethra Skin: warm, normal color Musculoskeletal: other (R lateral lower leg w erythema and warmth. 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
--- NOTE | 2018-07-14 15:12 | PDMN ---
Medical Necessity Medical necessity: Pt meets IP criteria per & MCG M-515; est los >2 mn for eval/tx of dysfunctioning hemodialysis catheter w/hyperkalemia, tachycardia, metabolic encephalopathy & RLE cellulitis; requiring further cardiac monitoring , dialysis w/possible IR consult to replace catheter & IV abx; hx ESRD; per order 07/13/18
[2018-07-14] MEDS: APIXABAN 2.5 MG TAB PO SCH (15:13)
--- NOTE | 2018-07-14 15:46 | ASMTCMCOM ---
CM Note CM Note Notes: 07/14/2018 Case Management Note Discussed pt during rounds this morning. Pt admitted for hyperkalemia, renal failure and cellulitis. Pt likely to d/c on oral antibiotics. There are no therapy evals ordered today. Met w/pt; confirmed with pt that dialysis continues at [facility] [phone] on Friday, , Friday. Pt is open with [facility] RN. Faxed updates in allscripts and notified by phone. Case Management d/c poc: home resuming [facility] RN and dialysis. Case Management to follow. Date Signed: 07/14/2018 03:45 PM Electronically Signed By:Berenice Rocha RN
[2018-07-14] MEDS ORDERED: HEPARIN 50,000 UNIT/10 ML VIAL ONE (18:39)
[2018-07-14] MEDS: FUROSEMIDE 80 MG TAB PO SCH (18:40)
[2018-07-14] MEDS: PROMETHAZINE HCL 25 MG TAB PO SCH (18:40)
[2018-07-14] MEDS: FLUTICASONE NASAL 120 SPRAYS/16 GM MDI NS SCH (23:06)
[2018-07-15] MEDS: APIXABAN 2.5 MG TAB PO SCH (00:02)
[2018-07-15] MEDS: oxyCODONE IR 5 MG TAB PO PRN ×2 (05:12→09:20)
[2018-07-15] MEDS: PROMETHAZINE HCL 25 MG TAB PO SCH (05:13)
[2018-07-15] MEDS: FUROSEMIDE 80 MG TAB PO SCH (05:13)
[2018-07-15 07:11] VITALS: BP 111/83
[2018-07-15] MEDS ORDERED: ESCITALOPRAM OXALATE 10 MG TAB PO SCH (09:00)
[2018-07-15] MEDS ORDERED: PANTOPRAZOLE SODIUM 40 MG TAB PO SCH (09:00)
[2018-07-15] MEDS ORDERED: APIXABAN 5 MG TAB PO SCH (09:00)
--- NOTE | 2018-07-15 09:11 | HOSPPROG ---
Hospitalist Progress Note Assessment/Plan: 42 yo f w esrd, access issues, herre w access issues and RLE cellulitis cellulitis: warm and tender cefazolin improved po keflex on dc access issues: groin line appears to be working hyperkalemia: resolved w HD and sodium zirconium pain: continue oral meds proph: anticoagulated dispo: inpt Subjective: leg better Objective: Vital Signs Temp Pulse Resp BP Pulse Ox 36.9 C 91 18 111/83 H 96 07/15/18 07:10 07/15/18 07:10 07/15/18 07:10 07/15/18 07:10 07/15/18 07:10 07/14/18 07/15/18 07/16/18 05:59 05:59 05:59 Intake Total 1150 780 Balance 1150 780 PT 14.9 SEC (12.0-15.0) 07/13/18 16:08 INR 1.22 (0.83-1.16) H 07/13/18 16:08 - Physical Exam Constitutional: no apparent distress, appears nourished Eyes: PERRL, anicteric sclera Ears, Nose, Mouth, Throat: moist mucous membranes, hearing normal Cardiovascular: regular rate and rhythym, no murmur, rub, or gallop Respiratory: no respiratory distress, no rales or rhonchi Gastrointestinal: normoactive bowel sounds, soft, non-tender abdomen Genitourinary: no bladder fullness, No mustafa in urethra Skin: warm Musculoskeletal: full muscle strength, other (R leg cellulitis improved) Neurologic: AAOx3 Psychiatric: interacting appropriately ICD10 Worksheet Patient Problems: Problems Problem Status Onset Acute hyperkalemia Acute Cellulitis Acute End stage renal disease Acute Disorder of pancreas Active MRSA - Methicillin resistant Staphylococcus aureus infection Active MRSA - Methicillin resistant Staphylococcus aureus infection Active Metabolic acidosis Active Renal failure syndrome Active Abdominal pain Acute Altered mental status Acute Anemia Acute Arm pain Acute Chest pain Acute Chest pain Acute Complications, dialysis, catheter, mechanical Acute Dialysis complication Acute Diarrhea Acute Fever Acute Hyperkalemia Acute Hypotension Acute Opioid overdose Acute Renal failure Acute
[2018-07-15] MEDS: amLODIPine BESYLATE 5 MG TAB PO SCH (09:21)
[2018-07-15] MEDS: SEVELAMER HCL 800 MG TAB PO SCH (09:21)
[2018-07-15] MEDS: CALCIUM ACETATE 667 MG CAP PO SCH (09:22)
[2018-07-15] MEDS: FLUTICASONE NASAL 120 SPRAYS/16 GM MDI NS SCH (09:22)
--- NOTE | 2018-07-15 09:54 | PDIAF ---
- Diagnosis Diagnosis: esrd Code Status: Full Code - Medication Management Discharge Medications: electronically signed and located in the Home Medication List. - Orders Services needed: Home Care, Registered Nurse Home Care Face to Face: I certify that this patient was under my care and that I had the required [id number] encounter meeting the encounter requirements on the discharge day. My findings support the fact that the patient is homebound as defined in Home Care Face to Face Continued: CMS Chapter 7 Medicare Benefits Manual 30.1.1 , The condition of the patient is such that there exists a normal inability to leave home and consequently, leaving home would require a considerable and taxing effort. Isolation Type: None - Follow Up Care Current Providers and Referrals: SARAH LEE [Primary Care Provider] - As per Instructions
--- NOTE | 2018-07-15 09:55 | ASMTDCNOTE ---
Case Management Discharge Discharge Order Complete? Answers: Yes Patient to Obtain Answers: Independently Medications Transportation Arranged Answers: Family/Friends Faxed Final Orders Answers: Yes Notes: [facility] Agency/Facility Transfer Answers: Yes Notes: [facility] Report Printed & Faxed to Receiving Agency Discharge Comments Notes: 07/15/2018 Case Management Note Pt to discharge resuming [facility] RN and dialysis Friday, and Friday at [facility]. Notified [facility] [phone] of d/c. Date Signed: 07/15/2018 09:54 AM Electronically Signed By:Berenice Rocha RN
--- NOTE | 2018-07-15 09:56 | ASDISCHSUM ---
Discharge Information Plan Status:Home with No Needs Medically Cleared to Leave:07/15/2018 Discharge Date:07/15/2018 CM D/C Disposition:Home, Routine, Self-Care ADT D/C Disposition: Projected Discharge Date:07/15/2018 11:00 AM Transportation at D/C: Discharge Delay Reason: Follow-Up Date:07/15/2018 11:00 AM Discharge Slot: Final Diagnosis: Placement Information Referral Type:*Home Health Care Services Referral ID:[id number] Provider Name:[facility] Address 1:[address] [place] [address] Address 2: City:[place] Selection Factors: State:[place] Patient Contact Information Contact Name:DAVIDA Relationship:Other Address:[address] [place] [address] Work Phone: [facility]:[place] Alternate Phone: [facility]/Zip Code:[place] [address] Email: Financial Information Financial Class:Medicare Primary Plan Desc:MEDICARE INPATIENT Primary Plan Number:[id number] Secondary Plan Desc:[place] Secondary Plan Number:[id number] Assessment Information LACE LACE Acuity / Level of Answers: Yes Care: Did the patient have an inpatient admission? Comorbidities - select Answers: Diabetes (uncontrolled or all that apply controlled) Moderate or severe liver or renal disease Opioid dependence / Chronic pain Previous myocardial infarction # of Emergency department Answers: 5-8 visits in the last 6 months Social determinants Answers: History of substance abuse (ETOH, street drugs, prescription drugs, etc.) Mental health diagnosis (anxiety, depression, pers onality disorders, etc.) Score: 23 Date Signed: 07/14/2018 09:01 AM Electronically Signed By:Lauren Goddard [facility] CM Progress Note CM Note CM Note Notes: 07/14/2018 Case Management Note Discussed pt during rounds this morning. Pt admitted for hyperkalemia, renal failure and cellulitis. Pt likely to d/c on oral antibiotics. There are no therapy evals ordered today. Met w/pt; confirmed with pt that dialysis continues at [facility] [phone] on Friday, , Friday. Pt is open with [facility] RN. Faxed updates in [employer] and notified by phone. Case Management d/c poc: home resuming [facility] RN and dialysis. Case Management to follow. Date Signed: 07/14/2018 03:45 PM Electronically Signed By:Berenice Rocha RN Case Management Discharge Plan Note Case Management Discharge Discharge Order Complete? Answers: Yes Patient to Obtain Answers: Independently Medications Transportation Arranged Answers: Family/Friends Faxed Final Orders Answers: Yes Notes: [facility] Agency/Facility Transfer Answers: Yes Notes: [facility] Report Printed & Faxed to Receiving Agency Discharge Comments Notes: 07/15/2018 Case Management Note Pt to discharge resuming [facility] RN and dialysis Friday, and Friday at [facility]. Notified [facility] [phone] of d/c. Date Signed: 07/15/2018 09:54 AM Electronically Signed By:Berenice Rocha RN Intervention Information Intervention Type:*Incorrect Registration Date of Service:07/13/2018 09:17 AM Patient Type:Inpatient Staff Member:GRANT Prescott Courtney Hours: Discipline: Severity: Comment:
--- NOTE | 2018-07-15 10:16 | SOAPPROG ---
SOAP Progress Note Assessment/Plan: Assessment: ESRD, HD yesterday went fine, next HD tomorrow cellulitis, better on abx tunneled cath in right femoral vein, worked fine yesterday Plan: OK for dismissal, if here tomorrow, will plan on HD here would complete 2 weeks of ABX for her cellulitis, would suggest that HD unit either give 1 G Vanco 3 times weekly or, alternatively, Ancef 2G Friday and and 3 G on Friday to complete 2 weeks of therapy 07/15/18 10:13 Subjective: wants to go home no cp sob nausea or vomiting spirits good appetite and energy better Objective: Vital Signs Temp Pulse Resp BP Pulse Ox 36.9 C 91 18 111/83 H 96 07/15/18 07:10 07/15/18 07:10 07/15/18 07:10 07/15/18 07:10 07/15/18 07:10 07/14/18 07/15/18 07/16/18 05:59 05:59 05:59 Intake Total 1150 780 Balance 1150 780 PT 14.9 SEC (12.0-15.0) 07/13/18 16:08 INR 1.22 (0.83-1.16) H 07/13/18 16:08 Physical Exam - Physical Exam General Appearance: alert Neck: normal inspection Respiratory: No rhonchi, No wheezing Cardiac/Chest: regular rate, rhythm, edema, systolic murmur, No friction rub Abdomen: normal bowel sounds, non-tender, soft Skin: warm/dry, other (cellulitis R ankle looks better today) Neuro/Psych: alert, normal mood/affect, oriented x 3 ICD10 Worksheet Patient Problems: Problems Problem Status Onset Acute hyperkalemia Acute Cellulitis Acute End stage renal disease Acute Disorder of pancreas Active MRSA - Methicillin resistant Staphylococcus aureus infection Active MRSA - Methicillin resistant Staphylococcus aureus infection Active Metabolic acidosis Active Renal failure syndrome Active Abdominal pain Acute Altered mental status Acute Anemia Acute Arm pain Acute Chest pain Acute Chest pain Acute Complications, dialysis, catheter, mechanical Acute Dialysis complication Acute Diarrhea Acute Fever Acute Hyperkalemia Acute Hypotension Acute Opioid overdose Acute Renal failure Acute
--- NOTE | 2018-07-15 11:33 | GDS ---
[f rep st] DISCHARGE SUMMARY DISCHARGE DIAGNOSES: 1. Concern over right groin dialysis catheter that actually appears to be functioning normally. 2. Mild right lower extremity cellulitis. Please see admission history and physical by Dr. Addie Brady. HOSPITAL COURSE: The patient presented with poorly functioning dialysis catheter, but on the first h ospital day, when she was due for dialysis, she underwent it uneventfully. She had a painful, warm, red area on her right lateral ankle without evidence of joint involvement. She received a dose of ce fazolin with improvement. She did not have sepsis. She was afebrile. She is discharged to home. I nitially, she was going to take Keflex, however, on speaking with Nephrology, they are going to arran ge a course of outpatient antibiotics to be administered at dialysis. No change in medications other than completing a course of cefazolin. /[id number]/MODL
[2018-07-16] MEDS ORDERED: MIDODRINE HCL 10 MG TAB PO SCH (09:00)
[2018-07-16] MEDS ORDERED: diphenhydrAMINE 50 MG CAP PO SCH (09:00)
[2018-07-19] MEDS ORDERED: LISINOPRIL 20 MG TAB PO SCH (09:00)
== END 2018-07-15 11:28 | disposition home health service (06) | DRG 602 ==
LOC: EEVIPCON 15:33 → F2N 17:24 → OBSVTOIN 19:25 → F2W 20:29
PROVIDERS: ADMIT Internal Medicine; ATTEND Internal Medicine
PROC: 5A1D70Z Performance of Urinary Filtration, Intermittent, Less than 6 Hours Per Day (ICD-10-PCS; principal; 2018-07-14)
DX: L03.115 Cellulitis of right lower limb (principal); I12.0 Hypertensive chronic kidney disease with stage 5 chronic kidney disease or end stage renal disease; N18.6 End stage renal disease; E87.2 Acidosis; D63.1 Anemia in chronic kidney disease; E11.9 Type 2 diabetes mellitus without complications; B19.20 Unspecified viral hepatitis C without hepatic coma; G89.4 Chronic pain syndrome; Z99.2 Dependence on renal dialysis
CPT/HCPCS: 96365; J0610; J0690; J0696; J1170; J1200; J1644; J2765